=== PATIENT | female | born 1940 | race Caucasian/White ===

== ENCOUNTER 2023-08-07 12:38 | Outpatient (OUT) | payer MEDICARE, SELFPAY ==
--- NOTE | 2023-08-07 | MM_ITS ---
Patient Name: JULIUS TEJADA MR#: [id number] : 1940 Exam Date: 08/07/2023 Ordering Doctor: DR ARIANNA CINTRON D.O. RADIOLOGY REPORT PROCEDURE: MM TOMOSYNTHESIS SCREENING BI COMPARISON: MG MAMM SCREEN 3D DARLIN CAD, 08/06/2022. MG MAMM SCREEN DARLIN W CAD, 06/21/2020. MG MAMM SCREEN DARLIN W CAD, 06/01/2019. MG MAMM DARLIN SCRN W CAD DIG, 12/07/2013. INDICATIONS: Darlin Screening Mammogram Calculator Name NCI Breast Cancer Risk Assessment Tool 5 Year Breast Cancer Risk 1.40% Lifetime Breast Cancer Risk 1.70% Personal Breast Cancer No Personal Ovarian Cancer No Treatments None Family Cancers Mother with skin cancer at age 69; Sister with skin cancer at age 50. LOCATION: [facility] BREAST COMPOSITION: Scattered areas fibroglandular density. FINDINGS: DIAGNOSTIC CATEGORY 1--NEGATIVE. RIGHT BREAST: No significant suspicious finding. No significant change has occurred. LEFT BREAST: No significant suspicious finding. No significant change has occurred. RECOMMENDATIONS: ROUTINE MAMMOGRAM AND CLINICAL EVALUATION IN 12 MONTHS. PLEASE NOTE: A NORMAL MAMMOGRAM DOES NOT EXCLUDE THE POSSIBILITY OF BREAST CANCER. A CLINICALLY SUSPICIOUS PALPABLE LUMP SHOULD BE BIOPSIED. Dictated by: Reji Carlos M.D. on 08/08/2023 at 11:58 Approved by: Reji Carlos M.D. on 08/08/2023 at 12:02
== END 2023-08-07 12:39 | disposition home or self-care (01) ==
LOC: MAMMO 12:44
PROVIDERS: PCP Internal Medicine; Visit Provider Internal Medicine
DX: Z12.31 Encounter for screening mammogram for malignant neoplasm of breast (principal); Z80.8 Family history of malignant neoplasm of other organs or systems
CPT/HCPCS: 77063; 77067

== ENCOUNTER 2024-09-13 12:26 | Emergency (ER) | payer MEDICARE, SELFPAY ==
--- OUTSIDE RECORDS SUMMARY | 2024-09-13 12:41 | XMS_ITS | CCD ---
Author Organization [facility] Inform ion Partnership [facility] Care Team Providers Care Cheese Supervisor Name Role Phone Ignacio Cintron Primary Care Provider [phone] Kristie Mcarthur Attending Unavailable Sameer Morales Referring Unavailable VALONE , IGNACIO Joshi Primary Care Unavailabl e Wirikki, Sameer Attending Unavailable Sameer Morales Referring Unavailable VALONE , IGNACIO Joshi Primary Care Unavailabl e Sameer Morales Admitting Unavailable Sameer Morales Attending Unavailable ABDULAZIZ COLUNGA, IGNACIO Joshi Referring Unavailabl e VALANA LILIA COLUNGA, IGNACIO Joshi Primary Care Unavailabl e VALONE , IGNACIO Joshi Primary Care UnavailJOANNE Galvez Attending Unavailable Sameer Morales Admitting Unavailable Andrew, Sameer Attending Unavailable Sameer Morales Referring Unavailable SUZIONE , IGNACIO Joshi Primary Care Unavailabl e VALONE , IGNACIO Joshi Primary Care Unavailabl NAVJOT Burk Attending Unavailable Ignacio Cintron DO Primary Care Provider Ignacio Cintron DO Primary Care Provider [phone] ABDULAZIZ, DR PIERRE Admitting Unavailable ABDULAZIZ, DR PIERRE Attending Unavailable VALANA LILIA, DR PIERRE Primary Care Unavailable VALANA LILIA, DR PIERRE Consulting Unavailable JAGDEEP, DR BEN Goins Consulting Unavailable Ignacio Cintron DO Primary Care Provider [phone] IGNACIO CINTRON Primary Care Unavailable JUAN FRANCISCO HERMOSILLO Attending Unavailable IGNACIO CINTRON Primary Care Unavailable VALERIY CALZADA Attending Unavailable IGNACIO CINTRON Primary Care Unavailable DANNY ARAUJO Attending Unavailable IGNACIO CINTRON Primary Care Unavailable MARK HILLS Attending Unavailable IGNACIO CINTRON Primary Care Unavailable DAYO VITALE Admitting Unavailable DAYO VITALE Attending Unavailable JENNIFER FERRARA Consulting Unavailable DANIELA OCONNOR Consulting Unavailable IGNACIO CINTRON Primary Care Unavailable NATALIE NGUYEN Attending Unavailable Allergies Allergy Classification Reported Allergen(s) Allergy Type Date of Onset Reaction(s) Facility (12 sources) Sulfonamides (Antibiotic) Propensity to adverse reactions to drug 6 Nausea Only [facility] Work Phone: (7 sources) Sulfonamides (Antibiotic) Propensity to adverse reactions to drug 6 Nausea Only [facility] [employer] [facility] (1 source) Sulfonamides (Antibiotic) Drug allergy (disorder) [address] [facility] Repository (2 sources) Acetaminophen / HYDROcodone Drug Allergy 4 Nausea And Vomiting, Dizziness or Vertigo [facility] Medications Current Medications Medication Drug Class(es) Dates Sig (Normalized) Sig (Original) acetaminophen 325 mg oral tablet (15 sources) Start: 07-14-2024 take 2 tablets by mouth every six hours as needed for pain acetaminophen (TYLENOL) 325 MG tablet Take 2 tablets by mouth every 6 hours as needed for Pain or Fever 07/14/2024 Active Start: 07-08-2024 acetaminophen (TYLENOL) tablet 650 mg Start: 11-28-2022 acetaminophen (TYLENOL) tablet 650 mg take 1 tablet by nohemi th every four hours acetaminophen 325 MG tablet Take 325 mg by mouth every 4 hours. 0 Active Acetaminophen / HYDROcodone (7 sources) Opioid Agonist Start: 07-06-2024 This order is for a take home starter pack of medication. Please document Furnish to patient on the OCT. Start: 07-06-2024 End: 07-06-2024 take 1 tablet by mouth every twenty-four hours 1 tablet, Oral, ONCE, 1 dose, On 07/06/24 at 1930, Maximum dose of acetaminophen is 4000 mg from all sources in 24 hours. Start: 07-06-2024 End: 07-09-2024 HYDROcodone-acetaminophen (N ORCO) 5-325 MG per tablet Indications: Closed fracture of head of right humerus, initial encounter Take 1 tablet by mouth every 6 hours as needed for Pain for up to 3 days. Intended supply: 3 days. Take lowest dose possible to manage pain Max Daily Amount: 4 tablets 12 tablet 07/06/2024 07/08/2024 Discontinued (Side effects) Start: 10-05-2019 End: 10-12-2019 take 1 tablet by mouth every six hours as needed for pain hydroCODone-acetaminophen 5-325 MG tablet Indications: Carpal tunnel syndrome on right Take 1 tablet by mouth every 6 hours as needed for Moderate Pain for up to 7 days. 28 tablet 0 10/05/2019 Active acetaminophen 325 mg / oxyCODONE hydrochloride 5 mg oral tablet (4 sources) Opioid Agonist Start: 02-09-2019 End: 02-16-2019 take 1 tablet by mouth every six hours as needed oxyCODONE-acetaminophen 5-325 MG Tab per tablet Indications: Left carpal tunnel syndrome Take 1 tablet by mouth every 6 hours as needed for up to 7 days. 12 tablet 0 02/09/2019 Active End: 07-08-2021 take 1 tablet by mouth every four hours as needed for pain oxyCODONE-acetaminophen (PERCOCET) 2.5-3 25 MG per tablet Take 1 tablet by mouth every 4 hours as needed for Pain 0 07/08/2021 Discontinued (LIST CLEANUP) acyclovir 800 mg oral tablet (1 source) Herpesvirus Nucleoside Analog DNA Polymerase Inhibitor, Herpes Simplex Virus Nucleoside Analog DNA Polymerase Inhibitor, Herpes Zoster Virus Nucleoside Analog DNA Polymerase Inhibitor Start: 07-08-2021 End: 07-18-2021 take 1 tablet by mouth five times daily acyclovir (ZOVIRAX) 800 MG tablet Take 1 tablet by mouth 5 times daily for 10 days 50 tablet 0 07/08/2021 07/18/2021 Active amLODIPine 5 mg oral tablet (3 sources) Dihydropyridine Calcium Channel Perico Start: 07-10-2024 take 1 tablet by mouth once daily amLODIPine (NORVASC) 5 MG tablet Take 1 tablet by mouth daily 07/14/2024 Active benzocaine-menthol (CEPACOL) 15-4 MG LOZG lozenge (1 source) Start: 12-21-2023 End: 12-26-2023 benzocaine-ment hol (CEPACOL) 15-4 MG LOZG lozenge Take 1 lozenge by mouth 3 times daily as needed for Sore Throat (Sore throat) 15 lozenge 0 12/21/2023 12/26/2023 Active calcium citrate 1500 mg / cholecalciferol 250 unt oral tablet (8 sources) Vitamin D take 1 tablet by mouth once daily at breakfast calcium citrate-vitamin D (CITRICAL + D) 315-250 MG-UNIT TABS per tablet Take 1 tablet by mouth daily (with breakfast) Active cephalexin 500 mg oral capsule (2 sources) Cephalosporin Antibacterial Start: 10-05-2019 End: 10-12-2019 take 1 capsule by mouth every twelve hours cephALEXin 500 MG capsule Take 1 capsule by mouth every 12 hours for 7 days. 14 capsule 0 10/05/2019 10/12/2019 Active Start: 02-09-2019 End: 02-16-2019 take 1 capsule by mouth every twelve hours cephALEXin 500 MG Cap capsule Take 1 capsule by mouth every 12 hours for 7 days. 14 capsule 0 02/09/2019 02/16/2019 Active diclofenac sodium 0.01 mg/mg topical gel (12 sources) Nonsteroidal Anti-inflammatory Drug Start: 07-12-2024 diclofenac sodium (VOLTAREN) 1 % GEL Apply 2 g topically 2 times daily 07/14/2024 Active Diclofenac Sodiu m (VOLTAREN) 1 % Gel gel Place on skin. 0 Active DULoxetine 20 mg delayed release oral capsule (19 sources) Serotonin and Norepinephrine Reuptake Inhibitor Start: 07-08-2024 take 1 capsule by mouth once daily 40 mg, Oral, Nightly, First dose on Sat07/08/24 at 2100, Until Discontinued, Do not crush or break. May add contents of capsule to apple juice or apple sauce, but not chocolate., On hold since Sat07/10/2024 at 0720 until manually unheld Start: 11-28-2022 DULoxetine (CY MBALTA) extended release capsule 40 mg End: 07-14-2024 take 2 capsules by mouth once daily at bedtime DULoxetine (CYMBALTA) 20 MG extended release capsule Take 2 capsules by mouth at bedtime Patient takes 40mg. 2 capsules daily 07/14/2024 Discontinued (Stop Taking at Discharge) take 1 capsule by [facility] once daily duloxetine [address] Particles capsule DR Take 60 mg by mouth daily. 0 Active icosapent ethyl 1000 mg oral capsule (2 sources) Start: 11-28-2022 take 1 capsule by mouth once daily 1 capsule, Oral, DAILY, First dose on Sat11/28/22 at 0900 ondansetron (ZOFRAN-ODT) disintegrating tablet 4 mg (2 sources) Start: 07-08-2024 ondansetron (Z OFRAN-ODT) disintegrating tablet 4 mg Start: 11-28-2022 ondansetron (Z OFRAN-ODT) disintegrating tablet 4 mg polyethylene glycol 3350 [id number] mg powder for oral solution (4 sources) Osmotic Laxative Start: 07-08-2024 End: 08-13-2024 take 1 dose by mouth once daily as needed for constipation polyethylene glycol (GLYCOLAX) 17 g packet Take 1 packet by mouth daily as needed for Constipation 07/14/2024 08/13/2024 Active Start: 11-28-2022 17 g, Oral, DA HARMAN PRN, Starting on Sat11/28/22 at 0005, Until Discontinued, Constipation First line therapy for constipation predniSONE 10 mg oral tablet (1 source) Start: 07-14-2024 End: 07-28-2024 take 3 tablets by mouth twice daily, then take 2 tablets by mouth twice daily, then take 1 tablet by mouth twice daily, then take 1 tablet by mouth once daily predniSONE (DELTASONE) 10 MG tablet Take 3 tablets by mouth 2 times daily for 3 days, THEN 2 tablets 2 times daily for 3 days, THEN 1 tablet 2 times daily for 3 days, THEN 1 tablet daily for 5 days. 07/14/2024 07/28/2024 Active sodium chloride 1000 mg oral tablet (15 sources) Start: 07-14-2024 take 2 tablets by mouth twice daily at mealtime sodium chloride 1 g tablet Take 2 tablets by mouth 2 times daily (with meals) 07/14/2024 Active Start: 07-11-2024 2 g, Oral, 2 T IMES DAILY WITH MEALS, First dose on Sat07/11/24 at 0800, Until Discontinued Start: 07-10-2024 IntraVENous, a t 5-250 mL/hr, PRN, if patient receiving piggyback infusions and maintenance fluids are not ordered, Starting on Sat07/10/24 at 1048, For piggyback infusion, administer at same rate as piggyback for a total of 25 mL. Enter 25 mL into dose field and piggyback rate into rate field of order. If piggyback is infusing at a rate less than 100 mL/hr, enter 25 mL into dose field and 100 mL/hr into rate field of order. Start: 07-10-2024 End: 07-11-2024 50 mL/hr, IntraVENous, BLANCA NUOUS, Starting on Sat07/10/24 at 1115, Until 07/11/24 at 0743, For rates greater than 100 mL/hr, CENTRAL LINE/PICC LINE administration required. Goal serum Na+ = 121 to 123. Stop once sodium at 123. Notify physician and HOLD infusion if sodium increases more than 4 mEq/L (4 mmol/L) over 2 hours OR 8-10 mEq/L (8-10 mmol/L) over 24 hours OR if serum Na+ goal is exceeded. Start: 07-10-2024 5-40 mL, Intra VENous, EVERY 12 HOURS SCHEDULED (2 times per day), First dose on Sat07/10/24 at 1115, Until Discontinued, For Line Patency: Peripheral IV = 5 mL; Midline or Central Line = 10 mL/lumen. If following IV push medication, administer flush at same rate as the IV push. Flush volume is determined by type of infusion therapy being given. For non-viscous solutions use: Peripheral IV = 5 mL Midline or Central Line = 10 mL/lumen For viscous solutions (i.e. blood components, parenteral nutrition, contrast media, or after obtaining blood sample) use: Peripheral IV = 10 mL Midline or Central Line = 20 mL/lumen Start: 07-10-2024 5-40 mL, Intra VENous, PRN, Starting on Sat07/10/24 at 1048, Until Discontinued, Line Care, After every IV line use, For Line Patency: Peripheral IV = 5 mL; Midline or Central Line = 10 mL/lumen. If following IV push medication, administer flush at same rate as the IV push. Flush volume is determined by type of infusion therapy being given. For non-viscous solutions use: Peripheral IV = 5 mL Midline or Central Line = 10 mL/lumen For viscous solutions (i.e. blood components, parenteral nutrition, contrast media, or after obtaining blood sample) use: Peripheral IV = 10 mL Midline or Central Line = 20 mL/lumen Start: 07-08-2024 Start: 07-08-2024 End: 07-10-2024 IntraVENous, at 75 mL/hr, CONTINUOUS, Starting on Celi 07/09/24 at 1445, For 48 hours, Complete last bag that is running at 24 hours and then saline lock IV Start: 07-08-2024 10 mL, IntraVE Nous, EVERY 12 HOURS SCHEDULED (2 times per day), First dose on Sat07/08/24 at 1130, Until Discontinued Start: 07-08-2024 1,000 mL (16.7 mL/kg), IntraVENous, at 495.9 mL/hr, Administer over 121 Minutes, ONCE, On Sat07/08/24 at 0615, For 1 dose, For adult patients weighing > 55 kg (120 lbs.) and less than Start: 11-28-2022 take 1 dose intraven ously twice daily 5-40 mL, IntraVENous, EVERY 12 HOURS SCHEDULED (2 times per day), First dose on Sat11/28/22 at 0900, Until Discontinued For Line Patency: Peripheral IV = 5 mL; Midline or Central Line = 10 mL/lumen. If following IV push medication, administer flush at same rate as the IV push. Flush volume is determined by type of infusion therapy being given. For non-viscous solutions use: Peripheral IV = 5 mL Midline or Central Line = 10 mL/lumen For viscous solutions (i.e. blood components, parenteral nutrition, contrast media, or after obtaining blood sample) use: Peripheral IV = 10 mL Midline or Central Line = 20 mL/lumen Start: 11-28-2022 take 25 mL intraveno usly every hour as needed 25 mL, IntraVENous, at 100 mL/hr, PRN, If patient receiving piggyback infusions without ordered maintenance IV fluids or with frequent/long duration piggyback infusions, Starting on Sat11/28/22 at 0005 Administer at the same rate as the piggyback being infused. Start: 11-28-2022 take 5-40 mL intrave nously once as needed 5-40 mL, IntraVENous, PRN, Starting on Sat11/28/22 at 0005, Until Discontinued, Line Care, After every IV line use For Line Patency: Peripheral IV = 5 mL; Midline or Central Line = 10 mL/lumen. If following IV push medication, administer flush at same rate as the IV push. Flush volume is determined by type of infusion therapy being given. For non-viscous solutions use: Peripheral IV = 5 mL Midline or Central Line = 10 mL/lumen For viscous solutions (i.e. blood components, parenteral nutrition, contrast media, or after obtaining blood sample) use: Peripheral IV = 10 mL Midline or Central Line = 20 mL/lumen Completed/Discontinued Medications Medication Drug Class(es) Dates Sig (Normalized) Sig (Original) aluminum hydroxide 40 mg/ml / magnesium hydroxide 40 mg/ml / simethicone 4 mg/ml oral suspension (1 source) Start: 12-19-2023 End: 12-19-2023 aluminum & magnesium hydroxide-simethi cone (MAALOX) 200-200-20 MG/5ML suspension 15 mL amoxicillin 875 mg / clavulanate 125 mg oral tablet (3 sources) Penicillin-class Antibacterial Start: 10-12-2018 End: 10-12-2018 amoxicillin-clavu lanate (AUGMENTIN) 875-125 MG per tablet Start: 10-12-2018 End: 10-12-2018 amoxicillin-clavulanate (AUG MENTIN) 875-125 MG per tablet 1 tablet Start: 10-12-2018 End: 10-19-2018 take 1 tablet by mouth every twelve hours amoxicillin-clavulanate 875-125 MG Tab tablet Take 1 tablet by mouth every 12 hours for 7 days. 14 tablet 0 10/12/2018 10/19/2018 Active aspirin 81 mg chewable tablet (20 sources) Platelet Aggregation Inhibitor, Nonsteroidal Anti-inflammatory Drug Start: 07-08-2024 take 81 mg by mouth once daily 81 mg, Oral, DAILY, First dose on Sat07/08/24 at 1130, Until Discontinued Start: 11-28-2022 take 81 mg by mouth once daily 81 mg, Oral, DAILY, First dose on Sat11/28/22 at 0900, Until Discontinued Start: 11-27-2022 aspirin chewab le tablet 324 mg take 1 tablet by nohemi th once daily aspirin 81 MG tablet Take 1 tablet by mouth daily Active aspirin 81 MG Ch ew Tab chewable tablet Chew 81 mg daily. 0 Active bacitracin 0.5 unt/mg topical ointment (1 source) Start: 10-12-2018 End: 10-12-2018 bacitracin ointment 1 Application benzocaine 6 mg / menthol 10 mg oral lozenge (1 source) Standardized Chemical Allergen Start: 12-21-2023 End: 12-21-2023 Benzocaine-Menthol (CEPACOL) 1 lozenge 2 ml bumetanide 0.25 mg/ml injection (1 source) Loop Diuretic Start: 07-10-2024 End: 07-10-2024 1 mg, IntraVENous, ONCE, 1 dose, On Sat07/10/24 at 1115 calcium carbonate 1250 mg / cholecalciferol 200 unt oral tablet (1 source) Vitamin D Start: 07-09-2024 take 1 tablet by mouth once daily at mealtime 1 tablet, Oral, DAILY WITH BREAKFAST, First dose on Sat07/09/24 at 0800, Until Discontinued, Administer, preferably with food, 2 hours before or after other medications. 100 ml calcium gluconate 20 mg/ml injection (1 source) Start: 07-08-2024 End: 07-08-2024 2,000 mg, IntraVENous, at 50 mL/hr, Administer over 120 Minutes, ONCE, On Sat07/08/24 at 1000, For 1 dose docosahexaenoic acid 1000 mg / omega-3 acid ethyl esters (retirement) 300 mg delayed release oral capsule (3 sources) End: 11-27-2022 take 2000 mg by mouth once daily [place]-3 Fatty Acids (FISH OIL) 1000 MG CPDR Take 2,000 mg by mouth daily 0 11/27/2022 Discontinued doxycycline hyclate 100 mg oral capsule (2 sources) Tetracycline-class Drug Start: 08-08-2024 End: 08-08-2024 100 mg, Oral, ONCE, 1 dose, On Sat08/08/24 at 1945, Antimicrobial Indications: Pneumonia (Nosocomial), Pnuemonia (Nosocomial) duration of therapy: Other, Other Pneumonia (Nosocomial) Duration: 1, This medication can interact with tube feedings (TF)- obtain MD order to manage. Recommend holding TF for 1 h before and 2 h after dose. Take 1 h before or 2 h after dairy, calcium, iron, magnesium, aluminum or zinc. Start: 08-08-2024 End: 08-18-2024 take 1 tablet by mouth twice daily doxycycline hyclate (VIBRA-TABS) 100 MG tablet Take 1 tablet by mouth 2 times daily for 10 days 20 tablet 08/08/2024 08/18/2024 Active 0.4 ml enoxaparin sodium 100 mg/ml prefilled syringe (2 sources) Low Molecular Weight Heparin Start: 07-08-2024 inject 40 mg by subcutaneous injection once daily 40 mg, SubCUTAneous, DAILY, First dose on Sat07/08/24 at 1130, Until Discontinued, Indication of Use: Prophylaxis-DVT/PE Start: 11-28-2022 inject 40 mg by subc utaneous injection once daily 40 mg, SubCUTAneous, DAILY, First dose on Sat11/28/22 at 0900, Until Discontinued Indication of Use: Prophylaxis-DVT/PE EPINEPHrine 0.01 mg/ml / lidocaine hydrochloride 10 mg/ml injectable solution (1 source) Antiarrhythmic, alpha-Adrenergic Agonist, beta-Adrenergic Agonist, Catecholamine, Amide Local Anesthetic Start: 10-05-2019 End: 10-05-2019 lidocaine-epinephrine 1%-1:[id number] injection ezetimibe 10 mg oral tablet (20 sources) Dietary Cholesterol Absorption Inhibitor Start: 07-08-2024 take 5 mg by mouth once daily in the morning 5 mg, Oral, EVERY MORNING, First dose on Sat07/08/24 at 1130, Until Discontinued Start: 11-28-2022 take 5 mg by mouth o nce daily in the morning 5 mg, Oral, EVERY MORNING, First dose on Sat11/28/22 at 0900, Until Discontinued take 0.5 tablet by m outh once daily in the morning ezetimibe (ZETIA) 10 MG tablet Take 0.5 tablets by mouth every morning Active take 5 mg by mouth o nce daily in the morning ezetimibe (ZETIA) 10 MG tablet Take 5 mg by mouth every morning 0 Active famotidine 20 mg oral tablet (1 source) Histamine-2 Receptor Antagonist Start: 11-28-2022 take 20 mg by mouth once daily 20 mg, Oral, DAILY, First dose on Sat11/28/22 at 0900, Until Discontinued fexofenadine hydrochloride 180 mg oral tablet (11 sources) Histamine-1 Receptor Antagonist End: 07-08-2021 take 1 tablet by mouth once daily in the morning fexofenadine (MATT) 180 MG tablet Take 180 mg by mouth every morning 0 07/08/2021 Discontinued (LIST CLEANUP) fluticasone propionate 0.05 mg/actuat metered dose nasal spray (8 sources) Corticosteroid End: 10-05-2019 fluticasone 50 MCG/ACT Suspension nasal spray 2 sprays by Nasal route daily as needed. 0 10/05/2019 Discontinued (Stop Taking at Discharge) gentamicin (GARAMYCIN) 120 mg in sodium chloride 0.9 % 1,000 mL irrigation solution (2 sources) Start: 10-05-2019 End: 10-05-2019 gentamicin (GARAMYCIN) 120 mg in sodium chloride 0.9 % 1,000 mL irrigation solution Start: 02-09-2019 gentamicin (GA RAMYCIN) 120 mg in sodium chloride 0.9 % 1,000 mL irrigation solution 500 ml glucose 50 mg/ml / potassium chloride 0.02 meq/ml / sodium chloride 4.5 mg/ml injection (1 source) Start: 07-08-2024 End: 07-09-2024 IntraVENous, at 75 mL/hr, CONTINUOUS, Starting on Sat07/08/24 at 1130, For 24 hours, Complete last bag that is running at 24 hours and then saline lock IV ibuprofen 600 mg oral tablet (3 sources) Nonsteroidal Anti-inflammatory Drug Start: 11-19-2015 End: 11-28-2022 take 1 tablet by mouth three times daily at mealtime ibuprofen (ADVIL;MOTRIN) 600 MG tablet Take 1 tablet by mouth 3 times daily (with meals) for 7 days 20 tablet 0 11/19/2015 11/28/2022 Discontinued (Stop Taking at Discharge) iopamidol (ISOVUE-370) 76 % injection 75 mL (2 sources) Start: 08-08-2024 End: 08-08-2024 take 1 dose intravenously once 75 mL, IntraVENous, IMG ONCE PRN, 1 dose, Starting on 08/08/24 at 1853, Until 08/08/24 at 1854, Other Start: 07-08-2024 End: 07-08-2024 take 1 dose intravenously once 75 mL, IntraVENous, IMG ONCE PRN, 1 dose, Starting on Sat07/08/24 at 0747, Until Sat07/08/24 at 0814, Other 1 ml ketorolac tromethamine 15 mg/ml cartridge (2 sources) Nonsteroidal Anti-inflammatory Drug, Cyclooxygenase Inhibitor Start: 07-13-2024 End: 07-13-2024 15 mg, IntraVENous, ONCE, 1 dose, On Sat07/13/24 at 0400, Do not administer for more than 5 days. Start: 07-08-2024 End: 07-08-2024 15 mg, IntraVENous, ONCE, 1 dose, On Sat07/08/24 at 0630, Do not administer for more than 5 days. labetalol hydrochloride 5 mg/ml injectable solution (1 source) beta-Adrenergic Perico Start: 07-08-2024 End: 07-08-2024 10 mg, IntraVENous, ONCE, 1 dose, On Sat07/08/24 at 0815 levothyroxine sodium 0.125 mg oral tablet (20 sources) l-Thyroxine Start: 11-28-2022 take 125 ug by mouth once daily in the morning 125 mcg, Oral, EVERY MORNING, First dose on Sat07/08/24 at 1130, Until Discontinued, Tube feeding (TF) interaction, obtain physician order to manage, recommend holding TF for 30 minutes before and after dose. take 0.5 tablet by mouth once Le vothyroxine Sodium (LEVOTHROID PO) Take 125 mg by mouth. 1 tablet X 5 days/week (Sat-Sat.). 1/2 Tablet X 2 days/week (Sat & Sat) 0 Active Levothyroxine So dium (LEVOTHROID PO) Take 125 mg by mouth. 125 every & , 1/2 on Saturday, Saturday, Saturday, Saturday & Saturday 0 Active Levothyroxine So dium (LEVOTHROID PO) Take 125 mg by mouth. 125 every & , 1/2 on Saturday, Saturday, Saturday, Saturday & Saturday Active lidocaine hydrochloride 20 mg/ml mucous membrane topical solution (3 sources) Antiarrhythmic, Amide Local Anesthetic Start: 12-19-2023 End: 12-19-2023 lidocaine viscous hcl (XYLOCAINE) 2 % solution 15 mL Start: 12-21-2019 End: 12-22-2019 lidocaine (LIDODERM) 5 % pat ch 1 patch LORazepam 0.5 mg oral tablet (1 source) Benzodiazepine Start: 11-28-2022 End: 11-28-2022 LORazepam (ATIVAN) tablet 0.5 mg losartan potassium 50 mg oral tablet (4 sources) Angiotensin 2 Receptor Perico Start: 11-28-2022 take 100 mg by mouth once daily in the morning 100 mg, Oral, EVERY MORNING, First dose on Sat11/28/22 at 0900, Until Discontinued End: 11-28-2022 take 1 tablet by mouth once daily in the morning losartan (COZAAR) 100 MG tablet Take 100 mg by mouth every morning 0 11/28/2022 Discontinued (Stop Taking at Discharge) Magic Mouthwash (MIRACLE MOUTHWASH) (3 sources) Start: 07-08-2021 End: 11-27-2022 Magic Mouthwash (MIRACLE MOUTHWASH) Swish and spit 5 mLs 4 times daily as needed for Irritation 240 mL 0 07/08/2021 11/27/2022 Discontinued Start: 07-08-2021 Magic Mouthwas h (MIRACLE MOUTHWASH) Swish and spit 5 mLs 4 times daily as needed for Irritation 240 mL 0 07/08/2021 Active 50 ml magnesium sulfate 40 mg/ml injection (1 source) Start: 07-08-2024 End: 07-08-2024 2,000 mg, IntraVENous, at 25 mL/hr, Administer over 2 Hours, ONCE, On Sat07/08/24 at 0745, For 1 dose, Recommended infusion rate not to exceed 1,000 mg (milligrams) per hour. meclizine hydrochloride 25 mg oral tablet (9 sources) Antiemetic Start: 07-08-2024 take 12.5 mg by mouth twice daily 12.5 mg, Oral, 2 times daily, First dose on Sat07/08/24 at 1130, Until Discontinued Start: 08-12-2022 End: 08-12-2022 meclizine (ANTIVERT) tablet 25 mg Start: 08-12-2022 End: 08-22-2022 take 1 tablet by mouth three times daily as needed for dizziness meclizine (ANTIVERT) 12.5 MG tablet Take 1 tablet by mouth 3 times daily as needed for Dizziness 30 tablet 0 08/12/2022 08/22/2022 Active End: 07-08-2021 take 25 mg by mouth four times daily as needed meclizine (ANTIVERT) 25 MG CHEW Take 25 mg by mouth 4 times daily as needed 0 07/08/2021 Discontinued (LIST CLEANUP) methylPREDNISolone sodium succ (SOLU-MEDROL) 125 mg in sterile water 2 mL injection (1 source) Start: 07-13-2024 End: 07-13-2024 125 mg, IntraVENous, ONCE, On Sat07/13/24 at 0830, For 1 dose, Reconstitute 125 mg vial with 2 mL diluent. 24 hr metoprolol succinate 100 mg extended release oral tablet (2 sources) beta-Adrenergic Perico Start: 07-08-2024 100 mg, Oral, DAILY, First dose on Sat07/08/24 at 1130, Until Discontinued, Substituted for nebivolol (BYSTOLIC) Start: 06-23-2019 End: 06-23-2019 metoprolol (LOPRESSOR) injec tion 5 mg montelukast 10 mg oral tablet (12 sources) Leukotriene Receptor Antagonist Start: 11-28-2022 take 10 mg by mouth once daily 10 mg, Oral, NIGHTLY, First dose on Sat07/08/24 at 2100, Until Discontinued montelukast 5 MG Chew Tab chewable tablet Chew 5 mg every evening at 6 PM. 0 Active 1 ml morphine sulfate 2 mg/ml cartridge (2 sources) Opioid Agonist Start: 07-08-2024 End: 07-08-2024 take 1 dose by mouth every hour 2 mg, IntraVENous, ONCE, 1 dose, On Sat07/08/24 at 0845, If oral and IV narcotics ordered, use oral first and only use IV if oral is ineffective or cannot take oral. Do Not give oral and IV within 1 hour of each other unless specifically ordered. Start: 07-06-2024 End: 07-06-2024 take 1 dose by mouth every hour 2 mg, IntraVENous, ONCE, 1 dose, On Sat07/06/24 at 1730, If oral and IV narcotics ordered, use oral first and only use IV if oral is ineffective or cannot take oral. Do Not give oral and IV within 1 hour of each other unless specifically ordered. nebivolol 10 mg oral tablet (20 sources) Start: 11-28-2022 take 10 mg by mouth once daily in the morning 10 mg, Oral, EVERY MORNING, First dose on Sat11/28/22 at 0900, Until Discontinued Please select a reason the therapeutic interchange was not accepted: Lack of Response to Alternative take 1 tablet by mouth once eva y nebivolol (BYSTOLIC) 5 MG Tab Take 5 mg by mouth daily. 0 Active Nebivolol HCl (B YSTOLIC) 20 MG Tab Take by mouth. 0 Active nitroglycerin 0.4 mg sublingual tablet (1 source) Nitrate Vasodilator Start: 11-28-2022 0.4 mg, SubLINGual, EVERY 5 MIN PRN, 3 doses, Starting on Sat11/28/22 at 0005, Until Discontinued, Chest pain Place 1 tablet under tongue upon chest pain, wait 5 minutes and may repeat up to 3 doses in 15 minutes. Do not crush or break. nystatin 478241 unt/ml oral suspension (3 sources) Polyene Antifungal End: 11-27-2022 take 023580 [IU] by mouth three times daily before mealtime nystatin (MYCOSTATIN) 381903 UNIT/ML suspension Take 500,000 Units by mouth 3 times daily (before meals) 0 11/27/2022 Discontinued omega-3 acid ethyl esters (retirement) 1000 mg oral capsule (10 sources) End: 10-05-2019 take 1 capsule by mouth twice daily omega-3 acid ethyl esters 1 g Cap capsule Take 1 g by mouth 2 times daily. 0 10/05/2019 Discontinued (Stop Taking at Discharge) 2 ml ondansetron 2 mg/ml injection (12 sources) Serotonin-3 Receptor Antagonist Start: 07-08-2024 End: 07-08-2024 4 mg, IntraVENous, ONCE, 1 dose, On Sat07/08/24 at 0845 Start: 07-08-2024 End: 07-08-2024 4 mg, IntraVENous, ONCE, 1 d ose, On Sat07/08/24 at 0615 Start: 07-06-2024 End: 07-06-2024 4 mg, IntraVENous, ONCE, 1 d ose, On Sat07/06/24 at 1730 Start: 08-12-2022 End: 08-12-2022 ondansetron (ZOFRAN) injecti on 4 mg Start: 08-12-2022 take 1 tablet by nohemi th three times daily as needed for nausea ondansetron (ZOFRAN-ODT) 4 MG disintegrating tablet Take 1 tablet by mouth 3 times daily as needed for Nausea or Vomiting 10 tablet 08/12/2022 Active Start: 12-16-2015 End: 07-08-2021 take 1 tablet by mouth every four hours as needed for nausea ondansetron (ZOFRAN) 4 MG tablet Take 1 tablet by mouth every 4 hours as needed for Nausea or Vomiting 15 tablet 0 12/16/2015 07/08/2021 Discontinued (LIST CLEANUP) microencapsulated potassium chloride 20 meq extended release oral tablet (5 sources) Start: 07-11-2024 End: 07-11-2024 40 mEq, Oral, ONCE, 1 dose, On 07/11/24 at 1145, Do not crush, chew, or suck on tablet. Tablet may also be broken in half and each half swallowed separately. Start: 07-10-2024 End: 07-10-2024 20 mEq, Oral, ONCE, 1 dose, On Sat07/10/24 at 1115, Do not crush or break. Do not crush, chew, or suck on tablet. Tablet may also be broken in half and each half swallowed separately. Start: 07-08-2024 End: 07-08-2024 10 mEq, IntraVENous, ONCE, 1 dose, On Sat07/08/24 at 0745, at 100 mL/hr, Potassium chloride doses are limited to a maximum of six consecutive doses before reassessment of laboratory values is needed. Start: 07-08-2024 End: 07-08-2024 40 mEq, Oral, ONCE, 1 dose, On Sat07/08/24 at 0745, Do not crush or break. Do not crush, chew, or suck on tablet. Tablet may also be broken in half and each half swallowed separately. Start: 11-28-2022 potassium chlo ride (KLOR-CON M) extended release tablet 40 mEq regadenoson (LEXISCAN) injection 0.4 mg (1 source) Start: 11-28-2022 End: 11-28-2022 regadenoson (LEXISCAN) injection 0.4 mg rosuvastatin calcium 40 mg oral tablet (20 sources) HMG-CoA Reductase Inhibitor Start: 11-28-2022 take 40 mg by mouth once daily in the evening 40 mg, Oral, EVERY EVENING, First dose on Sat07/08/24 at 1800, Until Discontinued take 2 tablets by mouth once radha ly rosuvastatin 20 MG Tab tablet Take 40 mg by mouth daily. 0 Active sacubitril 24 mg / valsartan 26 mg oral tablet (8 sources) Angiotensin 2 Receptor Perico Start: 07-08-2024 take 1 tablet by mouth twice daily 1 tablet, Oral, 2 TIMES DAILY, First dose on Sat07/08/24 at 1130, Until Discontinued Start: 11-28-2022 take 1 tablet by nohemi th twice daily 1 tablet, Oral, 2 TIMES DAILY, First dose on Sat11/28/22 at 0030, Until Discontinued take 24-26 mg by mouth once sacu bitril-valsartan (ENTRESTO) 24-26 MG per tablet Take 1 tablet by mouth 2 times daily Active technetium sestamibi (CARDIOLITE) injection 10 millicurie (1 source) Start: 11-28-2022 End: 11-28-2022 technetium sestamibi (CARDIOLITE) injection 10 millicurie technetium sestamibi (CARDIOLITE) injection 30 millicurie (1 source) Start: 11-28-2022 End: 11-28-2022 technetium sestamibi (CARDIOLITE) injection 30 millicurie tolvaptan 15 mg oral tablet (1 source) Vasopressin V2 Receptor Antagonist Start: 07-11-2024 End: 07-11-2024 15 mg, Oral, ONCE, 1 dose, On Sat07/11/24 at 2030, Has the patient failed fluid restriction? Yes, Is the patient's serum sodium less than 125 mEq/L and plasma osmolality less than 285 mOsm/kg OR less marked hyponatremia that is symptomatic and resistant to fluid restriction? Yes, Does patient have hypovolemic hypotonic hyponatremia OR signs of dehydration? No, Is the patient anuric? No traMADol hydrochloride 50 mg oral tablet (4 sources) Opioid Agonist Start: 07-10-2024 End: 07-10-2024 take 1 dose by mouth once 25 mg, Oral, ONCE, 1 dose, On Sat07/10/24 at 0830 Start: 07-10-2024 End: 07-17-2024 take 1 tablet by mouth every six hours as needed for pain traMADol (ULTRAM) 50 MG tablet Indications: Acute hyponatremia Take 1 tablet by mouth every 6 hours as needed for Pain for up to 3 days. Max Daily Amount: 200 mg 12 tablet 07/14/2024 07/17/2024 Active Start: 07-08-2024 End: 07-10-2024 take 25 mg by mouth every six hours as needed for pain 25 mg, Oral, EVERY 6 HOURS PRN, Starting on Sat07/08/24 at 1110, Until Sat07/10/24 at 0810, Allowed for higher pain score per patient request triamcinolone acetonide 0.055 mg/actuat metered dose nasal spray (2 sources) Corticosteroid Start: 08-12-2022 End: 11-28-2022 take 2 spray(s) nasal route once daily at bedtime triamcinolone (NASACORT ALLERGY 24HR) 55 MCG/ACT nasal inhaler 2 sprays each nostril daily at bedtime 1 each 3 08/12/2022 11/28/2022 Discontinued (Stop Taking at Discharge) valsartan 80 mg oral tablet (13 sources) Angiotensin 2 Receptor Perico End: 11-28-2022 take 1 tablet by mouth once daily valsartan (DIOVAN) 80 MG tablet Take 80 mg by mouth daily 0 11/28/2022 Discontinued (Stop Taking at Discharge) Problems Active Problems Problem Classification Problem Date Documented Da te Episodic/Chronic Anxiety disorders (1 source) Anxiety; Translations: [Anxiety] Chronic Conditions associated with dizziness or vertigo (1 source) Vertigo; Translations: [Dizziness and giddiness] Episodic Coronary atherosclerosis and other heart disease (5 sources) Coronary arteriosclerosis; Translations: [Atherosclerotic heart disease of [place] coronary artery without angina pectoris] Onset: 11-29-2022 11-29-2022 Chronic Diseases of mouth; excluding dental (1 source) Aphthous ulceration of skin and/or mucous membrane; Translations: [Recurrent oral aphthae] Episodic Disorders of lipid metabolism (5 sources) Dyslipidemia; Translations: [Hyperlipidemia, unspecified] Onset: 11-29-2022 11-29-2022 Chronic Essential hypertension (10 sources) Hypertensive disorder; Translations: [Essential (primary) hypertension] Onset: 11-28-2022 Chronic Fluid and electrolyte disorders (11 sources) Hyponatremia; Translations: [Hypo-osmolality and hyponatremia] Onset: 07-08-2024 Episodic Fracture of upper limb (5 sources) Closed fracture of head of humerus; Translations: [Other displaced fracture of upper end of right humerus, initial encounter for closed fracture] Onset: 07-06-2024 07-06-2024 Episodic Gastrointestinal hemorrhage (2 sources) Melena; Translations: [Melena] Onset: 08-08-2024 08-08-2024 Episodic Malaise and fatigue (2 sources) Asthenia; Translations: [Other malaise] Onset: 07-08-2024 07-08-2024 Episodic Open wounds of extremities (1 source) Laceration of finger; Translations: [Laceration of left middle finger without foreign body without damage to nail, initial encounter] Episodic Other injuries and conditions due to external causes (1 source) Dog bite - wound; Translations: [Dog bite, initial encounter] Episodic Other nervous system disorders (1 source) Carpal tunnel syndrome, left upper limb; Translations: [Left carpal tunnel syndrome] Chronic Other nervous system disorders (3 sources) Carpal tunnel syndrome of right wrist; Translations: [Carpal tunnel syndrome on right] Onset: 09-29-2019 09-29-2019 Other nutritional; endocrine; and metabolic disorders (1 source) Hypocalcemia; Translations: [Hypocalcemia] 07-08-2024 Chronic Other nutritional; endocrine; and metabolic disorders (1 source) Hypocalcemia; Translations: [Hypocalcemia] Onset: 07-08-2024 Chronic Other screening for suspected conditions (not mental disorders or infectious disease) (6 sources) Encounter for screening mammogram for malignant neoplasm of breast; Translations: [Hypomagnesemia] Onset: 08-06-2022 Episodic Pneumonia (except that caused by tuberculosis or sexually transmitted disease) (2 sources) Community acquired pneumonia; Translations: [Pneumonia, unspecified organism] Onset: 08-08-2024 08-08-2024 Episodic Residual codes; unclassified (1 source) Family history of malignant neoplasm of other organs or systems; Translations: [FAM HX MALIG NEOPLASM OTH ORGN/SYS] Onset: 08-15-2022 Episodic Unclassified (2 sources) Patient encounter status; Translations: [Pre-op testing] Past or Other Problems Problem Classification Problem Date Documented Da te Episodic/Chronic Nonspecific chest pain (7 sources) Chest pain; Translations: [Chest pain, unspecified] Onset: 11-27-2022 Episodic Other upper respiratory infections (2 sources) Sore throat symptom; Translations: [Acute pharyngitis, unspecified] Onset: 12-19-2023 12-19-2023 Episodic Sprains and strains (1 source) Unspecified sprain of right wrist, initial encounter; Translations: [Unspecified sprain of right wrist, initial encounter] Onset: 10-16-2023 Episodic Superficial injury; contusion (3 sources) Contusion of rib; Translations: [Abrasion of oropharynx] Onset: 12-21-2023 12-21-2023 Episodic Results Test Name Value Interpretation Reference Range Facility APTTon 08-08-2024 aPTT Coag (Bld) [Time] 25.5 s Low [facility] Comment on above: IV Heparin Therapy Range: 62.0-94.0 Interpretation and review of laboratory results Abnormal [facility] aPTT Coag (Bld) [Time] 25.5 s Low 26.8-34.8 [facility] Comment on above: Result Comment: IV Heparin Therapy Range: 62.0-94.0 Performed By: #### M Abundio, PAOLA, ZOILA, JA, SAMUEL #### [facility] [address] [place] [address] [employer] Mesh: Robb Lewis MD Basic Metabolic Panelon 12-2 Anion gap [Moles/Vol] 12 mmol/L 9 - 16 mmol/L [facility] Calcium [Mass/Vol] 9.8 mg/dL 8.6 - 10. 4 mg/dL [facility] Chloride [Moles/Vol] 102 mmol/L 98 - 10 7 mmol/L [facility] CO2 [Moles/Vol] 24 mmol/L 20 - 31 mmol/L [facility] Creatinine [Mass/Vol] 0.7 mg/dL 0.50 - 0.90 mg/dL [facility] Est, Glom Filt Rate 86 - [facility] Comment on above: These results are not intended for use in patients <18 years of age. eGFR results are calculated without a race factor using the 2020 CKD-EPI equation. Careful clinical correlation is recommended, particularly when comparing to results calculated using previous equations. The CKD-EPI equation is less accurate in patients with extremes of muscle mass, extra-renal metabolism of creatine, excessive creatine ingestion, or following therapy that affects renal tubular secretion. Glucose [Mass/Vol] 102 mg/dL High 74 - 99 mg/dL [facility] Potassium [Moles/Vol] 3.8 mmol/L 3.7 - 5.3 mmol/L [facility] Sodium [Moles/Vol] 138 mmol/L 136 - 145 mmol/L [facility] Urea nitrogen [Mass/Vol] 7 mg/dL Low 8 - 23 mg/dL [facility] Urea nitrogen/Creatinine [Mass ratio] 10 mg/mg - [facility] Basic Metabolic Profon 08-08 Anion gap [Moles/Vol] 12 mmol/L Normal - [facility] Comment on above: Performed By: #### U OSMO #### [address] [id number] [employer]esh: Tai Vázquez MD #### URNA #### [address] [place] [address] [employer] Mesh: Robb Lewis MD BUN/CRE Ratio 10 Normal - [facility] Comment on above: Performed By: #### U OSMO #### [id number] [place] [address] [employer] Mesh: Tai Vázquez MD #### URNA #### [address] [place] [address] [employer] Mesh: Robb Lewis MD Calcium [Mass/Vol] 9.8 mg/dL Normal 8.6-10.4 [facility] Comment on above: Performed By: #### U OSMO #### [address] [id number] [employer]esh: Tai Vázquez MD #### URNA #### [address] [place] [address] [employer] Wire Mesh: Robb Lewis MD Chloride [Moles/Vol] 102 mmol/L Normal 98-107 [facility] Comment on above: Performed By: #### U OSMO #### [address] [place] [address] [employer] Mesh: Tai Vázquez MD #### URNA #### [facility] [address] [place] [address] [employer] Mesh: Robb Lewis MD CO2 [Moles/Vol] 24 mmol/L Normal 20-31 [facility] Comment on above: Performed By: #### U OSMO #### [address] [address] [employer] Mesh: Tai Vázquez MD #### URNA #### [facility] [address] [place], [place] [id number] [employer] Mesh: Robb Lewis MD Creatinine [Mass/Vol] 0.7 mg/dL Normal 0.50-0.90 [facility] Comment on above: Performed By: #### U OSMO #### [address] [id number] [employer] Mesh: Tai Vázquez MD #### URNA #### [facility] [address] [place] [address] [employer] Wire Mesh: Robb Lewis MD GFR/1.73 sq M.predicted among non-blacks MDRD (S/P/Bld) [Vol rate/Area] 86 mL/min/{1.73_m2} Normal >60 [facility] Comment on above: Result Comment: These results are not intended for use in patients <18 years of age. eGFR results are calculated without a race factor using the 2020 CKD-EPI equation. Careful clinical correlation is recommended, particularly when comparing to results calculated using previous equations. The CKD-EPI equation is less accurate in patients with extremes of muscle mass, extra-renal metabolism of creatine, excessive creatine ingestion, or following therapy that affects renal tubular secretion. Performed By: #### U OSMO #### [address] [place] [address] [employer] Mesh: Tai Vázquez MD #### URNA #### [facility] [address] [place], [place] [id number] [employer] Mesh: Robb Lewis MD Glucose [Mass/Vol] 102 mg/dL High 74-99 [facility] Comment on above: Performed By: #### U OSMO #### [address] [address] [employer] Mesh: Tia Vázquez MD #### URNA #### [facility] [address] [place] [address] [employer] Mesh: Robb Lewis MD Potassium [Moles/Vol] 3.8 mmol/L Normal 3.7-5.3 [facility] Comment on above: Performed By: #### U OSMO #### [address] [address] [employer] Mesh: Tai Vázquez MD #### URNA #### [facility] [address] [place] [address] [place] [address] [employer] Mesh: Robb Lewis MD Sodium [Moles/Vol] 138 mmol/L Normal 136-145 [facility] Comment on above: Performed By: #### U OSMO #### [address] [address] [employer] Mesh: Tai Vázquez MD #### URNA #### [facility] [address] [place] [address] [place], [place] [id number] [employer] Mesh: Robb Lewis MD Urea nitrogen [Mass/Vol] 7 mg/dL Low 8-23 [facility] Comment on above: Performed By: #### U OSMO #### [address] [address] [employer] Mesh: Tai Vázquez MD #### URNA #### [facility] [address] [place] [address] [employer] Mesh: Robb Lewis MD Blood Occult Stool Screen #1 on 08-08-2024 Date, Stool #1 12 [facility] Comment on above: Hemoglobin.gastroint estinal spec 1 Ql (Stl) Negative NEGATIVE [facility] Time, Stool #1 [id number] [facility] CBC with Auto Differentialon 08-08-2024 Basophils (Bld) [#/Vol] 0.03 10*3/uL [facility] Basophils/100 WBC (Bld) 1 % 0 - 2 % [facility] Eosinophils (Bld) [#/Vol] 0.22 10*3/uL [facility] Eosinophils/100 WBC (Bld) 4 % 1 - 4 % [facility] Erythrocyte distribution width (RBC) [Ratio] 14.0 % 11.8 - 14.4 % [facility] Hematocrit (Bld) [Volume fraction] 34.4 % Low 36.3 - 47.1 % [facility] Hemoglobin (Bld) [Mass/Vol] 11.1 g/dL Low 11.9 - 15.1 g/dL [facility] Immature granulocytes (Bld) [#/Vol] [facility] Immature granulocytes/100 WBC (Bld) 0 % 0 [facility] Interpretation and review of laboratory results Abnormal [facility] Lymphocytes/100 WBC (Bld) 31 % 24 - 43 % [facility] Lymphocytes/100 WBC (Bld) 1.94 % [facility] MCH (RBC) [Entitic mass] 28.1 pg 25.2 - 33.5 pg [facility] MCHC (RBC) [Mass/Vol] 32.3 g/dL 28.4 - 34.8 g/dL [facility] MCV (RBC) [Entitic vol] 87.1 fL 82.6 - 102.9 fL [facility] Monocytes/100 WBC (Bld) 8 % 3 - 12 % [facility] Monocytes/100 WBC (Bld) 0.49 % [facility] Neutrophils/100 WBC (Bld) 56 % 36 - 65 % [facility] Nucleated RBC/100 WBC (Bld) [Ratio] 0.0 % 0.0 per 100 WBC [facility] Platelet mean volume (Bld) [Entitic vol] 10.0 fL 8.1 - 13.5 fL [facility] Platelets (Bld) [#/Vol] 362 10*3/uL [facility] RBC (Bld) [#/Vol] 3.95 10*6/uL 3.95 - 5.1 1 m/uL [facility] Segmented neutrophils/100 WBC (Bld) 3.62 % [facility] WBC other (Bld) [#/Vol] 6.3 [facility] CBC with Diffon 08-08-2024 Abs. Basophil 0.03 k/uL Normal 0.00-0.20 [facility] Comment on above: Performed By: #### M G, BMP, DIME, CDP, TROPI #### [facility] [address] [place] [id number] [employer] Mesh: Robb Lewis MD Abs.Imm.Granulocyte <0.03 Normal 0.00-0.30 [facility] Comment on above: Performed By: #### M G, BMP, DIME, CDP, TROPI #### [facility] [address] [place] [phone] [employer] Mesh: Robb Lewis MD Abs.Neutrophil (Seg) 3.62 k/uL Normal 1.50-8.10 [facility] Comment on above: Performed By: #### M G, BMP, DIME, CDP, TROPI #### [facility] [address] [place] [address] [employer] Mesh: Robb Lewis MD Basophils/100 WBC (Bld) 1 % Normal 0-2 [facility] Comment on above: Performed By: #### M G, BMP, DIME, CDP, TROPI #### [address] [place], [facility] Kn[employer] Mesh: Robb Lewis MD Eosinophils (Bld) [#/Vol] 0.22 10*3/uL Normal 0.00-0.44 [facility] Comment on above: Performed By: #### M G, BMP, DIME, CDP, TROPI #### [address] [place], [place] [address] Kn[employer] Mesh: Robb Lewis MD Eosinophils/100 WBC (Bld) 4 % Normal 1-4 [facility] Comment on above: Performed By: #### M G, BMP, DIME, CDP, TROPI #### [address] [place] [address] [employer] Mesh: Robb Lewis MD Erythrocyte distribution width (RBC) [Ratio] 14.0 % Normal 11.8-14.4 [facility] Comment on above: Performed By: #### M G, BMP, DIME, CDP, TROPI #### [address] [place], [facility] Kn[employer] Mesh: Robb Lewis MD Hematocrit (Bld) [Volume fraction] 34.4 % Low 36.3-47.1 [facility] Comment on above: Performed By: #### M G, BMP, DIME, CDP, TROPI #### [address] [place], [place] [address] [employer] Mesh: Robb Lewis MD Hemoglobin (Bld) [Mass/Vol] 11.1 g/dL Low 11.9-15.1 [facility] Comment on above: Performed By: #### M G, BMP, DIME, CDP, TROPI #### [address] [place], [facility] Kn[employer] Mesh: Robb Lewis MD Immature granulocytes/100 WBC (Bld) 0 % Normal 0 [facility] Comment on above: Performed By: #### M G, BMP, DIME, CDP, TROPI #### [facility] [address] [place], [place] [id number] [employer] Mesh: Robb Lewis MD Lymphocytes (Bld) [#/Vol] 1.94 10*3/uL Normal 1.10-3.70 [facility] Comment on above: Performed By: #### M G, BMP, DIME, CDP, TROPI #### [facility] [address] [place], [place] [id number] [employer] Mesh: Robb Lewis MD Lymphocytes/100 WBC (Bld) 31 % Normal 24-43 [facility] Comment on above: Performed By: #### M G, BMP, DIME, CDP, TROPI #### [address] [place], [facility] Kn[employer] Mesh: Robb Lewis MD MCH (RBC) [Entitic mass] 28.1 pg Normal 25.2-33.5 [facility] Comment on above: Performed By: #### M G, BMP, DIME, CDP, TROPI #### [address] [place], [place] [phone] [employer]esh: Robb Lewis MD MCHC (RBC) [Mass/Vol] 32.3 g/dL Normal 28.4-34.8 [facility] Comment on above: Performed By: #### M G, BMP, DIME, CDP, TROPI #### [facility] [address] [place], [place] [id number] [employer] Mesh: Robb Lewis MD MCV (RBC) [Entitic vol] 87.1 fL Normal 82.6-102.9 [facility] Comment on above: Performed By: #### M G, BMP, DIME, CDP, TROPI #### [address] [place] [address] [employer] Mesh: Robb Lewis MD Monocytes (Bld) [#/Vol] 0.49 10*3/uL Normal 0.10-1.20 [facility] Comment on above: Performed By: #### M G, BMP, DIME, CDP, TROPI #### [facility] [address] [place], [place] [id number] [employer] Mesh: Robb Lewis MD Monocytes/100 WBC (Bld) 8 % Normal 3-12 [facility] Comment on above: Performed By: #### M G, BMP, DIME, CDP, TROPI #### [facility] [address] [place] [address] Knitter Wire Mesh: Robb Lewis MD Neutrophil (Seg) 56 % Normal 36-65 [facility] Comment on above: Performed By: #### M G, BMP, DIME, CDP, TROPI #### [facility] [address] [place], [place] [id number] Knitter Wire Mesh: Robb Lewis MD NRBC Automated 0.0 per 100 WBC Normal 0.0 [facility] Comment on above: Performed By: #### M G, BMP, DIME, CDP, TROPI #### [address] [place], [place] [id number] Knitter Wire Mesh: Robb Lewis MD Platelet mean volume (Bld) [Entitic vol] 10.0 fL Normal 8.1-13.5 [facility] Comment on above: Performed By: #### M G, BMP, DIME, CDP, TROPI #### [facility] [address] [place] [address] Knitter Wire Mesh: Robb Lewis MD Platelets (Bld) [#/Vol] 362 10*3/uL Normal 138-453 [facility] Comment on above: Performed By: #### M G, BMP, DIME, CDP, TROPI #### [facility] [address] [place], [place] [id number] Knitter [employer] Mesh: Robb Lewis MD RBC (Bld) [#/Vol] 3.95 10*6/uL Normal 3.95-5.11 [facility] Comment on above: Performed By: #### M G, BMP, DIME, CDP, TROPI #### [facility] [address] [place] [address] Knitter Wire Mesh: Robb Lewis MD WBC (Bld) [#/Vol] 6.3 10*3/uL Normal 3.5-11.3 [facility] Comment on above: Performed By: #### M G, BMP, DIME, CDP, TROPI #### [facility] [address] [place] [address] Knitter Wire Mesh: Robb Lewis MD CT ABDOMEN PELVIS W IV CONTR [place] 08-08-2024 CT ABDOMEN PELVIS W IV CONTRAST EXAMINATION: CT OF THE ABDOMEN AND PELVIS WITH CONTRAST 08/08/2024 3:53 pm TECHNIQUE: CT of the abdomen and pelvis was performed with the administration of intravenous contrast. Multiplanar reformatted images are provided for review. Automated exposure control, iterative reconstruction, and/or weight based adjustment of the mA/kV was utilized to reduce the radiation dose to as low as reasonably achievable. COMPARISON: CT chest of 07/08/2024 HISTORY: ORDERING SYSTEM PROVIDED HISTORY: Rectlal bleeding, abdominal pain TECHNOLOGIST PROVIDED HISTORY: Rectlal bleeding, abdominal pain Decision Support Exception - unselect if not a suspected or confirmed emergency medical condition->Emergency Medical Condition (MA) FINDINGS: Lower Chest: Bibasal ground-glass opacities underlying and emphysematous changes. Organs: Liver is normal in size and density. No focal masses identified. No evidence of intrahepatic ductal dilatation. Spleen is normal size. Scattered calcified splenic granulomas. The gallbladder is surgically absent . Both adrenal glands are normal. Pancreas is normal in appearance. Right renal cyst. No follow-up imaging of the cyst is required.. The kidneys are normal in size and attenuation without evidence of hydronephrosis or renal calculi. GI/Bowel: The visualized bowel and mesentery show no mass lesions. No evidence of acute appendicitis. Mild colonic diverticulosis. No evidence of diverticulitis. Pelvis: No intrapelvic mass is identified. Bladder and rectum are intact. Peritoneum/Retroperit oneum: No free fluid. No lymphadenopathy. No evidence of pneumoperitoneum. Bones/Soft Tissues: Small fat containing umbilical hernia. Stable compression fracture of L1 body. Degenerative changes seen in the visualized spine . No acute bony abnormalities. IMPRESSION: 1. No acute intra-abdominal or intrapelvic abnormalities are noted. 2. Bibasal ground-glass opacities underlying and emphysematous changes. Interpreted by: Arnulfo Marroquin MD Signed by: Arnulfo Marroquin MD 08/08/24 Final result Normal [facility] CT Abdomen and Pelvis W cont rast Yannick 08-08-2024 1. No acute intra-abdominal or intrapelvic abnormalities are noted. 2. Bibasal ground-glass opacities underlying and emphysematous changes. [facility] RIS CONSOLIDATED EXAMINATION: CT OF THE ABDOMEN AND PELVIS WITH CONTRAST 08/08/2024 3:53 pm TECHNIQUE: CT of the abdomen and pelvis was performed with the administration of intravenous contrast. Multiplanar reformatted images are provided for review. Automated exposure control, iterative reconstruction, and/or weight based adjustment of the mA/kV was utilized to reduce the radiation dose to as low as reasonably achievable. COMPARISON: CT chest of 07/08/2024 HISTORY: ORDERING SYSTEM PROVIDED HISTORY: Rectlal bleeding, abdominal pain TECHNOLOGIST PROVIDED HISTORY: Rectlal bleeding, abdominal pain Decision Support Exception - unselect if not a suspected or confirmed emergency medical condition->Emergency Medical Condition (MA) FINDINGS: Lower Chest: Bibasal ground-glass opacities underlying and emphysematous changes. Organs: Liver is normal in size and density. No focal masses identified. No evidence of intrahepatic ductal dilatation. Spleen is normal size. Scattered calcified splenic granulomas. The gallbladder is surgically absent . Both adrenal glands are normal. Pancreas is normal in appearance. Right renal cyst. No follow-up imaging of the cyst is required.. The kidneys are normal in size and attenuation without evidence of hydronephrosis or renal calculi. GI/Bowel: The visualized bowel and mesentery show no mass lesions. No evidence of acute appendicitis. Mild colonic diverticulosis. No evidence of diverticulitis. Pelvis: No intrapelvic mass is identified. Bladder and rectum are intact. Peritoneum/Retroperit oneum: No free fluid. No lymphadenopathy. No evidence of pneumoperitoneum. Bones/Soft Tissues: Small fat containing umbilical hernia. Stable compression fracture of L1 body. Degenerative changes seen in the visualized spine . No acute bony abnormalities. [facility] RIS CONSOLIDATED Arnulfo Marroquin MD - 08/08/2024 EXAMINATION: CT OF THE ABDOMEN AND PELVIS WITH CONTRAST 08/08/2024 3:53 pm TECHNIQUE: CT of the abdomen and pelvis was performed with the administration of intravenous contrast. Multiplanar reformatted images are provided for review. Automated exposure control, iterative reconstruction, and/or weight based adjustment of the mA/kV was utilized to reduce the radiation dose to as low as reasonably achievable. COMPARISON: CT chest of 07/08/2024 HISTORY: ORDERING SYSTEM PROVIDED HISTORY: Rectlal bleeding, abdominal pain TECHNOLOGIST PROVIDED HISTORY: Rectlal bleeding, abdominal pain Decision Support Exception - unselect if not a suspected or confirmed emergency medical condition->Emergency Medical Condition (MA) FINDINGS: Lower Chest: Bibasal ground-glass opacities underlying and emphysematous changes. Organs: Liver is normal in size and density. No focal masses identified. No evidence of intrahepatic ductal dilatation. Spleen is normal size. Scattered calcified splenic granulomas. The gallbladder is surgically absent . Both adrenal glands are normal. Pancreas is normal in appearance. Right renal cyst. No follow-up imaging of the cyst is required.. The kidneys are normal in size and attenuation without evidence of hydronephrosis or renal calculi. GI/Bowel: The visualized bowel and mesentery show no mass lesions. No evidence of acute appendicitis. Mild colonic diverticulosis. No evidence of diverticulitis. Pelvis: No intrapelvic mass is identified. Bladder and rectum are intact. Peritoneum/Retroperit oneum: No free fluid. No lymphadenopathy. No evidence of pneumoperitoneum. Bones/Soft Tissues: Small fat containing umbilical hernia. Stable compression fracture of L1 body. Degenerative changes seen in the visualized spine . No acute bony abnormalities. IMPRESSION: 1. No acute intra-abdominal or intrapelvic abnormalities are noted. 2. Bibasal ground-glass opacities underlying and emphysematous changes. [facility] Radiology Study observation (narrative) [facility] CT Abdomen and Pelvis W cont rast IVOrdered By: Arnulfo Marroquin on 08-08-2024 [facility] Work Phone: Hepatic Function Panelon Albumin [Mass/Vol] 4.0 g/dL 3.5 - 5.2 g/dL [facility] Albumin/Globulin [Mass ratio] 1.4 {ratio} 1.0 - 2.5 [facility] ALP [Catalytic activity/Vol] 125 U/L High 35 - 104 U/L [facility] ALT [Catalytic activity/Vol] 16 U/L 10 - 35 U/L [facility] AST [Catalytic activity/Vol] 23 U/L 10 - 35 U/L [facility] Bilirubin [Mass/Vol] 0.4 mg/dL 0.00 - 1.20 mg/dL [facility] Bilirubin.direct [Mass/Vol] mg/dL 0.00 - 0.30 mg/dL [facility] Bilirubin.indirect [Mass/Vol] Can not be calculated 0.0 - 1.0 mg/dL [facility] Protein [Mass/Vol] 6.9 g/dL 6.6 - 8.7 g/dL [facility] Lactate, Sepsison 08-08-2024 Lactate (BldV) [Moles/Vol] 1.1 mmol/L 0.5 - 1.9 mmol/L [facility] Lactic Acid, Sepsis 1.1 mmol/L Normal 0.5-1.9 [facility] Comment on above: Performed By: #### M G, BMP, DIME, CDP, TROPI #### [facility] [address] [place] [address] [place] [address] Knitter Wire Mesh: Robb Lewis MD Liver Profileon 08-08-2024 Albumin [Mass/Vol] 4.0 g/dL Normal 3.5-5.2 [facility] Comment on above: Performed By: #### U OSMO #### [id number] [place] [address] Knitter Wire Mesh: Tai Vázquez MD #### URNA #### [facility] [address] [place] [address] Knitter Wire Mesh: Robb Lewis MD Albumin/Glob Ratio 1.4 Normal 1.0-2.5 [facility] Comment on above: Performed By: #### U OSMO #### [facility] [address] [place] [address] Knitter Wire Mesh: Tai Vázquez MD #### URNA #### [facility] [address] [place], [place] [phone] Knitter Wire Mesh: Robb Lewis MD Alkaline Phos 125 U/L High 35-104 [facility] Comment on above: Performed By: #### U OSMO #### [facility] [address] [place] [address] Knitter Wire Mesh: Tai Vázquez MD #### URNA #### [facility] [address] [place] [phone] Knitter Wire Mesh: Robb Lewis MD ALT [Catalytic activity/Vol] 16 U/L Normal 10-35 [facility] Comment on above: Performed By: #### U OSMO #### [facility] [address] [place] [address] Knitter Wire Mesh: Tai Vázquez MD #### URNA #### [facility] [address] [place] [phone] Knitter Wire Mesh: Robb Lewis MD AST [Catalytic activity/Vol] 23 U/L Normal 10-35 [facility] Comment on above: Performed By: #### U OSMO #### [facility] [address] [place] [address] Knitter Wire Mesh: Tai Vázquez MD #### URNA #### [facility] [address] [place], [place] [phone] Knitter Wire Mesh: Robb Lewis MD Bilirubin [Mass/Vol] 0.4 mg/dL Normal 0.00-1.20 [facility] Comment on above: Performed By: #### U OSMO #### [address] [address] Knitter Wire Mesh: Tai Vázquez MD #### URNA #### [facility] [address] [place] [address] [place], [place] [phone] Knitter Wire Mesh: Robb Lewis MD Bilirubin, Indirect Can not be calculated Normal 0.0-1 .0 [facility] Comment on above: Performed By: #### U OSMO #### [address] [address] Knitter Wire Mesh: Tai Vázquez MD #### URNA #### [address] [place] [address] Knitter Wire Mesh: Robb Lewis MD Bilirubin.indirect [Mass/Vol] mg/dL Normal 0.00-0.30 [facility] Comment on above: Performed By: #### U OSMO #### [address] [address] Knitter Wire Mesh: Tai Vázquez MD #### URNA #### [address] [place] [address] Knitter Wire Mesh: Robb Lewis MD Protein [Mass/Vol] 6.9 g/dL Normal 6.6-8.7 [facility] Comment on above: Performed By: #### U OSMO #### [address] [address] Knitter Wire Mesh: Tai Vázquez MD #### URNA #### [facility] [address] [place] [address] [place] [address] Knitter Wire Mesh: Robb Lewis MD No Panel Informationon 08-08 Interpretation and review of laboratory results Abnormal [facility] Occ Bld, Fecal Scrnon 2023 Occult Blood 1 Negative Normal NEG [facility] Comment on above: Performed By: #### M PAOLA Del Castillo, DIME, CDP, TROPI #### [facility] [address] [place], [place] [phone] Knitter Wire Mesh: Robb Lewis MD Specimen 1 Date 12 [facility] Comment on above: Result Comment: Performed By: #### M G, BMP, DIME, CDP, TROPI #### [address] [place], [place] [phone] Knitter Wire Mesh: Robb Lewis MD Specimen 1 Time 184 [facility] Comment on above: Performed By: #### M G, BMP, DIME, CDP, TROPI #### [address] [place], [place] [phone] Knitter Wire Mesh: Robb Lewis MD PTon 08-08-2024 INR Coag (PPP) [Relative time] 1.0 {INR} [facility] Comment on above: Result Comment: Therapeutic Range: Moderate Anticoagulant Intensity: INR = 2.0-3.0 High Anticoagulant Intensity: INR = 2.5-3.5 Performed By: #### M G, BMP, DIME, CDP, TROPI #### [address] [place], [facility] Knitter Wire Mesh: Robb Lewis MD PT Coag (PPP) [Time] 12.8 s Normal 11.7-14.1 [facility] Comment on above: Performed By: #### M G, BMP, DIME, CDP, TROPI #### [facility] [address] [place] [address] [place] [place], [place] [id number] Knitter Wire Mesh: Robb Lewis MD Protime-INRon 08-08-2024 INR Coag (PPP) [Relative time] 1.0 {INR} [facility] Comment on above: Therapeutic Range: Moderate Anticoagulant Intensity: INR = 2.0-3.0 High Anticoagulant Intensity: INR = 2.5-3.5 PT Coag (PPP) [Time] 12.8 s [facility] Specimen Rejectionon 024 Reason for rejection Unable to perform testing: Specimen hemolyzed. [facility] Comment on above: Performed By: #### M G, BMP, DIME, CDP, TROPI #### [facility] [address] [place] [address] Knitter Wire Mesh: Robb Lewis MD Source of sample .BLOOD [facility] Comment on above: Performed By: #### M G, BMP, DIME, CDP, TROPI #### [facility] [address] [place] [address] Knitter Wire Mesh: Robb Lewis MD Test ordered BMP/LIVP [facility] Comment on above: Performed By: #### M G, BMP, DIME, CDP, TROPI #### [facility] [address] [place] [address] Knitter Wire Mesh: Robb Lewis MD Basic Metabolic Panelon 11-2 Anion gap [Moles/Vol] 10 mmol/L 9 - 16 mmol/L [facility] Calcium [Mass/Vol] 9.7 mg/dL 8.6 - 10. 4 mg/dL [facility] Chloride [Moles/Vol] 94 mmol/L Low 98 - 10 7 mmol/L [facility] CO2 [Moles/Vol] 26 mmol/L 20 - 31 mmol/L [facility] Creatinine [Mass/Vol] 0.4 mg/dL Low 0.50 - 0.90 mg/dL [facility] Est, Glom Filt Rate - PINF [facility] Comment on above: These results are not intended for use in patients <18 years of age. eGFR results are calculated without a race factor using the 2020 CKD-EPI equation. Careful clinical correlation is recommended, particularly when comparing to results calculated using previous equations. The CKD-EPI equation is less accurate in patients with extremes of muscle mass, extra-renal metabolism of creatine, excessive creatine ingestion, or following therapy that affects renal tubular secretion. Glucose [Mass/Vol] 145 mg/dL High 74 - 99 mg/dL [facility] Potassium [Moles/Vol] 4.0 mmol/L 3.7 - 5.3 mmol/L [facility] Sodium [Moles/Vol] 130 mmol/L Low 136 - 145 mmol/L [facility] Urea nitrogen [Mass/Vol] 18 mg/dL 8 - 23 mg/dL [facility] Urea nitrogen/Creatinine [Mass ratio] 45 mg/mg High 9 - 20 [facility] Basic Metabolic Profon 07-14 Anion gap [Moles/Vol] 10 mmol/L Normal 9-16 [facility] Comment on above: Performed By: #### M G, BMP, DIME, CDP, TROPI #### [facility] [address] [place] [address] Knitter Wire Mesh: Robb Lewis MD BUN/CRE Ratio 45 High 9-20 [facility] Comment on above: Performed By: #### M G, BMP, DIME, CDP, TROPI #### [facility] [address] [place] [address] Knitter Wire Mesh: Robb Lewis MD Calcium [Mass/Vol] 9.7 mg/dL Normal 8.6-10.4 [facility] Comment on above: Performed By: #### M G, BMP, DIME, CDP, TROPI #### [facility] [address] [place] [address] Knitter Wire Mesh: Robb Lewis MD Chloride [Moles/Vol] 94 mmol/L Low 98-107 [facility] Comment on above: Performed By: #### M G, BMP, DIME, CDP, TROPI #### [facility] [address] [place] [address] Knitter Wire Mesh: Robb Lewis MD CO2 [Moles/Vol] 26 mmol/L Normal 20-31 [facility] Comment on above: Performed By: #### M G, BMP, DIME, CDP, TROPI #### [facility] [address] [place] [address] Knitter Wire Mesh: Robb Lewis MD Creatinine [Mass/Vol] 0.4 mg/dL Low 0.50-0.90 [facility] Comment on above: Performed By: #### M G, BMP, DIME, CDP, TROPI #### [facility] [address] [place] [address] Knitter Wire Mesh: Robb Lewis MD GFR/1.73 sq M.predicted among non-blacks MDRD (S/P/Bld) [Vol rate/Area] mL/min/{1.73_m2} Normal >60 [facility] Comment on above: Result Comment: These results are not intended for use in patients <18 years of age. eGFR results are calculated without a race factor using the 2020 CKD-EPI equation. Careful clinical correlation is recommended, particularly when comparing to results calculated using previous equations. The CKD-EPI equation is less accurate in patients with extremes of muscle mass, extra-renal metabolism of creatine, excessive creatine ingestion, or following therapy that affects renal tubular secretion. Performed By: #### M G, BMP, DIME, CDP, TROPI #### [address] [place] [address] Knitter Wire Mesh: Robb Lewis MD Glucose [Mass/Vol] 145 mg/dL High 74-99 [facility] Comment on above: Performed By: #### M G, BMP, DIME, CDP, TROPI #### [facility] [address] [place] [address] [place] [address] Knitter Wire Mesh: Robb Lewis MD Potassium [Moles/Vol] 4.0 mmol/L Normal 3.7-5.3 [facility] Comment on above: Performed By: #### M G, BMP, DIME, CDP, TROPI #### [facility] [address] [place] [address] [place] [address] Knitter Wire Mesh: Robb Lewis MD Sodium [Moles/Vol] 130 mmol/L Low 136-145 [facility] Comment on above: Performed By: #### M Abundio, PAOLA, DIME, CDP, TROPI #### [facility] [address] [place] [address] Knitter Wire Mesh: Robb Lewis MD Urea nitrogen [Mass/Vol] 18 mg/dL Normal 8-23 [facility] Comment on above: Performed By: #### M Abundio, PAOLA, MIGUELE, CDP, TROPI #### [facility] [address] [place], [place] [phone] Knitter Wire Mesh: Robb Lewis MD C-Reactive Proteinon 024 CRP High sensitivity method [Mass/Vol] 159.0 mg/L High 0.0 - 5.0 mg/L [facility] CRP [Mass/Vol] 159.0 mg/L High 0.0-5.0 [facility] Comment on above: Performed By: #### M PAOLA Del Castillo, MIGUELE, CDP, TROPI #### [address] [place] [address] Knitter Wire Mesh: Robb Lewis MD EKG Rhythm Stripon [facility] No Panel Informationon 07-14 Interpretation and review of laboratory results Abnormal [facility] Sedimentation Rateon 024 ESR Photometric method (Bld) [Velocity] 72 High [facility] Interpretation and review of laboratory results Abnormal [facility] Sedimentation Rate 72 mm/Hr High 0-30 [facility] Comment on above: Performed By: #### M PAOLA Del Castillo, ZOILA, CDP, TROPI #### [facility] [address] [place] [address] Knitter Wire Mesh: Robb Lewis MD Basic Metab w/rfx MGon 07-13 Anion gap [Moles/Vol] 9 mmol/L Normal 9-16 [facility] Comment on above: Performed By: #### N A #### [facility] [address] [place] [address] Knitter Wire Mesh: Robb Lewis MD BUN/CRE Ratio 24 High 9-20 [facility] Comment on above: Performed By: #### N A #### [facility] [address] [place], [place] [phone] Knitter Wire Mesh: Robb Lewis MD Calcium [Mass/Vol] 9.0 mg/dL Normal 8.6-10.4 [facility] Comment on above: Performed By: #### N A #### [facility] [address] [place] [phone] Knitter Wire Mesh: Robb Lewis MD Chloride [Moles/Vol] 93 mmol/L Low 98-107 [facility] Comment on above: Performed By: #### N A #### [facility] [address] [place], [place] [phone] Knitter Wire Mesh: Robb Lewis MD CO2 [Moles/Vol] 27 mmol/L Normal 20-31 [facility] Comment on above: Performed By: #### N A #### [facility] [address] [place], [place] [phone] Knitter Wire Mesh: Robb Lewis MD Creatinine [Mass/Vol] 0.5 mg/dL Normal 0.50-0.90 [facility] Comment on above: Performed By: #### N A #### [facility] [address] [place] [address] Knitter Wire Mesh: Robb Lewis MD GFR/1.73 sq M.predicted among non-blacks MDRD (S/P/Bld) [Vol rate/Area] mL/min/{1.73_m2} Normal >60 [facility] Comment on above: Result Comment: These results are not intended for use in patients <18 years of age. eGFR results are calculated without a race factor using the 2020 CKD-EPI equation. Careful clinical correlation is recommended, particularly when comparing to results calculated using previous equations. The CKD-EPI equation is less accurate in patients with extremes of muscle mass, extra-renal metabolism of creatine, excessive creatine ingestion, or following therapy that affects renal tubular secretion. Performed By: #### N A #### [facility] [address] [place] [address] Knitter Wire Mesh: Robb Lewis MD Glucose [Mass/Vol] 109 mg/dL High 74-99 [facility] Comment on above: Performed By: #### N A #### [facility] [address] [place], [place] [phone] Knitter Wire Mesh: Robb Lewis MD Potassium [Moles/Vol] 3.8 mmol/L Normal 3.7-5.3 [facility] Comment on above: Performed By: #### N A #### [facility] [address] [place], [place] [address] Knitter Wire Mesh: Robb Lewis MD Sodium [Moles/Vol] 129 mmol/L Low 136-145 [facility] Comment on above: Performed By: #### N A #### [facility] [address] [place] [address] Knitter Wire Mesh: Robb Lewis MD Urea nitrogen [Mass/Vol] 12 mg/dL Normal 8-23 [facility] Comment on above: Performed By: #### N A #### [facility] [address] [place] [address] [place] [place], [place] [id number] Knitter Wire Mesh: Robb Lewis MD Basic Metabolic Panel w/ Ref dago to MGon 07-13-2024 Anion gap [Moles/Vol] 9 mmol/L 9 - 16 mmol/L [facility] Calcium [Mass/Vol] 9.0 mg/dL 8.6 - 10. 4 mg/dL [facility] Chloride [Moles/Vol] 93 mmol/L Low 98 - 10 7 mmol/L [facility] CO2 [Moles/Vol] 27 mmol/L 20 - 31 mmol/L [facility] Creatinine [Mass/Vol] 0.5 mg/dL 0.50 - 0.90 mg/dL [facility] Est, Kodi Walton Rate - PINF [facility] Comment on above: These results are not intended for use in patients <18 years of age. eGFR results are calculated without a race factor using the 2020 CKD-EPI equation. Careful clinical correlation is recommended, particularly when comparing to results calculated using previous equations. The CKD-EPI equation is less accurate in patients with extremes of muscle mass, extra-renal metabolism of creatine, excessive creatine ingestion, or following therapy that affects renal tubular secretion. Glucose [Mass/Vol] 109 mg/dL High 74 - 99 mg/dL [facility] Interpretation and review of laboratory results Abnormal [facility] Potassium [Moles/Vol] 3.8 mmol/L 3.7 - 5.3 mmol/L [facility] Sodium [Moles/Vol] 129 mmol/L Low 136 - 145 mmol/L [facility] Urea nitrogen [Mass/Vol] 12 mg/dL 8 - 23 mg/dL [facility] Urea nitrogen/Creatinine [Mass ratio] 24 mg/mg High 9 - 20 [facility] C-Reactive Proteinon CRP High sensitivity method [Mass/Vol] 117.0 mg/L High 0.0 - 5.0 mg/L [facility] Interpretation and review of laboratory results Abnormal [facility] CRP [Mass/Vol] 117.0 mg/L High 0.0-5.0 [facility] Comment on above: Performed By: #### M G, BMP, DIME, CDP, TROPI #### [facility] [address] [place] [address] [employer]itter [employer] Mesh: Robb Lewis MD CBC auto differentialon 06-20 Basophils (Bld) [#/Vol] 0.00 10*3/uL [facility] Basophils/100 WBC (Bld) 0 % 0 - 2 % [facility] Eosinophils (Bld) [#/Vol] 0.00 10*3/uL [facility] Eosinophils/100 WBC (Bld) 0 % Low 1 - 4 % [facility] Erythrocyte distribution width (RBC) [Ratio] 13.4 % 11.8 - 14.4 % [facility] Hematocrit (Bld) [Volume fraction] 27.4 % Low 36.3 - 47.1 % [facility] Hemoglobin (Bld) [Mass/Vol] 9.1 g/dL Low 11.9 - 15.1 g/dL [facility] Immature granulocytes (Bld) [#/Vol] 0.00 10*3/uL [facility] Immature granulocytes/100 WBC (Bld) 0 % 0 [facility] Interpretation and review of laboratory results Abnormal [facility] Lymphocytes/100 WBC (Bld) 12 % Low 24 - 43 % [facility] Lymphocytes/100 WBC (Bld) 1.24 % [facility] MCH (RBC) [Entitic mass] 28.5 pg 25.2 - 33.5 pg [facility] MCHC (RBC) [Mass/Vol] 33.2 g/dL 28.4 - 34.8 g/dL [facility] MCV (RBC) [Entitic vol] 85.9 fL 82.6 - 102.9 fL [facility] Monocytes/100 WBC (Bld) 14 % High 3 - 12 % [facility] Monocytes/100 WBC (Bld) 1.44 % High [facility] Morphology Dakota (Bld) [Interp] Normal [facility] Neutrophils/100 WBC (Bld) 74 % High 36 - 65 % [facility] Nucleated RBC/100 WBC (Bld) [Ratio] 0.0 % 0.0 per 100 WBC [facility] Platelet mean volume (Bld) [Entitic vol] 9.0 fL 8.1 - 13.5 fL [facility] Platelets (Bld) [#/Vol] 250 10*3/uL [facility] RBC (Bld) [#/Vol] 3.19 10*6/uL Low 3.95 - 5.1 1 m/uL [facility] Segmented neutrophils/100 WBC (Bld) 7.62 % [facility] WBC other (Bld) [#/Vol] 10.3 [facility] CBC with Diffon 07-13-2024 Abs. Basophil 0.00 k/uL Normal 0.0-0.2 [facility] Comment on above: Performed By: #### N A #### [facility] [address] [place] [address] Dr. [place], [facility] Kn[employer] Mesh: Robb Lewis MD Abs.Imm.Granulocyte 0.00 k/uL Normal 0.00-0.30 [facility] Comment on above: Performed By: #### N A #### [address] [place], [facility] Knitter Wire Mesh: Robb Lewis MD Abs.Neutrophil (Seg) 7.62 k/uL Normal 1.50-8.10 [facility] Comment on above: Performed By: #### N A #### [address] [place], [facility] Knitter Wire Mesh: Robb Lewis MD Basophils/100 WBC (Bld) 0 % Normal 0-2 [facility] Comment on above: Performed By: #### N A #### [address] [place], [facility] Kn[employer] Mesh: Robb Lewis MD Eosinophils (Bld) [#/Vol] 0.00 10*3/uL Normal 0.00-0.44 [facility] Comment on above: Performed By: #### N A #### [facility] [address] [place] [address] Dr[place], [facility] Kn[employer] Mesh: Robb Lewis MD Eosinophils/100 WBC (Bld) 0 % Low 1-4 [facility] Comment on above: Performed By: #### N A #### [address] [place] [address] [employer] Mesh: Robb Lewis MD Immature granulocytes/100 WBC (Bld) 0 % Normal 0 [facility] Comment on above: Performed By: #### N A #### [facility] [address] [place], [place] [id number] [employer] Mesh: Robb Lewis MD Lymphocytes (Bld) [#/Vol] 1.24 10*3/uL Normal 1.10-3.70 [facility] Comment on above: Performed By: #### N A #### [facility] [address] [place], [place] [id number] [employer] Mesh: Robb Lewis MD Lymphocytes/100 WBC (Bld) 12 % Low 24-43 [facility] Comment on above: Performed By: #### N A #### [facility] [address] [place] [address] [place], [place] [id number] Kn[employer] Mesh: Robb Lewis MD Monocytes (Bld) [#/Vol] 1.44 10*3/uL High 0.10-1.20 [facility] Comment on above: Performed By: #### N A #### [facility] [address] [place] [address] [place] [address] [employer] Mesh: Robb Lewis MD Monocytes/100 WBC (Bld) 14 % High 3-12 [facility] Comment on above: Performed By: #### N A #### [facility] [address] [place], [place] [phone] [employer] Mesh: Robb Lewis MD Morphology Dakota (Bld) [Interp] Normal Normal [facility] Comment on above: Performed By: #### N A #### [facility] [address] [place], [place] [id number] [employer] Mesh: Robb Lewis MD Neutrophil (Seg) 74 % High 36-65 [facility] Comment on above: Performed By: #### N A #### [facility] [address] [place] [address] [employer] Wire Mesh: Robb Lewis MD Erythrocyte distribution width (RBC) [Ratio] 13.4 % Normal 11.8-14.4 [facility] Comment on above: Performed By: #### N A #### [address] [place] [address] [employer] Mesh: Robb Lewis MD Hematocrit (Bld) [Volume fraction] 27.4 % Low 36.3-47.1 [facility] Comment on above: Performed By: #### N A #### [address] [place] [address] [employer] Mesh: Robb Lewis MD Hemoglobin (Bld) [Mass/Vol] 9.1 g/dL Low 11.9-15.1 [facility] Comment on above: Performed By: #### N A #### [address] [place] [address] Kn[employer] Wire Mesh: Robb Lewis MD MCH (RBC) [Entitic mass] 28.5 pg Normal 25.2-33.5 [facility] Comment on above: Performed By: #### N A #### [address] [place] [address] [employer] Mesh: Robb Lewis MD MCHC (RBC) [Mass/Vol] 33.2 g/dL Normal 28.4-34.8 [facility] Comment on above: Performed By: #### N A #### [address] [place] [address] [employer] Mesh: Robb Lewis MD MCV (RBC) [Entitic vol] 85.9 fL Normal 82.6-102.9 [facility] Comment on above: Performed By: #### N A #### [address] [place] [address] [employer] Mesh: Robb Lewis MD NRBC Automated 0.0 per 100 WBC Normal 0.0 [facility] Comment on above: Performed By: #### N A #### [facility] [address] [place], [facility] Kn[employer] Mesh: Robb Lewis MD Platelet mean volume (Bld) [Entitic vol] 9.0 fL Normal 8.1-13.5 [facility] Comment on above: Performed By: #### N A #### [facility] [address] [place], [facility] Kn[employer] Mesh: Robb Lewis MD Platelets (Bld) [#/Vol] 250 10*3/uL Normal 138-453 [facility] Comment on above: Performed By: #### N A #### [address] [place], [facility] Kn[employer] Mesh: Robb Lewis MD RBC (Bld) [#/Vol] 3.19 10*6/uL Low 3.95-5.11 [facility] Comment on above: Performed By: #### N A #### [address] [place], [facility] Kn[employer] Mesh: Robb Lewis MD WBC (Bld) [#/Vol] 10.3 10*3/uL Normal 3.5-11.3 [facility] Comment on above: Performed By: #### N A #### [facility] [address] [place] [address] Dr[place], [facility] Kn[employer] Mesh: Robb Lewis MD EKG Rhythm Stripon [facility] NA (Sodium)on 07-13-2024 Sodium [Moles/Vol] 129 mmol/L Low 136-145 [facility] Comment on above: Performed By: #### M G, BMP, DIME, CDP, TROPI #### [facility] [address] [place], [facility] Kn[employer] Mesh: Robb Lewis MD Sedimentation Rateon 024 ESR Photometric method (Bld) [Velocity] 52 High [facility] Interpretation and review of laboratory results Abnormal [facility] Sedimentation Rate 52 mm/Hr High 0-30 [facility] Comment on above: Performed By: #### M G, BMP, DIME, CDP, TROPI #### [facility] [address] [place] [address] [employer] Mesh: Robb Lewis MD Sodiumon 07-13-2024 Interpretation and review of laboratory results Abnormal [facility] Sodium [Moles/Vol] 129 mmol/L Low 136 - 145 mmol/L [facility] XR ANKLE LEFT (MIN 3 VIEWS)o n 07-13-2024 XR ANKLE LEFT (MIN 3 VIEWS) EXAMINATION: THREE XRAY VIEWS OF THE LEFT ANKLE 07/13/2024 8:15 am COMPARISON: None. HISTORY: ORDERING SYSTEM PROVIDED HISTORY: left ankle TECHNOLOGIST PROVIDED HISTORY: left ankle FINDINGS: There is a remote healed fracture of the distal tibia. Degenerative changes of the medial and lateral malleolus. No acute fracture. IMPRESSION: No acute fracture or dislocation. Degenerative changes of the medial and lateral malleolus Interpreted by: Roberto Carlos Tyler MD Signed by: Roberto Carlos Tyler MD 07/13/24 Final result Normal [facility] XR Ankle - left 3 Viewson No acute fracture or dislocation. Degenerative changes of the medial and lateral malleolus [facility] EXAMINATION: THREE XRAY VIEWS OF THE LEFT ANKLE 07/13/2024 8:15 am COMPARISON: None. HISTORY: ORDERING SYSTEM PROVIDED HISTORY: left ankle TECHNOLOGIST PROVIDED HISTORY: left ankle FINDINGS: There is a remote healed fracture of the distal tibia. Degenerative changes of the medial and lateral malleolus. No acute fracture. [facility] Roberto Carlos Tyler M D - 07/13/2024 EXAMINATION: THREE XRAY VIEWS OF THE LEFT ANKLE 07/13/2024 8:15 am COMPARISON: None. HISTORY: ORDERING SYSTEM PROVIDED HISTORY: left ankle TECHNOLOGIST PROVIDED HISTORY: left ankle FINDINGS: There is a remote healed fracture of the distal tibia. Degenerative changes of the medial and lateral malleolus. No acute fracture. IMPRESSION: No acute fracture or dislocation. Degenerative changes of the medial and lateral malleolus [facility] Radiology Study observation (narrative) [facility] XR Ankle - left 3 ViewsOrder ed By: Roberto Carlos Tyler on 07-13-2024 [facility] Work Phone: XR FOOT LEFT (MIN 3 VIEWS)on 07-13-2024 XR FOOT LEFT (MIN 3 VIEWS) EXAMINATION: THREE XRAY VIEWS OF THE LEFT FOOT 07/13/2024 6:11 am COMPARISON: None. HISTORY: ORDERING SYSTEM PROVIDED HISTORY: pain, difficulty with weight bearing TECHNOLOGIST PROVIDED HISTORY: pain, difficulty with weight bearing FINDINGS: Osteopenia complicates assessment. The patient has mild to moderate degenerative changes involving all the interphalangeal joints with moderate arthritic change in the 1st metatarsal-phalangeal joint and soft tissue swelling around the joint with some vague calcifications which may be related to calcific tendinitis. 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 No acute fracture or dislocation is noted. LisFranc relationship is preserved. Vascular clips are present in the lower leg. IMPRESSION: 1. Osteopenia and degenerative changes as described above. 2. No acute fracture or dislocation. 3. 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 RECOMMENDATION: Follow-up studies as clinically indicated. Interpreted by: Razia Perez MD Signed by: Razia Perez MD 07/13/24 Final result Normal [facility] XR Foot - left 3 Viewson 1. Osteopenia and degenerative changes as described above. 2. No acute fracture or dislocation. 3. 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 RECOMMENDATION: Follow-up studies as clinically indicated. [facility] EXAMINATION: THREE XRAY VIEWS OF THE LEFT FOOT 07/13/2024 6:11 am COMPARISON: None. HISTORY: ORDERING SYSTEM PROVIDED HISTORY: pain, difficulty with weight bearing TECHNOLOGIST PROVIDED HISTORY: pain, difficulty with weight bearing FINDINGS: Osteopenia complicates assessment. The patient has mild to moderate degenerative changes involving all the interphalangeal joints with moderate arthritic change in the 1st metatarsal-phalangeal joint and soft tissue swelling around the joint with some vague calcifications which may be related to calcific tendinitis. 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 No acute fracture or dislocation is noted. LisFranc relationship is preserved. Vascular clips are present in the lower leg. [facility] Perez, Razia Jauregui MD - 07/13/2024 EXAMINATION: THREE XRAY VIEWS OF THE LEFT FOOT 07/13/2024 6:11 am COMPARISON: None. HISTORY: ORDERING SYSTEM PROVIDED HISTORY: pain, difficulty with weight bearing TECHNOLOGIST PROVIDED HISTORY: pain, difficulty with weight bearing FINDINGS: Osteopenia complicates assessment. The patient has mild to moderate degenerative changes involving all the interphalangeal joints with moderate arthritic change in the 1st metatarsal-phalangeal joint and soft tissue swelling around the joint with some vague calcifications which may be related to calcific tendinitis. 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 No acute fracture or dislocation is noted. LisFranc relationship is preserved. Vascular clips are present in the lower leg. IMPRESSION: 1. Osteopenia and degenerative changes as described above. 2. No acute fracture or dislocation. 3. 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 RECOMMENDATION: Follow-up studies as clinically indicated. [facility] Radiology Study observation (narrative) [facility] X[facility] Foot - left 3 ViewsOrdere d By: Razia Perez on 07-13-2024 [facility] Work Phone: XR TIBIA FIBULA LEFT (2 VIEW S)on 07-13-2024 XR TIBIA FIBULA LEFT (2 VIEWS) EXAMINATION: 2 XRAY VIEWS OF THE LEFT TIBIA AND FIBULA 07/13/2024 6:11 am COMPARISON: None. HISTORY: ORDERING SYSTEM PROVIDED HISTORY: pain, difficulty bearing weight TECHNOLOGIST PROVIDED HISTORY: pain, difficulty bearing weight FINDINGS: There are old, healed fractures involving the proximal fibula and distal tibia. 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 Surgical clips are noted along the medial aspect of the lower leg. Vascular calcifications are noted. There is no evidence of acute fracture. IMPRESSION: 1. No acute traumatic injury involving the left tibia and fibula. Interpreted by: Matthew Alfaro MD Signed by: Matthew Alfaro MD 07/13/24 Final result Normal [facility] XR Tibia and Fibula - left 2 Viewson 07-13-2024 1. No acute traumati c injury involving the left tibia and fibula. [facility] EXAMINATION: 2 XRAY VIEWS OF THE LEFT TIBIA AND FIBULA 07/13/2024 6:11 am COMPARISON: None. HISTORY: ORDERING SYSTEM PROVIDED HISTORY: pain, difficulty bearing weight TECHNOLOGIST PROVIDED HISTORY: pain, difficulty bearing weight FINDINGS: There are old, healed fractures involving the proximal fibula and distal tibia. 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 Surgical clips are noted along the medial aspect of the lower leg. Vascular calcifications are noted. There is no evidence of acute fracture. [facility] Matthew Alfaro MD - 07/13/2024 EXAMINATION: 2 XRAY VIEWS OF THE LEFT TIBIA AND FIBULA 07/13/2024 6:11 am COMPARISON: None. HISTORY: ORDERING SYSTEM PROVIDED HISTORY: pain, difficulty bearing weight TECHNOLOGIST PROVIDED HISTORY: pain, difficulty bearing weight FINDINGS: There are old, healed fractures involving the proximal fibula and distal tibia. 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 Surgical clips are noted along the medial aspect of the lower leg. Vascular calcifications are noted. There is no evidence of acute fracture. IMPRESSION: 1. No acute traumatic injury involving the left tibia and fibula. [facility] Radiology Study observation (narrative) [facility] XR Tibia and Fibula - left 2 ViewsOrdered By: Matthew Alfaro on 07-13-2024 [facility] Work Phone: Basic Metab w/rfx MGon 07-12 Anion gap [Moles/Vol] 10 mmol/L Normal 9-16 [facility] Comment on above: Performed By: #### N A #### [facility] [address] [place] [address] Knitter Wire Mesh: Robb Lewis MD BUN/CRE Ratio 18 Normal 9-20 [facility] Comment on above: Performed By: #### N A #### [facility] [address] [place] [id number] Knitter Wire Mesh: Robb Lewis MD Calcium [Mass/Vol] 9.4 mg/dL Normal 8.6-10.4 [facility] Comment on above: Performed By: #### N A #### [facility] [address] [place] [id number] Knitter Wire Mesh: Robb Lewis MD Chloride [Moles/Vol] 92 mmol/L Low 98-107 [facility] Comment on above: Performed By: #### N A #### [facility] [address] [place] [id number] Knitter Wire Mesh: Robb Lewis MD CO2 [Moles/Vol] 27 mmol/L Normal 20-31 [facility] Comment on above: Performed By: #### N A #### [facility] [address] [place], [place] [phone] Knitter Wire Mesh: Robb Lewis MD Creatinine [Mass/Vol] 0.5 mg/dL Normal 0.50-0.90 [facility] Comment on above: Performed By: #### N A #### [facility] [address] [place], [place] [phone] Kn[employer] Mesh: Robb Lewis MD GFR/1.73 sq M.predicted among non-blacks MDRD (S/P/Bld) [Vol rate/Area] mL/min/{1.73_m2} Normal >60 [facility] Comment on above: Result Comment: These results are not intended for use in patients <18 years of age. eGFR results are calculated without a race factor using the 2020 CKD-EPI equation. Careful clinical correlation is recommended, particularly when comparing to results calculated using previous equations. The CKD-EPI equation is less accurate in patients with extremes of muscle mass, extra-renal metabolism of creatine, excessive creatine ingestion, or following therapy that affects renal tubular secretion. Performed By: #### N A #### [facility] [address] [place] [address] Knitter Wire Mesh: Robb Lewis MD Glucose [Mass/Vol] 105 mg/dL High 74-99 [facility] Comment on above: Performed By: #### N A #### [facility] [address] [place], [place] [id number] Knitter Wire Mesh: Robb Lewis MD Potassium [Moles/Vol] 4.1 mmol/L Normal 3.7-5.3 [facility] Comment on above: Performed By: #### N A #### [facility] [address] [place], [place] [phone] Knitter Wire Mesh: Robb Lewis MD Sodium [Moles/Vol] 129 mmol/L Low 136-145 [facility] Comment on above: Performed By: #### N A #### [facility] [address] [place], [place] [id number] Knitter Wire Mesh: Robb Lewis MD Urea nitrogen [Mass/Vol] 9 mg/dL Normal 8-23 [facility] Comment on above: Performed By: #### N A #### [facility] [address] [place] [address] Knitter Wire Mesh: Robb Lewis MD Basic Metabolic Panel w/ Ref dago to MGon 07-12-2024 Anion gap [Moles/Vol] 10 mmol/L 9 - 16 mmol/L [facility] Calcium [Mass/Vol] 9.4 mg/dL 8.6 - 10. 4 mg/dL [facility] Chloride [Moles/Vol] 92 mmol/L Low 98 - 10 7 mmol/L [facility] CO2 [Moles/Vol] 27 mmol/L 20 - 31 mmol/L [facility] Creatinine [Mass/Vol] 0.5 mg/dL 0.50 - 0.90 mg/dL [facility] Est, Kodi Walton Rate - PINF [facility] Comment on above: These results are not intended for use in patients <18 years of age. eGFR results are calculated without a race factor using the 2020 CKD-EPI equation. Careful clinical correlation is recommended, particularly when comparing to results calculated using previous equations. The CKD-EPI equation is less accurate in patients with extremes of muscle mass, extra-renal metabolism of creatine, excessive creatine ingestion, or following therapy that affects renal tubular secretion. Glucose [Mass/Vol] 105 mg/dL High 74 - 99 mg/dL [facility] Interpretation and review of laboratory results Abnormal [facility] Potassium [Moles/Vol] 4.1 mmol/L 3.7 - 5.3 mmol/L [facility] Sodium [Moles/Vol] 129 mmol/L Low 136 - 145 mmol/L [facility] Urea nitrogen [Mass/Vol] 9 mg/dL 8 - 23 mg/dL [facility] Urea nitrogen/Creatinine [Mass ratio] 18 mg/mg 9 - 20 [facility] CBC auto differentialon 06-20 Basophils (Bld) [#/Vol] [facility] Basophils/100 WBC (Bld) 0 % 0 - 2 % [facility] Eosinophils (Bld) [#/Vol] 0.04 10*3/uL [facility] Eosinophils/100 WBC (Bld) 0 % Low 1 - 4 % [facility] Erythrocyte distribution width (RBC) [Ratio] 13.2 % 11.8 - 14.4 % [facility] Hematocrit (Bld) [Volume fraction] 29.8 % Low 36.3 - 47.1 % [facility] Hemoglobin (Bld) [Mass/Vol] 10.0 g/dL Low 11.9 - 15.1 g/dL [facility] Immature granulocytes (Bld) [#/Vol] 0.03 10*3/uL [facility] Immature granulocytes/100 WBC (Bld) 0 % 0 [facility] Interpretation and review of laboratory results Abnormal [facility] Lymphocytes/100 WBC (Bld) 15 % Low 24 - 43 % [facility] Lymphocytes/100 WBC (Bld) 1.41 % [facility] MCH (RBC) [Entitic mass] 28.6 pg 25.2 - 33.5 pg [facility] MCHC (RBC) [Mass/Vol] 33.6 g/dL 28.4 - 34.8 g/dL [facility] MCV (RBC) [Entitic vol] 85.1 fL 82.6 - 102.9 fL [facility] Monocytes/100 WBC (Bld) 14 % High 3 - 12 % [facility] Monocytes/100 WBC (Bld) 1.28 % High [facility] Neutrophils/100 WBC (Bld) 70 % High 36 - 65 % [facility] Nucleated RBC/100 WBC (Bld) [Ratio] 0.0 % 0.0 per 100 WBC [facility] Platelet mean volume (Bld) [Entitic vol] 9.2 fL 8.1 - 13.5 fL [facility] Platelets (Bld) [#/Vol] 232 10*3/uL [facility] RBC (Bld) [#/Vol] 3.50 10*6/uL Low 3.95 - 5.1 1 m/uL [facility] Segmented neutrophils/100 WBC (Bld) 6.59 % [facility] WBC other (Bld) [#/Vol] 9.3 [facility] CBC with Diffon 07-12-2024 Abs. Basophil <0.03 Normal 0.00-0.20 [facility] Comment on above: Performed By: #### N A #### [facility] [address] [place] [address] [employer] Mesh: Robb Lewis MD Abs.Imm.Granulocyte 0.03 k/uL Normal 0.00-0.30 [facility] Comment on above: Performed By: #### N A #### [facility] [address] [place] [address] [employer]esh: Robb Lewis MD Abs.Neutrophil (Seg) 6.59 k/uL Normal 1.50-8.10 [facility] Comment on above: Performed By: #### N A #### [facility] [address] [place], [facility] ( [employer]esh: Robb Lewis MD Basophils/100 WBC (Bld) 0 % Normal 0-2 [facility] Comment on above: Performed By: #### N A #### [facility] [address] [place], [facility]83 [employer]: Robb Lewis MD Eosinophils (Bld) [#/Vol] 0.04 10*3/uL Normal 0.00-0.44 [facility] Comment on above: Performed By: #### N A #### [address] [place] [address] [employer]: Robb Lewis MD Eosinophils/100 WBC (Bld) 0 % Low 1-4 [facility] Comment on above: Performed By: #### N A #### [address] [place], [facility] ( [employer]esh: Robb Lewis MD Immature granulocytes/100 WBC (Bld) 0 % Normal 0 [facility] Comment on above: Performed By: #### N A #### [address] [place], [place] [address] [employer]: Robb Lewis MD Lymphocytes (Bld) [#/Vol] 1.41 10*3/uL Normal 1.10-3.70 [facility] Comment on above: Performed By: #### N A #### [address] [place], [facility] ( [employer]esh: Robb Lewis MD Lymphocytes/100 WBC (Bld) 15 % Low 24-43 [facility] Comment on above: Performed By: #### N A #### [address] [place] [address] [employer]esh: Robb Lewis MD Monocytes (Bld) [#/Vol] 1.28 10*3/uL High 0.10-1.20 [facility] Comment on above: Performed By: #### N A #### [facility] [address] [place], [place] [id number] [employer]: Robb Lewis MD Monocytes/100 WBC (Bld) 14 % High 3-12 [facility] Comment on above: Performed By: #### N A #### [address] [place], [facility]83 [employer]: Robb Lewis MD Neutrophil (Seg) 70 % High 36-65 [facility] Comment on above: Performed By: #### N A #### [address] [place], [facility]83 [employer]esh: Robb Lewis MD Erythrocyte distribution width (RBC) [Ratio] 13.2 % Normal 11.8-14.4 [facility] Comment on above: Performed By: #### N A #### [address] [place], [facility]83 [employer]: Robb Lewis MD Hematocrit (Bld) [Volume fraction] 29.8 % Low 36.3-47.1 [facility] Comment on above: Performed By: #### N A #### [address] [place], [facility]83 [employer]: Robb Lewis MD Hemoglobin (Bld) [Mass/Vol] 10.0 g/dL Low 11.9-15.1 [facility] Comment on above: Performed By: #### N A #### [address] [place], [place] [id number] [employer]: Robb Lewis MD MCH (RBC) [Entitic mass] 28.6 pg Normal 25.2-33.5 [facility] Comment on above: Performed By: #### N A #### [facility] [address] [place], [place] [id number] [employer]: Robb Lewis MD MCHC (RBC) [Mass/Vol] 33.6 g/dL Normal 28.4-34.8 [facility] Comment on above: Performed By: #### N A #### [address] [place], [facility]83 [employer]: Robb Lewis MD MCV (RBC) [Entitic vol] 85.1 fL Normal 82.6-102.9 [facility] Comment on above: Performed By: #### N A #### [address] [place], [place] [id number] [employer]: Robb Lewis MD NRBC Automated 0.0 per 100 WBC Normal 0.0 [facility] Comment on above: Performed By: #### N A #### [address] [place], [facility]83 [employer]: Robb Lewis MD Platelet mean volume (Bld) [Entitic vol] 9.2 fL Normal 8.1-13.5 [facility] Comment on above: Performed By: #### N A #### [address] [place], [facility]83 [employer]: Robb Lewis MD Platelets (Bld) [#/Vol] 232 10*3/uL Normal 138-453 [facility] Comment on above: Performed By: #### N A #### [address] [place], [facility]83 [employer]: Robb Lewis MD RBC (Bld) [#/Vol] 3.50 10*6/uL Low 3.95-5.11 [facility] Comment on above: Performed By: #### N A #### [address] [place], [place] [id number] [employer]: Robb Lewis MD WBC (Bld) [#/Vol] 9.3 10*3/uL Normal 3.5-11.3 [facility] Comment on above: Performed By: #### N A #### [facility] [address] [place] [address] [place], [place] [id number] [employer]: Robb Lewis MD EKG Rhythm Stripon [facility] NA (Sodium)on 07-12-2024 Sodium [Moles/Vol] 130 mmol/L Low 136-145 [facility] Comment on above: Performed By: #### PAOLA Hernandez DIME, JA, TROPI #### [address] [place], [place] [id number] [employer]: Robb Lewis MD Sodium [Moles/Vol] 128 mmol/L Low 136-145 [facility] Comment on above: Performed By: #### N A #### [facility] [address] [place] [address] [place], [place] [id number] [employer]: Robb Lewis MD Sodium [Moles/Vol] 129 mmol/L Low 136-145 [facility] Comment on above: Performed By: #### PAOLA Hernandez, ZOILA, CDP, TROPI #### [facility] [address] [place] [address] [place] [place], [place] [id number] [employer]: Robb Lewis MD Sodiumon 07-12-2024 Interpretation and review of laboratory results Abnormal [facility] Sodium [Moles/Vol] 130 mmol/L Low 136 - 145 mmol/L [facility] Interpretation and review of laboratory results Abnormal [facility] Sodium [Moles/Vol] 128 mmol/L Low 136 - 145 mmol/L [facility] Interpretation and review of laboratory results Abnormal [facility] Sodium [Moles/Vol] 129 mmol/L Low 136 - 145 mmol/L [facility] Basic Metab w/rfx MGon 07-11 Anion gap [Moles/Vol] 9 mmol/L Normal 9-16 [facility] Comment on above: Performed By: #### M G, BMP, DIME, CDP, TROPI #### [facility] [address] [place], [place] [id number] [employer]: Robb Lewis MD BUN/CRE Ratio 15 Normal 9-20 [facility] Comment on above: Performed By: #### M G, BMP, DIME, CDP, TROPI #### [facility] [address] [place] [address] [employer]: Robb Lewis MD Calcium [Mass/Vol] 8.6 mg/dL Normal 8.6-10.4 [facility] Comment on above: Performed By: #### M G, BMP, DIME, CDP, TROPI #### [facility] [address] [place], [place] [id number] [employer]: Robb Lewis MD Chloride [Moles/Vol] 88 mmol/L Low 98-107 [facility] Comment on above: Performed By: #### M G, BMP, DIME, CDP, TROPI #### [facility] [address] [place] [address] [employer]esh: Robb Lewis MD CO2 [Moles/Vol] 26 mmol/L Normal 20-31 [facility] Comment on above: Performed By: #### M G, BMP, DIME, CDP, TROPI #### [facility] [address] [place] [address] [employer]esh: Robb Lewis MD Creatinine [Mass/Vol] 0.4 mg/dL Low 0.50-0.90 [facility] Comment on above: Performed By: #### M G, BMP, DIME, CDP, TROPI #### [facility] [address] [place] [address] [place] [address] [employer]: Robb Lewis MD GFR/1.73 sq M.predicted among non-blacks MDRD (S/P/Bld) [Vol rate/Area] mL/min/{1.73_m2} Normal >60 [facility] Comment on above: Result Comment: These results are not intended for use in patients <18 years of age. eGFR results are calculated without a race factor using the 2020 CKD-EPI equation. Careful clinical correlation is recommended, particularly when comparing to results calculated using previous equations. The CKD-EPI equation is less accurate in patients with extremes of muscle mass, extra-renal metabolism of creatine, excessive creatine ingestion, or following therapy that affects renal tubular secretion. Performed By: #### M G, BMP, DIME, CDP, TROPI #### [address] [place] [address] [employer]: Robb Lewis MD Glucose [Mass/Vol] 103 mg/dL High 74-99 [facility] Comment on above: Performed By: #### M G, BMP, DIME, CDP, TROPI #### [address] [place] [address] [employer]esh: Robb Lewis MD Potassium [Moles/Vol] 3.3 mmol/L Low 3.7-5.3 [facility] Comment on above: Performed By: #### M G, BMP, DIME, CDP, TROPI #### [facility] [address] [place] [address] [place] [address] [employer]esh: Robb Lewis MD Sodium [Moles/Vol] 123 mmol/L Low 136-145 [facility] Comment on above: Performed By: #### M G, BMP, DIME, CDP, TROPI #### [facility] [address] [place] [address] [place] [address] [employer]esh: Robb Lewis MD Urea nitrogen [Mass/Vol] 6 mg/dL Low 8- [facility] Comment on above: Performed By: #### M G, PAOLA, ZOILA, JA, EDUARDI #### [facility] [address] [place] [address] [employer]: Robb Lewis MD Basic Metabolic Panel w/ Ref dago to MGon 07-11-2024 Anion gap [Moles/Vol] 9 mmol/L 9 - 16 mmol/L [facility] Calcium [Mass/Vol] 8.6 mg/dL 8.6 - 10. 4 mg/dL [facility] Chloride [Moles/Vol] 88 mmol/L Low 98 - 10 7 mmol/L [facility] CO2 [Moles/Vol] 26 mmol/L 20 - 31 mmol/L [facility] Creatinine [Mass/Vol] 0.4 mg/dL Low 0.50 - 0.90 mg/dL [facility] Est, Glom Portert Rate - PINF [facility] Comment on above: These results are not intended for use in patients <18 years of age. eGFR results are calculated without a race factor using the 2020 CKD-EPI equation. Careful clinical correlation is recommended, particularly when comparing to results calculated using previous equations. The CKD-EPI equation is less accurate in patients with extremes of muscle mass, extra-renal metabolism of creatine, excessive creatine ingestion, or following therapy that affects renal tubular secretion. Glucose [Mass/Vol] 103 mg/dL High 74 - 99 mg/dL [facility] Interpretation and review of laboratory results Abnormal [facility] Potassium [Moles/Vol] 3.3 mmol/L Low 3.7 - 5.3 mmol/L [facility] Sodium [Moles/Vol] 123 mmol/L Low 136 - 145 mmol/L [facility] Urea nitrogen [Mass/Vol] 6 mg/dL Low 8 - 23 mg/dL [facility] Urea nitrogen/Creatinine [Mass ratio] 15 mg/mg 9 - 20 [facility] CBC auto differentialon 06-20 Basophils (Bld) [#/Vol] [facility] Basophils/100 WBC (Bld) 0 % 0 - 2 % [facility] Eosinophils (Bld) [#/Vol] 0.10 10*3/uL [facility] Eosinophils/100 WBC (Bld) 1 % 1 - 4 % [facility] Erythrocyte distribution width (RBC) [Ratio] 12.6 % 11.8 - 14.4 % [facility] Hematocrit (Bld) [Volume fraction] 31.5 % Low 36.3 - 47.1 % [facility] Hemoglobin (Bld) [Mass/Vol] 10.6 g/dL Low 11.9 - 15.1 g/dL [facility] Immature granulocytes (Bld) [#/Vol] [facility] Immature granulocytes/100 WBC (Bld) 0 % 0 [facility] Interpretation and review of laboratory results Abnormal [facility] Lymphocytes/100 WBC (Bld) 23 % Low 24 - 43 % [facility] Lymphocytes/100 WBC (Bld) 1.89 % [facility] MCH (RBC) [Entitic mass] 28.3 pg 25.2 - 33.5 pg [facility] MCHC (RBC) [Mass/Vol] 33.7 g/dL 28.4 - 34.8 g/dL [facility] MCV (RBC) [Entitic vol] 84.0 fL 82.6 - 102.9 fL [facility] Monocytes/100 WBC (Bld) 14 % High 3 - 12 % [facility] Monocytes/100 WBC (Bld) 1.19 % [facility] Neutrophils/100 WBC (Bld) 62 % 36 - 65 % [facility] Nucleated RBC/100 WBC (Bld) [Ratio] 0.0 % 0.0 per 100 WBC [facility] Platelet mean volume (Bld) [Entitic vol] 9.2 fL 8.1 - 13.5 fL [facility] Platelets (Bld) [#/Vol] 245 10*3/uL [facility] RBC (Bld) [#/Vol] 3.75 10*6/uL Low 3.95 - 5.1 1 m/uL [facility] Segmented neutrophils/100 WBC (Bld) 5.07 % [facility] WBC other (Bld) [#/Vol] 8.3 [facility] CBC with Diffon 07-11-2024 Abs. Basophil <0.03 Normal 0.00-0.20 [facility] Comment on above: Performed By: #### M G, BMP, DIME, CDP, TROPI #### [facility] [address] [place] [address] [employer] Mesh: Robb Lewis MD Abs.Imm.Granulocyte <0.03 Normal 0.00-0.30 [facility] Comment on above: Performed By: #### M G, BMP, DIME, CDP, TROPI #### [address] [place] [address] [employer] Mesh: Robb Lewis MD Abs.Neutrophil (Seg) 5.07 k/uL Normal 1.50-8.10 [facility] Comment on above: Performed By: #### M G, BMP, DIME, CDP, TROPI #### [address] [place] [address] [employer] Mesh: Robb Lewis MD Basophils/100 WBC (Bld) 0 % Normal 0-2 [facility] Comment on above: Performed By: #### M G, BMP, DIME, CDP, TROPI #### [address] [place], [place] [address] [employer] Mesh: Robb Lewis MD Eosinophils (Bld) [#/Vol] 0.10 10*3/uL Normal 0.00-0.44 [facility] Comment on above: Performed By: #### M G, BMP, DIME, CDP, TROPI #### [address] [place], [place] [id number] [employer]esh: Robb Lewis MD Eosinophils/100 WBC (Bld) 1 % Normal 1-4 [facility] Comment on above: Performed By: #### M G, BMP, DIME, CDP, TROPI #### [address] [place], [place] 104[address]83 [employer]esh: Robb Lewis MD Erythrocyte distribution width (RBC) [Ratio] 12.6 % Normal 11.8-14.4 [facility] Comment on above: Performed By: #### M G, BMP, DIME, CDP, TROPI #### [address] [place] [address] [employer] Mesh: Robb Lewis MD Hematocrit (Bld) [Volume fraction] 31.5 % Low 36.3-47.1 [facility] Comment on above: Performed By: #### M G, BMP, DIME, CDP, TROPI #### [address] [place] [address] [employer] Mesh: Robb Lewis MD Hemoglobin (Bld) [Mass/Vol] 10.6 g/dL Low 11.9-15.1 [facility] Comment on above: Performed By: #### M G, BMP, DIME, CDP, TROPI #### [address] [place] [id number] [employer] Mesh: Robb Lewis MD Immature granulocytes/100 WBC (Bld) 0 % Normal 0 [facility] Comment on above: Performed By: #### M G, BMP, DIME, CDP, TROPI #### [address] [place] [id number] [employer] Mesh: Robb Lewis MD Lymphocytes (Bld) [#/Vol] 1.89 10*3/uL Normal 1.10-3.70 [facility] Comment on above: Performed By: #### M G, BMP, DIME, CDP, TROPI #### [address] [place] [id number] [employer] Mesh: Robb Lewis MD Lymphocytes/100 WBC (Bld) 23 % Low 24-43 [facility] Comment on above: Performed By: #### M G, BMP, DIME, CDP, TROPI #### [facility] [address] [place], [place] [id number] [employer]esh: Robb Lewis MD MCH (RBC) [Entitic mass] 28.3 pg Normal 25.2-33.5 [facility] Comment on above: Performed By: #### M G, BMP, DIME, CDP, TROPI #### [facility] [address] [place], [facility] [employer] Mesh: Robb Lewsi MD MCHC (RBC) [Mass/Vol] 33.7 g/dL Normal 28.4-34.8 [facility] Comment on above: Performed By: #### M G, BMP, DIME, CDP, TROPI #### [facility] [address] [place], [place] [address] [employer] Mesh: Robb Lewis MD MCV (RBC) [Entitic vol] 84.0 fL Normal 82.6-102.9 [facility] Comment on above: Performed By: #### M G, BMP, DIME, CDP, TROPI #### [facility] [address] [place], [facility] [employer]esh: Robb Lewis MD Monocytes (Bld) [#/Vol] 1.19 10*3/uL Normal 0.10-1.20 [facility] Comment on above: Performed By: #### M G, BMP, DIME, CDP, TROPI #### [facility] [address] [place], [place] [id number] [employer]esh: Robb Lewis MD Monocytes/100 WBC (Bld) 14 % High 3-12 [facility] Comment on above: Performed By: #### M G, BMP, DIME, CDP, TROPI #### [facility] [address] [place], [facility] [employer] Mesh: Robb Lewis MD Neutrophil (Seg) 62 % Normal 36-65 [facility] Comment on above: Performed By: #### M G, BMP, DIME, CDP, TROPI #### [facility] [address] [place] [address] [employer] Mesh: Robb Lewis MD NRBC Automated 0.0 per 100 WBC Normal 0.0 [facility] Comment on above: Performed By: #### M G, BMP, DIME, CDP, TROPI #### [facility] [address] [place], [place] [phone] [employer]esh: Robb Lewis MD Platelet mean volume (Bld) [Entitic vol] 9.2 fL Normal 8.1-13.5 [facility] Comment on above: Performed By: #### M G, BMP, DIME, CDP, TROPI #### [address] [place], [place] [address]83 [employer]esh: Robb Lewis MD Platelets (Bld) [#/Vol] 245 10*3/uL Normal 138-453 [facility] Comment on above: Performed By: #### M G, BMP, DIME, CDP, TROPI #### [address] [place], [place] [phone] [employer]esh: Robb Lewis MD RBC (Bld) [#/Vol] 3.75 10*6/uL Low 3.95-5.11 [facility] Comment on above: Performed By: #### M G, BMP, DIME, CDP, TROPI #### [facility] [address] [place] [address] [place] [address] [employer] Mesh: Robb Lewis MD WBC (Bld) [#/Vol] 8.3 10*3/uL Normal 3.5-11.3 [facility] Comment on above: Performed By: #### M G, BMP, DIME, CDP, TROPI #### [facility] [address] [place] [address] [employer] Mesh: Robb Lewis MD EKG Rhythm Stripon [facility] Magnesiumon 07-11-2024 Magnesium [Mass/Vol] 1.6 mg/dL 1.6 - 2 .4 mg/dL [facility] Magnesium [Mass/Vol] 1.6 mg/dL Normal 1.6-2.4 [facility] Comment on above: Performed By: #### M G, BMP, DIME, CDP, TROPI #### [address] [place] [address] [employer] Mesh: Robb Lweis MD NA (Sodium)on 07-11-2024 Sodium [Moles/Vol] 126 mmol/L Low 136145 [facility] Comment on above: Performed By: #### M G, BMP, DIME, CDP, TROPI #### [facility] [address] [place] [address] [place] [address] [employer]esh: Robb Lewis MD Sodium [Moles/Vol] 125 mmol/L [address] Comment on above: Performed By: #### M G, BMP, DIME, CDP, TROPI #### [address] [place] [address] [employer]esh: Robb Lewis MD Sodium [Moles/Vol] 125 mmol/L [facility] [address] Comment on above: Performed By: #### M G, BMP, DIME, CDP, TROPI #### [address] [place] [address] [employer] Mesh: Robb Lewis MD Sodium [Moles/Vol] 125 mmol/L [facility] 136[address] [facility] Comment on above: Performed By: #### M G, BMP, DIME, CDP, TROPI #### [facility] [address] [place], [place] [id number] [employer]esh: Robb Lewis MD Sodium [Moles/Vol] 123 mmol/L Low 136-145 [facility] Comment on above: Performed By: #### N A #### [facility] [address] [place], [place] [address]83 [employer]esh: Robb Lewis MD Sodium [Moles/Vol] 124 mmol/L Low 136-145 [facility] Comment on above: Performed By: #### N A #### [facility] [address] [place] [address] [employer] Mesh: Robb Lewis MD Sodium [Moles/Vol] 122 mmol/L Low 136-145 [facility] Comment on above: Performed By: #### M G, BMP, DIME, CDP, TROPI #### [facility] [address] [place], [facility] [employer]esh: Robb Lewis MD No Panel Informationon 07-11 [facility] Sodiumon 07-11-2024 Interpretation and review of laboratory results Abnormal [facility] Sodium [Moles/Vol] 126 mmol/L Low 136 - 145 mmol/L [facility] Interpretation and review of laboratory results Abnormal [facility] Sodium [Moles/Vol] 125 mmol/L Low 136 - 145 mmol/L [facility] Interpretation and review of laboratory results Abnormal [facility] Sodium [Moles/Vol] 125 mmol/L Low 136 - 145 mmol/L [facility] Interpretation and review of laboratory results Abnormal [facility] Sodium [Moles/Vol] 125 mmol/L Low 136 - 145 mmol/L [facility] Interpretation and review of laboratory results Abnormal [facility] Sodium [Moles/Vol] 123 mmol/L Low 136 - 145 mmol/L [facility] Interpretation and review of laboratory results Abnormal [facility] Sodium [Moles/Vol] 124 mmol/L Low 136 - 145 mmol/L [facility] Interpretation and review of laboratory results Abnormal [facility] Sodium [Moles/Vol] 122 mmol/L Low 136 - 145 mmol/L [facility] Basic Metab w/rfx MGon 07-10 Anion gap [Moles/Vol] 11 mmol/L Normal -16 [facility] Comment on above: Performed By: #### N A #### [facility] [address] [place] [address] [employer]esh: Robb Lewis MD BUN/CRE Ratio 15 Normal - [facility] Comment on above: Performed By: #### N A #### [facility] [address] [place], [place] [address] [employer]: Robb Lewis MD Calcium [Mass/Vol] 9.0 mg/dL Normal 8.6-10.4 [facility] Comment on above: Performed By: #### N A #### [facility] [address] [place] [address] [employer]esh: Robb Lewis MD Chloride [Moles/Vol] 83 mmol/L Low 98-107 [facility] Comment on above: Performed By: #### N A #### [facility] [address] [place], [place] [id number] [employer]: Robb Lewis MD CO2 [Moles/Vol] 23 mmol/L Normal - [facility] Comment on above: Performed By: #### N A #### [facility] [address] [place] [address] [employer]esh: Robb Lewis MD Creatinine [Mass/Vol] 0.4 mg/dL Low 0.50-0.90 [facility] Comment on above: Performed By: #### N A #### [facility] [address] [place] [id number] [employer]: Robb Lewis MD GFR/1.73 sq M.predicted among non-blacks MDRD (S/P/Bld) [Vol rate/Area] mL/min/{1.73_m2} Normal >60 [facility] Comment on above: Result Comment: These results are not intended for use in patients <18 years of age. eGFR results are calculated without a race factor using the 2020 CKD-EPI equation. Careful clinical correlation is recommended, particularly when comparing to results calculated using previous equations. The CKD-EPI equation is less accurate in patients with extremes of muscle mass, extra-renal metabolism of creatine, excessive creatine ingestion, or following therapy that affects renal tubular secretion. Performed By: #### N A #### [facility] [address] [place] [address] [place] [address] [employer]: Robb Lewis MD Glucose [Mass/Vol] 115 mg/dL High 74-99 [facility] Comment on above: Performed By: #### N A #### [facility] [address] [place] [address] [address] [place] [id number] [employer]: Robb Lewis MD Potassium [Moles/Vol] 3.9 mmol/L Normal 3.7-5.3 [facility] Comment on above: Performed By: #### N A #### [facility] [address] [place] [address] [address] [id number] [employer]: Robb Lewis MD Sodium [Moles/Vol] 117 mmol/L Critically low 136-145 [facility] Comment on above: Performed By: #### N A #### [facility] [address] [place] [address] [employer]esh: Robb Lewis MD Urea nitrogen [Mass/Vol] 6 mg/dL Low 8-23 [facility] Comment on above: Performed By: #### N A #### [facility] [address] [place] [address] [employer]: Robb Lewis MD Basic Metabolic Panel w/ Ref dago to MGon 07-10-2024 Anion gap [Moles/Vol] 11 mmol/L 9 - 16 mmol/L [facility] Calcium [Mass/Vol] 9.0 mg/dL 8.6 - 10. 4 mg/dL [facility] Chloride [Moles/Vol] 83 mmol/L Low 98 - 10 7 mmol/L [facility] CO2 [Moles/Vol] 23 mmol/L 20 - 31 mmol/L [facility] Creatinine [Mass/Vol] 0.4 mg/dL Low 0.50 - 0.90 mg/dL [facility] Est, Kodi Walton Rate - [facility] Comment on above: These results are not intended for use in patients <18 years of age. eGFR results are calculated without a race factor using the 2020 CKD-EPI equation. Careful clinical correlation is recommended, particularly when comparing to results calculated using previous equations. The CKD-EPI equation is less accurate in patients with extremes of muscle mass, extra-renal metabolism of creatine, excessive creatine ingestion, or following therapy that affects renal tubular secretion. Glucose [Mass/Vol] 115 mg/dL High 74 - 99 mg/dL [facility] Interpretation and review of laboratory results Abnormal [facility] Potassium [Moles/Vol] 3.9 mmol/L 3.7 - 5.3 mmol/L [facility] Sodium [Moles/Vol] 117 mmol/L Critically low 136 - 1 45 mmol/L [facility] Urea nitrogen [Mass/Vol] 6 mg/dL Low 8 - 23 mg/dL [facility] Urea nitrogen/Creatinine [Mass ratio] 15 mg/mg 9 - 20 [facility] CBC auto differentialon 06-20 Basophils (Bld) [#/Vol] [facility] Basophils/100 WBC (Bld) 0 % 0 - 2 % [facility] Eosinophils (Bld) [#/Vol] 0.08 10*3/uL [facility] Eosinophils/100 WBC (Bld) 1 % 1 - 4 % [facility] Erythrocyte distribution width (RBC) [Ratio] 12.6 % 11.8 - 14.4 % [facility] Hematocrit (Bld) [Volume fraction] 34.3 % Low 36.3 - 47.1 % [facility] Hemoglobin (Bld) [Mass/Vol] 11.8 g/dL Low 11.9 - 15.1 g/dL [facility] Immature granulocytes (Bld) [#/Vol] 0.03 10*3/uL [facility] Immature granulocytes/100 WBC (Bld) 0 % 0 [facility] Interpretation and review of laboratory results Abnormal [facility] Lymphocytes/100 WBC (Bld) 17 % Low 24 - 43 % [facility] Lymphocytes/100 WBC (Bld) 1.74 % [facility] MCH (RBC) [Entitic mass] 28.7 pg 25.2 - 33.5 pg [facility] MCHC (RBC) [Mass/Vol] 34.4 g/dL 28.4 - 34.8 g/dL [facility] MCV (RBC) [Entitic vol] 83.5 fL 82.6 - 102.9 fL [facility] Monocytes/100 WBC (Bld) 10 % 3 - 12 % [facility] Monocytes/100 WBC (Bld) 1.09 % [facility] Neutrophils/100 WBC (Bld) 72 % High 36 - 65 % [facility] Nucleated RBC/100 WBC (Bld) [Ratio] 0.0 % 0.0 per 100 WBC [facility] Platelet mean volume (Bld) [Entitic vol] 9.1 fL 8.1 - 13.5 fL [facility] Platelets (Bld) [#/Vol] 249 10*3/uL [facility] RBC (Bld) [#/Vol] 4.11 10*6/uL 3.95 - 5.1 1 m/uL [facility] Segmented neutrophils/100 WBC (Bld) 7.50 % [facility] WBC other (Bld) [#/Vol] 10.5 [facility] CBC with Diffon 07-10-2024 Abs. Basophil <0.03 Normal 0.00-0.20 [facility] Comment on above: Performed By: #### B MPX, CDP, MG #### [facility] [address] [place] [address] [place] [address] [employer]: Robb Lewis MD Abs.Imm.Granulocyte 0.03 k/uL Normal 0.00-0.30 [facility] Comment on above: Performed By: #### B MPX, CDP, MG #### [address] [place] [id number] [employer]esh: Robb Lewis MD Abs.Neutrophil (Seg) 7.50 k/uL Normal 1.50-8.10 [facility] Comment on above: Performed By: #### B MPX, CDP, MG #### [address] [place] [address] [employer]: Robb Lewis MD Basophils/100 WBC (Bld) 0 % Normal 0-2 [facility] Comment on above: Performed By: #### B MPX, CDP, MG #### [address] [place], [facility] [employer]: Robb Lewis MD Eosinophils (Bld) [#/Vol] 0.08 10*3/uL Normal 0.00-0.44 [facility] Comment on above: Performed By: #### B MPX, CDP, MG #### [address] [place], [facility] [employer]: Robb Lewis MD Eosinophils/100 WBC (Bld) 1 % Normal 1-4 [facility] Comment on above: Performed By: #### B MPX, CDP, MG #### [address] [place] [address] [employer]: Robb Lewis MD Erythrocyte distribution width (RBC) [Ratio] 12.6 % Normal 11.8-14.4 [facility] Comment on above: Performed By: #### B MPX, CDP, MG #### [facility] [address] [place], [facility] [employer]: Robb Lewis MD Hematocrit (Bld) [Volume fraction] 34.3 % Low 36.3-47.1 [facility] Comment on above: Performed By: #### B MPX, CDP, MG #### [facility] [address] [place], [facility] [employer]: Robb Lewis MD Hemoglobin (Bld) [Mass/Vol] 11.8 g/dL Low 11.9-15.1 [facility] Comment on above: Performed By: #### B MPX, CDP, MG #### [address] [place], [facility] [employer]: Robb Lewis MD Immature granulocytes/100 WBC (Bld) 0 % Normal 0 [facility] Comment on above: Performed By: #### B MPX, CDP, MG #### [address] [place], [facility] [employer]: Robb Lewis MD Lymphocytes (Bld) [#/Vol] 1.74 10*3/uL Normal 1.10-3.70 [facility] Comment on above: Performed By: #### B MPX, CDP, MG #### [address] [place], [facility] [employer]: Robb Lewis MD Lymphocytes/100 WBC (Bld) 17 % Low 24-43 [facility] Comment on above: Performed By: #### B MPX, CDP, MG #### [address] [place], [facility] [employer]: Robb Lewis MD MCH (RBC) [Entitic mass] 28.7 pg Normal 25.2-33.5 [facility] Comment on above: Performed By: #### B MPX, CDP, MG #### [address] [place] [address] [employer]: Robb Lewis MD MCHC (RBC) [Mass/Vol] 34.4 g/dL Normal 28.4-34.8 [facility] Comment on above: Performed By: #### B MPX, CDP, MG #### [address] [place], [facility] [employer]: Robb Lewis MD MCV (RBC) [Entitic vol] 83.5 fL Normal 82.6-102.9 [facility] Comment on above: Performed By: #### B MPX, CDP, MG #### [address] [place], [facility] [employer]esh: Robb Lewis MD Monocytes (Bld) [#/Vol] 1.09 10*3/uL Normal 0.10-1.20 [facility] Comment on above: Performed By: #### B MPX, CDP, MG #### [address] [place], [facility] [employer]: Robb Lewis MD Monocytes/100 WBC (Bld) 10 % Normal 3-12 [facility] Comment on above: Performed By: #### B MPX, CDP, MG #### [address] [place], [facility] [employer]esh: Robb Lewis MD Neutrophil (Seg) 72 % High 36-65 [facility] Comment on above: Performed By: #### B MPX, CDP, MG #### [address] [place] [address] [employer]esh: Robb Lewis MD NRBC Automated 0.0 per 100 WBC Normal 0.0 [facility] Comment on above: Performed By: #### B MPX, CDP, MG #### [facility] [address] [place] [address] [place] [address] [employer]: Robb Lewis MD Platelet mean volume (Bld) [Entitic vol] 9.1 fL Normal 8.1-13.5 [facility] Comment on above: Performed By: #### B MPX, CDP, MG #### [facility] [address] [place] [address] [place] [address] [employer]esh: Robb Lewis MD Platelets (Bld) [#/Vol] 249 10*3/uL Normal 138-453 [facility] Comment on above: Performed By: #### B MPX, CDP, MG #### [address] [place] [address] [employer]esh: Robb Lewis MD RBC (Bld) [#/Vol] 4.11 10*6/uL Normal 3.95-5.11 [facility] Comment on above: Performed By: #### B MPX, CDP, MG #### [facility] [address] [place] [address] [place], [place] [id number] [employer]: Robb Lewis MD WBC (Bld) [#/Vol] 10.5 10*3/uL Normal 3.5-11.3 [facility] Comment on above: Performed By: #### B MPX, CDP, MG #### [facility] [address] [place] [address] [place], [facility] [employer]: Robb Lewis MD EKG Rhythm Stripon 4 PAC [facility] Magnesiumon 07-10-2024 Magnesium [Mass/Vol] 1.6 mg/dL 1.6 - 2 .4 mg/dL [facility] Magnesium [Mass/Vol] 1.6 mg/dL Normal 1.6-2.4 [facility] Comment on above: Performed By: #### N A #### [address] [place], [place] [id number] [employer]: Robb eLwis MD NA (Sodium)on 07-10-2024 Sodium [Moles/Vol] 120 mmol/L Low 136-145 [facility] Comment on above: Performed By: #### N A #### [address] [place], [place] [id number] [employer]: Robb Lewis MD Sodium [Moles/Vol] 119 mmol/L Critically low 136-145 [facility] Comment on above: Performed By: #### M G, BMP, DIME, CDP, TROPI #### [address] [place], [place] [id number] [employer]: Robb Lewis MD Sodium [Moles/Vol] 118 mmol/L Critically low 136-145 [facility] Comment on above: Performed By: #### M G, BMP, DIME, CDP, TROPI #### [address] [place], [place] [id number] [employer]: Robb Lewis MD Sodium [Moles/Vol] 117 mmol/L Critically low 136-145 [facility] Comment on above: Performed By: #### M G, BMP, DIME, CDP, TROPI #### [address] [place], [place] [id number] [employer]esh: Robb Lewis MD Sodium [Moles/Vol] 115 mmol/L Critically low 136-145 [facility] Comment on above: Performed By: #### M G, BMP, DIME, CDP, TROPI #### [address] [place] [address] [employer]esh: Robb Lewis MD Sodium [Moles/Vol] 115 mmol/L Critically low 136-145 [facility] Comment on above: Performed By: #### M G, BMP, DIME, CDP, TROPI #### [facility] [address] [place] [address] [employer] Mesh: Robb Lewis MD No Panel Informationon 07-10 [facility] Osmolality, Urineon 07-10-20 24 Osmolality (U) [Osmolality] 436 mosm/kg [facility] Osmolality - Urine 436 mOsm/kg Normal 80-1300 [facility] Comment on above: Performed By: #### U OSMO #### [facility] [address] [place], [place] [address] [employer]esh: Tai Vázquez MD #### URNA #### [facility] [address] [place] [address] [employer]esh: Robb Lewis MD Sodiumon 07-10-2024 Interpretation and review of laboratory results Abnormal [facility] Sodium [Moles/Vol] 120 mmol/L Low 136 - 145 mmol/L [facility] Interpretation and review of laboratory results Abnormal [facility] Sodium [Moles/Vol] 119 mmol/L Critically low 136 - 1 45 mmol/L [facility] Interpretation and review of laboratory results Abnormal [facility] Sodium [Moles/Vol] 118 mmol/L Critically low 136 - 1 45 mmol/L [facility] Interpretation and review of laboratory results Abnormal [facility] Sodium [Moles/Vol] 117 mmol/L Critically low 136 - 1 45 mmol/L [facility] Interpretation and review of laboratory results Abnormal [facility] Sodium [Moles/Vol] 115 mmol/L Critically low 136 - 1 45 mmol/L [facility] Interpretation and review of laboratory results Abnormal [facility] Sodium [Moles/Vol] 115 mmol/L Critically low 136 - 1 45 mmol/L [facility] Sodium, Random Uron 07-10-20 24 Sodium (U) [Moles/Vol] 148 mmol/L Normal [facility] Comment on above: Result Comment: No n ormal range established. Performed By: #### U OSMO #### [facility] [address], [place] [id number] [employer]: Tai Vázquez MD #### URNA #### [facility] [address] [place] [address] [employer]esh: Robb Lewis MD Sodium, urine, randomon 06-20 Sodium (U) [Moles/Vol] 148 mmol/L [facility] Comment on above: No normal range esta blished. [facility] Uric Acidon 07-10-2024 Interpretation and review of laboratory results Abnormal [facility] Urate [Mass/Vol] 2.2 mg/dL Low 2.4 - 5.7 mg/dL [facility] Urate [Mass/Vol] 2.2 mg/dL Low 2.4-5.7 [facility] Comment on above: Performed By: #### M G, BMP, DIME, CDP, TROPI #### [facility] [address] [place] [address] [employer]: Robb Lewis MD Basic Metab w/rfx MGon 07-09 Anion gap [Moles/Vol] 10 mmol/L Normal - [facility] Comment on above: Performed By: #### M G, BMP, DIME, CDP, TROPI #### [facility] [address] [place] [address] [employer] Mesh: Robb Lewis MD BUN/CRE Ratio 15 Normal - [facility] Comment on above: Performed By: #### M G, BMP, DIME, CDP, TROPI #### [facility] [address] [place] [address] [employer] Mesh: Robb Lewis MD Calcium [Mass/Vol] 8.9 mg/dL Normal 8.6-10.4 [facility] Comment on above: Performed By: #### M G, BMP, DIME, CDP, TROPI #### [facility] [address] [place] [address] [employer] Mesh: Robb Lewis MD Chloride [Moles/Vol] 89 mmol/L Low 98-107 [facility] Comment on above: Performed By: #### M G, BMP, DIME, CDP, TROPI #### [facility] [address] [place] [address] [employer] Mesh: Robb Lewis MD CO2 [Moles/Vol] 24 mmol/L Normal 20-31 [facility] Comment on above: Performed By: #### M G, BMP, DIME, CDP, TROPI #### [facility] [address] [place] [address] [employer] Mesh: Robb Lewis MD Creatinine [Mass/Vol] 0.4 mg/dL Low 0.50-0.90 [facility] Comment on above: Performed By: #### M G, BMP, DIME, CDP, TROPI #### [facility] [address] [place] [address] [employer]esh: Robb Lewis MD GFR/1.73 sq M.predicted among non-blacks MDRD (S/P/Bld) [Vol rate/Area] mL/min/{1.73_m2} Normal >60 [facility] Comment on above: Result Comment: These results are not intended for use in patients <18 years of age. eGFR results are calculated without a race factor using the 2020 CKD-EPI equation. Careful clinical correlation is recommended, particularly when comparing to results calculated using previous equations. The CKD-EPI equation is less accurate in patients with extremes of muscle mass, extra-renal metabolism of creatine, excessive creatine ingestion, or following therapy that affects renal tubular secretion. Performed By: #### M G, BMP, DIME, CDP, TROPI #### [facility] [address] [place] [address] [employer]esh: Robb Lewis MD Glucose [Mass/Vol] 123 mg/dL High 74-99 [facility] Comment on above: Performed By: #### M G, BMP, DIME, CDP, TROPI #### [facility] [address] [place] [address] [employer]esh: Robb Lewis MD Potassium [Moles/Vol] 4.3 mmol/L Normal 3.7-5.3 [facility] Comment on above: Performed By: #### M G, BMP, DIME, CDP, TROPI #### [facility] [address] [place] [address] [employer] Mesh: Robb Lewis MD Sodium [Moles/Vol] 123 mmol/L Low 136-145 [facility] Comment on above: Performed By: #### M G, BMP, DIME, CDP, TROPI #### [facility] [address] [place] [address] [place] [address] [employer] Mesh: Robb Lewis MD Urea nitrogen [Mass/Vol] 6 mg/dL Low 8-23 [facility] Comment on above: Performed By: #### M G, BMP, DIME, CDP, TROPI #### [facility] [address] [place] [address] [place] [address] [employer]: Robb Lewis MD Basic Metabolic Panel w/ Ref dago to MGon 07-09-2024 Anion gap [Moles/Vol] 10 mmol/L 9 - 16 mmol/L [facility] Calcium [Mass/Vol] 8.9 mg/dL 8.6 - 10. 4 mg/dL [facility] Chloride [Moles/Vol] 89 mmol/L Low 98 - 10 7 mmol/L [facility] CO2 [Moles/Vol] 24 mmol/L 20 - 31 mmol/L [facility] Creatinine [Mass/Vol] 0.4 mg/dL Low 0.50 - 0.90 mg/dL [facility] Est, Glom Filt Rate - [facility] Comment on above: These results are not intended for use in patients <18 years of age. eGFR results are calculated without a race factor using the 2020 CKD-EPI equation. Careful clinical correlation is recommended, particularly when comparing to results calculated using previous equations. The CKD-EPI equation is less accurate in patients with extremes of muscle mass, extra-renal metabolism of creatine, excessive creatine ingestion, or following therapy that affects renal tubular secretion. Glucose [Mass/Vol] 123 mg/dL High 74 - 99 mg/dL [facility] Interpretation and review of laboratory results Abnormal [facility] Potassium [Moles/Vol] 4.3 mmol/L 3.7 - 5.3 mmol/L [facility] Sodium [Moles/Vol] 123 mmol/L Low 136 - 145 mmol/L [facility] Urea nitrogen [Mass/Vol] 6 mg/dL Low 8 - 23 mg/dL [facility] Urea nitrogen/Creatinine [Mass ratio] 15 mg/mg 9 - 20 [facility] CBC auto differentialon 06-20 Basophils (Bld) [#/Vol] 0.00 10*3/uL [facility] Basophils/100 WBC (Bld) 0 % 0 - 2 % [facility] Eosinophils (Bld) [#/Vol] 0.18 10*3/uL [facility] Eosinophils/100 WBC (Bld) 2 % 1 - 4 % [facility] Erythrocyte distribution width (RBC) [Ratio] 13.0 % 11.8 - 14.4 % [facility] Hematocrit (Bld) [Volume fraction] 35.1 % Low 36.3 - 47.1 % [facility] Hemoglobin (Bld) [Mass/Vol] 11.6 g/dL Low 11.9 - 15.1 g/dL [facility] Immature granulocytes (Bld) [#/Vol] 0.00 10*3/uL [facility] Immature granulocytes/100 WBC (Bld) 0 % 0 [facility] Interpretation and review of laboratory results Abnormal [facility] Lymphocytes/100 WBC (Bld) 20 % Low 24 - 43 % [facility] Lymphocytes/100 WBC (Bld) 1.82 % [facility] MCH (RBC) [Entitic mass] 28.2 pg 25.2 - 33.5 pg [facility] MCHC (RBC) [Mass/Vol] 33.0 g/dL 28.4 - 34.8 g/dL [facility] MCV (RBC) [Entitic vol] 85.4 fL 82.6 - 102.9 fL [facility] Monocytes/100 WBC (Bld) 10 % 3 - 12 % [facility] Monocytes/100 WBC (Bld) 0.91 % [facility] Morphology Dakota (Bld) [Interp] Normal [facility] Neutrophils/100 WBC (Bld) 68 % High 36 - 65 % [facility] Nucleated RBC/100 WBC (Bld) [Ratio] 0.0 % 0.0 per 100 WBC [facility] Platelet mean volume (Bld) [Entitic vol] 9.4 fL 8.1 - 13.5 fL [facility] Platelets (Bld) [#/Vol] 228 10*3/uL [facility] RBC (Bld) [#/Vol] 4.11 10*6/uL 3.95 - 5.1 1 m/uL [facility] Segmented neutrophils/100 WBC (Bld) 6.19 % [facility] WBC other (Bld) [#/Vol] 9.1 [facility] CBC with Diffon 07-09-2024 Abs. Basophil 0.00 k/uL Normal 0.00-0.20 [facility] Comment on above: Performed By: #### M Abundio, BMP, DIME, CDP, TROPI #### [facility] [address] [place] [address] [employer] Mesh: Robb Lewis MD Abs.Imm.Granulocyte 0.00 k/uL Normal 0.00-0.30 [facility] Comment on above: Performed By: #### M G, BMP, DIME, CDP, TROPI #### [facility] [address] [place], [place] [address] [employer]esh: Robb Lewis MD Abs.Neutrophil (Seg) 6.19 k/uL Normal 1.50-8.10 [facility] Comment on above: Performed By: #### M G, BMP, DIME, CDP, TROPI #### [address] [place], [facility] [employer]esh: Robb Lewis MD Basophils/100 WBC (Bld) 0 % Normal 0-2 [facility] Comment on above: Performed By: #### M G, BMP, DIME, CDP, TROPI #### [address] [place] [id number] [employer]esh: Robb Lewis MD Eosinophils (Bld) [#/Vol] 0.18 10*3/uL Normal 0.00-0.44 [facility] Comment on above: Performed By: #### M G, BMP, DIME, CDP, TROPI #### [address] [place], [facility] [employer]: Robb Lewis MD Eosinophils/100 WBC (Bld) 2 % Normal 1-4 [facility] Comment on above: Performed By: #### M G, BMP, DIME, CDP, TROPI #### [address] [place], [facility] [employer]: Robb Lewis MD Immature granulocytes/100 WBC (Bld) 0 % Normal 0 [facility] Comment on above: Performed By: #### M G, BMP, DIME, CDP, TROPI #### [address] [place], [facility] [employer]: Robb Lewis MD Lymphocytes (Bld) [#/Vol] 1.82 10*3/uL Normal 1.10-3.70 [facility] Comment on above: Performed By: #### M G, BMP, DIME, CDP, TROPI #### [facility] [address] [place] [address] [employer]: Robb Lewis MD Lymphocytes/100 WBC (Bld) 20 % Low 24-43 [facility] Comment on above: Performed By: #### M G, BMP, DIME, CDP, TROPI #### [facility] [address] [place], [facility] [employer]: Robb Lewis MD Monocytes (Bld) [#/Vol] 0.91 10*3/uL Normal 0.10-1.20 [facility] Comment on above: Performed By: #### M G, BMP, DIME, CDP, TROPI #### [facility] [address] [place], [place] [address] [employer]esh: Robb Lewis MD Monocytes/100 WBC (Bld) 10 % Normal 3-12 [facility] Comment on above: Performed By: #### M G, BMP, DIME, CDP, TROPI #### [facility] [address] [place], [place] [address] [employer]: Robb Lewis MD Morphology Dakota (Bld) [Interp] Normal Normal [facility] Comment on above: Performed By: #### M G, BMP, DIME, CDP, TROPI #### [address] [place], [place] [address] [employer]esh: Robb Lewis MD Neutrophil (Seg) 68 % High 36-65 [facility] Comment on above: Performed By: #### M G, BMP, DIME, CDP, TROPI #### [facility] [address] [place] [id number] [employer]: Robb Lewis MD Erythrocyte distribution width (RBC) [Ratio] 13.0 % Normal 11.8-14.4 [facility] Comment on above: Performed By: #### M G, BMP, DIME, CDP, TROPI #### [facility] [address] [place], [place] [phone] [employer]: Robb Lewis MD Hematocrit (Bld) [Volume fraction] 35.1 % Low 36.3-47.1 [facility] Comment on above: Performed By: #### M G, BMP, DIME, CDP, TROPI #### [facility] [address] [place], [facility]83 [employer]esh: Robb Lewis MD Hemoglobin (Bld) [Mass/Vol] 11.6 g/dL Low 11.9-15.1 [facility] Comment on above: Performed By: #### M G, BMP, DIME, CDP, TROPI #### [address] [place], [place] [id number] [employer]: Robb Lewis MD MCH (RBC) [Entitic mass] 28.2 pg Normal 25.2-33.5 [facility] Comment on above: Performed By: #### M G, BMP, DIME, CDP, TROPI #### [address] [place], [place] [id number] [employer]: Robb Lewis MD MCHC (RBC) [Mass/Vol] 33.0 g/dL Normal 28.4-34.8 [facility] Comment on above: Performed By: #### M G, BMP, DIME, CDP, TROPI #### [address] [place], [facility]83 [employer]: Robb Lewis MD MCV (RBC) [Entitic vol] 85.4 fL Normal 82.6-102.9 [facility] Comment on above: Performed By: #### M G, BMP, DIME, CDP, TROPI #### [address] [place], [place] [phone] [employer]: Robb Lewis MD NRBC Automated 0.0 per 100 WBC Normal 0.0 [facility] Comment on above: Performed By: #### M G, BMP, DIME, CDP, TROPI #### [facility] [address] [place], [place] [phone] [employer]: Robb Lewis MD Platelet mean volume (Bld) [Entitic vol] 9.4 fL Normal 8.1-13.5 [facility] Comment on above: Performed By: #### M G, BMP, DIME, CDP, TROPI #### [facility] [address] [place], [place] [phone] [employer]: Robb Lewis MD Platelets (Bld) [#/Vol] 228 10*3/uL Normal 138-453 [facility] Comment on above: Performed By: #### M G, BMP, DIME, CDP, TROPI #### [facility] [address] [place], [place] [phone] [employer]: Robb Lewis MD RBC (Bld) [#/Vol] 4.11 10*6/uL Normal 3.95-5.11 [facility] Comment on above: Performed By: #### M G, BMP, DIME, CDP, TROPI #### [facility] [address] [place], [place] [phone] [employer]: Robb Lewis MD WBC (Bld) [#/Vol] 9.1 10*3/uL Normal 3.5-11.3 [facility] Comment on above: Performed By: #### M G, BMP, DIME, CDP, TROPI #### [facility] [address] [place] [address] [employer]: Robb Lewis MD EKG Rhythm Stripon [facility] Magnesiumon 07-09-2024 Magnesium [Mass/Vol] 1.8 mg/dL 1.6 - 2 .4 mg/dL [facility] Magnesium [Mass/Vol] 1.8 mg/dL Normal 1.6-2.4 [facility] Comment on above: Performed By: #### M Abundio, PAOLA, ZOILA, JA, SAMUEL #### [facility] [address] [place] [address] [employer]: Robb Lewis MD No Panel Informationon 07-09 [facility] BMPon 07-08-2024 Anion gap [Moles/Vol] 8 mmol/L Low 9 - 16 mmol/L [facility] Calcium [Mass/Vol] 6.2 mg/dL Low 8.6 - 10. 4 mg/dL [facility] Chloride [Moles/Vol] 109 mmol/L High 98 - 10 7 mmol/L [facility] CO2 [Moles/Vol] 19 mmol/L Low 20 - 31 mmol/L [facility] Creatinine [Mass/Vol] 0.3 mg/dL Low 0.50 - 0.90 mg/dL [facility] Est, Glom Filt Rate - PINF [facility] Comment on above: These results are not intended for use in patients <18 years of age. eGFR results are calculated without a race factor using the 2020 CKD-EPI equation. Careful clinical correlation is recommended, particularly when comparing to results calculated using previous equations. The CKD-EPI equation is less accurate in patients with extremes of muscle mass, extra-renal metabolism of creatine, excessive creatine ingestion, or following therapy that affects renal tubular secretion. Glucose [Mass/Vol] 90 mg/dL 74 - 99 mg/dL [facility] Potassium [Moles/Vol] 2.6 mmol/L Critically low 3.7 - 5.3 mmol/L [facility] Sodium [Moles/Vol] 136 mmol/L 136 - 145 mmol/L [facility] Urea nitrogen [Mass/Vol] 8 mg/dL 8 - 23 mg/dL [facility] Urea nitrogen/Creatinine [Mass ratio] 27 mg/mg High 9 - 20 [facility] Basic Metab w/rfx MGon 07-08 Anion gap [Moles/Vol] 10 mmol/L Normal 9-16 [facility] Comment on above: Performed By: #### M G, BMP, DIME, CDP, TROPI #### [facility] [address] [place], [place] [phone] [employer]: Robb Lewis MD BUN/CRE Ratio 16 Normal 9-20 [facility] Comment on above: Performed By: #### M G, BMP, DIME, CDP, TROPI #### [facility] [address] [place], [place] [phone] [employer]: Robb Lewis MD Calcium [Mass/Vol] 9.6 mg/dL Normal 8.6-10.4 [facility] Comment on above: Performed By: #### M G, BMP, DIME, CDP, TROPI #### [address] [place], [place] [phone] [employer]: Robb Lewis MD Chloride [Moles/Vol] 93 mmol/L Low 98-107 [facility] Comment on above: Performed By: #### M G, BMP, DIME, CDP, TROPI #### [address] [place], [place] [phone] [employer]: Robb Lewis MD CO2 [Moles/Vol] 25 mmol/L Normal 20-31 [facility] Comment on above: Performed By: #### M G, BMP, DIME, CDP, TROPI #### [facility] [address] [place], [place] [phone] [employer]: Robb Lewis MD Creatinine [Mass/Vol] 0.5 mg/dL Normal 0.50-0.90 [facility] Comment on above: Performed By: #### M G, BMP, DIME, CDP, TROPI #### [facility] [address] [place] [address] [employer]: Robb Lewis MD GFR/1.73 sq M.predicted among non-blacks MDRD (S/P/Bld) [Vol rate/Area] mL/min/{1.73_m2} Normal >60 [facility] Comment on above: Result Comment: These results are not intended for use in patients <18 years of age. eGFR results are calculated without a race factor using the 2020 CKD-EPI equation. Careful clinical correlation is recommended, particularly when comparing to results calculated using previous equations. The CKD-EPI equation is less accurate in patients with extremes of muscle mass, extra-renal metabolism of creatine, excessive creatine ingestion, or following therapy that affects renal tubular secretion. Performed By: #### M G, BMP, DIME, CDP, TROPI #### [facility] [address] [place] [address] [place] [address] [employer]: Robb Lewis MD Glucose [Mass/Vol] 124 mg/dL High 74-99 [facility] Comment on above: Performed By: #### M G, BMP, DIME, CDP, TROPI #### [address] [place] [address] [employer]: Robb Lewis MD Potassium [Moles/Vol] 4.4 mmol/L Normal 3.7-5.3 [facility] Comment on above: Performed By: #### M G, BMP, DIME, CDP, TROPI #### [address] [place] [address] [employer]esh: Robb Lewis MD Sodium [Moles/Vol] 128 mmol/L Low 136-145 [facility] Comment on above: Performed By: #### M G, BMP, DIME, CDP, TROPI #### [address] [place] [address] [employer] Mesh: Robb Lewis MD Urea nitrogen [Mass/Vol] 8 mg/dL Normal 8-23 [facility] Comment on above: Performed By: #### M G, BMP, DIME, CDP, TROPI #### [address] [place] [address] [employer]: Robb Lewis MD Basic Metabolic Panel w/ Ref dago to MGon 07-08-2024 Anion gap [Moles/Vol] 10 mmol/L 9 - 16 mmol/L [facility] Calcium [Mass/Vol] 9.6 mg/dL 8.6 - 10. 4 mg/dL [facility] Chloride [Moles/Vol] 93 mmol/L Low 98 - 10 7 mmol/L [facility] CO2 [Moles/Vol] 25 mmol/L 20 - 31 mmol/L [facility] Creatinine [Mass/Vol] 0.5 mg/dL 0.50 - 0.90 mg/dL [facility] Est, Kodi Walton Nakia - [facility] Comment on above: These results are not intended for use in patients <18 years of age. eGFR results are calculated without a race factor using the 2020 CKD-EPI equation. Careful clinical correlation is recommended, particularly when comparing to results calculated using previous equations. The CKD-EPI equation is less accurate in patients with extremes of muscle mass, extra-renal metabolism of creatine, excessive creatine ingestion, or following therapy that affects renal tubular secretion. Glucose [Mass/Vol] 124 mg/dL High 74 - 99 mg/dL [facility] Interpretation and review of laboratory results Abnormal [facility] Potassium [Moles/Vol] 4.4 mmol/L 3.7 - 5.3 mmol/L [facility] Sodium [Moles/Vol] 128 mmol/L Low 136 - 145 mmol/L [facility] Urea nitrogen [Mass/Vol] 8 mg/dL 8 - 23 mg/dL [facility] Urea nitrogen/Creatinine [Mass ratio] 16 mg/mg - 20 [facility] Basic Metabolic Profon 07-08 Anion gap [Moles/Vol] 8 mmol/L Low 9-16 [facility] Comment on above: Performed By: #### M G, BMP, MIGUELE, CDP, TROPI #### [facility] [address] [place] [address] [employer]esh: Robb Lewis MD BUN/CRE Ratio 27 High 9-20 [facility] Comment on above: Performed By: #### M G, BMP, DIME, CDP, TROPI #### [facility] [address] [place] [address] [employer] Mesh: Robb Lewis MD Calcium [Mass/Vol] 6.2 mg/dL Low 8.6-10.4 [facility] Comment on above: Performed By: #### M G, BMP, DIME, CDP, TROPI #### [facility] [address] [place] [address] [employer] Mesh: Robb Lewis MD Chloride [Moles/Vol] 109 mmol/L High 98-107 [facility] Comment on above: Performed By: #### M G, BMP, DIME, CDP, TROPI #### [facility] [address] [place] [address] [employer] Mesh: Robb Lewis MD CO2 [Moles/Vol] 19 mmol/L Low 20-31 [facility] Comment on above: Performed By: #### M G, BMP, DIME, CDP, TROPI #### [facility] [address] [place] [address] [employer] Mesh: Robb Lewis MD Creatinine [Mass/Vol] 0.3 mg/dL Low 0.50-0.90 [facility] Comment on above: Performed By: #### M G, BMP, DIME, CDP, TROPI #### [facility] [address] [place] [address] [employer]esh: Robb Lewis MD GFR/1.73 sq M.predicted among non-blacks MDRD (S/P/Bld) [Vol rate/Area] mL/min/{1.73_m2} Normal >60 [facility] Comment on above: Result Comment: These results are not intended for use in patients <18 years of age. eGFR results are calculated without a race factor using the 2020 CKD-EPI equation. Careful clinical correlation is recommended, particularly when comparing to results calculated using previous equations. The CKD-EPI equation is less accurate in patients with extremes of muscle mass, extra-renal metabolism of creatine, excessive creatine ingestion, or following therapy that affects renal tubular secretion. Performed By: #### M G, BMP, DIME, CDP, TROPI #### [facility] [address] [place], [place] [phone] [employer]esh: Robb Lewis MD Glucose [Mass/Vol] 90 mg/dL Normal 74-99 [facility] Comment on above: Performed By: #### M G, BMP, DIME, CDP, TROPI #### [facility] [address] [place], [place] [phone] [employer]esh: Robb Lewis MD Potassium [Moles/Vol] 2.6 mmol/L Critically low 3.7-5.3 [facility] Comment on above: Performed By: #### M G, BMP, DIME, CDP, TROPI #### [facility] [address] [place] [address] [employer] Mesh: Robb Lewis MD Sodium [Moles/Vol] 136 mmol/L Normal 136-145 [facility] Comment on above: Performed By: #### M G, BMP, DIME, CDP, TROPI #### [address] [place], [place] [phone] [employer]esh: Robb Lewis MD Urea nitrogen [Mass/Vol] 8 mg/dL Normal 8-23 [facility] Comment on above: Performed By: #### M G, BMP, DIME, CDP, TROPI #### [facility] [address] [place], [place] [phone] [employer]esh: Robb Lewis MD Brain Natri. Peptideon 07-08 Natriuretic peptide B (Bld) [Mass/Vol] 627 pg/mL High 0-450 [facility] Comment on above: Performed By: #### M G, BMP, DIME, CDP, TROPI #### [facility] [address] [place] [address] [employer]esh: Robb Lewis MD Brain Natriuretic Peptideon 07-08-2024 Interpretation and review of laboratory results Abnormal [facility] Natriuretic peptide B (Bld) [Mass/Vol] 627 pg/mL High 0 - 450 pg/mL [facility] CBC with Auto Differentialon 07-08-2024 Basophils (Bld) [#/Vol] [facility] Basophils/100 WBC (Bld) 0 % 0 - 2 % [facility] Eosinophils (Bld) [#/Vol] 0.05 10*3/uL [facility] Eosinophils/100 WBC (Bld) 1 % 1 - 4 % [facility] Erythrocyte distribution width (RBC) [Ratio] 13.4 % 11.8 - 14.4 % [facility] Hematocrit (Bld) [Volume fraction] 28.3 % Low 36.3 - 47.1 % [facility] Hemoglobin (Bld) [Mass/Vol] 9.3 g/dL Low 11.9 - 15.1 g/dL [facility] Immature granulocytes (Bld) [#/Vol] [facility] Immature granulocytes/100 WBC (Bld) 0 % 0 [facility] Interpretation and review of laboratory results Abnormal [facility] Lymphocytes/100 WBC (Bld) 13 % Low 24 - 43 % [facility] Lymphocytes/100 WBC (Bld) 1.00 % Low [facility] MCH (RBC) [Entitic mass] 29.1 pg 25.2 - 33.5 pg [facility] MCHC (RBC) [Mass/Vol] 32.9 g/dL 28.4 - 34.8 g/dL [facility] MCV (RBC) [Entitic vol] 88.4 fL 82.6 - 102.9 fL [facility] Monocytes/100 WBC (Bld) 8 % 3 - 12 % [facility] Monocytes/100 WBC (Bld) 0.65 % [facility] Neutrophils/100 WBC (Bld) 78 % High 36 - 65 % [facility] Nucleated RBC/100 WBC (Bld) [Ratio] 0.0 % 0.0 per 100 WBC [facility] Platelet mean volume (Bld) [Entitic vol] 9.2 fL 8.1 - 13.5 fL [facility] Platelets (Bld) [#/Vol] 182 10*3/uL [facility] RBC (Bld) [#/Vol] 3.20 10*6/uL Low 3.95 - 5.1 1 m/uL [facility] Segmented neutrophils/100 WBC (Bld) 6.02 % [facility] WBC other (Bld) [#/Vol] 7.8 [facility] CBC with Diffon 07-08-2024 Abs. Basophil <0.03 Normal 0.00-0.20 [facility] Comment on above: Performed By: #### M G, BMP, DIME, CDP, TROPI #### [facility] [address] [place] [address] [place] [phone] [employer] Mesh: Robb Lewis MD Abs.Imm.Granulocyte <0.03 Normal 0.00-0.30 [facility] Comment on above: Performed By: #### M G, BMP, DIME, CDP, TROPI #### [address] [place], [place] [address] [employer]esh: Robb Lewis MD Abs.Neutrophil (Seg) 6.02 k/uL Normal 1.50-8.10 [facility] Comment on above: Performed By: #### M G, BMP, DIME, CDP, TROPI #### [facility] [address] [place] [address] [place] [address] [employer] Mesh: Robb Lewis MD Basophils/100 WBC (Bld) 0 % Normal 0-2 [facility] Comment on above: Performed By: #### M G, BMP, DIME, CDP, TROPI #### [address] [place], [place] [address] [employer]esh: Robb Lewis MD Eosinophils (Bld) [#/Vol] 0.05 10*3/uL Normal 0.00-0.44 [facility] Comment on above: Performed By: #### M G, BMP, DIME, CDP, TROPI #### [address] [place] [phone] [employer] Mesh: Robb Lewis MD Eosinophils/100 WBC (Bld) 1 % Normal 1-4 [facility] Comment on above: Performed By: #### M G, BMP, DIME, CDP, TROPI #### [address] [place] [address] [employer]esh: Robb Lewis MD Erythrocyte distribution width (RBC) [Ratio] 13.4 % Normal 11.8-14.4 [facility] Comment on above: Performed By: #### M G, BMP, DIME, CDP, TROPI #### [address] [place], [place] [address] [employer] Mesh: Robb Lewis MD Hematocrit (Bld) [Volume fraction] 28.3 % Low 36.3-47.1 [facility] Comment on above: Performed By: #### M G, BMP, DIME, CDP, TROPI #### [address] [place], [place] [address] [employer] Mesh: Robb Lewis MD Hemoglobin (Bld) [Mass/Vol] 9.3 g/dL Low 11.9-15.1 [facility] Comment on above: Performed By: #### M G, BMP, DIME, CDP, TROPI #### [address] [place] [phone] [employer] Mesh: Robb Lewis MD Immature granulocytes/100 WBC (Bld) 0 % Normal 0 [facility] Comment on above: Performed By: #### M G, BMP, DIME, CDP, TROPI #### [facility] [address] [place], [place] [phone] [employer]esh: Robb Lewis MD Lymphocytes (Bld) [#/Vol] 1.00 10*3/uL Low 1.10-3.70 [facility] Comment on above: Performed By: #### M G, BMP, DIME, CDP, TROPI #### [facility] [address] [place], [facility] [employer] Mesh: Robb Lewis MD Lymphocytes/100 WBC (Bld) 13 % Low 24-43 [facility] Comment on above: Performed By: #### M G, BMP, DIME, CDP, TROPI #### [address] [place], [facility] [employer] Mesh: Robb Lewis MD MCH (RBC) [Entitic mass] 29.1 pg Normal 25.2-33.5 [facility] Comment on above: Performed By: #### M G, BMP, DIME, CDP, TROPI #### [address] [place], [facility] [employer] Mesh: Robb Lewis MD MCHC (RBC) [Mass/Vol] 32.9 g/dL Normal 28.4-34.8 [facility] Comment on above: Performed By: #### M G, BMP, DIME, CDP, TROPI #### [address] [address] [place], [facility] [employer]: Robb Lewis MD MCV (RBC) [Entitic vol] 88.4 fL Normal 82.6-102.9 [facility] Comment on above: Performed By: #### M G, BMP, DIME, CDP, TROPI #### [facility] [address] [place], [place] [id number] [employer]: Robb Lewis MD Monocytes (Bld) [#/Vol] 0.65 10*3/uL Normal 0.10-1.20 [facility] Comment on above: Performed By: #### M G, BMP, DIME, CDP, TROPI #### [facility] [address] [place], [place] [id number] [employer]esh: Robb Lewis MD Monocytes/100 WBC (Bld) 8 % Normal 3-12 [facility] Comment on above: Performed By: #### M G, BMP, DIME, CDP, TROPI #### [facility] [address] [place] [address] [employer]esh: Robb Lewis MD Neutrophil (Seg) 78 % High 36-65 [facility] Comment on above: Performed By: #### M G, BMP, DIME, CDP, TROPI #### [address] [place], [place] [id number] [employer]esh: Robb Lewis MD NRBC Automated 0.0 per 100 WBC Normal 0.0 [facility] Comment on above: Performed By: #### M G, BMP, DIME, CDP, TROPI #### [address] [place], [place] [id number] [employer]: Robb Lewis MD Platelet mean volume (Bld) [Entitic vol] 9.2 fL Normal 8.1-13.5 [facility] Comment on above: Performed By: #### M G, BMP, DIME, CDP, TROPI #### [address] [place] [address] [employer]esh: Robb Lewis MD Platelets (Bld) [#/Vol] 182 10*3/uL Normal 138-453 [facility] Comment on above: Performed By: #### M G, BMP, DIME, CDP, TROPI #### [facility] [address] [place], [place] [id number] [employer]: Robb Lewis MD RBC (Bld) [#/Vol] 3.20 10*6/uL Low 3.95-5.11 [facility] Comment on above: Performed By: #### M G, BMP, DIME, CDP, TROPI #### [facility] [address] [place] [address] [employer] Mesh: Robb Lewis MD WBC (Bld) [#/Vol] 7.8 10*3/uL Normal 3.5-11.3 [facility] Comment on above: Performed By: #### M G, BMP, DIME, CDP, TROPI #### [facility] [address] [place] [address] [employer]: Robb Lewis MD COVID-19, Rapidon 07-08-2024 SARS-CoV-2 (COVID-19) RdRp gene TIFFANIE+probe Ql (Resp) Not detected Not Detected [facility] Comment on above: Rapid NAAT: The specimen is NEGATIVE for SARS-CoV-2, the novel coronavirus associated with COVID-19. The ID NOW COVID-19 assay is designed to detect the virus that causes COVID-19 in patients with signs and symptoms of infection who are suspected of COVID-19. An individual without symptoms of COVID-19 and who is not shedding SARS-CoV-2 virus would expect to have a negative (not detected) result in this assay. Negative results should be treated as presumptive and, if inconsistent with clinical signs and symptoms or necessary for patient management, should be tested with an alternative molecular assay. Negative results do not preclude SARS-CoV-2 infection and should not be used as the sole basis for patient management decisions. Methodology: Isothermal Nucleic Acid Amplification Specimen Description .NASOPHARYNGEAL SWAB [facility] CT CHEST PULMONARY EMBOLISM W CONTRASTon 07-08-2024 CT CHEST PULMONARY EMBOLISM W CONTRAST EXAMINATION: CTA OF THE CHEST 07/08/2024 7:48 am TECHNIQUE: CTA of the chest was performed after the administration of intravenous contrast. Multiplanar reformatted images are provided for review. MIP images are provided for review. Automated exposure control, iterative reconstruction, and/or weight based adjustment of the mA/kV was utilized to reduce the radiation dose to as low as reasonably achievable. COMPARISON: None. HISTORY: ORDERING SYSTEM PROVIDED HISTORY: PE TECHNOLOGIST PROVIDED HISTORY: PE Additional Contrast?->1 FINDINGS: Pulmonary Arteries: Study is of good technical quality for evaluation of pulmonary embolism. There are no filling defects to suggest pulmonary embolism. Main pulmonary artery is normal in caliber. No evidence of right ventricular strain. 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 Atherosclerotic changes of a normal caliber aorta. No lymphadenopathy. Thyroid and esophagus are normal. Lungs/pleura: The airways are patent. No pleural fluid. Patchy ground-glass airspace opacification diffusely in the lungs with septal thickening and scattered bandlike opacities. No focal consolidation. No significant pleural fluid. No pneumothorax. No underlying mass or nodule. Upper Abdomen: Visualized abdominal structures in the upper abdomen are normal. Soft Tissues/Bones: Loss of height to the superior endplate of L1. No acute skeletal finding. IMPRESSION: 1. No pulmonary embolism. 2. Cardiomegaly with diffuse airspace opacification and septal thickening. Findings may represent pulmonary edema or atypical infection. 3. Compression deformity of L1 of uncertain chronicity. Interpreted by: Harsha Nevarez IV, MD Signed by: Harsha Nevarez IV, MD 07/08/24 Final result Normal [facility] 1. No pulmonary embolism. 2. Cardiomegaly with diffuse airspace opacification and septal thickening. Findings may represent pulmonary edema or atypical infection. 3. Compression deformity of L1 of uncertain chronicity. PN RIS CONSOLIDATED EXAMINATION: CTA OF THE CHEST 07/08/2024 7:48 am TECHNIQUE: CTA of the chest was performed after the administration of intravenous contrast. Multiplanar reformatted images are provided for review. MIP images are provided for review. Automated exposure control, iterative reconstruction, and/or weight based adjustment of the mA/kV was utilized to reduce the radiation dose to as low as reasonably achievable. COMPARISON: None. HISTORY: ORDERING SYSTEM PROVIDED HISTORY: PE TECHNOLOGIST PROVIDED HISTORY: PE Additional Contrast?->1 FINDINGS: Pulmonary Arteries: Study is of good technical quality for evaluation of pulmonary embolism. There are no filling defects to suggest pulmonary embolism. Main pulmonary artery is normal in caliber. No evidence of right ventricular strain. 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 Atherosclerotic changes of a normal caliber aorta. No lymphadenopathy. Thyroid and esophagus are normal. Lungs/pleura: The airways are patent. No pleural fluid. Patchy ground-glass airspace opacification diffusely in the lungs with septal thickening and scattered bandlike opacities. No focal consolidation. No significant pleural fluid. No pneumothorax. No underlying mass or nodule. Upper Abdomen: Visualized abdominal structures in the upper abdomen are normal. Soft Tissues/Bones: Loss of height to the superior endplate of L1. No acute skeletal finding. [facility] Harsha Phillips IV, MD - 07/08/2024 EXAMINATION: CTA OF THE CHEST 07/08/2024 7:48 am TECHNIQUE: CTA of the chest was performed after the administration of intravenous contrast. Multiplanar reformatted images are provided for review. MIP images are provided for review. Automated exposure control, iterative reconstruction, and/or weight based adjustment of the mA/kV was utilized to reduce the radiation dose to as low as reasonably achievable. COMPARISON: None. HISTORY: ORDERING SYSTEM PROVIDED HISTORY: PE TECHNOLOGIST PROVIDED HISTORY: PE Additional Contrast?->1 FINDINGS: Pulmonary Arteries: Study is of good technical quality for evaluation of pulmonary embolism. There are no filling defects to suggest pulmonary embolism. Main pulmonary artery is normal in caliber. No evidence of right ventricular strain. 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 Atherosclerotic changes of a normal caliber aorta. No lymphadenopathy. Thyroid and esophagus are normal. Lungs/pleura: The airways are patent. No pleural fluid. Patchy ground-glass airspace opacification diffusely in the lungs with septal thickening and scattered bandlike opacities. No focal consolidation. No significant pleural fluid. No pneumothorax. No underlying mass or nodule. Upper Abdomen: Visualized abdominal structures in the upper abdomen are normal. Soft Tissues/Bones: Loss of height to the superior endplate of L1. No acute skeletal finding. IMPRESSION: 1. No pulmonary embolism. 2. Cardiomegaly with diffuse airspace opacification and septal thickening. Findings may represent pulmonary edema or atypical infection. 3. Compression deformity of L1 of uncertain chronicity. [facility] Radiology Study observation (narrative) [facility] CT CHEST PULMONARY EMBOLISM W CONTRASTOrdered By: Harsha Nevarez on 07-08-2024 [facility] Work Phone: D-Dimer Teston 07-08-2024 D-Dimer Test 1.01 ug/mL FEU High 0.00-0.59 [facility] Comment on above: Result Comment: When combined with a low clinical probability, a D dimer value of <0.50 ug/mL FEU is considered negative for DVT and PE (negative predictive value of 98%, sensitivity of 97%). If this test is not being used to help rule out DVT and PE, then the following reference range should be utilized: 0.00 - 0.59 ug/mL FEU. The D-Dimer assay is intended for use as an aid in the diagnosis of venous thromboembolism (DVT and PE) and the results should be interpreted in conjunction with the patient's medical history, clinical presentation, and other findings. Elevated levels of D-dimer activity can be seen in any state of coagulation activation and is not recommended in patients with therapeutic dose anticoagulant therapy for >24 hours, fibrinolytic therapy within the previous 7 days, trauma or surgery within the previous 4 weeks, disseminated malignancies, aortic aneurysm, sepsis, severe infections, pneumonia, severe skin infections, liver cirrhosis, advanced age, coronary disease, diabetes, and . A very low percentage of patients with DVT may yield D-dimer results below the cutoff of 0.5 ug/mL FEU. This is known to be more prevalent in patients with distal DVT. Performed By: #### M Abundio, PAOLA, ZOILA, JA, TROPI #### [facility] [address] [place] [address] [place] [address] [employer]: Robb Lewis MD D-Dimer, Quantitativeon 11-2 Fibrin D-dimer FEU (PPP) [Mass/Vol] 1.01 [facility] Comment on above: When combined with a low clinical probability, a D dimer value of <0.50 ug/mL FEU is considered negative for DVT and PE (negative predictive value of 98%, sensitivity of 97%). If this test is not being used to help rule out DVT and PE, then the following reference range should be utilized: 0.00 - 0.59 ug/mL FEU. The D-Dimer assay is intended for use as an aid in the diagnosis of venous thromboembolism (DVT and PE) and the results should be interpreted in conjunction with the patient's medical history, clinical presentation, and other findings. Elevated levels of D-dimer activity can be seen in any state of coagulation activation and is not recommended in patients with therapeutic dose anticoagulant therapy for >24 hours, fibrinolytic therapy within the previous 7 days, trauma or surgery within the previous 4 weeks, disseminated malignancies, aortic aneurysm, sepsis, severe infections, pneumonia, severe skin infections, liver cirrhosis, advanced age, coronary disease, diabetes, and . A very low percentage of patients with DVT may yield D-dimer results below the cutoff of 0.5 ug/mL FEU. This is known to be more prevalent in patients with distal DVT. Interpretation and review of laboratory results Abnormal [facility] EKG 12 Leadon 07-08-2024 Atrial Rate 71 BPM [facility] P Baker 72 degrees [facility] P-R Interval 186 ms [facility] Q-T Interval 394 ms [facility] QRS Duration 72 ms [facility] QTc Calculation (Bazett) 428 ms [facility] R Baker 19 degrees [facility] T Baker 50 degrees [facility] Ventricular Rate 71 BPM [facility] Normal sinus rhythm Normal ECG When compared with ECG of 05-JUN-2023 19:18, No significant change was found Confirmed by DAYO VITALE ([id number]) on 07/08/2024 11:58:11 AM [facility] RADIOLOGY Dayo Vitale MD - 07/08/2024 Normal sinus rhythm Normal ECG When compared with ECG of 05-JUN-2023 19:18, No significant change was found Confirmed by DAYO VITALE ([id number]) on 07/08/2024 11:58:11 AM [facility] EKG Rhythm Stripon [facility] Flu A/B Ag Detectionon 07-08 Flu A Ag Detection Negative Normal NEG [facility] Comment on above: Result Comment: for Influenza A Antigen Performed By: #### U OSMO #### [employer] [facility] [place] [address] Knitter Wire Mesh: Tai Vázquez MD #### URNA #### [facility] [address] [place] [address] [employer] Mesh: Robb Lewis MD Flu B Ag Detection Negative Normal NEG [facility] Comment on above: Result Comment: for Influenza B Antigen. Performed By: #### U OSMO #### [facility] [address] [place], [place] [id number] [employer] Mesh: Tai Vázquez MD #### URNA #### [facility] [address] [place] [address] [employer] Mesh: Robb Lewis MD Magnesiumon 07-08-2024 Magnesium [Mass/Vol] 2.1 mg/dL 1.6 - 2 .4 mg/dL [facility] Magnesium [Mass/Vol] 2.1 mg/dL Normal 1.6-2.4 [facility] Comment on above: Performed By: #### M PAOLA Del Castillo DIME, JA, TROPI #### [facility] [address] [place] [address] [employer] Mesh: Robb Lewis MD Magnesium [Mass/Vol] 1.1 mg/dL Low 1.6 - 2 .4 mg/dL [facility] Magnesium [Mass/Vol] 1.1 mg/dL Low 1.6-2.4 [facility] Comment on above: Performed By: #### M PAOLA Del Castillo DIME, JA, TROPI #### [facility] [address] [place] [address] [employer]esh: Robb Lewis MD Microscopic Urinalysison Bacteria LM Ql (Urine sed) 2+ Abnormal None [facility] Epithelial cells LM.HPF (Urine sed) [#/Area] 2 TO 5 [facility] Interpretation and review of laboratory results Abnormal [facility] Mucus Ql (Urine sed) 1+ Abnormal None [facility] RBC LM.HPF (Urine sed) [#/Area] 2 TO 5 [facility] WBC LM.HPF (Urine sed) [#/Area] 5 TO 10 [facility] No Panel Informationon 07-08 [facility] Interpretation and review of laboratory results Abnormal [facility] Portable XR Chest AP single viewon 07-08-2024 Slightly increased mild diffuse interstitial prominence, which may represent background interstitial disease. Non-emergent CT chest can be obtained for further evaluation. PN RIS CONSOLIDATED EXAMINATION: ONE XRAY VIEW OF THE CHEST 07/08/2024 7:03 am COMPARISON: Chest radiograph 06/05/2023 HISTORY: ORDERING SYSTEM PROVIDED HISTORY: sob TECHNOLOGIST PROVIDED HISTORY: sob FINDINGS: Mild diffuse interstitial prominence, slightly increased from prior. No focal consolidation. No pneumothorax or pleural effusion. Unchanged cardiomediastinal silhouette. No pulmonary edema. PN RIS CONSOLIDATED Briana Dorman MD - 07/08/2024 EXAMINATION: ONE XRAY VIEW OF THE CHEST 07/08/2024 7:03 am COMPARISON: Chest radiograph 06/05/2023 HISTORY: ORDERING SYSTEM PROVIDED HISTORY: sob TECHNOLOGIST PROVIDED HISTORY: sob FINDINGS: Mild diffuse interstitial prominence, slightly increased from prior. No focal consolidation. No pneumothorax or pleural effusion. Unchanged cardiomediastinal silhouette. No pulmonary edema. IMPRESSION: Slightly increased mild diffuse interstitial prominence, which may represent background interstitial disease. Non-emergent CT chest can be obtained for further evaluation. [facility] Radiology Study observation (narrative) [facility] Portable XR Chest AP single viewOrdered By: Briana Dorman on 07-08-2024 [facility] Work Phone: Rapid influenza A/B antigens on 07-08-2024 FLUAV Ag Ql (Unsp spec) Negative NEGATIVE [facility] Comment on above: for Influenza A Anti gen FLUBV Ag Ql (Unsp spec) Negative NEGATIVE [facility] Comment on above: for Influenza B Anti gen. [facility] Resp Viral Panelon 4 Adenovirus Not detected Normal [facility] Comment on above: Performed By: #### N A #### [facility] [address] [place] [address] [place] [address] Kn[employer] Wire Mesh: Robb Lewis MD Bordet.[email or web address] Not detected Normal [facility] Comment on above: Performed By: #### N A #### [facility] [address] [place] [address] [place] [address] [employer] Wire Mesh: Robb Lewis MD Bordetella pertussis Not detected Normal [facility] Comment on above: Performed By: #### N A #### [facility] [address] [place] [address] [place] [address] Kn[employer] Wire Mesh: Robb Lewis MD Chlamyd.pneumoniae Not detected Normal [facility] Comment on above: Performed By: #### N A #### [facility] [address] [place] [address] [place] [place], [place] [address] Knitter Wire Mesh: Robb Lewis MD Coronavirus 229E Not detected Normal [facility] Comment on above: Performed By: #### N A #### [facility] [address] [place] [address] [place] [address] Knitter Wire Mesh: Robb Lewis MD Coronavirus HKU1 Not detected Normal [facility] Comment on above: Performed By: #### N A #### [facility] [address] [place] [address] [place] [address] Kn[employer] Wire Mesh: Robb Lewis MD Coronavirus NL63 Not detected Normal [facility] Comment on above: Performed By: #### N A #### [facility] [address] [place] [address] Kn[employer] Wire Mesh: Robb Lewis MD Coronavirus OC43 Not detected Normal [facility] Comment on above: Performed By: #### N A #### [facility] [address] [place], [place] [id number] Kn[employer] Wire Mesh: Robb Lewis MD Human Metapneumo Not detected Normal [facility] Comment on above: Performed By: #### N A #### [facility] [address] [place] [address] [place] [address] Knitter Wire Mesh: Robb Lewis MD Influenza A Not detected [facility] Comment on above: Performed By: #### N A #### [facility] [address] [place] [address] [place] [address] Knitter Wire Mesh: Robb Lewis MD Influenza B Not detected [facility] Comment on above: Performed By: #### N A #### [address] [place] [address] Kn[employer] Mesh: Robb Lewis MD Mycoplas.pneumoniae Not detected [facility] Comment on above: Result Comment: Perf ormed by multiplexed nucleic acid assay. Performed By: #### N A #### [facility] [address] [place] [address] [place] [address] [employer] Mesh: Robb Lewis MD Parainfluenza 1 Not detected [facility] Comment on above: Performed By: #### N A #### [facility] [address] [place] [address] [place] [address] Knitter Wire Mesh: Robb Lewis MD Parainfluenza 2 Not detected [facility] Comment on above: Performed By: #### N A #### [facility] [address] [place] [address] [place] [address] Knitter Wire Mesh: Robb Lewis MD Parainfluenza 3 Not detected [facility] Comment on above: Performed By: #### N A #### [facility] [address] [place] [address] [place] [address] Knitter Wire Mesh: Robb Lewis MD Parainfluenza 4 Not detected Normal [facility] Comment on above: Performed By: #### N A #### [facility] [address] [place] [address] [place] [address] Knitter Wire Mesh: Robb Lewis MD Resp Syncytial Virus Not detected Normal [facility] Comment on above: Performed By: #### N A #### [facility] [address] [place] [address] [place] [address] Knitter Wire Mesh: Robb Lewis MD Rhino/Enterovirus Not detected Normal [facility] Comment on above: Performed By: #### N A #### [address] [place], [place] [id number] [employer] Mesh: Robb Lewis MD SARS-CoV-2 (COVID-19) RNA TIFFANIE+probe Ql (Unsp spec) Not detected Normal [facility] Comment on above: Performed By: #### N A #### [facility] [address] [place] [address] [place] [address] Kn[employer] Wire Mesh: Robb Lewis MD Source: .NASOPHARYNGEAL SWAB Normal [facility] Comment on above: Performed By: #### N A #### [address] [place], [place] [id number] [employer] Mesh: Robb Lewis MD Respiratory Panel, Molecular , with COVID-19 (Restricted: peds pts or suitable admitted adults)on 07-08-2024 Adenovirus DNA TIFFANIE+non-probe Ql (Nph) Not detected Not Detected [facility] B. parapertussis [id number] DNA TIFFANIE+non-probe Ql (Nph) Not detected Not Detected [facility] B. pertussis DNA TIFFANIE+probe Ql (Unsp spec) Not detected Not Detected [facility] C. pneumoniae DNA TIFFANIE+non-probe Ql (Nph) Not detected Not Detected [facility] FLUAV RNA TIFFANIE+non-probe Ql (Nph) Not detected Not Detected [facility] FLUBV RNA TIFFANIE+non-probe Ql (Nph) Not detected Not Detected [facility] HCoV 229E RNA TIFFANIE+non-probe Ql (Nph) Not detected Not Detected [facility] HCoV HKU1 RNA TIFFANIE+non-probe Ql (Nph) Not detected Not Detected [facility] HCoV NL63 RNA TIFFANIE+non-probe Ql (Nph) Not detected Not Detected [facility] HCoV OC43 RNA TIFFANIE+non-probe Ql (Nph) Not detected Not Detected [facility] hMPV RNA TIFFANIE+non-probe Ql (Nph) Not detected Not Detected [facility] M. pneumoniae DNA TIFFANIE+non-probe Ql (Nph) Not detected Not Detected [facility] Comment on above: Performed by [employer] nucleic acid assay. Parainfluenza virus 1 RNA TIFFANIE+non-probe Ql (Nph) Not detected Not Detected [facility] Parainfluenza virus 2 RNA TIFFANIE+non-probe Ql (Nph) Not detected Not Detected [facility] Parainfluenza virus 3 RNA TIFFANIE+non-probe Ql (Nph) Not detected Not Detected [facility] Parainfluenza virus 4 RNA TIFFANIE+non-probe Ql (Nph) Not detected Not Detected [facility] Rhinovirus+Enterovir us RNA TIFFANIE+non-probe Ql (Nph) Not detected Not Detected [facility] RSV RNA TIFFANIE+non-probe Ql (Nph) Not detected Not Detected [facility] SARS-CoV-2 (COVID-19) RNA TIFFANIE+non-probe Ql (Nph) Not detected Not Detected [facility] Specimen Description .NASOPHARYNGEAL SWAB [facility] [id number] 07-08-2024 SARS-CoV-2 (COVID-19) RNA TIFFANIE+probe Ql (Unsp spec) Not detected Normal [facility] Comment on above: Result Comment: Rapid NAAT: The specimen is NEGATIVE for SARS-CoV-2, the novel coronavirus associated with COVID-19. The ID NOW COVID-19 assay is designed to detect the virus that causes COVID-19 in patients with signs and symptoms of infection who are suspected of COVID-19. An individual without symptoms of COVID-19 and who is not shedding SARS-CoV-2 virus would expect to have a negative (not detected) result in this assay. Negative results should be treated as presumptive and, if inconsistent with clinical signs and symptoms or necessary for patient management, should be tested with an alternative molecular assay. Negative results do not preclude SARS-CoV-2 infection and should not be used as the sole basis for patient management decisions. Methodology: Isothermal Nucleic Acid Amplification Performed By: #### U OSMO #### [facility] [address] [place] [address] Knitter Wire Mesh: Tai Vázquez MD #### URAMBROSE #### [facility] [address] [place] [address] [place] [address] Knitter Wire Mesh: Robb Lewis MD T4, Freeon 07-08-2024 Free T4 [Mass/Vol] 1.2 ng/dL 0.92 - 1. 68 ng/dL [facility] TSH w/reflex to FT4on 2023 Thyroid Stim. Horm. 3.63 uIU/mL Normal 0.27-4.20 [facility] Comment on above: Performed By: #### M G, BMP, DIME, CDP, TROPI #### [address] [place] [address] Knitter Wire Mesh: Robb Lewis MD TSH with Reflexon 07-08-2024 TSH Qn 3.63 m[IU]/L [facility] Thyroxine, Freeon 07-08-2024 Thyroxine, Free 1.2 ng/dL Normal 0.92-1.68 [facility] Comment on above: Performed By: #### M G, BMP, DIME, CDP, TROPI #### [facility] [address] [place] [address] [place] [address] Knitter Wire Mesh: Robb Lewis MD Troponinon 07-08-2024 Troponin I.cardiac High sensitivity method [Mass/Vol] 8 ng/L 0 - 14 ng/L [facility] Comment on above: High Sensitivity Tro ponin values cannot be compared with other Troponin methodologies. Troponin, High Sens 8 ng/L Normal 0-14 [facility] Comment on above: Result Comment: High Sensitivity Troponin values cannot be compared with other Troponin methodologies. Performed By: #### M G, BMP, DIME, CDP, TROPI #### [address] [place], [place] [id number] Knitter Wire Mesh: Robb Lewis MD UA w/Reflex Cultureon 2023 Clarity (U) Clear Normal CLEAR [facility] Comment on above: Performed By: #### M G, BMP, DIME, CDP, TROPI #### [address] [place] [address] Knitter Wire Mesh: Robb Lewis MD Color (U) Yellow Normal YEL [facility] Comment on above: Performed By: #### M G, BMP, DIME, CDP, TROPI #### [address] [place] [address] Knitter Wire Mesh: Robb Lewis MD Leukocyte esterase Test strip Ql (U) TRACE Abnormal NEG [facility] Comment on above: Performed By: #### M G, BMP, DIME, CDP, TROPI #### [address] [place] [address] Knitter Wire Mesh: Robb Lewis MD Bilirubin, SemiQt,Ur Negative Normal NEG [facility] Comment on above: Performed By: #### M G, BMP, DIME, CDP, TROPI #### [facility] [address] [place] [address] [place] [address] Knitter Wire Mesh: Robb Lewis MD Blood, Urine TRACE Abnormal NEG [facility] Comment on above: Performed By: #### M G, BMP, DIME, CDP, TROPI #### [facility] [address] [place] [address] [address] [place], [place] [id number] Knitter Wire Mesh: Robb Lewis MD Glucose Ql (U) Negative Normal NEG [facility] Comment on above: Performed By: #### M G, BMP, DIME, CDP, TROPI #### [facility] [address] [place] [address] [place] [address] Knitter Wire Mesh: Robb Lewis MD Ketones Ql (U) Negative Normal NEG [facility] Comment on above: Performed By: #### M G, BMP, DIME, CDP, TROPI #### [address] [place], [place] [address] Knitter Wire Mesh: Robb Lewis MD Nitrite,Ur Negative Normal NEG [facility] Comment on above: Performed By: #### M G, BMP, DIME, CDP, TROPI #### [address] [place] [address] Knitter Wire Mesh: Robb Lewis MD PH,Ur 7.0 Normal 5.0-9.0 [facility] Comment on above: Performed By: #### M G, BMP, DIME, CDP, TROPI #### [address] [place] [address] Knitter Wire Mesh: Robb Lewis MD Protein Ql (U) Negative Normal NEG [facility] Comment on above: Performed By: #### M G, BMP, DIME, CDP, TROPI #### [address] [place] [address] Knitter Wire Mesh: Robb Lewis MD Spec. [place],Ur 1.010 Normal 1.010-1.020 [facility] Comment on above: Performed By: #### M G, BMP, DIME, CDP, TROPI #### [address] [place] [id number] Knitter Wire Mesh: Robb Lewis MD Urobilinogen,Ur Normal Normal 0.0-1.0 [facility] Comment on above: Performed By: #### M G, BMP, DIME, CDP, TROPI #### [facility] [address] [place] [address] Knitter Wire Mesh: Robb Lewis MD Urinalysis with Reflex to Cu ltureon 07-08-2024 Bilirubin Ql (U) Negative NEGATIVE [facility] urs [facility] Glucose Test strip (U) [Mass/Vol] Negative NEGATIVE mg/dL [facility] Hemoglobin Auto test strip Ql (U) TRACE Abnormal NEGATIVE [facility] Interpretation and review of laboratory results Abnormal [facility] Ketones (U) [Mass/Vol] Negative NEGATIVE mg/dL [facility] Nitrite Ql (U) Negative NEGATIVE [place] [facility] pH (U) 7.0 [pH] 5.0 - 9.0 [facility] Protein (U) [Mass/Vol] Negative NEGATIVE mg/dL [facility] Specific gravity (U) [Rel density] 1.010 1.010 - 1.020 [facility] Urobilinogen Qn (U) Normal 0.0 - 1. 0 EU/dL [facility] Urinalysis,Microon 4 Bacteria 2+ Abnormal [facility] Comment on above: Performed By: #### U OSMO #### [facility] [address], [place] [id number] Knitter Wire Mesh: Tai Vázquez MD #### URNA #### [facility] [address] [place] [address] Knitter Wire Mesh: Robb Lewis MD Epithelial cells LM Ql (Urine sed) 2 TO 5 Normal 0-25 [facility] Comment on above: Performed By: #### U OSMO #### [facility] [address] [place] [address] Knitter Wire Mesh: Tai Vázquez MD #### URNA #### [facility] [address] [place] [address] Knitter Wire Mesh: Robb Lewis MD Mucus Strands 1+ Abnormal [facility] Comment on above: Performed By: #### U OSMO #### [facility] [address] [place] [address] Knitter Wire Mesh: Tai Vázquez MD #### URNA #### [facility] [address] [place], [place] [phone] Knitter Wire Mesh: Robb Lewis MD Urine RBC's 2 TO 5 Normal 0-2 [facility] Comment on above: Performed By: #### U OSMO #### [facility] [address] [place] [address] Knitter Wire Mesh: Tai Vázquez MD #### URNA #### [facility] [address] [place], [place] [phone] Knitter Wire Mesh: Robb Lewis MD Urine WBC's 5 TO 10 Normal 0-5 [facility] Comment on above: Performed By: #### U OSMO #### [address] [address] Knitter Wire Mesh: Tai Vázquez MD #### URNA #### [facility] [address] [place] [address] [place] [address] Knitter Wire Mesh: oRbb Lewis MD XR CHEST PORTABLEon 07-08-20 XR CHEST PORTABLE EXAMINATION: ONE XRAY VIEW OF THE CHEST 07/08/2024 7:03 am COMPARISON: Chest radiograph 06/05/2023 HISTORY: ORDERING SYSTEM PROVIDED HISTORY: sob TECHNOLOGIST PROVIDED HISTORY: sob FINDINGS: Mild diffuse interstitial prominence, slightly increased from prior. No focal consolidation. No pneumothorax or pleural effusion. Unchanged cardiomediastinal silhouette. No pulmonary edema. IMPRESSION: Slightly increased mild diffuse interstitial prominence, which may represent background interstitial disease. Non-emergent CT chest can be obtained for further evaluation. Interpreted by: Briana Dorman MD Signed by: Briana Dorman MD 07/08/24 Final result Normal [facility] XR HUMERUS RIGHT (MIN 2 VIEW S)on 07-06-2024 XR HUMERUS RIGHT (MIN 2 VIEWS) EXAMINATION: TWO XRAY VIEWS OF THE RIGHT HUMERUS 07/06/2024 5:54 pm COMPARISON: None. HISTORY: ORDERING SYSTEM PROVIDED HISTORY: Fall TECHNOLOGIST PROVIDED HISTORY: Fall FINDINGS: Mildly angulated fracture of the right humeral head that involves the greater tuberosity IMPRESSION: Mildly angulated fracture of the right humeral head Interpreted by: Roberto Carlos Tyler MD Signed by: Roberto Carlos Tyler MD 07/06/24 Final result Normal [facility] XR Humerus - right 2 Viewson 07-06-2024 Mildly angulated fracture of the right humeral head [facility] CONSOLIDATED EXAMINATION: TWO XRAY VIEWS OF THE RIGHT HUMERUS 07/06/2024 5:54 pm COMPARISON: None. HISTORY: ORDERING SYSTEM PROVIDED HISTORY: Fall TECHNOLOGIST PROVIDED HISTORY: Fall FINDINGS: Mildly angulated fracture of the right humeral head that involves the greater tuberosity [facility] RIS CONSOLIDATED Roberto Carlos Tyler M D - 07/06/2024 EXAMINATION: TWO XRAY VIEWS OF THE RIGHT HUMERUS 07/06/2024 5:54 pm COMPARISON: None. HISTORY: ORDERING SYSTEM PROVIDED HISTORY: Fall TECHNOLOGIST PROVIDED HISTORY: Fall FINDINGS: Mildly angulated fracture of the right humeral head that involves the greater tuberosity IMPRESSION: Mildly angulated fracture of the right humeral head [facility] Radiology Study observation (narrative) [facility] XR Humerus - right 2 ViewsOr dered By: Roberto Carlos Tyler on 07-06-2024 [facility] Work Phone: XR RADIUS ULNA RIGHT (2 VIEW S)on 07-06-2024 XR RADIUS ULNA RIGHT (2 VIEWS) EXAMINATION: TWO XRAY VIEWS OF THE RIGHT FOREARM 07/06/2024 5:55 pm COMPARISON: October 16, 2023 HISTORY: ORDERING SYSTEM PROVIDED HISTORY: pain, fall TECHNOLOGIST PROVIDED HISTORY: pain, fall FINDINGS: No acute fracture or dislocation. The scapholunate joint space is widened, unchanged. Bones are osteopenic. No focal soft tissue swelling. There is marked calcification of the triangular fibrocartilage. IMPRESSION: 1. No acute osseous abnormality identified. 2. Scapholunate joint space widening unchanged compared to September 2023. Interpreted by: Saurav oRsen MD Signed by: Saurav Rosen MD 07/06/24 Final result Normal [facility] XR Radius and Ulna - right 2 Viewson 07-06-2024 1. No acute osseous abnormality identified. 2. Scapholunate joint space widening unchanged compared to September 2023. [facility] EXAMINATION: TWO XRAY VIEWS OF THE RIGHT FOREARM 07/06/2024 5:55 pm COMPARISON: October 16, 2023 HISTORY: ORDERING SYSTEM PROVIDED HISTORY: pain, fall TECHNOLOGIST PROVIDED HISTORY: pain, fall FINDINGS: No acute fracture or dislocation. The scapholunate joint space is widened, unchanged. Bones are osteopenic. No focal soft tissue swelling. There is marked calcification of the triangular fibrocartilage. [facility] Saurav Rosen MD - 07/06/2024 EXAMINATION: TWO XRAY VIEWS OF THE RIGHT FOREARM 07/06/2024 5:55 pm COMPARISON: October 16, 2023 HISTORY: ORDERING SYSTEM PROVIDED HISTORY: pain, fall TECHNOLOGIST PROVIDED HISTORY: pain, fall FINDINGS: No acute fracture or dislocation. The scapholunate joint space is widened, unchanged. Bones are osteopenic. No focal soft tissue swelling. There is marked calcification of the triangular fibrocartilage. IMPRESSION: 1. No acute osseous abnormality identified. 2. Scapholunate joint space widening unchanged compared to September 2023. [facility] Radiology Study observation (narrative) [facility] XR Radius and Ulna - right 2 ViewsOrdered By: Saurav Rosen on 07-06-2024 [facility] Work Phone: COVID-19, Rapidon 12-21-2023 SARS-CoV-2 (COVID-19) RdRp gene TIFFANIE+probe Ql (Resp) Not detected Not Detected [facility] Comment on above: Rapid NAAT: The specimen is NEGATIVE for SARS-CoV-2, the novel coronavirus associated with COVID-19. The ID NOW COVID-19 assay is designed to detect the virus that causes COVID-19 in patients with signs and symptoms of infection who are suspected of COVID-19. An individual without symptoms of COVID-19 and who is not shedding SARS-CoV-2 virus would expect to have a negative (not detected) result in this assay. Negative results should be treated as presumptive and, if inconsistent with clinical signs and symptoms or necessary for patient management, should be tested with an alternative molecular assay. Negative results do not preclude SARS-CoV-2 infection and should not be used as the sole basis for patient management decisions. Fact sheet for Healthcare Providers: https://www.fda.gov/media/015034/download Fact sheet for Patients: https://www.fda.gov/media/585178/download Methodology: Isothermal Nucleic Acid Amplification Specimen Description .NASOPHARYNGEAL SWAB [facility] Flu A/B Ag Detectionon 12-20 Flu A Ag Detection Negative Normal [facility] Comment on above: Result Comment: for Influenza A Antigen Performed By: #### U OSMO #### [address] [id number] Knitter Wire Mesh: Tai Vázquez MD #### URNA #### [facility] [address] [place] [address] Knitter Wire Mesh: Robb Lewis MD Flu B Ag Detection Negative Normal [facility] Comment on above: Result Comment: for Influenza B Antigen. Performed By: #### U OSMO #### [address] [id number] Knitter Wire Mesh: Tai Vázquez MD #### URNA #### [facility] [address] [place] [address] [place] [address] Knitter Wire Mesh: Robb Lewis MD Rapid Strep Screenon 024 Specimen source Nom (Unsp spec) .THROAT SWAB [facility] Strep A, Molecular Negative NEGATIVE [facility] Rapid influenza A/B antigens on 12-21-2023 FLUAV Ag Ql (Unsp spec) Negative NEGATIVE [facility] Comment on above: for Influenza A Anti gen FLUBV Ag Ql (Unsp spec) Negative NEGATIVE [facility] Comment on above: for Influenza B Anti gen. [facility] [id number] 12-21-2023 SARS-CoV-2 (COVID-19) RNA TIFFANIE+probe Ql (Unsp spec) Not detected Normal [facility] Comment on above: Result Comment: Rapid NAAT: The specimen is NEGATIVE for SARS-CoV-2, the novel coronavirus associated with COVID-19. The ID NOW COVID-19 assay is designed to detect the virus that causes COVID-19 in patients with signs and symptoms of infection who are suspected of COVID-19. An individual without symptoms of COVID-19 and who is not shedding SARS-CoV-2 virus would expect to have a negative (not detected) result in this assay. Negative results should be treated as presumptive and, if inconsistent with clinical signs and symptoms or necessary for patient management, should be tested with an alternative molecular assay. Negative results do not preclude SARS-CoV-2 infection and should not be used as the sole basis for patient management decisions. Fact sheet for Healthcare Providers: https://www.fda.gov/media/030482/download Fact sheet for Patients: https://www.fda.gov/media/800962/download Methodology: Isothermal Nucleic Acid Amplification Performed By: #### U OSMO #### [address] [id number] Knitter Wire Mesh: Tai Vázquez MD #### URNA #### [address] [place] [address] Knitter Wire Mesh: Robb Lewis MD Strep Group A, Rapidon 12-20 Strep A, Molecular Negative Normal NEG [facility] Comment on above: Performed By: #### PAOLA Hernandez, ZOILA, CDP, TROPI #### [address] [place] [address] Knitter Wire Mesh: Robb Lewis MD Source .THROAT SWAB Normal [facility] Comment on above: Performed By: #### M PAOLA Del Castillo, ZOILA, CDP, TROPI #### [address] [place] [address] Knitter Wire Mesh: Robb Lewis MD XR HAND LEFT (MIN 3 VIEWS)on 10-17-2023 XR HAND LEFT (MIN 3 VIEWS) EXAMINATION: THREE XRAY VIEWS OF THE LEFT HAND 10/16/2023 10:39 pm COMPARISON: Left wrist series 11/30/2021. HISTORY: ORDERING SYSTEM PROVIDED HISTORY: Fall injury TECHNOLOGIST PROVIDED HISTORY: Fall injury FINDINGS: Decreased bone mineralization. Advanced arthropathy in the 1st carpometacarpal joint and notably in the 2nd digit DIP joint. Advanced arthropathy in the radiocarpal compartment with chondrocalcinosis and widening of the scapholunate interval again noted. No fracture or dislocation appreciated. Calcified atheromatous plaque. IMPRESSION: 1. No acute fracture or dislocation appreciated. 2. Advanced arthropathy in the hand and wrist, as described. Interpreted by: Sean Lan MD Signed by: Sean Lan MD 10/17/23 Final result Normal [facility] CT HEAD WO CONTRASTon 2023 CT HEAD WO CONTRAST EXAMINATION: CT OF THE HEAD WITHOUT CONTRAST 10/16/2023 10:38 pm TECHNIQUE: CT of the head was performed without the administration of intravenous contrast. Automated exposure control, iterative reconstruction, and/or weight based adjustment of the mA/kV was utilized to reduce the radiation dose to as low as reasonably achievable. COMPARISON: 08/12/2022 HISTORY: ORDERING SYSTEM PROVIDED HISTORY: Fall, left sided [employer] TECHNOLOGIST PROVIDED HISTORY: Fall, left sided [employer] Decision Support Exception - unselect if not a suspected or confirmed emergency medical condition->Emergency Medical Condition (MA) FINDINGS: BRAIN/VENTRICLES: There is no acute intracranial hemorrhage, mass effect or midline shift. No abnormal extra-axial fluid collection. The wood-white differentiation is maintained without evidence of an acute infarct. There are mild periventricular white matter chronic microvascular ischemic changes. There is no evidence of hydrocephalus. There is atherosclerosis of the cavernous ICAs. ORBITS: The visualized portion of the orbits demonstrate no acute abnormality. SINUSES: The visualized paranasal sinuses and mastoid air cells demonstrate no acute abnormality. SOFT TISSUES/SKULL: No acute abnormality of the visualized skull or soft tissues. IMPRESSION: No acute intracranial abnormality. Interpreted by: Deven Somers MD Signed by: Deven Somers MD 10/16/23 Final result Normal [facility] XR HAND RIGHT (MIN 3 VIEWS)o n 10-16-2023 XR HAND RIGHT (MIN 3 VIEWS) EXAMINATION: THREE XRAY VIEWS OF THE RIGHT HAND; TWO XRAY VIEWS OF THE RIGHT FOREARM; 3 XRAY VIEWS OF THE RIGHT WRIST 10/16/2023 10:38 pm; 10/16/2023 10:39 pm COMPARISON: None. HISTORY: ORDERING SYSTEM PROVIDED HISTORY: Fall TECHNOLOGIST PROVIDED HISTORY: Fall; ORDERING SYSTEM PROVIDED HISTORY: Fall injury TECHNOLOGIST PROVIDED HISTORY: Fall injury FINDINGS: There is diffuse osseous demineralization, limiting evaluation for nondisplaced fractures. No definite fracture or dislocation of the hand, wrist, or forearm is identified. There are scattered degenerative changes of the hand and wrist. There is widening of the scapholunate interval, with slight inferior migration of the capitate. The visualized elbow joint is maintained. The surrounding soft tissues are within normal limits. There is scattered arterial atherosclerosis. IMPRESSION: 1. No definite fracture or dislocation of the right hand, wrist, or forearm is identified. 2. Diffuse osseous demineralization, somewhat limiting evaluation for nondisplaced fractures. If there is continued pain, follow-up radiographs are recommended in 7-10 days for further evaluation. 3. Scattered degenerative changes of the hand and wrist, with scapholunate widening. 4. Interpreted by: Deven Somers MD Signed by: Deven Somers MD 10/16/23 Final result Normal [facility] XR RADIUS ULNA RIGHT (2 VIEW S)on 10-16-2023 XR RADIUS ULNA RIGHT (2 VIEWS) EXAMINATION: THREE XRAY VIEWS OF THE RIGHT HAND; TWO XRAY VIEWS OF THE RIGHT FOREARM; 3 XRAY VIEWS OF THE RIGHT WRIST 10/16/2023 10:38 pm; 10/16/2023 10:39 pm COMPARISON: None. HISTORY: ORDERING SYSTEM PROVIDED HISTORY: Fall TECHNOLOGIST PROVIDED HISTORY: Fall; ORDERING SYSTEM PROVIDED HISTORY: Fall injury TECHNOLOGIST PROVIDED HISTORY: Fall injury FINDINGS: There is diffuse osseous demineralization, limiting evaluation for nondisplaced fractures. No definite fracture or dislocation of the hand, wrist, or forearm is identified. There are scattered degenerative changes of the hand and wrist. There is widening of the scapholunate interval, with slight inferior migration of the capitate. The visualized elbow joint is maintained. The surrounding soft tissues are within normal limits. There is scattered arterial atherosclerosis. IMPRESSION: 1. No definite fracture or dislocation of the right hand, wrist, or forearm is identified. 2. Diffuse osseous demineralization, somewhat limiting evaluation for nondisplaced fractures. If there is continued pain, follow-up radiographs are recommended in 7-10 days for further evaluation. 3. Scattered degenerative changes of the hand and wrist, with scapholunate widening. 4. Interpreted by: Deven Somers MD Signed by: Deven Somers MD 10/16/23 Final result Normal [facility] XR WRIST RIGHT (MIN 3 VIEWS) on 10-16-2023 XR WRIST RIGHT (MIN 3 VIEWS) EXAMINATION: THREE XRAY VIEWS OF THE RIGHT HAND; TWO XRAY VIEWS OF THE RIGHT FOREARM; 3 XRAY VIEWS OF THE RIGHT WRIST 10/16/2023 10:38 pm; 10/16/2023 10:39 pm COMPARISON: None. HISTORY: ORDERING SYSTEM PROVIDED HISTORY: Fall TECHNOLOGIST PROVIDED HISTORY: Fall; ORDERING SYSTEM PROVIDED HISTORY: Fall injury TECHNOLOGIST PROVIDED HISTORY: Fall injury FINDINGS: There is diffuse osseous demineralization, limiting evaluation for nondisplaced fractures. No definite fracture or dislocation of the hand, wrist, or forearm is identified. There are scattered degenerative changes of the hand and wrist. There is widening of the scapholunate interval, with slight inferior migration of the capitate. The visualized elbow joint is maintained. The surrounding soft tissues are within normal limits. There is scattered arterial atherosclerosis. IMPRESSION: 1. No definite fracture or dislocation of the right hand, wrist, or forearm is identified. 2. Diffuse osseous demineralization, somewhat limiting evaluation for nondisplaced fractures. If there is continued pain, follow-up radiographs are recommended in 7-10 days for further evaluation. 3. Scattered degenerative changes of the hand and wrist, with scapholunate widening. 4. Interpreted by: Deven Somers MD Signed by: Deven Somers MD 10/16/23 Final result Normal [facility] Basic Metabolic Panel w/ Ref dago to MGon 11-28-2022 Anion gap [Moles/Vol] 9 mmol/L 9 - 17 mmol/L [facility] Calcium [Mass/Vol] 9.9 mg/dL 8.6 - 10. 4 mg/dL [facility] [facility] Chloride [Moles/Vol] 100 mmol/L 98 - 10 7 mmol/L [facility] CO2 [Moles/Vol] 25 mmol/L 20 - 31 mmol/L [facility] Creatinine [Mass/Vol] 0.8 mg/dL 0.50 - 0.90 mg/dL [facility] GFR/1.73 sq M.predicted MDRD (S/P/Bld) [Vol rate/Area] - PINF [facility] Comment on above: These results are not intended for use in patients <18 years of age. eGFR results are calculated without a race factor using the 2020 CKD-EPI equation. Careful clinical correlation is recommended, particularly when comparing to results calculated using previous equations. The CKD-EPI equation is less accurate in patients with extremes of muscle mass, extra-renal metabolism of creatine, excessive creatine ingestion, or following therapy that affects renal tubular secretion. Glucose [Mass/Vol] 107 mg/dL High 70 - 99 mg/dL [facility] Interpretation and review of laboratory results Abnormal [facility] Potassium [Moles/Vol] 4.8 mmol/L 3.7 - 5.3 mmol/L [facility] Sodium [Moles/Vol] 134 mmol/L Low 135 - 144 mmol/L [facility] Urea nitrogen [Mass/Vol] 28 mg/dL High 8 - 23 mg/dL [facility] Urea nitrogen/Creatinine (Bld) [Mass ratio] 35 High 9 - 20 [facility] Brain natriuretic peptideon 11-28-2022 Natriuretic peptide B (Bld) [Mass/Vol] 262 pg/mL NINF - 300 pg/mL [facility] Comment on above: An age-independent cutoff point of 300 pg/ml has a 98% negative predictive value excluding acute heart failure. CBCon 11-28-2022 Hematocrit (Bld) [Volume fraction] 42.2 % 36.3 - 47.1 % [facility] Hemoglobin (Bld) [Mass/Vol] 14.1 g/dL 11.9 - 15.1 g/dL [facility] MCH (RBC) [Entitic mass] 29.0 pg 25.2 - 33.5 pg [facility] MCHC (RBC) [Mass/Vol] 33.4 g/dL 28.4 - 34.8 g/dL [facility] MCV (RBC) [Entitic vol] 86.7 fL 82.6 - 102.9 fL [facility] NRBC Automated 0.0 0.0 per 100 WBC [facility] Platelet distribution width (Bld) [Ratio] 13.6 % 11.8 - 14.4 % [facility] Platelet mean volume (Bld) [Entitic vol] 9.1 fL 8.1 - 13.5 fL [facility] Platelets (Bld) [#/Vol] 282 10*3/uL [facility] RBC (Bld) [#/Vol] 4.87 10*6/uL 3.95 - 5.1 1 m/uL [facility] [email or web address] WBC (Bld) [#/Vol] 8.8 10*3/uL [facility] [email or web address] [facility] [email or web address] EKG 12 Leadon 11-28-2022 Atrial Rate 73 BPM [facility] Work Phone: P Baker 57 degrees [facility] Work Phone: P-R Interval 172 ms [facility] Work Phone: Q-T Interval 386 ms [facility] Work Phone: QRS Duration 68 ms [facility] Work Phone: QTc Calculation (Bazett) 425 ms [facility] [facility] Work Phone: R Baker 29 degrees [facility] [facility] Work Phone: T Baker 55 degrees [facility] [facility] Work Phone: Ventricular Rate 73 BPM [facility] [email or web address] Work Phone: Normal sinus rhythm Normal ECG When compared with ECG of 12-AUG-2022 19:58, No significant change was found Confirmed by DAYO VITALE ([id number]) on 11/28/2022 3:01:30 PM [facility] RADIOLOGY Dayo Vitale MD - 11/28/2022 Normal sinus rhythm Normal ECG When compared with ECG of 12-AUG-2022 19:58, No significant change was found Confirmed by DAYO VITALE ([id number]) on 11/28/2022 3:01:30 PM [facility] [employer] Work Phone: [facility] [employer] Work Phone: EKG 12 leadon 11-28-2022 Atrial Rate 70 BPM [facility] Work Phone: P Baker 59 degrees [facility] [employer] Work Phone: P-R Interval 174 ms [facility] [employer] Work Phone: Q-T Interval 394 ms [employer] Work Phone: QRS Duration 76 ms [employer] Work Phone: QTc Calculation (Bazett) 425 ms [employer] Work Phone: R Baker 50 degrees [facility] [employer] Work Phone: T Baker 53 degrees [facility] [employer] Work Phone: Ventricular Rate 70 BPM [facility] [employer] Work Phone: Sinus rhythm with occasional Premature ventricular complexes Otherwise normal ECG When compared with ECG of 27-NOV-2022 20:26, (unconfirmed) Premature ventricular complexes are now Present Confirmed by DAYO VITALE ([id number]) on 11/28/2022 3:00:39 PM [facility] RADIOLOG[facility] Dayo Vitale MD - 11/28/2022 Sinus rhythm with occasional Premature ventricular complexes Otherwise normal ECG When compared with ECG of 27-NOV-2022 20:26, (unconfirmed) Premature ventricular complexes are now Present Confirmed by DAYO VITALE ([id number]) on 11/28/2022 3:00:39 PM [facility] [employer] Work Phone: [facility] [employer] Work Phone: EKG Rhythm Stripon 3 [facility] [email or web address] PVCs [facility] [email or web address] Hemoglobin A1con 11-28-2022 Average glucose Estimated from glycated hemoglobin (Bld) [Mass/Vol] 126 mg/dL [email or web address] Comment on above: The ADA and AACC rec ommend providing the estimated average glucose result to permit better patient understanding of their HBA1c result. HbA1c (Bld) [Mass fraction] 6.0 % 4.0 - 6.0 % [facility] Lipid Panelon 11-28-2022 Cholesterol [Mass/Vol] 174 mg/dL NINF - 200 mg/dL [facility] Comment on above: Cholesterol Guidelines: <200 Desirable 200-240 Borderline >240 Undesirable Cholesterol in HDL [Mass/Vol] 58 mg/dL 40 - PINF mg/dL [facility] Comment on above: HDL Guidelines: <40 Undesirable 40-59 Borderline >59 Desirable Cholesterol in LDL [Mass/Vol] 85 mg/dL 0 - 130 mg/dL [facility] Comment on above: LDL Guidelines: <100 Desirable 100-129 Near to/above Desirable 130-159 Borderline >159 Undesirable Direct (measured) LDL and calculated LDL are not interchangeable tests. Cholesterol.total/Ch olesterol in HDL [Mass ratio] 3 {ratio} NINF - 5 [email or web address] Interpretation and review of laboratory results Abnormal [email or web address] Triglyceride [Mass/Vol] 156 mg/dL High NINF - 150 mg/dL [email or web address] Comment on above: Triglyceride Guidelines: <150 Desirable 150-199 Borderline 200-499 High >499 Very high Based on AHA Guidelines for fasting triglyceride, May 2012. [facility] Magnesiumon 11-28-2022 Magnesium [Mass/Vol] 2.3 mg/dL 1.6 - 2 .6 mg/dL [facility] No Panel Informationon 11-28 [facility] Protime-INRon 11-28-2022 INR Coag (PPP) [Relative time] 0.9 {INR} [facility] Comment on above: Therapeutic Range: Moderate Anticoagulant Intensity: INR = 2.0-3.0 High Anticoagulant Intensity: INR = 2.5-3.5 PT Coag (PPP) [Time] 12.2 s [email or web address] Troponinon 11-28-2022 Troponin I.cardiac DL <= 0.01 ng/mL [Mass/Vol] 6 ng/L 0 - 14 ng/L [facility] Comment on above: High Sensitivity Tro ponin values cannot be compared with other Troponin methodologies. Troponin I.cardiac DL <= 0.01 ng/mL [Mass/Vol] 7 ng/L 0 - 14 ng/L [facility] Comment on above: High Sensitivity Tro ponin values cannot be compared with other Troponin methodologies. [facility] Troponin I.cardiac DL <= 0.01 ng/mL [Mass/Vol] 7 ng/L 0 - 14 ng/L [facility] Comment on above: High Sensitivity Tro ponin values cannot be compared with other Troponin methodologies. [facility] Basic Metabolic Panelon 11-17 Anion gap [Moles/Vol] 9 mmol/L 9 - 17 mmol/L [facility] Calcium [Mass/Vol] 9.6 mg/dL 8.6 - 10. 4 mg/dL [facility] Chloride [Moles/Vol] 96 mmol/L Low 98 - 10 7 mmol/L [facility] CO2 [Moles/Vol] 24 mmol/L 20 - 31 mmol/L [facility] Creatinine [Mass/Vol] 1.1 mg/dL High 0.50 - 0.90 mg/dL [facility] GFR/1.73 sq M.predicted MDRD (S/P/Bld) [Vol rate/Area] 50 mL/min/{1.73_m2} Low - PINF [facility] Comment on above: These results are not intended for use in patients <18 years of age. eGFR results are calculated without a race factor using the 2020 CKD-EPI equation. Careful clinical correlation is recommended, particularly when comparing to results calculated using previous equations. The CKD-EPI equation is less accurate in patients with extremes of muscle mass, extra-renal metabolism of creatine, excessive creatine ingestion, or following therapy that affects renal tubular secretion. Glucose [Mass/Vol] 109 mg/dL High 70 - 99 mg/dL [facility] Interpretation and review of laboratory results Abnormal [facility] Potassium [Moles/Vol] 4.6 mmol/L 3.7 - 5.3 mmol/L [facility] Sodium [Moles/Vol] 129 mmol/L Low 135 - 144 mmol/L [facility] Urea nitrogen [Mass/Vol] 31 mg/dL High 8 - 23 mg/dL [facility] Urea nitrogen/Creatinine (Bld) [Mass ratio] 28 High 9 - 20 [facility] CBC with Auto Differentialon 11-27-2022 Absolute Eos # 0.06 [facility] Absolute Immature Granulocyte [facility] Absolute Lymph # 3.95 High [facility] Absolute Payette # 0.90 [facility] RS [facility] Basophils (Bld) [#/Vol] 0.03 10*3/uL [facility] Basophils/100 WBC (Bld) 0 % 0 - 2 % [facility] Eosinophils/100 WBC (Bld) 1 % 1 - 4 % [facility] Hematocrit (Bld) [Volume fraction] 42.1 % 36.3 - 47.1 % [facility] Hemoglobin (Bld) [Mass/Vol] 13.6 g/dL 11.9 - 15.1 g/dL [facility] Immature granulocytes/100 WBC (Bld) 0 % 0 [facility] Interpretation and review of laboratory results Abnormal [facility] Lymphocytes/100 WBC (Bld) 42 % 24 - 43 % [facility] MCH (RBC) [Entitic mass] 28.5 pg 25.2 - 33.5 pg [facility] MCHC (RBC) [Mass/Vol] 32.3 g/dL 28.4 - 34.8 g/dL [facility] MCV (RBC) [Entitic vol] 88.3 fL 82.6 - 102.9 fL [facility] Monocytes/100 WBC (Bld) 10 % 3 - 12 % [facility] NRBC Automated 0.0 0.0 per 100 WBC [facility] Platelet distribution width (Bld) [Ratio] 13.6 % 11.8 - 14.4 % [facility] Platelet mean volume (Bld) [Entitic vol] 9.1 fL 8.1 - 13.5 fL [facility] Platelets (Bld) [#/Vol] 292 10*3/uL [facility] RBC (Bld) [#/Vol] 4.77 10*6/uL 3.95 - 5.1 1 m/uL [facility] Segmented neutrophils/100 WBC (Bld) 47 % 36 - 65 % [facility] Segs Absolute 4.43 [facility] WBC (Bld) [#/Vol] 9.4 10*3/uL [facility] Troponinon 11-27-2022 Troponin I.cardiac DL <= 0.01 ng/mL [Mass/Vol] 7 ng/L 0 - 14 ng/L [facility] Comment on above: High Sensitivity Tro ponin values cannot be compared with other Troponin methodologies. [facility] XR CHEST (2 VW)on 11-27-2022 No acute process. Stable COPD. Stable postthoracotomy changes. [facility] EXAMINATION: TWO XRAY VIEWS OF THE CHEST 11/27/2022 8:18 pm COMPARISON: December 16, 2015 HISTORY: ORDERING SYSTEM PROVIDED HISTORY: pain TECHNOLOGIST PROVIDED HISTORY: pain FINDINGS: The lungs are without acute focal process. There is no effusion or pneumothorax. Underlying COPD. The cardiomediastinal silhouette is without acute process. Redemonstration of postthoracotomy changes. The osseous structures are without acute process. [facility] Marizol Cormier MD - 11/27/2022 EXAMINATION: TWO XRAY VIEWS OF THE CHEST 11/27/2022 8:18 pm COMPARISON: December 16, 2015 HISTORY: ORDERING SYSTEM PROVIDED HISTORY: pain TECHNOLOGIST PROVIDED HISTORY: pain FINDINGS: The lungs are without acute focal process. There is no effusion or pneumothorax. Underlying COPD. The cardiomediastinal silhouette is without acute process. Redemonstration of postthoracotomy changes. The osseous structures are without acute process. IMPRESSION: No acute process. Stable COPD. Stable postthoracotomy changes. [facility] Work Phone: Radiology Study observation (narrative) [facility] Work Phone: XR CHEST (2 VW)Ordered By: Terry Cormier on 11-27-2022 [facility] Work Phone: CBC with Auto Differentialon 08-12-2022 Absolute Eos # 0.11 [facility] Absolute Immature Granulocyte 0.03 [facility] Absolute Lymph # 3.27 [facility] Absolute Payette # 1.03 [facility] Basophils (Bld) [#/Vol] 0.04 10*3/uL [facility] Basophils/100 WBC (Bld) 0 % 0 - 2 % [facility] Eosinophils/100 WBC (Bld) 1 % 1 - 4 % [facility] Hematocrit (Bld) [Volume fraction] 39.0 % 36.3 - 47.1 % [facility] Hemoglobin (Bld) [Mass/Vol] 13.1 g/dL 11.9 - 15.1 g/dL [facility] Immature granulocytes/100 WBC (Bld) 0 % 0 [facility] Lymphocytes/100 WBC (Bld) 36 % 24 - 43 % [facility] MCH (RBC) [Entitic mass] 28.9 pg 25.2 - 33.5 pg [facility] MCHC (RBC) [Mass/Vol] 33.6 g/dL 28.4 - 34.8 g/dL [facility] MCV (RBC) [Entitic vol] 85.9 fL 82.6 - 102.9 fL [facility] Monocytes/100 WBC (Bld) 12 % 3 - 12 % [facility] NRBC Automated 0.0 0.0 per 100 WBC [facility] Platelet distribution width (Bld) [Ratio] 13.8 % 11.8 - 14.4 % [facility] Platelet mean volume (Bld) [Entitic vol] 9.3 fL 8.1 - 13.5 fL [facility] Platelets (Bld) [#/Vol] 290 10*3/uL [facility] RBC (Bld) [#/Vol] 4.54 10*6/uL 3.95 - 5.1 1 m/uL [facility] Segmented neutrophils/100 WBC (Bld) 51 % 36 - 65 % [facility] Segs Absolute 4.51 [facility] WBC (Bld) [#/Vol] 9.0 10*3/uL [facility] CMPon 08-12-2022 Albumin [Mass/Vol] 4.3 g/dL 3.5 - 5.2 g/dL [facility] Albumin/Globulin [Mass ratio] 1.4 {ratio} 1.0 - 2.5 [facility] ALP (Bld) [Catalytic activity/Vol] 79 U/L 35 - 104 U/L [facility] ALT [Catalytic activity/Vol] 16 U/L 5 - 33 U/L [facility] Anion gap [Moles/Vol] 10 mmol/L 9 - 17 mmol/L [facility] AST [Catalytic activity/Vol] 20 U/L NINF - 32 U/L [facility] Bilirubin [Mass/Vol] 0.2 mg/dL Low 0.3 - 1 .2 mg/dL [facility] Calcium [Mass/Vol] 10.1 mg/dL 8.6 - 10. 4 mg/dL [facility] Chloride [Moles/Vol] 94 mmol/L Low 98 - 10 7 mmol/L [facility] CO2 [Moles/Vol] 25 mmol/L 20 - 31 mmol/L [facility] Creatinine [Mass/Vol] 0.73 mg/dL 0.50 - 0.90 mg/dL [facility] GFR/1.73 sq M.predicted MDRD (S/P/Bld) [Vol rate/Area] - PINF [facility] Comment on above: Effective May 21, 2022 These results are not intended for use in patients <18 years of age. eGFR results are calculated without a race factor using the 2020 CKD-EPI equation. Careful clinical correlation is recommended, particularly when comparing to results calculated using previous equations. The CKD-EPI equation is less accurate in patients with extremes of muscle mass, extra-renal metabolism of creatine, excessive creatine ingestion, or following therapy that affects renal tubular secretion. Glucose [Mass/Vol] 125 mg/dL High 70 - 99 mg/dL [facility] Interpretation and review of laboratory results Abnormal [facility] Potassium [Moles/Vol] 3.7 mmol/L 3.7 - 5.3 mmol/L [facility] Protein [Mass/Vol] 7.4 g/dL 6.4 - 8.3 g/dL [facility] Sodium [Moles/Vol] 129 mmol/L Low 135 - 144 mmol/L [facility] Urea nitrogen (BldV) [Mass/Vol] 15 mg/dL 8 - 23 mg/dL [facility] Urea nitrogen/Creatinine (Bld) [Mass ratio] 21 High 9 - 20 [facility] COVID-19, Rapidon 08-12-2022 SARS-CoV-2 (COVID-19) RNA TIFFANIE+probe Ql (Unsp spec) Not detected Not Detected [facility] Comment on above: Rapid NAAT: The specimen is NEGATIVE for SARS-CoV-2, the novel coronavirus associated with COVID-19. The ID NOW COVID-19 assay is designed to detect the virus that causes COVID-19 in patients with signs and symptoms of infection who are suspected of COVID-19. An individual without symptoms of COVID-19 and who is not shedding SARS-CoV-2 virus would expect to have a negative (not detected) result in this assay. Negative results should be treated as presumptive and, if inconsistent with clinical signs and symptoms or necessary for patient management, should be tested with an alternative molecular assay. Negative results do not preclude SARS-CoV-2 infection and should not be used as the sole basis for patient management decisions. Fact sheet for Healthcare Providers: https://www.fda.gov/media/944557/download Fact sheet for Patients: https://www.fda.gov/media/024278/download Methodology: Isothermal Nucleic Acid Amplification Specimen Description .NASOPHARYNGEAL SWAB [facility] CT Head W/O Contraston 08-12 No acute intracrania l abnormality. [facility] EXAMINATION: CT OF THE HEAD WITHOUT CONTRAST 08/12/2022 8:17 pm TECHNIQUE: CT of the head was performed without the administration of intravenous contrast. Automated exposure control, iterative reconstruction, and/or weight based adjustment of the mA/kV was utilized to reduce the radiation dose to as low as reasonably achievable. COMPARISON: CT brain 09/21/2015. HISTORY: ORDERING SYSTEM PROVIDED HISTORY: vertigo TECHNOLOGIST PROVIDED HISTORY: vertigo Decision Support Exception - unselect if not a suspected or confirmed emergency medical condition->Emergency Medical Condition (MA) FINDINGS: BRAIN/VENTRICLES: There is no acute intracranial hemorrhage, mass effect or midline shift. No abnormal extra-axial fluid collection. The wood-white differentiation is maintained without evidence of an acute infarct. There is no evidence of hydrocephalus. ORBITS: The visualized portion of the orbits demonstrate no acute abnormality. SINUSES: The visualized paranasal sinuses and mastoid air cells demonstrate no acute abnormality. SOFT TISSUES/SKULL: No acute abnormality of the visualized skull or soft tissues. [facility] Kirt Holliday MD - 08/12/2022 EXAMINATION: CT OF THE HEAD WITHOUT CONTRAST 08/12/2022 8:17 pm TECHNIQUE: CT of the head was performed without the administration of intravenous contrast. Automated exposure control, iterative reconstruction, and/or weight based adjustment of the mA/kV was utilized to reduce the radiation dose to as low as reasonably achievable. COMPARISON: CT brain 09/21/2015. HISTORY: ORDERING SYSTEM PROVIDED HISTORY: vertigo TECHNOLOGIST PROVIDED HISTORY: vertigo Decision Support Exception - unselect if not a suspected or confirmed emergency medical condition->Emergency Medical Condition (MA) FINDINGS: BRAIN/VENTRICLES: There is no acute intracranial hemorrhage, mass effect or midline shift. No abnormal extra-axial fluid collection. The wood-white differentiation is maintained without evidence of an acute infarct. There is no evidence of hydrocephalus. ORBITS: The visualized portion of the orbits demonstrate no acute abnormality. SINUSES: The visualized paranasal sinuses and mastoid air cells demonstrate no acute abnormality. SOFT TISSUES/SKULL: No acute abnormality of the visualized skull or soft tissues. IMPRESSION: No acute intracranial abnormality. [employer] Phone: Radiology Study observation (narrative) [employer] Phone: CT Head W/O ContrastOrdered By: Kirt Miguel on 08-12-2022 [employer] Phone: Rapid influenza A/B antigens on 08-12-2022 Flu A Antigen Negative NEGATIVE [facility] Comment on above: for Influenza A Anti gen Flu B Antigen Negative NEGATIVE [facility] Comment on above: for Influenza B Anti gen. [facility] MAMM SCREEN 3D DARLIN CADon 08-06-2022 MG MAMM SCREEN 3D DARLIN CAD Patient: JULIUS CLARKE Exam Date: 08/06/2022 : 1940 Gender:F Ordering : DR IGNACIO CINTRON D.O. Admission #: [id number] Family : Order #: [id number] CLICK HERE TO VIEW EXAM RADIOLOGY REPORT PROCEDURE: MAMMOGRAM SCREENING 3D BILATERAL CAD COMPARISON: MG MAMM SCREEN DARLIN W CAD, 06/21/2020. MG MAMM SCREEN DARLIN W CAD, 06/01/2019. INDICATIONS: Screening mammography Calculator Name NCI Breast Cancer Risk Assessment Tool 5 Year Breast Cancer Risk 1.50% Lifetime Breast Cancer Risk 2.00% Personal Breast Cancer No Personal Ovarian Cancer No Treatments None Family Cancers Mother with skin cancer at age 69; Sister with skin cancer at age 50. LOCATION: [facility] BREAST COMPOSITION: Scattered areas fibroglandular density. FINDINGS: DIAGNOSTIC CATEGORY 1--NEGATIVE. RIGHT BREAST: No significant suspicious finding. No significant change has occurred. LEFT BREAST: No significant suspicious finding. No significant change has occurred. RECOMMENDATIONS: ROUTINE MAMMOGRAM AND CLINICAL EVALUATION IN 12 MONTHS. PLEASE NOTE: A NORMAL MAMMOGRAM DOES NOT EXCLUDE THE POSSIBILITY OF BREAST CANCER. A CLINICALLY SUSPICIOUS PALPABLE LUMP SHOULD BE BIOPSIED. Dictated by: Ben Carlos M.D. on 08/07/2022 at 12:22 Approved by: Ben Carlos M.D. on 08/07/2022 at 12:[address] [facility] XR RIBS WITH CHEST, RIGHTon 12-22-2019 XR RIBS WITH CHEST, RIGHT EXAM: XR RIBS UNILATERAL WITH CHEST HISTORY: 79 years, Female, SIGNS AND SYMPTOMS: fall, possible injury; TECHNIQUE: Frontal views of the chest including a bone algorithm, plus a single right lateral review. COMPARISON: None FINDINGS: Lungs: No consolidation. Pleura: No apparent pneumothorax or effusion. Mediastinum: No cardiomegaly. CABG. Bones: No acute findings. Median sternotomy. IMPRESSION: No apparent acute abnormality. Electronically signed by: Speedy Hardin MD 12/21/2019 9:14 PM CDT Normal [facility] XR RIBS WITH CHEST, RIGHTon 12-21-2019 IMPRESSION: No apparent acute abnormality. Electronically signed by: Speedy Hardin MD 12/21/2019 9:14 PM CDT [facility] EXAM: XR RIBS UNILATERAL WITH CHEST HISTORY: 79 years, Female, SIGNS & SYMPTOMS: fall, possible injury; TECHNIQUE: Frontal views of the chest including a bone algorithm, plus a single right lateral review. COMPARISON: None FINDINGS: Lungs: No consolidation. Pleura: No apparent pneumothorax or effusion. Mediastinum: No cardiomegaly. CABG. Bones: No acute findings. Median sternotomy. [facility] User, Interfaces - 12/21/2019 10:15 PM EDT EXAM: XR RIBS UNILATERAL WITH CHEST HISTORY: 79 years, Female, SIGNS & SYMPTOMS: fall, possible injury; TECHNIQUE: Frontal views of the chest including a bone algorithm, plus a single right lateral review. COMPARISON: None FINDINGS: Lungs: No consolidation. Pleura: No apparent pneumothorax or effusion. Mediastinum: No cardiomegaly. CABG. Bones: No acute findings. Median sternotomy. IMPRESSION IMPRESSION: No apparent acute abnormality. Electronically signed by: Speedy Hardin MD 12/21/2019 9:14 PM CDT [facility] Anti-Nuclear Antibodies (MYRNA ), IgG Screenon 09-28-2019 MYRNA SCREEN None Detected Normal None Detec [facility] Comment on above: Order Comment: This order was split into 2 orders: [id number] (Cyclic Citrullinated PeptideAntibody, IgG,Anti-Nuclear Antibodies (MYRNA), IgG Screen,RheumatoidFactor,Sedimentation Rate,Uric Acid, Serum,Complete Blood Count w/oDiff,Thyroid Stimulating Hormone (TSH) Third Generation,Vitamin A85-Mdkpgwz,Spec Collectioni), [id number] (MRSA By PCR) Result Comment: If s uspicion of connective tissue disease is strong and MYRNA EIA is negative, consider testing for MYRNA by IFA ([id number]). INTERPRETIVE INFORMATION: Anti-Nuclear Abs , IgG by DEMETRIO Antinuclear Abs , IgG (DEMETRIO): MYRNA specimens are screened using enzyme-linked immunosorbent assay (DEMETRIO) methodology. All DEMETRIO results reported as Detected are further tested by indirect fluorescent assay (IFA) using HEp-2 substrate with an IgG-specific conjugate. The MYRNA DEMETRIO screen is designed to detect antibodies against dsDNA, histones, SS-A (Ro), SS-B (La), Miguel, Miguel/ENGINEERING WRITER, Scl-70, Kymberly-1, centromeric proteins, other antigens extracted from the HEp-2 cell nucleus. MYRNA DEMETRIO assays have been reported to have lower sensitivities than MYRNA IFA for systemic autoimmune rheumatic diseases (SARD). Negative results do not necessarily rule out SARD. Performed by [facility], [address] [place] [id number] [email or web address], Christopher Workman MD, Lab. Director Performed By: #### 1 987188, 0658354, 0101013, 4792578, 6025140, 4147514, 2963021 #### [place] [address] Complete Blood Count w/o Dif aftab 09-28-2019 Erythrocyte distribution width (RBC) [Ratio] 13.6 % Normal 11.5-14.5 [facility] Comment on above: Performed By: #### 1 266593, 8318775, 1574444, 1009520, 6916692, 3144863, 9201463, 8682215 #### [place] [address] Hematocrit (Bld) [Volume fraction] 39.4 % Normal 37.0-47.0 [facility] Comment on above: Performed By: #### 1 502751, 6794936, 7512155, 9009369, 7016144, 8398447, 0244111, 3477045 #### [facility] [address] [place] [address] Hemoglobin (Bld) [Mass/Vol] 12.9 g/dL Normal 12.0-16.0 [facility] Comment on above: Performed By: #### 1 762356, 2825176, 8033065, 7946192, 2934146, 8251046, 1746194, 9534928 #### [facility] [address] [place] [address] MCH (RBC) [Entitic mass] 27.0 pg Low 28.0-32.0 [facility] Comment on above: Performed By: #### 1 555872, 5128598, 7944441, 6776475, 2739110, 0590868, 8726641, 5025842 #### [facility] [address] [place] [address] MCHC (RBC) [Mass/Vol] 32.8 g/dL Low 33.0-37.0 [facility] Comment on above: Performed By: #### 1 352460, 5000559, 5892831, 0061907, 8582009, 7074175, 1345152, 0875834 #### [facility] [address] [place] [address] MCV (RBC) [Entitic vol] 82.4 fL Normal 81.0-99.0 [facility] Comment on above: Performed By: #### 1 705828, 6058273, 7754215, 5465661, 4257558, 5919653, 6984056, 8721754 #### [facility] [address] [place] [address] Platelets (Bld) [#/Vol] 263 thou/cumm Normal 130-400 [facility] Comment on above: Performed By: #### 1 440538, 1807363, 6873925, 2491800, 9105901, 6529212, 2214787, 2459462 #### [facility] [address] [place] [address] RBC (Bld) [#/Vol] 4.79 mil/cumm Normal 4.20-5.40 [facility] Comment on above: Performed By: #### 1 120986, 7590459, 8612844, 5494658, 7417119, 7574689, 7696320, 4509172 #### [facility] [address] [place] [address] WBC (Bld) [#/Vol] 7.6 thou/cumm Normal 4.8-10.8 [facility] Comment on above: Performed By: #### 1 702418, 0085652, 9698825, 9993426, 8553548, 2434881, 7097807, 0649651 #### [facility] [address] [place] [address] Cyclic Citrullinated Peptide Antibody, IgGon 09-28-2019 CYCLIC CITRULLINATED PEPTIDE AB IGG < 1.5 Normal <4.0 [facility] Comment on above: Order Comment: This order was split into 2 orders: [id number] (Cyclic Citrullinated PeptideAntibody, IgG,Anti-Nuclear Antibodies (MYRNA), IgG Screen,RheumatoidFactor,Sedimentation Rate,Uric Acid, Serum,Complete Blood Count w/oDiff,Thyroid Stimulating Hormone (TSH) Third Generation,Vitamin Y57-Ootmtjn,Spec Collectioni), [id number] (MRSA By PCR) Result Comment: Refe rence Range: 0.0-4.0 U/mL Non Reactive/Negative >4.0 U/mL Reactive/Positive [address] [place] [address] ([phone] Performed By: #### 1 201775, 4251636, 1289268, 4109932, 1912119, 7608713, 4026272 #### [facility] [address] [place] [address] MRSA By PCRon 09-28-2019 MRSA SCREEN RT-PCR Negative Normal [facility] Comment on above: Order Comment: Perfo rmed by [facility] [address] [facility] [id number] Result Comment: No M RSA detected by Real Time - Polymerase Chain Reaction. Performed By: #### 1 897922, 2812120, 5955105, 8175363, 0284780, 1981698, 5998555 #### [facility] [address] [place] [address] Rheumatoid Factoron 09-28-19 20 RHEUMATOID FACTOR < 10 Normal 0-13 [facility] Comment on above: Order Comment: Perfo rmed by [facility] [address] [place], [place] [id number] Performed By: #### 1 158808, 7995317, 6011998, 3606042, 1635257, 7954382, 7289898 #### [facility] [address] [place] [address] Sedimentation Rateon 020 ESR (Bld) [Velocity] 11 mm/h Normal 0-30 [facility] Comment on above: Performed By: #### 1 155207, 8926521, 5514869, 2902961, 2424264, 4570094, 3609142 #### [facility] [address] [place] [address] Thyroid Stimulating Hormone (TSH) Third Generationon 09-28-2019 TSH Qn m[IU]/L Low 0.490-4.[address] [facility] Comment on above: Performed By: #### 1 952480, 9026446, 9189234, 9112661, 5333712, 1683384, 7731995 #### [facility] [address] [place] [address] Uric Acid, Serumon 0 Urate [Mass/Vol] 6.8 mg/dL Normal 2.6-7.2 [facility] Comment on above: Performed By: #### 1 190827, 9932146, 9248948, 0581945, 2879964, 3059072, 6734156, 1036661 #### [facility] [address] [place] [address] Vitamin D 25-Hydroxyon 09-28 VITAMIN D TOTAL 25 (OH) 26 ng/ml Low 30-100 [facility] Comment on above: Order Comment: Perfo rmed by [facility] [address] [place], [place] [id number] Result Comment: Razia min D Status Range Deficiency <20 ng/ml Insuffiency 20-30 ng/ml Sufficiency 30-100 ng/ml Toxicity >100 ng/ml Performed By: #### 1 803118, 6255376, 4212582, 8457044, 7433371, 2811889, 8505978 #### [facility] [address] [place] [address] B-Type Natriuretic Peptideon 06-24-2019 Natriuretic peptide B (Bld) [Mass/Vol] 105 pg/mL High 15-[address] [facility] Comment on above: Order Comment: If hi story of congestive heart failure. Performed By: #### 1 687770, 5203359, 3476591, 9551391, 6349672, 2084612, 0619038 #### [facility] [address] [place] [address] Complete Blood Counton 06-24 Basophils/100 WBC (Bld) 0.7 % Normal 0.0-3.0 [facility] Comment on above: Performed By: #### 1 556852, 2325950, 2133380, 9821559, 0939571, 0221533, 5232808 #### [facility] [address] [place] [address] Eosinophils/100 WBC (Bld) 2.2 % Normal 0.0-4.0 [facility] Comment on above: Performed By: #### 1 684061, 6257229, 3084054, 4054778, 0170589, 1842004, 0638915 #### [facility] [address] [place] [address] Erythrocyte distribution width (RBC) [Ratio] 13.2 % Normal 11.5-14.5 [facility] Comment on above: Performed By: #### 1 660626, 6335344, 3984124, 6482723, 0040482, 3427835, 0792844 #### [facility] [address] [place] [address] Hematocrit (Bld) [Volume fraction] 38.9 % Normal 37.0-47.0 [facility] Comment on above: Performed By: #### 1 638067, 1092758, 1156529, 7081283, 1705508, 1520376, 6002124 #### [facility] [address] [place] [address] Hemoglobin (Bld) [Mass/Vol] 12.8 g/dL Normal 12.0-16.0 [facility] Comment on above: Performed By: #### 1 180904, 9829622, 8471978, 2198576, 3602193, 4088844, 3591170 #### [facility] [address] [place] [address] Lymphocytes/100 WBC (Bld) 33.6 % Normal 20.5-51.1 [facility] Comment on above: Performed By: #### 1 623581, 9922524, 7794152, 1509569, 1331879, 9247775, 3956118 #### [facility] [place] [place] [address] MCH (RBC) [Entitic mass] 27.9 pg Low 28.0-32.0 [facility] Comment on above: Performed By: #### 1 162270, 4988936, 8806856, 9885746, 3518407, 3548309, 2957844 #### [facility] [place] [address] MCHC (RBC) [Mass/Vol] 32.8 g/dL Low 33.0-37.0 [facility] Comment on above: Performed By: #### 1 581516, 8805909, 2916599, 0870674, 1626501, 2298773, 7121868 #### [facility] [place] [place] [address] MCV (RBC) [Entitic vol] 85.0 fL Normal 81.0-99.0 [facility] Comment on above: Performed By: #### 1 107430, 7732926, 7615662, 7791881, 6228552, 7523761, 2793835 #### [facility] [address] [place] [address] Monocytes/100 WBC (Bld) 9.5 % Normal 0.0-13.0 [facility] Comment on above: Performed By: #### 1 739602, 1424382, 8666252, 1577254, 7257517, 1912915, 5396860 #### [facility] [address] [place] [address] Neutrophils/100 WBC (Bld) 54.0 % Normal 42.2-75.2 [facility] Comment on above: Performed By: #### 1 735869, 7904894, 2994992, 0682272, 4184186, 2505013, 5800631 #### [facility] [address] [place] [address] Platelets (Bld) [#/Vol] 298 thou/cumm Normal 130-400 [facility] Comment on above: Performed By: #### 1 381539, 3904033, 0865252, 2104591, 9596313, 8204046, 0526398 #### [facility] [address] [place] [address] RBC (Bld) [#/Vol] 4.57 mil/cumm Normal 4.20-5.40 [facility] Comment on above: Performed By: #### 1 433178, 6717514, 7584297, 8357365, 1715240, 4878556, 2484726 #### [facility] [address] [place] [address] SCAN NO Normal NO [facility] Comment on above: Performed By: #### 1 228685, 0415101, 3892132, 2290109, 0407136, 3387318, 9389225 #### [facility] [address] [place] [address] WBC (Bld) [#/Vol] 8.6 thou/cumm Normal 4.8-10.8 [facility] Comment on above: Performed By: #### 1 723899, 9201019, 5878485, 1270130, 9890872, 4862204, 0645718 #### [facility] [address] [place] [address] Comprehensive Metabolic Prof grace Zhong 06-24-2019 Albumin [Mass/Vol] 4.0 g/dL Normal 3.5-5.0 [facility] Comment on above: Performed By: #### 1 899379, 4343763, 5055023, 8674007, 3929585, 2802563, 7573679 #### [facility] [address] [place] [address] Albumin/Globulin [Mass ratio] 1.3 {ratio} Normal 1.2-1.5 [facility] Comment on above: Performed By: #### 1 041803, 2543371, 2150185, 4848502, 3835666, 5616967, 7192465 #### [facility] [address] [place] [address] ALP [Catalytic activity/Vol] 67 U/L Normal 38-126 [facility] Comment on above: Performed By: #### 1 402112, 4010861, 5351411, 8666378, 9894708, 1037632, 4752830 #### [facility] [address] [place] [address] ALT [Catalytic activity/Vol] 15 U/L Normal 7-35 [facility] Comment on above: Performed By: #### 1 346429, 7724844, 7782607, 5081290, 4589960, 4783846, 0076541 #### [facility] [address] [place] [address] Anion gap [Moles/Vol] 10.0 mmol/L Normal 10.0-20.0 [facility] Comment on above: Performed By: #### 1 481471, 5702114, 1981541, 8683934, 5704666, 6150983, 3744182 #### [facility] [address] [place] [address] AST [Catalytic activity/Vol] 19 U/L Normal 10-42 [facility] Comment on above: Performed By: #### 1 939592, 0926467, 4261187, 4184068, 8811072, 1623955, 7206641 #### [facility] [address] [place] [address] BILI 0.4 mg/dL Normal 0.3-1.2 [facility] Comment on above: Performed By: #### 1 090258, 1766290, 6597422, 5998430, 3091488, 9301674, 6395082 #### [facility] [address] [place] [address] Calcium [Mass/Vol] 9.2 mg/dL Normal 8.4-10.2 [facility] Comment on above: Performed By: #### 1 175119, 0451059, 4734263, 0186171, 3525527, 7380356, 1970088 #### [facility] [address] [place] [address] Chloride [Moles/Vol] 102 mmol/L Normal 98-107 [facility] Comment on above: Performed By: #### 1 084756, 1600041, 3774302, 8697455, 4479988, 9103171, 2658542 #### [facility] [address] [place] [address] CO2 [Moles/Vol] 29 mmol/L Normal 22-31 [facility] Comment on above: Performed By: #### 1 837471, 0497475, 8885898, 1304648, 8298054, 4897949, 5952105 #### [facility] [address] [place] [address] Creatinine [Mass/Vol] 0.9 mg/dL Normal 0.4-1.1 [facility] Comment on above: Performed By: #### 1 930853, 4842690, 5659969, 1875517, 3289185, 3507223, 5715371 #### [facility] [address] [place] [address] GFR/1.73 sq M predicted among non-blacks MDRD (S/P/Bld) [Vol rate/Area] mL/min/{1.73_m2} Normal [facility] Comment on above: Result Comment: Debbie mated Glomerular filtration Rate Reference Ranges: GFR, mL/min/1.73m2 >= 60 Adequate 30 - 59 Moderately decreased GFR 15 - 29 Severely decreased GFR <18 Kidney failure (or dialysis) GFR calculated using abbreviated MDRD formula. MDRD equation not suitable for patients who are under 18, have unstable creatinine concentrations Performed By: #### 1 981386, 7838493, 9502721, 7210263, 6930255, 2333451, 1052302 #### [facility] [address] [place] [address] Globulin (S) [Mass/Vol] 3.1 g/dL Normal 2.9-3.3 [facility] Comment on above: Performed By: #### 1 370877, 2520376, 5758406, 3011203, 9779260, 8410359, 6875475 #### [facility] [address] [place] [address] Glucose [Mass/Vol] 108 mg/dL Normal 70-126 [facility] Comment on above: Performed By: #### 1 909299, 9009096, 9108853, 1024150, 0081214, 8557218, 2610770 #### [facility] [address] [place] [address] Potassium [Moles/Vol] 4.0 mmol/L Normal 3.5-5.1 [facility] Comment on above: Performed By: #### 1 609463, 9924463, 2622146, 1257677, 9414671, 4854848, 6680890 #### [facility] [address] [place] [address] Protein [Mass/Vol] 7.1 g/dL Normal 6.4-8.3 [facility] Comment on above: Performed By: #### 1 977445, 7297276, 4305071, 5143695, 5182573, 5764575, 5713894 #### [facility] [address] [place] [address] Sodium [Moles/Vol] 137 mmol/L Normal 136-145 [facility] Comment on above: Performed By: #### 1 237925, 3664565, 5618508, 5887438, 0262374, 7391462, 5564103 #### [facility] [address] [place] [address] Urea nitrogen [Mass/Vol] 17 mg/dL Normal 7-22 [facility] Comment on above: Performed By: #### 1 726301, 7217885, 4103884, 2137213, 3605106, 5095579, 3412809 #### [facility] [address] [place] [address] Magnesiumon 06-24-2019 Magnesium [Mass/Vol] 2.2 mg/dL Normal 1.7-2.8 [facility] Comment on above: Performed By: #### 1 766447, 2095838, 0136945, 8683876, 0069791, 7115626, 5235683 #### [facility] [address] [place] [address] Phosphorous, Inorganicon Phosphate [Mass/Vol] 4.1 mg/dL Normal 2.5-4.6 [facility] Comment on above: Performed By: #### 1 504955, 8771411, 9651084, 4925478, 9411130, 8404105, 2896265 #### [facility] [address] [place] [address] TSH3 and FT4on 06-24-2019 Free T4 [Mass/Vol] 0.79 ng/dL Normal 0.61-1.12 [facility] Comment on above: Performed By: #### 1 051822, 8771287, 8021181, 9171877, 9077634, 9324669, 8966040 #### [facility] [address] [place] [address] TSH Qn 6.358 uIU/mL High 0.490-4.670 [facility] Comment on above: Performed By: #### 1 464009, 0206043, 4447970, 0108407, 8951917, 2711188, 0558451 #### [facility] [address] [place] [address] Troponin Ion 06-24-2019 Troponin I.cardiac [Mass/Vol] ng/mL Normal 0-0.06 [facility] Comment on above: Result Comment: TROP ONIN REFERENCE RANGES: <0.06 Normal >0.06 Elevated consistent with myocardial damage (10%CV) Cardiac troponin values can be elevated by many disease states in addition to acute ischemia. These include, but are not limited to; chronic renal failure, CHF, CVA, pulmonary embolus, COPD, myocardial trauma/surgery, myocarditis, pericarditis, tachycardia, aortic dissection, amyloidosis, sepsis and strenuous exercise. Serial measurement of troponin is strongly recommended as a first step in determining whether a low level elevation represents an acute or chronic condition. Performed By: #### 1 195326, 7031176, 2016908, 2122524, 9313696, 1799082, 6563991 #### [facility] [address] [place] [address] B-TYPE NATRIURETIC PEPTIDE ( BRAIN)on 06-23-2019 Interpretation and review of laboratory results Abnormal [employer] [email or web address] Natriuretic peptide B (Bld) [Mass/Vol] 105 pg/mL High 15 - 100 pg/mL [employer] [email or web address] CBC, EDIF, PLATELETon 2018 Basophils/100 WBC (Bld) 0.7 % 0 - 3 % [facility] Eosinophils/100 WBC (Bld) 2.2 % 0 - 4 % [facility] Erythrocyte distribution width (RBC) [Ratio] 13.2 % 11.5 - 14.5 % [facility] Hematocrit (Bld) [Volume fraction] 38.9 % 37 - 47 % [facility] Hemoglobin (Bld) [Mass/Vol] 12.8 g/dL 12 - 16 g/dL [facility] Interpretation and review of laboratory results Abnormal [facility] Lymphocytes/100 WBC (Bld) 33.6 % 20.5 - 51.1 % [facility] MCH (RBC) [Entitic mass] 27.9 pg Low 28 - 32 pg [facility] MCHC (RBC) [Mass/Vol] 32.8 g/dL Low 33 - 37 g/dL [facility] MCV (RBC) [Entitic vol] 85.0 fL 81 - 99 fL [facility] Monocytes/100 WBC (Bld) 9.5 % 0 - 13 % [facility] Neutrophils/100 WBC (Bld) 54.0 % 42.2 - 75.2 % [facility] Platelets (Bld) [#/Vol] 298 10*3/uL [facility] RBC (Bld) [#/Vol] 4.57 10*6/uL [facility] SCAN SLIDE NO NO [facility] WBC (Bld) [#/Vol] 8.6 10*3/uL [facility] COMPREHENSIVE METABOLIC PROF GRACE Zhong 06-23-2019 Albumin BCG dye [Mass/Vol] 4.0 g/dL 3.5 - 5 g/dL [facility] Albumin/Globulin [Mass ratio] 1.3 {ratio} [facility] ALP [Catalytic activity/Vol] 67 U/L 38 - 126 U/L [facility] ALT No additional P-5'-P [Catalytic activity/Vol] 15 U/L 7 - 35 U/L [facility] Anion gap [Moles/Vol] 10.0 mmol/L [facility] AST [Catalytic activity/Vol] 19 U/L 10 - 42 U/L [facility] Bilirubin [Mass/Vol] 0.4 mg/dL 0.3 - 1 .2 mg/dL [facility] Calcium [Mass/Vol] 9.2 mg/dL 8.4 - 10. 2 mg/dL [facility] Chloride [Moles/Vol] 102 mmol/L [facility] CO2 [Moles/Vol] 29 mmol/L [facility] Creatinine [Mass/Vol] 0.9 mg/dL 0.4 - 1.1 mg/dL [employer] [email or web address] GFR/1.73 sq M.predicted MDRD (S/P/Bld) [Vol rate/Area] mL/min/{1.73_m2} [place] [email or web address] Comment on above: Estimated Glomerular filtration Rate Reference Ranges: GFR, mL/min/1.73m2 >= 60 Adequate 30 - 59 Moderately decreased GFR 15 - 29 Severely decreased GFR <18 Kidney failure (or dialysis) GFR calculated using abbreviated MDRD formula. MDRD equation not suitable for patients who are under 18, have unstable creatinine concentrations Globulin (S) [Mass/Vol] 3.1 g/dL 2.9 - 3.3 g/dL [place] [email or web address] Glucose [Mass/Vol] 108 mg/dL 70 - 126 mg/dL [place] [email or web address] Potassium [Moles/Vol] 4.0 mmol/L [place] [email or web address] Protein [Mass/Vol] 7.1 g/dL 6.4 - 8.3 g/dL [place] [email or web address] Sodium [Moles/Vol] 137 mmol/L [place] [employer] Urea nitrogen [Mass/Vol] 17 mg/dL 7 - 22 mg/dL [place] [email or web address] MAGNESIUMon 06-23-2019 Magnesium [Mass/Vol] 2.2 mg/dL 1.7 - 2 .8 mg/dL [place] [employer] PHOSPHATE, INORGANICon 06-23 Phosphate [Mass/Vol] 4.1 mg/dL 2.5 - 4 .6 mg/dL [place] [email or web address] TROPONINon 06-23-2019 Troponin I.cardiac [Mass/Vol] ng/mL 0 - 0.06 ng/mL [place] [email or web address] Comment on above: TROPONIN REFERENCE R ANGES: <0.06 Normal >0.06 Elevated consistent with myocardial damage (10%CV) Cardiac troponin values can be elevated by many disease states in addition to acute ischemia. These include, but are not limited to; chronic renal failure, CHF, CVA, pulmonary embolus, COPD, myocardial trauma/surgery, myocarditis, pericarditis, tachycardia, aortic dissection, amyloidosis, sepsis and strenuous exercise. Serial measurement of troponin is strongly recommended as a first step in determining whether a low level elevation represents an acute or chronic condition. TSH W/ FREE T4on 06-23-2019 Free T4 [Mass/Vol] 0.79 ng/dL 0.61 - 1. 12 ng/dL [facility] Interpretation and review of laboratory results Abnormal [facility] TSH Qn 6.358 m[IU]/L High [facility] MRSA By PCRon 02-09-2019 MRSA SCREEN RT-PCR Negative Normal [facility] Comment on above: Order Comment: Perfo rmed by [facility] [address] [place], [place] [id number] . Result Comment: No M RSA detected by Real Time - Polymerase Chain Reaction. Performed By: #### 1 [id number] #### [facility] [address] [place] [address] Vital Signs Date Time Vital Sign Value Performing Clinician Kamran adam 08-08-2024 19:50-0500 Body height 154.9 cm Mark Hills MD Work Phone: [facility] [employer] 08-08-2024 19:50-0500 Body mass index (BMI) [Ratio] 26.07 kg/m2 Mark Hills MD Work Phone[facility] 08-08-2024 19:50-0500 Body weight 62.6 kg Mark Hills MD Work Phone: [facility] 08-08-2024 19:45-0500 Heart rate 76 /min Mark Hills MD Work Phone: [employer] 08-08-2024 19:45-0500 Respiratory rate 14 /min Mark Hills MD Work Phone: [facility] [employer] 08-08-2024 19:45-0500 SaO2% (BldA) [Mass fraction] 95 % Mark Hills MD Work Phone: [facility] 08-08-2024 19:30-0500 Diastolic blood pressure 58 mm[Hg] Mark Hills MD Work Phone: [facility] 08-08-2024 19:30-0500 Systolic blood pressure 130 mm[Hg] Mark Hills MD Work Phone: [facility] [employer] 08-08-2024 16:54-0500 Body temperature 98.49 [degF] Mark Hills MD Work Phone: [facility] [employer] 07-14-2024 10:12-0500 Diastolic blood pressure 63 mm[Hg] Anisa Resendiz MD Work Phone: [facility] [employer] 07-14-2024 10:12-0500 Systolic blood pressure 134 mm[Hg] Anisa Resendiz MD Work Phone: [facility] [employer] 07-14-2024 07:00-0500 Body temperature 98.4 [degF] Anisa Resendiz MD Work Phone: [facility] [employer] 07-14-2024 07:00-0500 Heart rate 79 /min Anisa Resendiz MD Work Phone: [facility] [employer] 07-14-2024 07:00-0500 Respiratory rate 20 /min Anisa Resendiz MD Work Phone: [facility] [employer] 07-14-2024 07:00-0500 SaO2% (BldA) [Mass fraction] 94 % Anisa Resendiz MD Work Phone: [facility] 07-14-2024 05:53-0500 Body mass index (BMI) [Ratio] 26.45 kg/m2 Anisa Resendiz MD Work Phone: [facility] 07-14-2024 05:53-0500 Body weight 63.5 kg Anisa Resendiz MD Work Phone: [facility] 07-09-2024 07:16-0500 Body height 154.9 cm Anisa Resendiz MD Work Phone: [facility] 07-06-2024 17:04-0500 Body mass index (BMI) [Ratio] 24.94 kg/m2 Natalie Nguyen MD Work Phone: [facility] 07-06-2024 17:04-0500 Body temperature 98.01 [degF] Natalie Nguyen MD Work Phone: [facility] 07-06-2024 17:04-0500 Body weight 59.88 kg Natalie Nguyen MD Work Phone: [facility] 07-06-2024 17:04-0500 Diastolic blood pressure 52 mm[Hg] Natalie Nguyen MD Work Phone: [facility] 07-06-2024 17:04-0500 Heart rate 83 /min Natalie Nguyen MD Work Phone: [facility] 07-06-2024 17:04-0500 Respiratory rate 20 /min Natalie Nguyen MD Work Phone: [facility] 07-06-2024 17:04-0500 SaO2% (BldA) [Mass fraction] 95 % Natalie Nguyen MD Work Phone: [facility] 07-06-2024 17:04-0500 Systolic blood pressure 169 mm[Hg] Natalie Nguyen MD Work Phone: [facility] 12-21-2023 11:01-0400 Body height 154.9 cm Juan Francisco Bensonellone DO Work Phone: [employer] 12-21-2023 11:01-0400 Body mass index (BMI) [Ratio] 26.07 kg/m2 Juan Francisco Marcelinoellone DO Work Phone: [employer] 12-21-2023 11:01-0400 Body temperature 98.01 [degF] Juan Francisco Bensonellone DO Work Phone: [employer] 12-21-2023 11:01-0400 Body weight 62.6 kg Juan Francisco Bensonellone DO Work Phone: [employer] 12-21-2023 11:01-0400 Diastolic blood pressure 74 mm[Hg] Juan Francisco Ranellone DO Work Phone: [employer] [employer] 12-21-2023 11:01-0400 Heart rate 74 /min Juan Francisco Ranellone DO Work Phone: [facility] [employer] 12-21-2023 11:01-0400 Respiratory rate 17 /min Juan Francisco Ranellone DO Work Phone: [facility] [employer] 12-21-2023 11:01-0400 SaO2% (BldA) [Mass fraction] 96 % Juan Francisco Ranellone DO Work Phone: [facility] [employer] 12-21-2023 11:01-0400 Systolic blood pressure 152 mm[Hg] Juan Francisco Ranellone DO Work Phone: [facility] [employer] 12-19-2023 17:21-0400 Heart rate 84 /min Valeriy Calzada MD Work Phone: [facility] [employer] 12-19-2023 17:21-0400 Respiratory rate 18 /min Valeriy Calzada MD Work Phone: [employer] 12-19-2023 17:21-0400 SaO2% (BldA) [Mass fraction] 97 % Valeriy Calzada MD Work Phone: [employer] 12-19-2023 17:20-0400 Diastolic blood pressure 84 mm[Hg] Valeriy Calzada MD Work Phone: [employer] 12-19-2023 17:20-0400 Systolic blood pressure 174 mm[Hg] Valeriy Calzada MD Work Phone: [employer] 12-19-2023 16:00-0400 Body height 154.9 cm Valeriy Calzada MD Work Phone: [employer] 12-19-2023 16:00-0400 Body mass index (BMI) [Ratio] 27.21 kg/m2 Valeriy Calzada MD Work Phone: [employer] 12-19-2023 16:00-0400 Body temperature 97.3 [degF] Valer[facility]ada MD [facility] 12-19-2023 16:00-0400 Body weight 65.32 kg Valeriy [facility]zada MD Work Phone[facility] 11-28-2022 13:18-0400 Body temperature 97.9 [degF] Natalie Nguyen MD [facility] 11-28-2022 13:18-0400 Diastolic blood pressure 62 mm[Hg] Natalie Nguyen MD Work Phone: [facility] [employer] 11-28-2022 13:18-0400 Heart rate 82 /min Natalie Nguyen MD [facility] 11-28-2022 13:18-0400 Respiratory rate 18 /min Natalie Nguyen MD [facility] 11-28-2022 13:18-0400 SaO2% (BldA) [Mass fraction] 93 % Natalie Nguyen MD Work Phone: [facility] 11-28-2022 13:18-0400 Systolic blood pressure 126 mm[Hg] Natalie Nguyen MD [facility] 11-28-2022 09:06-0400 Body height 154.9 cm Natalie Nguyen MD [facility] 11-28-2022 00:06-0400 Body mass index (BMI) [Ratio] 27.08 kg/m2 Natalie Nguyen MD Work Phone: [facility] 11-28-2022 00:06-0400 Body weight 65 kg Natalie Nguyen MD Work Phone: [facility] 08-12-2022 22:58-0500 Diastolic blood pressure 69 mm[Hg] Natalie Nguyen MD Work Phone: [facility] 08-12-2022 22:58-0500 Heart rate 61 /min Natalie Nguyen MD [facility] 08-12-2022 22:58-0500 Respiratory rate 16 /min Natalie Nguyen MD [facility] 08-12-2022 22:58-0500 SaO2% (BldA) [Mass fraction] 97 % Natalie Nguyen MD [facility] 08-12-2022 22:58-0500 Systolic blood pressure 132 mm[Hg] Natalie Nguyen MD [facility] 08-12-2022 19:15-0500 Body temperature 97.7 [degF] Natalie Nguyen MD [facility] 07-08-2021 14:15-0500 Body temperature 98.1 [degF] Arnulfo Otero Jr., MD Work Phone: [employer] 07-08-2021 14:15-0500 Diastolic blood pressure 83 mm[Hg] Arnulfo Otero Jr., MD Work Phone: [employer] 07-08-2021 14:15-0500 Heart rate 74 /min Arnulfo Otero Jr., MD Work Phone: [employer] 07-08-2021 14:15-0500 Respiratory rate 16 /min Arnulfo Otero Jr., MD Work Phone: [employer] 07-08-2021 14:15-0500 SaO2% (BldA) [Mass fraction] 96 % Arnulfo Otero Jr., MD Work Phone: [employer] 07-08-2021 14:15-0500 Systolic blood pressure 160 mm[Hg] Arnulfo Otero Jr., MD Work Phone: [employer] 12-21-2019 22:18-0400 BP Diastolic 79 mm[Hg] [facility]jot [facility] [employer] [email or web address] 12-21-2019 22:18-0400 BP Systolic 176 mm[Hg] [facility] 12-21-2019 22:18-0400 Pulse (Heart Rate) 62 /min Navjot Griffin [facility] 12-21-2019 22:18-0400 Pulse Oximetry 97 % Navjot Griffin [facility] 12-21-2019 22:18-0400 Respiratory Rate 16 /min Navjot Griffin [facility] 12-21-2019 21:20-0400 BMI (Body Mass Index) 25.06 kg/m2 [facility]-2019 21:20-0400 Body weight 62.14 kg Navjot Griffin [facility] 12-21-2019 21:20-0400 Height 157.5 cm [facility] 12-21-2019 21:15-0400 Body Temperature 97.9 [degF] Navjot Griffin [facility] 10-05-2019 13:45-0500 BP Diastolic 51 mm[Hg] [facility] 10-05-2019 13:45-0500 BP Systolic 150 mm[Hg] [facility] 10-05-2019 13:45-0500 Pulse (Heart Rate) 77 /min [facility] 10-05-2019 13:45-0500 Pulse Oximetry 92 % [facility] 10-05-2019 13:45-0500 Respiratory Rate 18 /min [facility] 10-05-2019 12:45-0500 Body Temperature 97.2 [degF] Sameer [facility] 06-24-2019 00:15-0500 BP Diastolic 59 mm[Hg] [facility] 06-24-2019 00:15-0500 BP Systolic 159 mm[Hg] [facility] 06-24-2019 00:15-0500 Pulse (Heart Rate) 71 /min [facility] 06-24-2019 00:15-0500 Respiratory Rate 18 /min [facility] 06-24-2019 00:00-0500 Pulse Oximetry 95 % [facility] 06-23-2019 22:40-0500 BMI (Body Mass Index) 27.59 kg/m2 Joanne Carone [facility] 06-23-2019 22:40-0500 Body weight 66.22 kg [facility] 06-23-2019 22:40-0500 Height 154.9 cm Joanne [facility] 02-09-2019 13:20-0400 BP Diastolic 70 mm[Hg] Sameer Morales [facility] 02-09-2019 13:20-0400 BP Systolic 125 mm[Hg] Sameer Morales [facility] 02-09-2019 13:20-0400 Pulse (Heart Rate) 68 /min Sameer Morales [facility] 02-09-2019 13:20-0400 Pulse [facility]ximetry 94 % [facility] 02-09-2019 13:20-0400 Respiratory Rate 16 /min [facility] 02-09-2019 13:14-0400 Body Temperature 97.59 [degF] [facility] 02-09-2019 12:35-0400 BMI (Body Mass Index) 26.45 kg/m2 [facility] 02-09-2019 12:35-0400 Height 154.9 cm [facility] 02-09-2019 12:35-0400 [facility]5 [facility] 10-12-2018 22:15-0500 BMI (Body Mass Index) 27.73 kg/m2 Nohelia Roque [facility] 10-12-2018 22:15-0500 Height 152.4 cm Nohelia Roque [facility] 10-12-2018 22:15-0500 Weight 64.41 kg Nohelia Roque [facility] 10-12-2018 22:14-0500 Body Temperature 97.7 [degF] Nohelia ValdezleDivya [facility] 10-12-2018 22:14-0500 BP Diastolic 72 mm[Hg] Nohelia GONZALEZ [facility] 10-12-2018 22:14-0500 BP Systolic 164 mm[Hg] Nohelianataly [facility]ON[facility]ALE[facility] 10-12-2018 22:14-0500 Pulse (Heart Rate) 67 /min Nohelia GONZALEZ [facility] 10-12-2018 22:14-0500 Respiratory Rate 20 /min Nohelia [facility]IO [facility] 09-09-2018 14:36-0500 BP Diastolic 65 mm[Hg] Sayed [facility] Work Phone: 09-09-2018 14:36-0500 BP Systolic 149 mm[Hg] Sayed [facility] Work Phone: 09-09-2018 13:39-0500 BMI (Body Mass Index) 27.77 kg/m2 Sayed [facility] Work Phone: 09-09-2018 13:39-0500 Body Temperature 97.9 [degF] Sayed [facility] Work Phone: 09-09-2018 13:39-0500 Height 152.4 cm Sayed [facility] Work Phone: 09-09-2018 13:39-0500 Pulse (Heart Rate) 73 /min Sayed [facility] Work Phone: 09-09-2018 13:39-0500 Respiratory Rate 20 /min Sayed [facility] Work Phone: 09-09-2018 13:39-0500 Weight 64.5 kg Sayed [facility] Work Phone: Encounters Encounter Date Encounter Type Care Provider Facility Start: 08-08-2024 End: 08-08-2024 Emergency department [facility] Comment on above: Melena (Primary Dx); Community acquired pneumonia of left lower lobe of lung Start: 07-08-2024 End: 07-14-2024 Evaluation and management of inpatient Anisa Resendiz MD Work Phone: [facility] Comment on above: Debility (Primary Dx ); Hypokalemia; Low magnesium level; Low calcium levels; Acute hyponatremia Start: 07-06-2024 End: 07-06-2024 Emergency department patient visit Natalie Nguyen MD Work Phone: [facility] Comment on above: Closed fracture of h ead of right humerus, initial encounter (Primary Dx) Start: 12-21-2023 End: 12-21-2023 Emergency department patient visit Juan Francisco Hermosillo DO Work Phone: [facility] Comment on above: Abrasion of orophary nx, initial encounter (Primary Dx) Start: 12-19-2023 End: 12-19-2023 Emergency department patient visit Valeriy Calzada MD Work Phone: [facility] Comment on above: Sore throat (Primary Dx) Start: 10-16-2023 End: 10-17-2023 Emergency department patient visit IGNACIO CINTRON [facility] Start: 11-27-2022 End: 11-28-2022 Emergency department patient visit Natalie Nguyen MD Work Phone: [facility] Start: 08-12-2022 End: 08-12-2022 Emergency department patient visit Natalie Nguyen MD Work Phone: [facility] Comment on above: Vertigo (Primary Dx) ; Hyponatremia Start: 08-06-2022 End: 08-07-[address] IGNACIO CINTRON Facility:[facility] Start: 07-08-2021 End: 07-08-2021 Emergency department patient visit Arnulfo Otero MD Work Phone: [facility] Comment on above: Aphthous ulcer (Prim tulio Dx) Start: 12-21-2019 End: 12-22-2019 Emergency department patient visit IGNACIO CINTRON [facility] Start: 12-21-2019 End: 12-21-2019 Emergency department patient visit Navjot Griffin Work Phone: [facility] Start: 10-05-2019 End: 10-05-2019 Patient encounter procedure Sameer [facility] Start: 10-05-2019 End: 10-05-2019 Subsequent hospital visit by physician Sameer Morales Work Phone: [facility] Periop Comment on above: Carpal tunnel syndro me on right Start: 09-28-2019 Patient encounter procedure [facility] Start: 09-21-2019 Patient encounter procedure Kristie Stewart [place] [facility] Start: 06-23-2019 End: 06-24-2019 Emergency department patient visit IGNACIO CINTRON [facility] Start: 06-23-2019 End: 06-24-2019 Emergency department patient visit Joanne Madelyn Burks Work Phone: [facility] Start: 02-13-2019 End: 02-13-2019 Outside Orders Historical Provider [facility] Start: 02-09-2019 End: 02-09-2019 Patient encounter procedure [facility] Start: 02-09-2019 End: 02-09-2019 Patient encounter procedure Sameer Morales Work Phone: [facility] Periop Comment on above: Left carpal tunnel s yndrome Start: 02-02-2019 Admission to establishment Historical Provider [facility] Pre Admission Start: 02-02-2019 End: 02-02-2019 Patient encounter procedure Carli Harsha [facility] Pre Admission Comment on above: Pre-op testing (Prim tulio Dx) Start: 10-12-2018 End: 10-12-2018 Emergency department patient visit Nohelia Roque Work Phone: [facility] Start: 09-09-2018 End: 09-09-2018 Patient encounter procedure Other Other NOTES/RESULTS Start: 09-09-2018 End: 09-09-2018 Emergency department patient visit Rahul Solorzano Work Phone: [facility] Procedures Date Procedure Procedure Detail Performing Clinician Start: 08-08-2024 Ct abdomen & pelvis w/contrast material Mark Hills MD Work Phone: Start: 08-08-2024 Virus centrifuge enhncd id imfluor stain ea Mark Hills MD Work Phone: Start: 08-08-2024 End: 08-08-2024 Basic metabolic panel calcium total Mark iHlls MD Work Phone: Start: 08-08-2024 Hepatic function panel Mark Hills MD Work Phone: Start: 08-08-2024 LACTATE, SEPSIS Mark Hills MD Work Phone: Start: 07-14-2024 Rhythm ecg 1-3 leads w/interpretation & report Unknown Provider Result Start: 07-14-2024 Basic metabolic panel calcium total Jennifer E Hemmelgarn DO Work Phone: Start: 07-14-2024 C-reactive protein Guerita Anderson [employer] Work Phone: Start: 07-13-2024 Radex ankle complete minimum 3 views Guerita Anderson [employer] Work Phone: Start: 07-13-2024 End: 07-13-2024 Radiologic examination tibia & fibula 2 views Mirta Erazo [employer] Work Phone: Start: 07-13-2024 Rhythm ecg 1-3 leads w/interpretation & report Unknown Provider Result Start: 07-13-2024 BASIC METABOLIC PANEL W/ REFLEX TO MG FOR LOW K Viktor Iqbal MD Work Phone: Start: 07-13-2024 Blood count complete auto&auto difrntl wbc Viktor Iqbal MD Work Phone: Start: 07-13-2024 C-reactive protein Guerita Anderson [employer] Work Phone: Start: 07-13-2024 Sodium serum plasma or whole blood Jennifer E Hemmelgarn DO Work Phone: Start: 07-12-2024 Sodium serum plasma or whole blood Jennifer E Hemmelgarn DO Work Phone: Start: 07-12-2024 Sodium serum plasma or whole blood Viktor Iqbal MD Work Phone: Start: 07-12-2024 End: 07-13-2024 Rhythm ecg 1-3 leads w/interpretation & report Unknown Provider Result Start: 07-12-2024 BASIC METABOLIC PANEL W/ REFLEX TO MG FOR LOW K Viktor Iqbal MD Work Phone: Start: 07-12-2024 Blood count complete auto&auto difrntl wbc Viktor Iqbal MD Work Phone: Start: 07-12-2024 Sodium serum plasma or whole blood Viktor Iqbal MD Work Phone: Start: 07-11-2024 Sodium serum plasma or whole blood Viktor Iqbal MD Work Phone: Start: 07-11-2024 Sodium serum plasma or whole blood Viktor Iqbal MD Work Phone: Start: 07-11-2024 Sodium serum plasma or whole blood Viktor Iqbal MD Work Phone: Start: 07-11-2024 Sodium serum plasma or whole blood Viktor Iqbal MD Work Phone: Start: 07-11-2024 End: 07-11-2024 Rhythm ecg 1-3 leads w/interpretation & report Unknown Provider Result Start: 07-11-2024 Assay of magnesium Guerita Anderson [employer] Work Phone: Start: 07-11-2024 BASIC METABOLIC PANEL W/ REFLEX TO MG FOR LOW K Viktor Iqbal MD Work Phone: Start: 07-11-2024 End: 07-11-2024 Sodium serum plasma or whole blood Viktor Iqbal MD Work Phone: Start: 07-11-2024 Sodium serum plasma or whole blood Viktor Iqbal MD Work Phone: Start: 07-10-2024 Sodium serum plasma or whole blood Viktor Iqbal MD Work Phone: Start: 07-10-2024 Sodium serum plasma or whole blood Viktor Iqbal MD Work Phone: Start: 07-10-2024 Sodium serum plasma or whole blood Viktor Iqbal MD Work Phone: Start: 07-10-2024 Sodium serum plasma or whole blood Viktor Iqbal MD Work Phone: Start: 07-10-2024 Sodium serum plasma or whole blood Viktor Iqbal MD Work Phone: Start: 07-10-2024 Sodium serum plasma or whole blood Viktor Iqbal MD Work Phone: Start: 07-10-2024 Assay of osmolality urine Jennifer vee DO Work Phone: Start: 07-10-2024 End: 07-10-2024 Rhythm ecg 1-3 leads w/interpretation & report Unknown Provider Result Start: 07-10-2024 Assay of magnesium Guerita Ingrma [place] [employer] Work Phone: Start: 07-10-2024 BASIC METABOLIC PANEL W/ REFLEX TO MG FOR LOW K Viktor Iqbal MD Work Phone: Start: 07-09-2024 End: 07-09-2024 Rhythm ecg 1-3 leads w/interpretation & report Unknown Provider Result Start: 07-09-2024 Assay of magnesium Guerita A Shen-Rosaura [employer] Work Phone: Start: 07-09-2024 BASIC METABOLIC PANEL W/ REFLEX TO MG FOR LOW K Viktor Iqbal MD Work Phone: Start: 07-08-2024 Assay of magnesium Guerita Nataly [place] [employer] Work Phone: Start: 07-08-2024 BASIC METABOLIC PANEL W/ REFLEX TO MG FOR LOW K Guerita Ingram Shen-Rosaura [employer] Work Phone: Start: 07-08-2024 RESPIRATORY PANEL, MOLECULAR, WITH COVID-19 Guerita Ingram Shen-Rosaura [employer] Work Phone: Start: 07-08-2024 Urinalysis microscopic only Anisa W Kib e-Kinyua MD Work Phone: Start: 07-08-2024 Urnls dip stick/tablet rgnt auto w/o microscopy Anisa Resendiz MD Work Phone: Start: 07-08-2024 Ct thorax w/contrast material Joseph Amaya MD Work Phone: Start: 07-08-2024 Radiologic exam chest single view Anisa Resendiz MD Work Phone: Start: 07-08-2024 End: 07-08-2024 Basic metabolic panel calcium total Anisa Resendiz MD Work Phone: Start: 07-08-2024 COVID-19, RAPID Anisa Resendiz MD Work Phone: Start: 07-08-2024 Iaadiadoo influenza Anisa Resendiz MD Work Phone: Start: 07-08-2024 End: 07-09-2024 Ecg routine ecg w/least 12 lds i&r only Anisa Resendiz MD Work Phone: Start: 07-06-2024 End: 07-06-2024 Radex humerus minimum 2 views Natalie Nguyen MD Work Phone: Start: 12-21-2023 COVID-19, RAPID Juan Francisco Hermosillo DO Work Phone: Start: 12-21-2023 Iaad ia streptococcus group a Juan Francisco Hermosillo DO Work Phone: Start: 11-29-2022 History of coronary artery bypass grafting S/P CABG (coronary artery bypass graft) Valeriy Calzada MD Work Phone: Start: 11-28-2022 Rhythm ecg 1-3 leads w/interpretation & report Unknown Provider Result Start: 11-28-2022 BASIC METABOLIC PANEL W/ REFLEX TO MG FOR LOW K Dayo Vitale MD Work Phone: Start: 11-28-2022 Hemoglobin glycosylated a1c Dayo Vitale MD Work Phone: Start: 11-28-2022 Lipid panel Dayo Vitale MD Work Phone: Start: 11-28-2022 End: 11-28-2022 Ecg routine ecg w/least 12 lds w/i&r Dayo Vitale MD Work Phone: Start: 11-28-2022 Prothrombin time Dayo Vitale MD Work Phone: Start: 11-27-2022 Basic metabolic panel calcium total Natalie Nguyen MD Work Phone: Start: 11-27-2022 Ecg routine ecg w/least 12 lds w/i&r Natalie Nguyen MD Work Phone: Start: 11-27-2022 Radiologic exam chest 2 views Natalie Nguyen MD Work Phone: Start: 08-12-2022 Ct head/brain w/o contrast material Natalie Nguyen MD Work Phone: Start: 08-12-2022 COVID-19, RAPID Natalie Nguyen MD Work Phone: Start: 08-12-2022 Iaadiadoo influenza Natalie Nguyen MD Work Phone: Start: 08-12-2022 Comprehensive metabolic panel Natalie Nguyen MD Work Phone: Start: 08-12-2022 Ecg routine ecg w/least 12 lds w/i&r Natalie Nguyen MD Work Phone: Start: 12-21-2019 Radex ribs uni w/posteroant ch minimum 3 views Navjot Griffin Work Phone: Start: 06-24-2019 Assay of magnesium Joanne L Carone Work Phone: Start: 06-24-2019 Assay of phosphorus inorganic Joanne L Carone Work Phone: Start: 06-24-2019 Assay of troponin quantitative Joanne L Carone Work Phone: Start: 06-24-2019 CBC, EDIF, PLATELET Joanne L Carone Work Phone: Start: 06-24-2019 COMPREHENSIVE METABOLIC PROFILE ER Joanne Burks Work Phone: Start: 06-24-2019 Natriuretic peptide Joanne Burks Work Phone: Start: 06-24-2019 TSH W/ FREE T4 Joanne Burks Work Phone: Start: 02-09-2019 CARDIAC RHYTHM Historical Provider Start: 01-30-2019 ORDERS (OUTSIDE) Historical Provider Start: 09-09-2018 End: 09-09-2018 Electrocardiogram Other Other Plan of Treatment Date Care Activity Detail Author Start: 10-12-2028 DTaP/Tdap/Td vaccine (2 - Td or Tdap) DTaP/Tdap/Td vaccine (2 - Td or Tdap) [employer] Start: 10-12-2028 Tetanus vaccination TETANUS [facility] Start: 07-21-2024 End: 07-14-2025 Basic metabolic 2000 panel - Serum or Plasma Basic Metabolic Panel Lab Routine Acute hyponatremia Expected: 07/21/2024, Expires: 07/14/2025 [facility] Comment on above: Expected: 07/21/2024 , Expires: 07/14/2025 Start: 07-21-2024 End: 07-14-2025 C-reactive protein C-Reactive Protein Lab Routine Acute hyponatremia Expected: 07/21/2024, Expires: 07/14/2025 [facility] Comment on above: Expected: 07/21/2024 , Expires: 07/14/2025 Start: 07-21-2024 End: 07-14-2025 CBC W Auto Differential panel - Blood CBC with Auto Differential Lab Routine Acute hyponatremia Expected: 07/21/2024, Expires: 07/14/2025 [facility] Comment on above: Expected: 07/21/2024 , Expires: 07/14/2025 Start: 07-21-2024 End: 07-14-2025 Sedimentation Rate Sedimentation Rate Lab Routine Acute hyponatremia Expected: 07/21/2024, Expires: 07/14/2025 [facility] Comment on above: Expected: 07/21/2024 , Expires: 07/14/2025 Start: 06-05-2024 Depression Screen Depression Screen [facility] [email or web address] Start: 04-19-2024 COVID-19 Vaccine ( season) COVID-19 Vaccine ( season) [facility] Start: 03-19-2024 Influenza vaccination B ON [email or web address] Start: 11-29-2023 Lipid panel Lipids [facility] Start: 07-15-2023 Annual Wellness Visi t (Medicare) Annual Wellness Visit (Medicare) [facility] Start: 04-19-2023 COVID-19 Vaccine ( season) COVID-19 Vaccine ( season) [facility] Start: 03-19-2023 Influenza vaccination Flu vaccine (S andrei Ended) [facility] [email or web address] Start: 03-19-2022 Influenza vaccination Flu vaccine (# 1) [facility] [email or web address] Start: 07-08-2021 Annual Wellness Visi t (AWV) Annual Wellness Visit (AWV) [facility] Start: 04-19-2021 Influenza vaccination Flu vaccine (# 1) [facility] Start: 09-28-2020 TSH Qn TSH [facility] Start: 04-19-2020 Influenza vaccination INFLUENZ A VACCINE (Season Ended) [place] [employer] Start: 04-19-2019 Influenza vaccination V AN [employer] Start: 02-09-2019 End: 02-09-2019 Procedure Pass [facility] Comment on above: Left carpal tunnel s yndrome DECOMPRESSION TRANSP OSITION MEDIAN NERVE (Left Carpal Tunnel Release) Left Carpal Tunnel R elease Start: 04-19-2018 Influenza vaccination INFLUENZA VACC INE (#1) [facility] Work Phone: Start: 07-19-2017 Pneumococcal 65+ yea rs Vaccine (2 of 2 - PCV) Pneumococcal 65+ years Vaccine (2 of 2 - PCV) [email or web address] Start: 12-15-2016 Creatinine measurement Creatinine mo nitoring [facility] [employer] Start: 12-15-2016 Potassium monitoring Potassium monit oring [facility] [employer] Start: 2014 Respiratory Syncytia l Virus (RSV) or age 60 yrs+ (1 - 1-dose 75+ series) Respiratory Syncytial Virus (RSV) or age 60 yrs+ (1 - 1-dose 75+ series) [facility] [employer] Start: 2004 Pneumococcal vaccination PNEUM OCOCCAL VACCINE SERIES (1 of 2 - PCV13) [facility] Work Phone: Start: 1999 Respiratory Syncytia l Virus (RSV) or age 60 yrs+ (1 - 1-dose 60+ series) Respiratory Syncytial Virus (RSV) or age 60 yrs+ (1 - 1-dose 60+ series) [facility] Start: 1994 Screening for osteoporosis DEX A (modify frequency per FRAX score) [facility] [employer] Start: 1989 Colonoscopy [facility] Work Phone: Start: 1989 Protein mass conc COLON CANCER SCREENING DISCUSSION [facility] Work Phone: Start: 1989 Shingles vaccine (1 of 2) Shingles v accine (1 of 2) [facility] Start: 1989 Zoster vaccine hzv l galen for subcutaneous use ZOSTER (SHINGLES) VACCINE (1 of 2) [employer] Start: 1979 Protein mass conc MAMMOGRAM SC REENING DISCUSSION [facility] Work Phone: Start: 1979 Screening mammography MAMMOGRA M SCREENING DISCUSSION [facility] Work Phone: Start: 1960 Screening for malign ant neoplasm of cervix [facility] Work Phone: Start: 1958 Third diphtheria, te tanus and acellular pertussis (DTaP) vaccination TDAP (ADULT) [facility] Work Phone: Start: 1957 Tetanus vaccination TETANUS [facility] Work Phone: Start: 1951 COVID-19 Vaccine (1) COVID-19 Vaccin e (1) [employer] Start: 1951 Depression Screen Depression Screen [facility] Start: 1949 Lipid panel Lipids [place] [employer] Start: 1939 Screening for osteoporosis DEXA SCAN DISCUSSION [facility] Work Phone: Start: 1939 Thyrotropin Qn TSH [facility] Work Phone: End: 12-02-2022 Basic Metabolic Panel w/ Reflex to MG Basic Metabolic Panel w/ Reflex to MG Lab Routine Daily for 5 Days starting 11/28/2022 until 12/02/2022, 1 completed [employer] Work Phone: Comment on above: Daily for 5 Days sta rting 11/28/2022 until 12/02/2022, 1 completed End: 07-16-2024 C-reactive protein C-Reactive Protein Lab Routine Daily for 3 Days starting 07/14/2024 until 07/16/2024, 1 completed [employer] Comment on above: Daily for 3 Days sta rting 07/14/2024 until 07/16/2024, 1 completed End: 12-02-2022 CBC panel - Blood by Automated count CBC Lab Routine Daily for 5 Days starting 11/28/2022 until 12/02/2022, 1 completed [employer] Work Phone: Comment on above: Daily for 5 Days sta rting 11/28/2022 until 12/02/2022, 1 completed End: 08-08-2024 Clostridium Difficile Toxin/Antigen Clostridium Difficile Toxin/Antigen Microbiology STAT Once for 1 Occurrences starting 08/08/2024 until 08/08/2024 [employer] Comment on above: Once for 1 Occurrenc es starting 08/08/2024 until 08/08/2024 EKG 12 Lead EKG 12 Lead ECG STAT 08/12/2022 7:58 PM EST [employer] Work Phone: EKG 12 lead EKG 12 lead ECG STAT As Needed until discontinued starting 11/28/2022 [employer] Work Phone: Comment on above: As Needed until disc ontinued starting 11/28/2022 End: 08-08-2024 Gastrointestinal Panel, Molecular Gastrointestinal Panel, Molecular Microbiology STAT Once for 1 Occurrences starting 08/08/2024 until 08/08/2024 [employer] Comment on above: Once for 1 Occurrenc es starting 08/08/2024 until 08/08/2024 End: 11-28-2022 Intermittent pulse oximetry Pulse Oximetry Spot Check Respiratory Care Routine One Time for 1 Occurrences starting 11/28/2022 until 11/28/2022 [employer] Work Phone: Comment on above: One Time for 1 Occur rences starting 11/28/2022 until 11/28/2022 End: 08-08-2024 Lactate, Sepsis Lactate, Sepsis Lab Timed Every 2 Hours (Lab) for 2 Occurrences starting 08/08/2024 until 08/08/2024, 1 completed [employer] Work Phone: Comment on above: Every 2 Hours (Lab) for 2 Occurrences starting 08/08/2024 until 08/08/2024, 1 completed MRSA ANTERIOR NARES (PCR) MRSA A NTERIOR NARES (PCR) Microbiology Routine Pre-op testing 02/09/2019 12:50 PM [facility] End: 07-10-2024 Osmolality, Serum Osmolality, Serum Lab Routine One Time for 1 Occurrences starting 07/10/2024 until 07/10/2024 [employer] Comment on above: One Time for 1 Occur rences starting 07/10/2024 until 07/10/2024 Oxygen therapy [Mini mum Data Set] Initiate Oxygen Therapy Protocol Respiratory Care Routine As Needed until discontinued starting 11/28/2022 [employer] Work Phone: Comment on above: As Needed until disc ontinued starting 11/28/2022 Oxygen therapy [Mini mum Data Set] Initiate Oxygen Therapy Protocol Respiratory Care Routine Daily until discontinued starting 07/08/2024 [employer] Comment on above: Daily until disconti nued starting 07/08/2024 End: 07-16-2024 Sedimentation Rate Sedimentation Rate Lab Routine Daily for 3 Days starting 07/14/2024 until 07/16/2024, 1 completed [employer] Comment on above: Daily for 3 Days sta rting 07/14/2024 until 07/16/2024, 1 completed End: 08-08-2024 SPECIMEN REJECTION [employer] Comment on above: Once for 1 Occurrenc es starting 08/08/2024 until 08/08/2024 End: 06-23-2019 Standard ECG ECG ECG STAT One Time for 1 Occurrences starting 06/23/2019 until 06/23/2019 [employer] Comment on above: One Time for 1 Occur rences starting 06/23/2019 until 06/23/2019 End: 08-12-2022 Urinalysis with Reflex to Culture Urinalysis with Reflex to Culture Lab Routine One Time for 1 Occurrences starting 08/12/2022 until 08/12/2022 [employer] Work Phone: Comment on above: One Time for 1 Occur rences starting 08/12/2022 until 08/12/2022 Immunizations Immunization Date Immunization Notes Care Provider Gretchen mullen 10-12-2018 diphtheria, tetanus toxoids and acellular pertussis vaccine, unspecified formulation [employer] 10-12-2018 tetanus toxoid, redu jose roberto diphtheria toxoid, and acellular pertussis vaccine, adsorbed [employer] 05-19-2016 influenza virus vacc ine, unspecified formulation Historical Provider [employer] Payers Date Payer Category Payer Private Health Insurance [id number] 2020 Private Health Insurance [employer] MEDICARE SUPP [id number] 2020-Present [phone] [address] [place] [address] [id number] 2018 Medicare MEDICARE MEDICAR E A AND B xxxxxxxxxxx 2018-Present [place], [place] xxxxxxxxxxx [id number] 2005 Unknown GENERIC PAYOR ME DICARE SUPPLEMENT xxxxxxxxxx 2005-Present xxxxxxxxxx [id number] 1959 Medicare [id number] 1959 Unknown [id number] 1939 Unknown [id number] 1939 Unknown [id number] .111 1939 Unknown [id number] .111 1939 Unknown [id number] .111 1939 Unknown [id number] .111 1939 Unknown [id number] .111 1939 Unknown [id number] .593 1939 Unknown [id number] .173 1939 Unknown [id number] .173 1939 Unknown [id number] .173 1939 Unknown [id number] .173 1939 Unknown [id number] .173 1939 Unknown [id number] .173 Social History Date Type Detail Facility Start: 09-09-2018 Tobacco smoking status NHIS Un known if ever smoked [facility] Work Phone: Start: 1940 Sex Assigned At Not on file [facility] Work Phone: Start: 10-12-2018 End: 06-05-2023 Tobacco smoking status NHIS [facility] Start: 10-12-2018 History SDOH Alcohol Frequency 1 [employer] Start: 02-10-2019 End: 10-05-2019 Alcohol intake Ex-drinker (finding) [employer] Start: 08-02-2022 End: 11-28-2022 Exposure to SARS-CoV-2 (event) Not sure [employer] Start: 09-21-2015 End: 06-05-2023 Tobacco use and exposure Smokeless tobacco non-user [employer] Phone: Start: 07-08-2021 End: 08-08-2024 Alcohol intake Current drinker of alcohol (finding) [employer] Phone: Start: 09-21-2015 History SDOH Alcohol Comment occ [employer] Phone: Start: 06-05-2023 End: 07-08-2024 History of Social function [employer] Start: 06-05-2023 End: 07-08-2024 Alcohol Use Disorder Identification Test - Consumption [AUDIT-C] [employer] How often to you hav e a drink containing alcohol? 2-3 time sa week Facebook How many standard dr inks containing alcohol do you have on a typical day? 1 or 2 [employer] How often do you hav e 6 or more drinks on 1 occasion? Never [employer] Patient Health Questionnaire 9 item (PHQ-9) total score [Reported] 0 [employer] How often to you hav e a drink containing alcohol? Monthly or less [facility] How often do you hav e 6 or more drinks on 1 occasion? Less than monthly [employer] Has the electric, [email or web address] s, oil, or water Lift threatened to shut off services in your home in past 12Mo No [facility] (I/We) worried wheth er (my/our) food would run out before (I/we) got money to buy more. Never true [facility] Clinical Notes 07-08-2021 to 07-14-2024 Keisha Paul, COLIN - 07/14/2024 2:00 PM Modesta Wilkerson LSW - 07/14/2024 1:38 PM Eufemia Hardy PTA - 07/14/2024 9:[address], [place] - 07/14/2024 9:20 AM ESTAttachments Note Date & Type Note Facility 07-14-2024 History of Present illness Narrative Patient discharged at this time. Patient left floor via wheelchair and being transported to the [facility] [place] via [facility]. Patient discharging to [facility] today. [facility] to provide [facility]. Bobby Pierre notified and is agreeable with this plan. Facility updated and FAXED discharge paperwork. [facility] to be at hospital Main Entrance by 2 p.m. [facility] staff notified. LARA Watts 07/14/2024 Physical Therapy Facility/Department: [facility] Daily Treatment Note NAME: Julius Clarke : 1940 Date of Service: 07/14/2024 Discharge Recommendations: Continue to assess pending progress, Home with assist PRN, Home with Home health PT Patient Diagnosis(es): The primary encounter diagnosis was Debility. Diagnoses of Hypokalemia, Low magnesium level, and Low calcium levels were also pertinent to this visit. Assessment Assessment: Performed seated exer on B LE x15. Pt ambulating 10 ftx2 to and from bathroom with william walker and CGAx2 for safety, cues given for proper hand placement on walker. Pt CGA/Minx1 to 2 for safety with transfers. Plan Physical Therapy Plan General Plan: 2 times a day 7 days a week Specific Instructions for Next Treatment: once per day on weekends and holidays Current Treatment Recommendations: Strengthening;ROM;Balance training;Functional mobility training;Transfer training;Endurance training;Gait training;Stair training;Neuromuscular re-education;Pain management;Home exercise program;Therapeutic activities Restrictions Restrictions/Precautions Restrictions/Precautions: Fall Risk, Isolation, ROM Restrictions, Weight Bearing Required Braces or Orthoses?: Yes Upper Extremity Weight Bearing Restrictions Right Upper Extremity Weight Bearing: Non Weight Bearing Other: prox humeral fx Required Braces or Orthoses Right Upper Extremity Brace/Splint: Sling Subjective Subjective Subjective: Pt in bed upon arrival, agreeable to therapy at this time, states she needs to use restroom Pain: Does not rate pain. Orientation Overall Orientation Status: Within Normal Limits Objective Bed Mobility Training Bed Mobility Training: Yes Overall Level of Assistance: Minimum assistance;Assist X1 Interventions: Verbal cues Rolling: Minimum assistance;Assist X1 Supine to Sit: Minimum assistance;Assist X1 Sit to Supine: Contact-guard assistance;Minimum assistance;Assist X1 Scooting: Stand-by assistance;Assist X1 Transfer Training Transfer Training: Yes Overall Level of Assistance: Contact-guard assistance;Assist X1;Assist X2 Interventions: Verbal cues Sit to Stand: Contact-guard assistance;Assist X1;Assist X2 Stand to Sit: Contact-guard assistance;Assist X1;Assist X2 Toilet Transfer: Contact-guard assistance;Assist X1;Assist X2 Gait Training Right Side Weight Bearing: Full Left Side Weight Bearing: Full Gait Gait Training: Yes Left Side Weight Bearing: Full Right Side Weight Bearing: Full Overall Level of Assistance: Contact-guard assistance;Assist X1;Assist X2;Other (comment) (assistx2 for safety) Distance (ft): (2x10 ft) Assistive Device: Walker william;Gait belt Interventions: Verbal cues Base of Support: Narrowed Speed/Grisel: Slow Step Length: Left shortened;Right shortened Swing Pattern: Right asymmetrical PT Exercises Exercise Treatment: Seated exercises B LE x15 Safety Devices Type of Devices: All fall risk precautions in place;Patient at risk for falls;Call light within reach;Left in chair;Chair alarm in place;Gait belt Goals Short Term Goals Time Frame for Short Term Goals: 20 days Short Term Goal 1: Pt to tolerate 20 minutes of ther ex to facilitate return to PLOF. Short Term Goal 2: Pt to ambulate 150ft with william walker and SBA to increase ambulatory capacity for d/c Short Term Goal 3: Pt to complete transfers with hemiwakler and SBA to demonstrate increased independacne for safety with d/c. Patient Goals Patient Goals : Pt goal to return home Education Patient Education Education Given To: Patient Education Provided: Transfer Training Therapy Time Individual Concurrent Group Co-treatment Time In 0845 Time Out 0910 Minutes 25 Timed Code Treatment Minutes: 25 Minutes Eufemia Quiñonez PTA Comprehensive Nutrition Assessment Type and Reason for Visit: Reassess Nutrition Recommendations/Plan: Trial small amounts gatorade within f/r Encourage protein foods Malnutrition Assessment: Malnutrition Status: At risk for malnutrition (07/09/24 0713) Context: Acute Illness Findings of the 6 clinical characteristics of malnutrition: Energy Intake: Unable to assess Weight Loss: No weight loss Body Fat Loss: No body fat loss Muscle Mass Loss: No muscle mass loss Fluid Accumulation: Mild Extremities (non pitting trace edema BLE, RUE. Active bowel sounds.) Yardage Estimator Strength: Not Performed Nutrition Assessment: Continued increased nutrient needs for wound healing with hyponatremia and f/r noted. Na+ improving to 130 mmol/L. Admittedly drinks a lot of water and we discuss use of Gatorade to provide electrolytes as well. Will trial with her within her f/r of 1500 ml. CRP increasing suggesting inflammatory process. Lower creatinine which may reflect inadequate exogenous protein intakes. Will continue with ONS to provide extra protein. Nutrition Related Findings: trace RUE edema. Wound Type: Surgical Incision Current Nutrition Intake & Therapies: Average Meal Intake: 51-75% Average Supplements Intake: 76-100% ADULT ORAL NUTRITION SUPPLEMENT; Breakfast, Lunch, Dinner; Standard High Calorie/High Protein Oral Supplement ADULT DIET; Regular; 1500 ml Anthropometric Measures: Height: 154.9 cm (5' 1 ) [place] Body Weight (IBW): 105 lbs (48 kg) Admission Body Weight: 65.7 kg (144 lb 13 oz) Current Body Weight: 63.5 kg (140 lb), 138.2 % IBW. Weight Source: Bed scale Current BMI (kg/m2): 26.5 Usual Body Weight: 65.3 kg (144 lb) (in May, 132# low earlier this month) % Weight Change (Calculated): -2.8 Weight Adjustment For: No Adjustment BMI Categories: Overweight (BMI 25.0-29.9) Estimated Daily Nutrient Needs: Energy Requirements Based On: Kcal/kg Weight Used for Energy Requirements: Current Energy (kcal/day): 2980-0479 (25-28/kg) Weight Used for Protein Requirements: [place] Protein (g/day): 62-72g (1.3-1.5g/kg) Method Used for Fluid Requirements: 1 ml/kcal Fluid (ml/day): 1,600 ml Nutrition Diagnosis: Increased nutrient needs related to acute injury/trauma as evidenced by other (humerus Fx) Lab Results Component Value Date NA 130 (L) 07/14/2024 K 4.0 07/14/2024 CL 94 (L) 07/14/2024 CO2 26 07/14/2024 BUN 18 07/14/2024 CREATININE 0.4 (L) 07/14/2024 GLUCOSE 145 (H) 07/14/2024 CALCIUM 9.7 07/14/2024 BILITOT 0.3 06/05/2023 ALKPHOS 71 06/05/2023 AST 22 06/05/2023 ALT 26 06/05/2023 LABGLOM >90 07/14/2024 GFRAA >60 12/16/2015 Nutrition Interventions: Food and/or Nutrient Delivery: Continue Current Diet, Continue Oral Nutrition Supplement Nutrition Education/Counseling: Education/Counseling initiated Coordination of Nutrition Care: Continue to monitor while inpatient Plan of Care discussed with: patient Goals: Goals: Meet at least 75% of estimated needs Type of Goal: Continue current goal Previous Goal Met: Progressing toward Goal(s) Nutrition Monitoring and Evaluation: Behavioral-Environmental Outcomes: None Identified Food/Nutrient Intake Outcomes: Food and Nutrient Intake, Supplement Intake Physical Signs/Symptoms Outcomes: Biochemical Data, Weight, Fluid Status or Edema Discharge Planning: Continue current diet, Continue Oral Nutrition Supplement Scott Denny RD, NOEMÍ Contact: [phone] Vitals and assessment completed at this time, see flowsheet for more details. Pt L foot has slight edema at this time. Ice applied per pt request. Pt denies any pain while laying in bed. Pt remains A&Ox4, on RA. Sling in place on R arm. All needs met at this time, call light within reach. Care ongoing. Dr Oconnor in to see patient for consult Mayuri RN spoke to Mely in OR working with Dr Oconnor, consult information given to her, she will forward to him. [facility] Nephrology progress note 07/13/2024, 11:14 AM TELEHEALTH EVALUATION -- Audio/Visual (During COVID-19 public health emergency) Telehealth service was provided with the patient at her room in [place] [address] and myself the physician in my office in [place], [place] and the patient's RN who has initiated the visit. Pursuant to the emergency declaration under the Barber Act and the National Emergencies Act, 1135 waiver authority and the Coronavirus Preparedness and Response Supplemental Appropriations Act, this Virtual Visit was conducted, with patient's consent, to reduce the patient's risk of exposure to COVID-19 and provide continuity of care for an established patient. Services were provided through a video synchronous discussion virtually to substitute for in-person clinic visit. Pt Name: Julius Clarke Birthdate: 1940 Admit Date: 07/08/2024 5:41 AM Chief Complaint: Nephrology following for hyponatremia Subjective: Patient was seen and examined this morning. She is c/o left ankle pain today. Objective: 24HR INTAKE/OUTPUT: Intake/Output Summary (Last 24 hours) at 07/13/2024 1114 Last data filed at 07/13/2024 1044 Gross per 24 hour Intake 1200 ml Output -- Net 1200 ml I/O last 3 completed shifts: In: 1190 [P.O.:1190] Out: 250 [Urine:250] I/O this shift: In: 450 [P.O.:450] Out: - Admission weight: 65.7 kg (144 lb 12.8 oz) Wt Readings from Last 3 Encounters: 07/13/24 64 kg (141 lb 3.2 oz) 07/06/24 59.9 kg (132 lb) 12/21/23 62.6 kg (138 lb) Vitals : Vitals: 07/13/24 0330 07/13/24 0347 07/13/24 0715 07/13/24 0855 BP: (!) 124/55 (!) 124/55 Pulse: 81 81 Resp: 18 18 Temp: 98 F (36.7 C) TempSrc: Oral SpO2: 95% Weight: 64 kg (141 lb 3.2 oz) Height: General -- no distress Oral Mucosa -- moist Neck -- JVD - no Extremities -- no edema, moves all extremeties FRAME FIXER - awake and alert Pschy - not agitated, mood and memory normal Due to this being a TeleHealth encounter, evaluation of the following organ systems is limited: Vitals/EENT/Resp/CV/GI//MS/Neur o/Skin/Thow-Azyib-Oae. Medications: Infusion: sodium chloride sodium chloride Meds: diclofenac sodium 2 g Topical BID sodium chloride 2 g Oral BID WC sodium chloride flush 5-40 mL IntraVENous 2 times per day lidocaine 1 % injection 50 mg IntraDERmal Once amLODIPine 5 mg Oral Daily rosuvastatin 40 mg Oral QPM ezetimibe 5 mg Oral QAM levothyroxine 125 mcg Oral QAM aspirin 81 mg Oral Daily oyster shell calcium w/D 1 tablet Oral Daily with breakfast montelukast 10 mg Oral Nightly [Held by provider] DULoxetine 40 mg Oral Nightly sacubitril-valsartan 1 tablet Oral BID meclizine 12.5 mg Oral BID metoprolol succinate 100 mg Oral Daily sodium chloride flush 10 mL IntraVENous 2 times per day enoxaparin 40 mg SubCUTAneous Daily Meds prn: traMADol, sodium chloride flush, sodium chloride, sodium chloride flush, sodium chloride, ondansetron OR ondansetron, polyethylene glycol, acetaminophen OR acetaminophen Lab Data : CBC: Recent Labs 07/11/24 0532 07/12/24 0519 07/13/24 0530 WBC 8.3 9.3 10.3 HGB 10.6* 10.0* 9.1* HCT 31.5* 29.8* 27.4* PLT 245 232 250 CMP: Recent Labs 07/11/24 0532 07/11/24 0715 07/12/24 0519 07/12/24 1001 07/12/24 1756 07/13/24 0150 07/13/24 0530 NA 123* < > 129* < > 130* 129* 129* K 3.3* -- 4.1 -- -- -- 3.8 CL 88* -- 92* -- -- -- 93* CO2 26 -- 27 -- -- -- 27 BUN 6* -- 9 -- -- -- 12 CREATININE 0.4* -- 0.5 -- -- -- 0.5 GLUCOSE 103* -- 105* -- -- -- 109* CALCIUM 8.6 -- 9.4 -- -- -- 9.0 MG 1.6 -- -- -- -- -- -- < > = values in this interval not displayed. Hepatic: No results for input(s): LABALBU , AST , ALT , BILITOT , ALKPHOS in the last 72 hours. 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 Continue salt tabs and fluid restriction Hypokalemia: stable S/p fall Humerus fracture HTN Left ankle pain D/W patient and COLIN Ferrara DO [facility] This report has been created using voice recognition software. It may contain minor errors which are inherent in voice recognition technology Progress Note SUBJECTIVE: Patient seen for f/u of Acute hyponatremia. She resting in bed complains of pain to left ankle. Stated that she has never had gout. Stated she is unable to walk on it . Pain with ROM or palpation ROS: Constitutional: negative for fevers, and negative for chills. Respiratory: negative for shortness of breath, negative for cough, and negative for wheezing Cardiovascular: negative for chest pain, and negative for palpitations Gastrointestinal: negative for abdominal pain, negative for nausea,negative for vomiting, negative for diarrhea, and negative for constipation All other systems were reviewed with the patient and are negative unless otherwise stated in HPI OBJECTIVE: Vitals: Vitals: 07/13/24 0715 BP: (!) 124/55 Pulse: 81 Resp: 18 Temp: 98 F (36.7 C) SpO2: 95% Weight - Scale: 64 kg (141 lb 3.2 oz) Height: 154.9 cm (5' 1 ) Weight Wt Readings from Last 3 Encounters: 07/13/24 64 kg (141 lb 3.2 oz) 07/06/24 59.9 kg (132 lb) 12/21/23 62.6 kg (138 lb) Body mass index is 26.68 kg/m . 24HR INTAKE/OUTPUT: Intake/Output Summary (Last 24 hours) at 07/13/2024 0805 Last data filed at 07/13/2024 0319 Gross per 24 hour Intake 830 ml Output -- Net 830 ml Exam: GEN: Awake, alert and oriented x3. EYES: EOMI, pupils equal NECK: Supple. No lymphadenopathy. No carotid bruit CVS: regular rate and rhythm, no audible murmur PULM: CTA, no wheezes, rales or rhonchi, no acute respiratory distress ABD: Bowels sounds normal. Abdomen is soft. No distention. no tenderness to palpation. EXT: no edema bilaterally . No calf tenderness. Sling to right arm. N Tender to palpation of left ankle evangelista lateral aspect. No edema. No erythema. Warm to touch NEURO: Moves all extremities. Motor and sensory are grossly intact SKIN: No rashes. No skin lesions. Diagnostic Data: Complete Blood Count: Recent Labs 07/11/24 0532 07/12/24 0519 07/13/24 0530 WBC 8.3 9.3 10.3 RBC 3.75* 3.50* 3.19* HGB 10.6* 10.0* 9.1* HCT 31.5* 29.8* 27.4* MCV 84.0 85.1 85.9 MCH 28.3 28.6 28.5 MCHC 33.7 33.6 33.2 RDW 12.6 13.2 13.4 PLT 245 232 250 MPV 9.2 9.2 9.0 Last 3 Blood Glucose: Recent Labs 07/11/24 0532 07/12/24 0519 07/13/24 0530 GLUCOSE 103* 105* 109* Comprehensive Metabolic Profile: Recent Labs 07/11/24 0532 07/11/24 0715 07/12/24 0519 07/12/24 1001 07/12/24 1756 07/13/24 0150 07/13/24 0530 NA 123* < > 129* < > 130* 129* 129* K 3.3* -- 4.1 -- -- -- 3.8 CL 88* -- 92* -- -- -- 93* CO2 26 -- 27 -- -- -- 27 BUN 6* -- 9 -- -- -- 12 CREATININE 0.4* -- 0.5 -- -- -- 0.5 GLUCOSE 103* -- 105* -- -- -- 109* CALCIUM 8.6 -- 9.4 -- -- -- 9.0 < > = values in this interval not displayed. Urinalysis: Lab Results Component Value Date/Time NITRU NEGATIVE 07/08/2024 08:39 AM COLORU Yellow 07/08/2024 08:39 AM PHUR 7.0 07/08/2024 08:39 AM PHUR 6.0 06/05/2023 08:25 PM WBCUA 5 TO 10 07/08/2024 08:39 AM RBCUA 2 TO 5 07/08/2024 08:39 AM MUCUS 1+ 07/08/2024 08:39 AM TRICHOMONAS NOT REPORTED 12/16/2015 07:50 AM YEAST NOT REPORTED 12/16/2015 07:50 AM BACTERIA 2+ 07/08/2024 08:39 AM LEUKOCYTESUR TRACE 07/08/2024 08:39 AM UROBILINOGEN Normal 07/08/2024 08:39 AM BILIRUBINUR NEGATIVE 07/08/2024 08:39 AM GLUCOSEU NEGATIVE 07/08/2024 08:39 AM KETUA NEGATIVE 07/08/2024 08:39 AM AMORPHOUS NOT REPORTED 12/16/2015 07:50 AM HgBA1c: Lab Results Component Value Date/Time LABA1C 6.0 11/28/2022 05:15 AM Latest Reference Range & Units 07/08/24 12:04 Chlamydia pneumoniae By PCR Not Detected Not Detected Rhino/Enterovirus PCR Not Detected Not Detected Human Metapneumovirus PCR Not Detected Not Detected Adenovirus PCR Not Detected Not Detected B Pertussis by PCR Not Detected Not Detected Coronavirus 229E PCR Not Detected Not Detected Coronavirus HKU1 PCR Not Detected Not Detected Coronavirus NL63 PCR Not Detected Not Detected Coronavirus OC Not Detected Not Detected Influenza A by PCR Not Detected Not Detected Influenza B by PCR Not Detected Not Detected Parainfluenza 1 PCR Not Detected Not Detected Parainfluenza 2 PCR Not Detected Not Detected Parainfluenza 3 PCR Not Detected Not Detected Parainfluenza 4 PCR Not Detected Not Detected Resp Syncytial Virus PCR Not Detected Not Detected Mycoplasma pneumo by PCR Not Detected Not Detected Bordetella parapertussis by PCR Not Detected Not Detected SARS-CoV-2, PCR Not Detected Not Detected Radiology/Imaging: CT CHEST PULMONARY EMBOLISM W CONTRAST Final Result 1. No pulmonary embolism. 2. Cardiomegaly with diffuse airspace opacification and septal thickening. Findings may represent pulmonary edema or atypical infection. 3. Compression deformity of L1 of uncertain chronicity. XR CHEST PORTABLE Final Result Slightly increased mild diffuse interstitial prominence, which may represent background interstitial disease. Non-emergent CT chest can be obtained for further evaluation. XR TIBIA FIBULA LEFT (2 VIEWS) (Results Pending) XR FOOT LEFT (MIN 3 VIEWS) (Results Pending) ASSESSMENT / PLAN: MEDICAL DECISION MAKING: Primary Problem(s): Acute hyponatremia Differential diagnoses: Medication intolerance, dehydration, gastroenteritis, viral illness Condition is an undiagnosed new problem with uncertain prognosis Condition is worsening Treatment plan: Appreciate Nephrology Monitor and replace electrolytes Initial Mg 1.1 Initial K 2.6 Initial Ca 6.2 1500 ML fluid restriction Mg daily Telemetry Up with assistance MELVA Viral Panel-negative Imaging: no further imaging studies ordered today Medications: IV Ca Glucanate 2 gm x 1 on 07/08 IV MGSO 2 gm x 1 given on 07/08 Klor Con 40 meq x 1 given on 07/08 Continue Salt Tabs Medication Monitoring / High Risk Medications: none HTN Condition is stable Treatment plan: Continue current treatment Imaging: no further imaging studies ordered today Medications: Continue Entresto, Bystolic (Toprol XL) S/p Right Humerus Fracture Condition is stable Treatment plan: Follows with Dr Oconnor as outpatient Sling and swath to arm PT/OT SS-Discharge planning Imaging: no further imaging studies ordered today Medications: Stop [place] Continue Tramadol Left Ankle pain Condition is stable Treatment plan: Appreciate Dr Tsai Trend CRP and ESR Imaging: Ankle xray ordered today-negative Medications: Solumedrol 125 mg IV x 1 now Continue Tramadol Nutrition status: at risk for malnutrition Rail Setter consult initiated Hospital Prophylaxis: DVT: Lovenox Stress Ulcer: na Disposition: Shared decision making: All test results, treatment options and disposition options were discussed with the patient today Social determinants of health that may impact management: Pt lives alone and is unable to care for self Code status: Full Code Disposition: Discharge plan is [facility] Advanced Care Planning documentation: [x] I have confirmed that the patient's Advance Care Plan is present, Code Status is documented, or surrogate decision maker is listed in the patient's medical record [If yes , STOP HERE] [] The patient's Advance Care Plan is NOT present because: [] I confirmed today that the patient does not wish or was not able to name a surrogate decision maker or provide and advance care plan. [] Hospice care is currently being provided or has been provided within the calendar year. [] I did NOT confirm today the presence of an Advance Care Plan or surrogate decision maker documented within the patient's medical record. [DOES NOT SATISFY MIPS PERFORMANCE] Guerita Gotti-ARIEL Kaplan - ABDULKADIR , ARIEL, GAS STATION CLERK-C Hospitalist Medicine 07/13/2024, 8:05 AM Associated attestation - Dayo Vitale MD - 07/13/2024 5:48 PM EST Dayo Vitale M.D. Internal Medicine PA/GAS STATION CLERK Attestation Note Patient: Julius Clarke Date of Admission: 07/08/2024 5:41 AM Date of Evaluation: 07/13/2024 I personally evaluated and examined the patient [id number] in conjunction with the PA/GAS STATION CLERK and agree with the management and dispostition of the patient. Please see the PA/GAS STATION CLERK's note for full details. My barnes findings are: SUBJECTIVE: Julius Clarke is a 83 y.o. female who was seen today along with Guerita Gotti CNP for follow up of Acute hyponatremia. She is still complaining of right shoulder pain . Tramadol 25 mg doesn't seem to help much however the [place] made her loopy and she doesn't want to take that anymore. She denies any other complaints. She denies chest pain, palpitations or SOB. She is tolerating diet without any nausea, vomiting or diarrhea. OBJECTIVE: Vitals: Temp: 98.8 F (37.1 C) BP: (!) 162/79 Respirations: 18 Pulse: 84 SpO2: 91% Weight Wt Readings from Last 3 Encounters: 07/13/24 64 kg (141 lb 3.2 oz) 07/06/24 59.9 kg (132 lb) 12/21/23 62.6 kg (138 lb) Body mass index is 26.68 kg/m . 24HR INTAKE/OUTPUT: Intake/Output Summary (Last 24 hours) at 07/13/2024 1748 Last data filed at 07/13/2024 1725 Gross per 24 hour Intake 1590 ml Output -- Net 1590 ml Exam: GEN: Awake, alert and oriented x 3. EYES: EOMI, pupils equal NECK: Supple. No lymphadenopathy. No carotid bruit CVS: regular rate and rhythm, no audible murmur PULM: CTA, no wheezes, rales or rhonchi, no acute respiratory distress ABD: Bowels sounds normal. Abdomen is soft. No distention. no tenderness to palpation. EXT: no edema bilaterally . No calf tenderness. NEURO: Moves all extremities. Motor and sensory are grossly intact SKIN: No rashes. No skin lesions. DATA: Complete Blood Count: Recent Labs 07/11/24 0532 07/12/24 0519 07/13/24 0530 WBC 8.3 9.3 10.3 RBC 3.75* 3.50* 3.19* HGB 10.6* 10.0* 9.1* HCT 31.5* 29.8* 27.4* MCV 84.0 85.1 85.9 RDW 12.6 13.2 13.4 PLT 245 232 250 Recent Labs 07/11/24 0532 07/12/24 0519 07/13/24 0530 NEUTROABS 5.07 6.59 7.62 LYMPHOPCT 23* 15* 12* LYMPHSABS 1.89 1.41 1.24 MONOPCT 14* 14* 14* BASOPCT 0 0 0 IMMGRAN 0 0 0 CMP: Recent Labs 07/11/24 0532 07/11/24 0715 07/12/24 0519 07/12/24 1001 07/12/24 1756 07/13/24 0150 07/13/24 0530 NA 123* < > 129* < > 130* 129* 129* K 3.3* -- 4.1 -- -- -- 3.8 CL 88* -- 92* -- -- -- 93* CO2 26 -- 27 -- -- -- 27 BUN 6* -- 9 -- -- -- 12 CREATININE 0.4* -- 0.5 -- -- -- 0.5 GLUCOSE 103* -- 105* -- -- -- 109* CALCIUM 8.6 -- 9.4 -- -- -- 9.0 < > = values in this interval not displayed. UA: Lab Results Component Value Date COLORU Yellow 07/08/2024 WBCUA 5 TO 10 07/08/2024 RBCUA 2 TO 5 07/08/2024 LEUKOCYTESUR TRACE (A) 07/08/2024 GLUCOSEU NEGATIVE 07/08/2024 KETUA NEGATIVE 07/08/2024 PROTEINU NEGATIVE 07/08/2024 HGBUR TRACE (A) 07/08/2024 CASTUA NOT REPORTED 12/16/2015 BACTERIA 2+ (A) 07/08/2024 YEAST NOT REPORTED 12/16/2015 High Sensitivity Troponin: No results for input(s): TROPHS in the last 72 hours. Microbiology / Cultures: Results Procedure Component Value Units Date/Time Respiratory Panel, Molecular, with COVID-19 (Restricted: peds pts or suitable admitted adults) [[id number]] Collected: 07/08/24 1204 Order Status: Completed Specimen: Nasopharyngeal Swab Updated: 07/08/24 1715 Specimen Description .NASOPHARYNGEAL SWAB Adenovirus PCR Not Detected Coronavirus 229E PCR Not Detected Coronavirus HKU1 PCR Not Detected Coronavirus NL63 PCR Not Detected Coronavirus OC43 PCR Not Detected SARS-CoV-2, PCR Not Detected Human Metapneumovirus PCR Not Detected Rhino/Enterovirus PCR Not Detected Influenza A by PCR Not Detected Influenza B by PCR Not Detected Parainfluenza 1 PCR Not Detected Parainfluenza 2 PCR Not Detected Parainfluenza 3 PCR Not Detected Parainfluenza 4 PCR Not Detected Resp Syncytial Virus PCR Not Detected Bordetella parapertussis by PCR Not Detected B Pertussis by PCR Not Detected Chlamydia pneumoniae By PCR Not Detected Mycoplasma pneumo by PCR Not Detected Comment: Performed by multiplexed nucleic acid assay. Rapid influenza A/B antigens [[id number]] Collected: 07/08/24631 Order Status: Completed Specimen: Nasopharyngeal Updated: 07/08/24 0656 Flu A Antigen NEGATIVE Comment: for Influenza A Antigen Flu B Antigen NEGATIVE Comment: for Influenza B Antigen. COVID-19, Rapid [[id number]] Collected: 07/08/24 0632 Order Status: Completed Specimen: Nasopharyngeal Swab Updated: 07/08/24 0655 Specimen Description .NASOPHARYNGEAL SWAB SARS-CoV-2, Rapid Not Detected Comment: Rapid NAAT: The specimen is NEGATIVE for SARS-CoV-2, the novel coronavirus associated with COVID-19. The ID NOW COVID-19 assay is designed to detect the virus that causes COVID-19 in patients with signs and symptoms of infection who are suspected of COVID-19. An individual without symptoms of COVID-19 and who is not shedding SARS-CoV-2 virus would expect to have a negative (not detected) result in this assay. Negative results should be treated as presumptive and, if inconsistent with clinical signs and symptoms or necessary for patient management, should be tested with an alternative molecular assay. Negative results do not preclude SARS-CoV-2 infection and should not be used as the sole basis for patient management decisions. Methodology: Isothermal Nucleic Acid Amplification Imaging Data: CT CHEST PULMONARY EMBOLISM W CONTRAST Result Date: 07/08/2024 FINDINGS: Pulmonary Arteries: Study is of good technical quality for evaluation of pulmonary embolism. There are no filling defects to suggest pulmonary embolism. Main pulmonary artery is normal in caliber. No evidence of right ventricular strain. 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 Atherosclerotic changes of a normal caliber aorta. No lymphadenopathy. Thyroid and esophagus are normal. Lungs/pleura: The airways are patent. No pleural fluid. Patchy ground-glass airspace opacification diffusely in the lungs with septal thickening and scattered bandlike opacities. No focal consolidation. No significant pleural fluid. No pneumothorax. No underlying mass or nodule. Upper Abdomen: Visualized abdominal structures in the upper abdomen are normal. Soft Tissues/Bones: Loss of height to the superior endplate of L1. No acute skeletal finding. 1. No pulmonary embolism. 2. Cardiomegaly with diffuse airspace opacification and septal thickening. Findings may represent pulmonary edema or atypical infection. 3. Compression deformity of L1 of uncertain chronicity. XR CHEST PORTABLE Result Date: 07/08/2024 FINDINGS: Mild diffuse interstitial prominence, slightly increased from prior. No focal consolidation. No pneumothorax or pleural effusion. Unchanged cardiomediastinal silhouette. No pulmonary edema. Slightly increased mild diffuse interstitial prominence, which may represent background interstitial disease. Non-emergent CT chest can be obtained for further evaluation. XR RADIUS ULNA RIGHT (2 VIEWS) Result Date: 07/06/2024 FINDINGS: No acute fracture or dislocation. The scapholunate joint space is widened, unchanged. Bones are osteopenic. No focal soft tissue swelling. There is marked calcification of the triangular fibrocartilage. 1. No acute osseous abnormality identified. 2. Scapholunate joint space widening unchanged compared to September 2023. XR HUMERUS RIGHT (MIN 2 VIEWS) Result Date: 07/06/2024 FINDINGS: Mildly angulated fracture of the right humeral head that involves the greater tuberosity Mildly angulated fracture of the right humeral head ASSESSMENT: Principal Problem: Electrolyte imbalance with hyponatremia, hypokalemia and hypomagnesemia Active Problems: Hypertension Nondisplaced fracture of right humerus Resolved Problems: * No resolved hospital problems. * PLAN: I agree with the assessment, plan and medical decision making documentation as outlined by APC: Treatment plan: Keep outpatient Ortho f/u Sling/Swathe right arm PT / OT eval and Tx SS for DC planning DC [place] due to cognitive side effects, Increase Tramadol to 50 mg po TID PRN for pain Replace Lytes: IV Ca Gluconate 2 gm x 1 on 07/08 IV MGSO 2 gm x 1 given on 07/08 Klor Con 40 meq x 1 given on 07/08 Continue IVF -D5/0.45NS with 20 KCL Nephrology consult requested Disposition: Discharge plan is pending SHARED [facility] VISIT, PHYSICIAN ATTESTATION: [id number] I personally performed a substantive part of the MDM during the patient's visit. I personally evaluated and examined the patient. I personally made or approved the documented management plan and acknowledge its risk of complications. Test interpretation: My independent EKG interpretation: Normal sinus rhythm with normal axis and intervals, no ST segment changes My independent imaging interpretation: X-ray of right shoulder shows fractured humerus Management and/or test interpretation discussed with ABDULKADIR Shah MD , M.Herrera. 07/13/2024 5:48 PM Assessment and vitals obtained at this time as charted. Pt is A&O x4 and states 7/10 arm pain. Pt given prn tramadol. Pt was repositioned for comfort and is resting in bed with pillow support at this time. Pt denies any further needs at this time. Call light within reach, care ongoing. [facility] Nephrology progress note 07/12/2024, 11:21 AM TELEHEALTH EVALUATION -- Audio/Visual (During COVID-19 public health emergency) Telehealth service was provided with the patient at her room in [place] [address] and myself the physician in my office in [place], [place] and the patient's RN, Padmaja, who has initiated the visit. Pursuant to the emergency declaration under the Barber Act and the National Emergencies Act, 1135 waiver authority and the Coronavirus Preparedness and Response Supplemental Appropriations Act, this Virtual Visit was conducted, with patient's consent, to reduce the patient's risk of exposure to COVID-19 and provide continuity of care for an established patient. Services were provided through a video synchronous discussion virtually to substitute for in-person clinic visit. Pt Name: Julius Clarke Birthdate: 1940 Admit Date: 07/08/2024 5:41 AM Chief Complaint: Nephrology following for hyponatremia Subjective: Patient was seen and examined this morning. Is tired. Gave tolvaptan last night. Objective: 24HR INTAKE/OUTPUT: Intake/Output Summary (Last 24 hours) at 07/12/2024 1121 Last data filed at 07/12/2024 1111 Gross per 24 hour Intake 860 ml Output 250 ml Net 610 ml I/O last 3 completed shifts: In: 1361.7 [P.O.:1080; I.V.:281.7] Out: 750 [Urine:750] I/O this shift: In: 80 [P.O.:80] Out: - Admission weight: 65.7 kg (144 lb 12.8 oz) Wt Readings from Last 3 Encounters: 07/12/24 68.8 kg (151 lb 9.6 oz) 07/06/24 59.9 kg (132 lb) 12/21/23 62.6 kg (138 lb) Vitals : Vitals: 07/11/24 1501 07/11/24 1945 07/12/24 0525 07/12/24 0715 BP: 136/66 136/60 137/66 Pulse: 82 83 83 Resp: 18 18 18 Temp: 98.4 F (36.9 C) 98.4 F (36.9 C) 97.6 F (36.4 C) TempSrc: Temporal Temporal Temporal SpO2: 93% 92% 91% Weight: 68.8 kg (151 lb 9.6 oz) Height: General -- no distress Oral Mucosa -- moist Neck -- JVD - no Extremities -- no edema, moves all extremeties FRAME FIXER - awake and alert Pschy - not agitated, mood and memory normal Due to this being a TeleHealth encounter, evaluation of the following organ systems is limited: Vitals/EENT/Resp/CV/GI//MS/Neur o/Skin/Wvff-Dkdun-Zgu. Medications: Infusion: sodium chloride sodium chloride Meds: sodium chloride 2 g Oral BID WC sodium chloride flush 5-40 mL IntraVENous 2 times per day lidocaine 1 % injection 50 mg IntraDERmal Once amLODIPine 5 mg Oral Daily rosuvastatin 40 mg Oral QPM ezetimibe 5 mg Oral QAM levothyroxine 125 mcg Oral QAM aspirin 81 mg Oral Daily oyster shell calcium w/D 1 tablet Oral Daily with breakfast montelukast 10 mg Oral Nightly [Held by provider] DULoxetine 40 mg Oral Nightly sacubitril-valsartan 1 tablet Oral BID meclizine 12.5 mg Oral BID metoprolol succinate 100 mg Oral Daily sodium chloride flush 10 mL IntraVENous 2 times per day enoxaparin 40 mg SubCUTAneous Daily Meds prn: traMADol, sodium chloride flush, sodium chloride, sodium chloride flush, sodium chloride, ondansetron OR ondansetron, polyethylene glycol, acetaminophen OR acetaminophen Lab Data : CBC: Recent Labs 07/10/24 0520 07/11/24 0532 07/12/24 0519 WBC 10.5 8.3 9.3 HGB 11.8* 10.6* 10.0* HCT 34.3* 31.5* 29.8* PLT 249 245 232 CMP: Recent Labs 07/10/24 0520 07/10/24 1325 07/11/24 0532 07/11/24 0715 07/12/24 0209 07/12/24 0519 07/12/24 1001 NA 117* < > 123* < > 129* 129* 128* K 3.9 -- 3.3* -- -- 4.1 -- CL 83* -- 88* -- -- 92* -- CO2 23 -- 26 -- -- 27 -- BUN 6* -- 6* -- -- 9 -- CREATININE 0.4* -- 0.4* -- -- 0.5 -- GLUCOSE 115* -- 103* -- -- 105* -- CALCIUM 9.0 -- 8.6 -- -- 9.4 -- MG 1.6 -- 1.6 -- -- -- -- < > = values in this interval not displayed. Hepatic: No results for input(s): LABALBU , AST , ALT , BILITOT , ALKPHOS in the last 72 hours. 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 Fluid restriction. S/p tolvaptan on 07/11 evening Hypokalemia: better S/p fall Humerus fracture HTN D/W patient and RN Jennifer Ferrara DO [facility] This report has been created using voice recognition software. It may contain minor errors which are inherent in voice recognition technology Progress Note SUBJECTIVE: FU related to slept a little overnight. Sodium better. Denies any issues. OBJECTIVE: Vitals: TEMPERATURE: Current - Temp: 97.6 F (36.4 C); Max - Temp Av.1 F (36.7 C) Min: 97.6 F (36.4 C) Max: 98.4 F (36.9 C) RESPIRATIONS RANGE: Resp Av.3 Min: 15 Max: 18 PULSE RANGE: Pulse Av.5 Min: 78 Max: 83 BLOOD PRESSURE RANGE: Systolic (24hrs), Av , Min:131 , Max:137 ; Diastolic (24hrs), Av, Min:60, Max:77 PULSE OXIMETRY RANGE: SpO2 Av.8 % Min: 91 % Max: 95 % 24HR INTAKE/OUTPUT: Intake/Output Summary (Last 24 hours) at 07/12/2024 0908 Last data filed at 07/12/2024 0015 Gross per 24 hour Intake 780 ml Output 250 ml Net 530 ml Exam: General: alert HEENT: Supple neck & negative Heart: Regular Lungs: clear to auscultation bilaterally & no retractions Abdomen: Normal & soft, No tenderness and BS normal Extremities: No edema /right upper extremity immobilized Neuro: NonFocal Diagnostic Data: Lab Results Component Value Date WBC 9.3 07/12/2024 HGB 10.0 (L) 07/12/2024 PLT 232 07/12/2024 Lab Results Component Value Date BUN 9 07/12/2024 CREATININE 0.5 07/12/2024 NA 129 (L) 07/12/2024 K 4.1 07/12/2024 CALCIUM 9.4 07/12/2024 CL 92 (L) 07/12/2024 CO2 27 07/12/2024 LABGLOM >90 07/12/2024 Lab Results Component Value Date WBCUA 5 TO 10 07/08/2024 RBCUA 2 TO 5 07/08/2024 LEUKOCYTESUR TRACE (A) 07/08/2024 GLUCOSEU NEGATIVE 07/08/2024 KETUA NEGATIVE 07/08/2024 PROTEINU NEGATIVE 07/08/2024 HGBUR TRACE (A) 07/08/2024 CASTUA NOT REPORTED 12/16/2015 BACTERIA 2+ (A) 07/08/2024 YEAST NOT REPORTED 12/16/2015 Lab Results Component Value Date TROPONINT <0.03 12/16/2015 CKTOTAL 28 12/16/2015 CKMB 1.0 12/16/2015 PROBNP 627 (H) 07/08/2024 CT CHEST PULMONARY EMBOLISM W CONTRAST Result Date: 07/08/2024 EXAMINATION: CTA OF THE CHEST 07/08/2024 7:48 am TECHNIQUE: CTA of the chest was performed after the administration of intravenous contrast. Multiplanar reformatted images are provided for review. MIP images are provided for review. Automated exposure control, iterative reconstruction, and/or weight based adjustment of the mA/kV was utilized to reduce the radiation dose to as low as reasonably achievable. COMPARISON: None. HISTORY: ORDERING SYSTEM PROVIDED HISTORY: PE TECHNOLOGIST PROVIDED HISTORY: PE Additional Contrast?->1 FINDINGS: Pulmonary Arteries: Study is of good technical quality for evaluation of pulmonary embolism. There are no filling defects to suggest pulmonary embolism. Main pulmonary artery is normal in caliber. No evidence of right ventricular strain. 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 Atherosclerotic changes of a normal caliber aorta. No lymphadenopathy. Thyroid and esophagus are normal. Lungs/pleura: The airways are patent. No pleural fluid. Patchy ground-glass airspace opacification diffusely in the lungs with septal thickening and scattered bandlike opacities. No focal consolidation. No significant pleural fluid. No pneumothorax. No underlying mass or nodule. Upper Abdomen: Visualized abdominal structures in the upper abdomen are normal. Soft Tissues/Bones: Loss of height to the superior endplate of L1. No acute skeletal finding. 1. No pulmonary embolism. 2. Cardiomegaly with diffuse airspace opacification and septal thickening. Findings may represent pulmonary edema or atypical infection. 3. Compression deformity of L1 of uncertain chronicity. XR CHEST PORTABLE Result Date: 07/08/2024 EXAMINATION: ONE XRAY VIEW OF THE CHEST 07/08/2024 7:03 am COMPARISON: Chest radiograph 06/05/2023 HISTORY: ORDERING SYSTEM PROVIDED HISTORY: sob TECHNOLOGIST PROVIDED HISTORY: sob FINDINGS: Mild diffuse interstitial prominence, slightly increased from prior. No focal consolidation. No pneumothorax or pleural effusion. Unchanged cardiomediastinal silhouette. No pulmonary edema. Slightly increased mild diffuse interstitial prominence, which may represent background interstitial disease. Non-emergent CT chest can be obtained for further evaluation. ASSESSMENT: Principal Problem: Acute hyponatremia Active Problems: Hypertension Electrolyte imbalance Nondisplaced fracture of right humerus Resolved Problems: * No resolved hospital problems. * Patient Active Problem List Diagnosis Date Noted Acute hyponatremia 07/12/2024 Electrolyte imbalance 07/08/2024 Nondisplaced fracture of right humerus 07/08/2024 Dyslipidemia 11/29/2022 ASHD (arteriosclerotic heart disease) 11/29/2022 S/P CABG (coronary artery bypass graft) 11/29/2022 Hypertension 11/28/2022 Chest pain 11/27/2022 PLAN: Correct sodium. Nephrology. Critical Care Time: 0 Placement Sodium looks better. Will need placement. MIPS Advanced Care Planning documentation: [x] I have confirmed that the patient's Advance Care Plan is present, Code Status is documented, or surrogate decision maker is listed in the patient's medical record [If yes , STOP HERE] [] The patient's Advance Care Plan is NOT present because: [] I confirmed today that the patient does not wish or was not able to name a surrogate decision maker or provide and advance care plan. [] Hospice care is currently being provided or has been provided within the calendar year. [] I did NOT confirm today the presence of an Advance Care Plan or surrogate decision maker documented within the patient's medical record. [DOES NOT SATISFY MIPS PERFORMANCE] Viktor Iqbal MD , M.D. Occupational Therapy Facility/Department: [facility] MED SURG Daily Treatment Note NAME: Julius Clarke : 1940 Date of Service: 07/12/2024 Discharge Recommendations: Continue to assess pending progress, Subacute/Usp Facility Patient Diagnosis(es): The primary encounter diagnosis was Debility. Diagnoses of Hypokalemia, Low magnesium level, and Low calcium levels were also pertinent to this visit. Assessment Activity Tolerance: Patient tolerated treatment well Discharge Recommendations: Continue to assess pending progress;Subacute/Usp Facility Plan Occupational Therapy Plan Times Per Day: Once a day Days Per Week: 7 Days Current Treatment Recommendations: Strengthening;Balance training;Functional mobility training;Endurance training;Equipment evaluation, education, & procurement;Patient/Caregiver education & training;Safety education & training;Self-Care / ADL;Neuromuscular re-education;ROM;Home management training Restrictions Restrictions/Precautions Restrictions/Precautions: Fall Risk;Isolation;ROM Restrictions;Weight Bearing Required Braces or Orthoses?: Yes Upper Extremity Weight Bearing Restrictions Right Upper Extremity Weight Bearing: Non Weight Bearing Other: prox humeral fx Required Braces or Orthoses Right Upper Extremity Brace/Splint: Sling Subjective Subjective Subjective: Pt lying in bed upon arrival. Pt agreed to participate in therapy session. Pain: Pt had no complaints of pain. Objective Vitals ADL Functional Mobility: Contact guard assistance Functional Mobility Skilled Clinical Factors: CGA to complete func mob from bed to chair with use of william walker. Additional Comments: Min A to complete bed mob from supine to sit EOB. CGA to complete sit to stand transfer from EOB with william walker. OT Exercises Exercise Treatment: Pt completed LUE ther ex x 4 planes x 15 reps x 1 set to increase UE strength and endurance in order to ease completion of ADL tasks. Pt required RBs as needed secondary to fatigue. Safety Devices Type of Devices: All fall risk precautions in place;Call light within reach;Chair alarm in place;Left in chair;Gait belt;Patient at risk for falls Patient Education Education Given To: Patient Education Provided: Role of Therapy;Plan of Care;Transfer Training Education Method: Verbal;Demonstration Barriers to Learning: None Education Outcome: Demonstrated understanding;Verbalized understanding Goals Short Term Goals Time Frame for Short Term Goals: 21 visits Short Term Goal 1: Patient to complete ADL routine c min A while maintaining ROM and WB restructions to ensure safe and indep return home. Short Term Goal 2: Patient to be educated on d/c folder, AE/DME and home safety to ensure safe return home. Short Term Goal 3: Patient to engage in RUE HEP with pendulums and elbow, forearm and wrist ROM as well as LUE HEP with strengthening daily. AM-PAC - ADL Therapy Time Individual Concurrent Group Co-treatment Time In 715 Time Out 0739 Minutes 23 ROBEL Coffey Physical Therapy Facility/Department: [facility] MED SURG Daily Treatment Note NAME: Juluis Clarke : 1940 Date of Service: 07/12/2024 Discharge Recommendations: Continue to assess pending progress, Home with assist PRN, Home with Home health PT Patient Diagnosis(es): The primary encounter diagnosis was Debility. Diagnoses of Hypokalemia, Low magnesium level, and Low calcium levels were also pertinent to this visit. Assessment Assessment: Bed mobility:MinAx1. Transfers:CGA--additional time needed. Pt. ambulated 25ftx1 with william walker and CGA for safety. Slow cadance with decreased step length. No LOB or unsteadiness noted. Pt. completed seated BLE therex x15 in all planes of motion. Activity Tolerance: Patient tolerated treatment well Plan Physical Therapy Plan General Plan: 2 times a day 7 days a week Specific Instructions for Next Treatment: once per day on weekends and holidays Current Treatment Recommendations: Strengthening;ROM;Balance training;Functional mobility training;Transfer training;Endurance training;Gait training;Stair training;Neuromuscular re-education;Pain management;Home exercise program;Therapeutic activities Restrictions Restrictions/Precautions Restrictions/Precautions: Fall Risk, Isolation, ROM Restrictions, Weight Bearing Required Braces or Orthoses?: Yes Upper Extremity Weight Bearing Restrictions Right Upper Extremity Weight Bearing: Non Weight Bearing Other: prox humeral fx Required Braces or Orthoses Right Upper Extremity Brace/Splint: Sling Subjective Subjective Subjective: Pt. in bed upon arrival, RN present, agreeable to therapy at this time Pain: denies Orientation Overall Orientation Status: Within Normal Limits Objective Bed Mobility Training Bed Mobility Training: Yes Overall Level of Assistance: Minimum assistance;Assist X1 Interventions: Verbal cues Rolling: Minimum assistance;Assist X1 Supine to Sit: Minimum assistance;Assist X1 Scooting: Stand-by assistance Transfer Training Transfer Training: Yes Overall Level of Assistance: Contact-guard assistance;Assist X1 Interventions: Verbal cues Sit to Stand: Contact-guard assistance;Assist X1 Stand to Sit: Contact-guard assistance;Assist X1 Bed to Chair: Contact-guard assistance;Assist X1 Gait Gait Training: Yes Overall Level of Assistance: Contact-guard assistance;Assist X1 Distance (ft): 25 Feet Assistive Device: Walker william;Gait belt Interventions: Verbal cues Speed/Grisel: Slow Step Length: Left shortened;Right shortened Swing Pattern: Right asymmetrical PT Exercises Exercise Treatment: Seated exercises B LE x15. Safety Devices Type of Devices: All fall risk precautions in place;Call light within reach;Chair alarm in place;Left in chair;Gait belt;Patient at risk for falls Goals Short Term Goals Time Frame for Short Term Goals: 20 days Short Term Goal 1: Pt to tolerate 20 minutes of ther ex to facilitate return to PLOF. Short Term Goal 2: Pt to ambulate 150ft with william walker and SBA to increase ambulatory capacity for d/c Short Term Goal 3: Pt to complete transfers with hemiwakler and SBA to demonstrate increased independacne for safety with d/c. Patient Goals Patient Goals : Pt goal to return home Education Patient Education Education Given To: Patient Education Provided: Transfer Training Education Method: Verbal Barriers to Learning: None Education Outcome: Verbalized understanding Therapy Time Individual Concurrent Group Co-treatment Time In 0716 Time Out 0739 Minutes 23 Sylvia Isidro PTA Curtain Hemmer Automatic at bedside at this time to perform shift assessment. Patient is lying in bed at this time. Vital signs taken and assessment completed at this time. Patient is alert and oriented and has no complaints of pain. Patient assisted to chair by therapy. Patient denies any further needs at this time. Call light within reach, chair alarm on for safety, care ongoing. Vitals and assessment completed, see flowsheet for more details. Pt resting comfotably in bed with family at bedside. Pt remains A&Ox4. Pt denies any pain at this time. Pt states she is not nauseous at this time. All needs met at this time, call light within reach. Care ongoing. Spiritual Services Interventions 0319/0319-01 07/11/2024 Jah Clarke 83 y.o. year old female Encounter Summary Encounter Overview/Reason: (P) Follow-up Service Provided For: (P) Patient Referral/Consult From: (P) Abigail Last Encounter : (P) 07/11/24 Complexity of Encounter: (P) Moderate Begin Time: (P) 1615 End Time : (P) 1625 Total Time Calculated: (P) 10 min Spiritual/Emotional needs Type: (P) Spiritual Support Assessment/Intervention/Outcome Assessment: (P) Calm Intervention: (P) Discussed belief system/presybeterian practices/jose c, Discussed illness injury and it s impact Outcome: (P) Encouraged, Engaged in conversation Dr Ferrara doing a video consult at this time [facility] Nephrology progress note 07/11/2024, 11:19 AM TELEHEALTH EVALUATION -- Audio/Visual (During COVID-19 public health emergency) Telehealth service was provided with the patient at her room in [place] [address] and myself the physician in my office in [place], [place] and the patient's RN, Jayleen, who has initiated the visit. Pursuant to the emergency declaration under the Barber Act and the National Emergencies Act, 1135 waiver authority and the Coronavirus Preparedness and Response Supplemental Appropriations Act, this Virtual Visit was conducted, with patient's consent, to reduce the patient's risk of exposure to COVID-19 and provide continuity of care for an established patient. Services were provided through a video synchronous discussion virtually to substitute for in-person clinic visit. Pt Name: Julius Clarke Birthdate: 1940 Admit Date: 07/08/2024 5:41 AM Chief Complaint: Nephrology following for hyponatremia Subjective: Patient was seen and examined this morning 3% saline stopped overnight sodium came up to 123. She feels ok but has poor appetite and nausea. Objective: 24HR INTAKE/OUTPUT: Intake/Output Summary (Last 24 hours) at 07/11/2024 1119 Last data filed at 07/11/2024 0500 Gross per 24 hour Intake 1061.66 ml Output 1175 ml Net -113.34 ml I/O last 3 completed shifts: In: 3155.7 [P.O.:1700; I.V.:1455.7] Out: 1825 [Urine:1825] No intake/output data recorded. Admission weight: 65.7 kg (144 lb 12.8 oz) Wt Readings from Last 3 Encounters: 07/11/24 67.6 kg (149 lb) 07/06/24 59.9 kg (132 lb) 12/21/23 62.6 kg (138 lb) Vitals : Vitals: 07/11/24 0600 07/11/24 0700 07/11/24 0900 07/11/24 1000 BP: (!) 167/64 (!) 188/74 (!) 132/58 131/77 Pulse: 77 79 84 78 Resp: 16 15 Temp: 98.1 F (36.7 C) TempSrc: Temporal SpO2: 96% 93% 94% 95% Weight: Height: General -- no distress Oral Mucosa -- moist Neck -- JVD - no Extremities -- no edema, moves all extremeties FRAME FIXER - awake and alert Pschy - not agitated, mood and memory normal Due to this being a TeleHealth encounter, evaluation of the following organ systems is limited: Vitals/EENT/Resp/CV/GI//MS/Neur o/Skin/Losg-Veqki-Hfb. Medications: Infusion: sodium chloride sodium chloride Meds: sodium chloride 2 g Oral BID WC potassium chloride 40 mEq Oral Once sodium chloride flush 5-40 mL IntraVENous 2 times per day lidocaine 1 % injection 50 mg IntraDERmal Once amLODIPine 5 mg Oral Daily rosuvastatin 40 mg Oral QPM ezetimibe 5 mg Oral QAM levothyroxine 125 mcg Oral QAM aspirin 81 mg Oral Daily oyster shell calcium w/D 1 tablet Oral Daily with breakfast montelukast 10 mg Oral Nightly [Held by provider] DULoxetine 40 mg Oral Nightly sacubitril-valsartan 1 tablet Oral BID meclizine 12.5 mg Oral BID metoprolol succinate 100 mg Oral Daily sodium chloride flush 10 mL IntraVENous 2 times per day enoxaparin 40 mg SubCUTAneous Daily Meds prn: traMADol, sodium chloride flush, sodium chloride, sodium chloride flush, sodium chloride, ondansetron OR ondansetron, polyethylene glycol, acetaminophen OR acetaminophen Lab Data : CBC: Recent Labs 07/09/24 0540 07/10/24 0520 07/11/24 0532 WBC 9.1 10.5 8.3 HGB 11.6* 11.8* 10.6* HCT 35.1* 34.3* 31.5* PLT 228 249 245 CMP: Recent Labs 07/09/24 0540 07/10/24 0520 07/10/24 1325 07/11/24 0330 07/11/24 0532 07/11/24 0715 NA 123* 117* < > 124* 123* 123* K 4.3 3.9 -- -- 3.3* -- CL 89* 83* -- -- 88* -- CO2 24 23 -- -- 26 -- BUN 6* 6* -- -- 6* -- CREATININE 0.4* 0.4* -- -- 0.4* -- GLUCOSE 123* 115* -- -- 103* -- CALCIUM 8.9 9.0 -- -- 8.6 -- MG 1.8 1.6 -- -- 1.6 -- < > = values in this interval not displayed. Hepatic: No results for input(s): LABALBU , AST , ALT , BILITOT , ALKPHOS in the last 72 hours. 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 Stopped overnight when sodium up to 123 Add salt tabs 2 g tid. Sodium q 4 hour May need tolvaptan but will see how she continues to respond Hypokalemia: replacement ordered S/p fall Humerus fracture HTN D/W patient and RN Jennifer Ferrara DO [facility] This report has been created using voice recognition software. It may contain minor errors which are inherent in voice recognition technology Transferred to [place] [id number] Physical Therapy Facility/Department: [facility] ICU Physical Therapy Initial Assessment Name: uJlius Clarke : 1940 Date of Service: 07/11/2024 Discharge Recommendations: Continue to assess pending progress, Home with assist PRN, Home with Home health PT Patient Diagnosis(es): The primary encounter diagnosis was Debility. Diagnoses of Hypokalemia, Low magnesium level, and Low calcium levels were also pertinent to this visit. Past Medical History: has a past medical history of Hyperlipidemia, Hypertension, Nondisplaced fracture of right humerus, Thrush, oral, Thyroid disease, and Vertigo. Past Surgical History: has a past surgical history that includes Cardiac catheterization; Coronary artery bypass graft; Hysterectomy; Appendectomy; and Carotid endarterectomy. Assessment Assessment: Pt is a 83 y.o. female who is currently admitted for a fall at home resulting in a fractured humeral head of R UE and has been transfered to the ICU. Upon exam pt demos strong B LE as they are able to complete STS with CGA using L UE only. Pt is right handed and displays difficulty with ambulation as she uses the hemiwalker with the L UE. Pt able to ambulate 20' in room with two 180* turns, no LOB and good hemiwalker management and steady gait pattern CGA. Pt would benefit from skilled therapy to address current defecits and for safe return home where she lives alone. Treatment Diagnosis: R humeral head fracture, decreased safety with ambulation Specific Instructions for Next Treatment: once per day on weekends and holidays Therapy Prognosis: Good Decision Making: Low Complexity Requires PT Follow-Up: Yes Activity Tolerance Activity Tolerance: Patient limited by pain Plan Physical Therapy Plan General Plan: 2 times a day 7 days a week Specific Instructions for Next Treatment: once per day on weekends and holidays Current Treatment Recommendations: Strengthening, ROM, Balance training, Functional mobility training, Transfer training, Endurance training, Gait training, Stair training, Neuromuscular re-education, Pain management, Home exercise program, Therapeutic activities Safety Devices Type of Devices: All fall risk precautions in place, Call light within reach, Chair alarm in place, Left in chair Restrictions Restrictions/Precautions Restrictions/Precautions: Fall Risk, Isolation, ROM Restrictions, Weight Bearing Required Braces or Orthoses?: Yes Upper Extremity Weight Bearing Restrictions Right Upper Extremity Weight Bearing: Non Weight Bearing Other: prox humeral fx Required Braces or Orthoses Right Upper Extremity Brace/Splint: Sling Subjective General Chart Reviewed: Yes Patient assessed for rehabilitation services?: Yes Social/Functional History Social/Functional History Lives With: Spouse Type of Home: Senior housing apartment Home Layout: One level Home Access: Elevator Bathroom Shower/Tub: Tub/Shower unit Bathroom Equipment: Grab bars in shower, Shower chair Home Equipment: None Has the patient had two or more falls in the past year or any fall with injury in the past year?: Yes Receives Help From: Family ADL Assistance: Independent Homemaking Assistance: Independent Homemaking Responsibilities: Yes Ambulation Assistance: Independent Transfer Assistance: Independent Active Property Portfolio Officer: Yes Mode of Transportation: Car Occupation: Retired Vision/Hearing Vision Vision: Impaired Vision Exceptions: Wears glasses at all times Hearing Hearing: Within functional limits Cognition Orientation Overall Orientation Status: Within Normal Limits Objective Temp: 98.1 F (36.7 C) Pulse: 84 Heart Rate Source: Monitor;Apical Respirations: 16 SpO2: 94 % O2 Device: Nasal cannula BP: (!) 132/58 MAP (Calculated): 83 BP Location: Left leg BP Method: Automatic Patient Position: Semi fowlers Observation/Palpation Posture: Fair AROM RLE (degrees) RLE AROM: WNL AROM LLE (degrees) LLE AROM : WNL Strength RLE Strength RLE: WNL Strength LLE Strength LLE: WNL Transfers Sit to Stand: Contact guard assistance Stand to Sit: Contact guard assistance Ambulation WB Status: fwb B in LE, R arm NWB Ambulation Surface: Level tile Device: Hemiwalker Assistance: Contact guard assistance Quality of Gait: Pt able to ambulate 20' in room with two 180* turns, no LOB and good hemiwalker management and steady gait pattern CGA. Gait Deviations: Slow Grisel Balance Posture: Good Sitting - Static: Good Sitting - Dynamic: Good Standing - Static: Good Standing - Dynamic: Good;- AM-PAC - Mobility AM-PAC Mobility without Stair Climbing Inpatient How much difficulty turning over in bed?: A Little How much difficulty sitting down on / standing up from a chair with arms?: A Little How much difficulty moving from lying on back to sitting on side of bed?: A Little How much help from another person moving to and from a bed to a chair?: A Little How much help from another person needed to walk in hospital room?: A Little AM-PAC Inpatient Mobility without Stair Climbing Raw Score : 15 AM-PAC Inpatient without Stair Climbing T-Scale Score : 43.03 Mobility Inpatient CMS 0-100% Score: 47.43 Mobility Inpatient without Stair CMS G-Code Modifier : CK Goals Short Term Goals Time Frame for Short Term Goals: 20 days Short Term Goal 1: Pt to tolerate 20 minutes of ther ex to facilitate return to PLOF. Short Term Goal 2: Pt to ambulate 150ft with william walker and SBA to increase ambulatory capacity for d/c Short Term Goal 3: Pt to complete transfers with hemiwakler and SBA to demonstrate increased independacne for safety with d/c. Patient Goals Patient Goals : Pt goal to return home Education Patient Education Education Given To: Patient Education Provided Comments: Pt edu: PT POC Therapy Time Individual Concurrent Group Co-treatment Time In 0840 Time Out 0855 Minutes 15 Timed Code Treatment Minutes: 15 Minutes JOSE DENNY, PT,DPT Occupational Therapy Facility/Department: [facility] ICU RE-assessment / Daily Treatment Note NAME: Julius Clarke : 1940 Date of Service: 07/11/2024 Discharge Recommendations: Continue to assess pending progress, Subacute/Usp Facility Patient Diagnosis(es): The primary encounter diagnosis was Debility. Diagnoses of Hypokalemia, Low magnesium level, and Low calcium levels were also pertinent to this visit. Assessment Reassessment completed due to transfer to ICU. Continue OT services per POC. Activity Tolerance: Patient tolerated treatment well. Discharge Recommendations: Continue to assess pending progress;Subacute/Usp Facility Plan Occupational Therapy Plan Times Per Day: Once a day Days Per Week: 7 Days Current Treatment Recommendations: Strengthening;Balance training;Functional mobility training;Endurance training;Equipment evaluation, education, & procurement;Patient/Caregiver education & training;Safety education & training;Self-Care / ADL;Neuromuscular re-education;ROM;Home management training Restrictions Restrictions/Precautions Restrictions/Precautions: Fall Risk;Isolation;ROM Restrictions;Weight Bearing Required Braces or Orthoses?: Yes Upper Extremity Weight Bearing Restrictions Right Upper Extremity Weight Bearing: Non Weight Bearing Other: prox humeral fx Required Braces or Orthoses Right Upper Extremity Brace/Splint: Sling Subjective Subjective Subjective: Patient in chair upon arrival with sling and swathe donned incorrectly. OTR adjusted. Pain: patient with discomfort only when sling adjusted. Orientation Overall Orientation Status: Within Normal Limits Objective ADL Feeding: Minimal assistance Grooming: Moderate assistance UE Bathing: Maximum assistance LE Bathing: Maximum assistance UE Dressing: Maximum assistance LE Dressing: Maximum assistance Putting On/Taking Off Footwear: Maximum assistance Toileting: Moderate assistance Functional Mobility: Contact guard assistance Functional Mobility Skilled Clinical Factors: william walker Additional Comments: CGA to min A ADL transfers Safety Devices Type of Devices: All fall risk precautions in place;Call light within reach;Chair alarm in place;Left in chair Patient Education Education Given To: Patient Education Provided: Role of Therapy;Plan of Care;Transfer Training Education Provided Comments: sling and stephaniee Education Method: Verbal;Demonstration Barriers to Learning: None Education Outcome: Demonstrated understanding;Verbalized understanding Goals Short Term Goals Time Frame for Short Term Goals: 21 visits Short Term Goal 1: Patient to complete ADL routine c min A while maintaining ROM and WB restructions to ensure safe and indep return home. Short Term Goal 2: Patient to be educated on d/c folder, AE/DME and home safety to ensure safe return home. Short Term Goal 3: Patient to engage in RUE HEP with pendulums and elbow, forearm and wrist ROM as well as LUE HEP with strengthening daily. AM-PAC - ADL AM-PAC Daily Activity - Inpatient How much help is needed for putting on and taking off regular lower body clothing?: A Lot How much help is needed for bathing (which includes washing, rinsing, drying)?: A Lot How much help is needed for toileting (which includes using toilet, bedpan, or urinal)?: A Lot How much help is needed for putting on and taking off regular upper body clothing?: A Lot How much help is needed for taking care of personal grooming?: A Lot How much help for eating meals?: A Little AM-PAC Inpatient Daily Activity Raw Score: 13 AM-[facility] Inpatient ADL T-Scale Score : 32.03 ADL Inpatient CMS 0-100% Score: 63.03 ADL Inpatient CMS G-Code Modifier : CL Therapy Time Individual Concurrent Group Co-treatment Time In 841 Time Out 0855 Minutes Armani Sharma OTR/L Attempted to take the patient off O2 for 10 minutes and SpO2 was 87%. Placed back on 2L nasal cannula. Dr Ferrara called, new orders received. Patient A&Ox4. Assisted patient to BSC commode then to the chair. Chair alarm on. Pain meds given for neck/shoulder pain. Denies any other needs. Progress Note SUBJECTIVE: FU related to slept a little overnight. Sodium better. Denies any issues. OBJECTIVE: Vitals: TEMPERATURE: Current - Temp: 98.7 F (37.1 C); Max - Temp Av.1 F (31.7 C) Min: 32 F (0 C) Max: 99.3 F (37.4 C) RESPIRATIONS RANGE: Resp Av Min: 14 Max: 28 PULSE RANGE: Pulse Av.2 Min: 67 Max: 90 BLOOD PRESSURE RANGE: Systolic (24hrs), Av , Min:117 , Max:192 ; Diastolic (24hrs), Av, Min:49, Max:93 PULSE OXIMETRY RANGE: SpO2 Av.9 % Min: 79 % Max: 96 % 24HR INTAKE/OUTPUT: Intake/Output Summary (Last 24 hours) at 07/11/2024 0620 Last data filed at 07/11/2024 0500 Gross per 24 hour Intake 2233.66 ml Output 1375 ml Net 858.66 ml Exam: General: alert HEENT: Supple neck & negative Heart: Regular Lungs: clear to auscultation bilaterally & no retractions Abdomen: Normal & soft, No tenderness and BS normal Extremities: No edema /right upper extremity immobilized Neuro: NonFocal Diagnostic Data: Lab Results Component Value Date WBC 8.3 07/11/2024 HGB 10.6 (L) 07/11/2024 PLT 245 07/11/2024 Lab Results Component Value Date BUN 6 (L) 07/10/2024 CREATININE 0.4 (L) 07/10/2024 NA 124 (L) 07/11/2024 K 3.9 07/10/2024 CALCIUM 9.0 07/10/2024 CL 83 (L) 07/10/2024 CO2 23 07/10/2024 LABGLOM >90 07/10/2024 Lab Results Component Value Date WBCUA 5 TO 10 07/08/2024 RBCUA 2 TO 5 07/08/2024 LEUKOCYTESUR TRACE (A) 07/08/2024 GLUCOSEU NEGATIVE 07/08/2024 KETUA NEGATIVE 07/08/2024 PROTEINU NEGATIVE 07/08/2024 HGBUR TRACE (A) 07/08/2024 CASTUA NOT REPORTED 12/16/2015 BACTERIA 2+ (A) 07/08/2024 YEAST NOT REPORTED 12/16/2015 Lab Results Component Value Date TROPONINT <0.03 12/16/2015 CKTOTAL 28 12/16/2015 CKMB 1.0 12/16/2015 PROBNP 627 (H) 07/08/2024 CT CHEST PULMONARY EMBOLISM W CONTRAST Result Date: 07/08/2024 EXAMINATION: CTA OF THE CHEST 07/08/2024 7:48 am TECHNIQUE: CTA of the chest was performed after the administration of intravenous contrast. Multiplanar reformatted images are provided for review. MIP images are provided for review. Automated exposure control, iterative reconstruction, and/or weight based adjustment of the mA/kV was utilized to reduce the radiation dose to as low as reasonably achievable. COMPARISON: None. HISTORY: ORDERING SYSTEM PROVIDED HISTORY: PE TECHNOLOGIST PROVIDED HISTORY: PE Additional Contrast?->1 FINDINGS: Pulmonary Arteries: Study is of good technical quality for evaluation of pulmonary embolism. There are no filling defects to suggest pulmonary embolism. Main pulmonary artery is normal in caliber. No evidence of right ventricular strain. 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 Atherosclerotic changes of a normal caliber aorta. No lymphadenopathy. Thyroid and esophagus are normal. Lungs/pleura: The airways are patent. No pleural fluid. Patchy ground-glass airspace opacification diffusely in the lungs with septal thickening and scattered bandlike opacities. No focal consolidation. No significant pleural fluid. No pneumothorax. No underlying mass or nodule. Upper Abdomen: Visualized abdominal structures in the upper abdomen are normal. Soft Tissues/Bones: Loss of height to the superior endplate of L1. No acute skeletal finding. 1. No pulmonary embolism. 2. Cardiomegaly with diffuse airspace opacification and septal thickening. Findings may represent pulmonary edema or atypical infection. 3. Compression deformity of L1 of uncertain chronicity. XR CHEST PORTABLE Result Date: 07/08/2024 EXAMINATION: ONE XRAY VIEW OF THE CHEST 07/08/2024 7:03 am COMPARISON: Chest radiograph 06/05/2023 HISTORY: ORDERING SYSTEM PROVIDED HISTORY: sob TECHNOLOGIST PROVIDED HISTORY: sob FINDINGS: Mild diffuse interstitial prominence, slightly increased from prior. No focal consolidation. No pneumothorax or pleural effusion. Unchanged cardiomediastinal silhouette. No pulmonary edema. Slightly increased mild diffuse interstitial prominence, which may represent background interstitial disease. Non-emergent CT chest can be obtained for further evaluation. ASSESSMENT: Principal Problem: Electrolyte imbalance Active Problems: Hypertension Nondisplaced fracture of right humerus Resolved Problems: * No resolved hospital problems. * Patient Active Problem List Diagnosis Date Noted Electrolyte imbalance 07/08/2024 Nondisplaced fracture of right humerus 07/08/2024 Dyslipidemia 11/29/2022 ASHD (arteriosclerotic heart disease) 11/29/2022 S/P CABG (coronary artery bypass graft) 11/29/2022 Hypertension 11/28/2022 Chest pain 11/27/2022 PLAN: Correct sodium. Nephrology. Critical Care Time: 0 Placement MIPS Advanced Care Planning documentation: [x] I have confirmed that the patient's Advance Care Plan is present, Code Status is documented, or surrogate decision maker is listed in the patient's medical record [If yes , STOP HERE] [] The patient's Advance Care Plan is NOT present because: [] I confirmed today that the patient does not wish or was not able to name a surrogate decision maker or provide and advance care plan. [] Hospice care is currently being provided or has been provided within the calendar year. [] I did NOT confirm today the presence of an Advance Care Plan or surrogate decision maker documented within the patient's medical record. [DOES NOT SATISFY M[employer] PERFORMANCE] Viktor Iqbal MD , M.D. Pt is resting in bed with eyes closed. Upon assessment pt wakens and states she feels better and is able to sleep. VS and assessment complete. Bed alarm on and call light in reach. Pt is a/o x4 with daughter at bedside. X2 assist with quad cane to commode and back to bed. Positioned for comfort. VS and assessment complete. IV fluids infusing per order. Bed alarm on and call light In reach. Physician Progress Note PATIENT: JULIUS CLARKE CSN #: [id number] : 1940 ADMIT DATE: 07/08/2024 5:41 AM DISCH DATE: RESPONDING PROVIDER #: Dayo Vitale MD QUERY TEXT: Patient admitted with electrolyte imbalance, noted to have serum potassium 2.6. If possible, please document in progress notes and discharge summary if you are evaluating and/or treating any of the following: The medical record reflects the following: Risk Factors: recent fall, rt humerus fx, diminished appetite Clinical Indicators: presented with SOB, fatigue, weakness; Serum potassium 2.6 -> 4.4 -> 4.3 Treatment: KCL IVPB, oral potassium chloride extended release tab Yuliet Ramos, SARAH, RN, CCDS, CRCR Clinical Doctor Podiatric Medicine . Options provided: -- Hypokalemia present on admission -- Serum potassium values not clinically significant -- Other - I will add my own diagnosis -- Disagree - Not applicable / Not valid -- Disagree - Clinically unable to determine / Unknown -- Refer to Clinical Documentation Reviewer PROVIDER RESPONSE TEXT: Hypokalemia present on admission Query created by: Yuliet Ramos on 07/10/2024 9:24 AM QUERY TEXT: Patient admitted with electrolyte imbalance. Noted to have serum sodium values 136-> 128-> 123-> 117 If possible, please document in progress notes and discharge summary if you are evaluating and/or treating any of the following: The medical record reflects the following: Risk Factors: recent fall, rt humerus fx, diminished appetite Clinical Indicators: presented with SOB, fatigue, weakness; serum sodium 136-> 128-> 123-> 117 Treatment: IV NS infusion, 1800 ml fluid restriction, lab monitoring Yuliet Ramos, MSN, RN, CCDS, CRCR Clinical Doctor Podiatric Medicine . Options provided: -- Hyponatremia -- Serum sodium values not clinically significant -- Other - I will add my own diagnosis -- Disagree - Not applicable / Not valid -- Disagree - Clinically unable to determine / Unknown -- Refer to Clinical Documentation Reviewer PROVIDER RESPONSE TEXT: This patient has hyponatremia Query created by: Yuliet Ramos on 07/10/2024 9:29 AM Electronically signed by: Dayo Vitale MD 07/10/2024 11:52 AM Patient brought to ICU 305. Patient is drowsy but easily aroused and A&Ox4. Lung sounds are clear, SpO2 is 87 on room air, placed on 2L nasal cannula. Heart rhythm is regular, denies chest pain. Sling in place to right arm, pulses are strong. Bowel sounds are active. Oriented to room and given call light. Family updated. Physical Therapy Facility/Department: [facility] ICU Daily Treatment Note NAME: Julius Clarke : 1940 Date of Service: 07/10/2024 Discharge Recommendations: Continue to assess pending progress, Home with assist PRN, Home with Home health PT Patient Diagnosis(es): The primary encounter diagnosis was Debility. Diagnoses of Hypokalemia, Low magnesium level, and Low calcium levels were also pertinent to this visit. Assessment Assessment: Pt. in bed upon arrival, requesting to use BSC at this time. Bed mobility:MinAx1. Transfers:CGA. Pt. completed SPT from bed <-> BSC and BSC <-> bed with MEDICAL STAFF SPECIALIST and CGA. Pt. being transferred to ICU at this time. Activity Tolerance: Patient limited by pain Plan Physical Therapy Plan General Plan: 2 times a day 7 days a week Specific Instructions for Next Treatment: once per day on weekends and holidays Current Treatment Recommendations: Strengthening;ROM;Balance training;Functional mobility training;Transfer training;Endurance training;Gait training;Stair training;Neuromuscular re-education;Pain management;Home exercise program;Therapeutic activities Restrictions Restrictions/Precautions Restrictions/Precautions: Fall Risk, Isolation, ROM Restrictions, Weight Bearing Required Braces or Orthoses?: Yes Upper Extremity Weight Bearing Restrictions Right Upper Extremity Weight Bearing: Non Weight Bearing Other: prox humeral fx Required Braces or Orthoses Right Upper Extremity Brace/Splint: Sling Subjective Subjective Subjective: Pt. in bathroom upon arrival, requesting to use the BSC at this time Pain: 6/10 R shoulder with movement Orientation Overall Orientation Status: Within Normal Limits Objective Bed Mobility Training Bed Mobility Training: Yes Overall Level of Assistance: Minimum assistance;Assist X1 Interventions: Verbal cues Rolling: Contact-guard assistance;Assist X1 Supine to Sit: Contact-guard assistance;Minimum assistance;Assist X1 Sit to Supine: Contact-guard assistance;Minimum assistance;Assist X1 Scooting: Contact-guard assistance;Minimum assistance;Assist X1 Transfer Training Transfer Training: Yes Overall Level of Assistance: Contact-guard assistance;Assist X1 Interventions: Verbal cues Sit to Stand: Contact-guard assistance;Assist X1 Stand to Sit: Contact-guard assistance;Assist X1 Stand Pivot Transfers: Contact-guard assistance;Assist X1 Toilet Transfer: Contact-guard assistance;Assist X1 (BSC) Gait Gait Training: No Assistive Device: (MEDICAL STAFF SPECIALIST) Safety Devices Type of Devices: All fall risk precautions in place;Call light within reach;Bed alarm in place;Left in bed Goals Short Term Goals Time Frame for Short Term Goals: 20 days Short Term Goal 1: Pt to tolerate 20 minutes of ther ex to facilitate return to PLOF. Short Term Goal 2: Pt to ambulate 150ft with william walker and SBA to increase ambulatory capacity for d/c Short Term Goal 3: Pt to complete transfers with hemiwakler and SBA to demonstrate increased independacne for safety with d/c. Patient Goals Patient Goals : Pt goal to return home Education Patient Education Education Given To: Patient Education Provided: Transfer Training Education Method: Verbal Barriers to Learning: None Education Outcome: Verbalized understanding Therapy Time Individual Concurrent Group Co-treatment Time In 1120 Time Out 1130 Minutes 10 Sylvia Isidro PTA Patient transferred back to ICU 305. Report given to Milagro SHAW Occupational Therapy Facility/Department: [facility] MED SURG Daily Treatment Note NAME: Julius Clarke : 1940 Date of Service: 07/10/2024 Discharge Recommendations: Continue to assess pending progress, Subacute/Usp Facility Patient Diagnosis(es): The primary encounter diagnosis was Debility. Diagnoses of Hypokalemia, Low magnesium level, and Low calcium levels were also pertinent to this visit. Assessment Activity Tolerance: Patient limited by pain Discharge Recommendations: Continue to assess pending progress;Subacute/Usp Facility Plan Occupational Therapy Plan Times Per Day: Once a day Days Per Week: 7 Days Current Treatment Recommendations: Strengthening;Balance training;Functional mobility training;Endurance training;Equipment evaluation, education, & procurement;Patient/Caregiver education & training;Safety education & training;Self-Care / ADL;Neuromuscular re-education;ROM;Home management training Restrictions General, fall risk Subjective Subjective Subjective: Pt in bed requesting BSC. Pt to be transferred to ICU this date, per nursing. Clinician adjusted RUE sling for comfort/support. Pain: 6/10 R UE pain Objective Vitals ADL Toileting: Contact guard assistance;Stand by assistance Toileting Skilled Clinical Factors: seated void on BSC, pt managed hygiene, no undergarments Additional Comments: MIN A bed mob with increased time and VCs, CGA sit<>stand and fxl transfer from EOB<> BSC Skin Care: Bath wipes Safety Devices Type of Devices: All fall risk precautions in place;Call light within reach;Bed alarm in place;Left in bed Patient Education Education Given To: Patient Education Provided: Role of Therapy;Plan of Care;Transfer Training Education Method: Verbal Barriers to Learning: None Education Outcome: Demonstrated understanding Goals Short Term Goals Time Frame for Short Term Goals: 21 visits Short Term Goal 1: Patient to complete ADL routine c min A while maintaining ROM and WB restructions to ensure safe and indep return home. Short Term Goal 2: Patient to be educated on d/c folder, AE/DME and home safety to ensure safe return home. Short Term Goal 3: Patient to engage in RUE HEP with pendulums and elbow, forearm and wrist ROM as well as LUE HEP with strengthening daily. AM-PAC - ADL Therapy Time Individual Concurrent Group Co-treatment Time In 1120 Time Out 1130 Minutes 10 PANTERA Bryan electrical accessories i assembler called at this time. Will call back with ETA Telehealth visit with Dr Ferrara at this time. Bladder scan volume given at this time [facility] Inpatient/Observation/Outpatient Rehabilitation Date: 07/10/2024 Patient Name: Julius Clarke [x] Inpatient Acute/Observation [] Outpatient : 1940 [] Pt no showed for scheduled appointment [] As a reminder, pt was contacted/attempted contact via phone of upcoming appointments. [x] Pt refused/declined therapy at this time due to: Patient sleeping upon arrival. Family requested to try again later. [] Pt cancelled due to: [] No Reason Given [] Sick/ill [] Other: [] Evaluation held by RN/Provider due to: [] High Heart Rate [] High Blood Pressure [] Orthopedic Consult [] Hgb < 7 [] Other: [] Pt ordered brace per physician request: [] Proper fit will be completed and education for wearing/skin checks [] Pt does not require skilled services due to: Therapist/Larriman Helper will attempt to see this patient, at our earliest opportunity. Kaden Jose, PIGMENT FURNACE TENDER Date: 07/10/2024 Perfect sent for nephrology Patient awake and sitting up in the chair. VS and assessment completed. Patient in pain, see mar. All AM medications given. Plan of care discussed with patient and her . All questions answered. Progress Note SUBJECTIVE: Patient seen for f/u of Electrolyte imbalance. She resting in chair no distress. Tolerating diet. Stated she has been drinking more water. ROS: Constitutional: negative for fevers, and negative for chills. Respiratory: negative for shortness of breath, negative for cough, and negative for wheezing Cardiovascular: negative for chest pain, and negative for palpitations Gastrointestinal: negative for abdominal pain, negative for nausea,negative for vomiting, negative for diarrhea, and negative for constipation All other systems were reviewed with the patient and are negative unless otherwise stated in HPI OBJECTIVE: Vitals: Vitals: 07/09/24 2110 BP: Pulse: Resp: 18 Temp: SpO2: Weight - Scale: 67.5 kg (148 lb 12.8 oz) Height: 154.9 cm (5' 1 ) Weight Wt Readings from Last 3 Encounters: 07/10/24 67.5 kg (148 lb 12.8 oz) 07/06/24 59.9 kg (132 lb) 12/21/23 62.6 kg (138 lb) Body mass index is 28.12 kg/m . 24HR INTAKE/OUTPUT: Intake/Output Summary (Last 24 hours) at 07/10/2024 0808 Last data filed at 07/10/2024 0749 Gross per 24 hour Intake 2345.17 ml Output 650 ml Net 1695.17 ml Exam: GEN: Awake, alert and oriented x3. EYES: EOMI, pupils equal NECK: Supple. No lymphadenopathy. No carotid bruit CVS: regular rate and rhythm, no audible murmur PULM: CTA, no wheezes, rales or rhonchi, no acute respiratory distress ABD: Bowels sounds normal. Abdomen is soft. No distention. no tenderness to palpation. EXT: no edema bilaterally . No calf tenderness. Sling to right arm NEURO: Moves all extremities. Motor and sensory are grossly intact SKIN: No rashes. No skin lesions. Diagnostic Data: Complete Blood Count: Recent Labs 07/08/24 0645 07/09/24 0540 07/10/24 0520 WBC 7.8 9.1 10.5 RBC 3.20* 4.11 4.11 HGB 9.3* 11.6* 11.8* HCT 28.3* 35.1* 34.3* MCV 88.4 85.4 83.5 MCH 29.1 28.2 28.7 MCHC 32.9 33.0 34.4 RDW 13.4 13.0 12.6 PLT 182 228 249 MPV 9.2 9.4 9.1 Last 3 Blood Glucose: Recent Labs 07/08/24 0645 07/08/24 1555 07/09/24 0540 07/10/24 0520 GLUCOSE 90 124* 123* 115* Comprehensive Metabolic Profile: Recent Labs 07/08/24 1555 07/09/24 0540 07/10/24 0520 NA 128* 123* 117* K 4.4 4.3 3.9 CL 93* 89* 83* CO2 24 23 BUN 8 6* 6* CREATININE 0.5 0.4* 0.4* GLUCOSE 124* 123* 115* CALCIUM 9.6 8.9 9.0 Urinalysis: Lab Results Component Value Date/Time NITRU NEGATIVE 07/08/2024 08:39 AM COLORU Yellow 07/08/2024 08:39 AM PHUR 7.0 07/08/2024 08:39 AM PHUR 6.0 06/05/2023 08:25 PM WBCUA 5 TO 10 07/08/2024 08:39 AM RBCUA 2 TO 5 07/08/2024 08:39 AM MUCUS 1+ 07/08/2024 08:39 AM TRICHOMONAS NOT REPORTED 12/16/2015 07:50 AM YEAST NOT REPORTED 12/16/2015 07:50 AM BACTERIA 2+ 07/08/2024 08:39 AM LEUKOCYTESUR TRACE 07/08/2024 08:39 AM UROBILINOGEN Normal 07/08/2024 08:39 AM BILIRUBINUR NEGATIVE 07/08/2024 08:39 AM GLUCOSEU NEGATIVE 07/08/2024 08:39 AM KETUA NEGATIVE 07/08/2024 08:39 AM AMORPHOUS NOT REPORTED 12/16/2015 07:50 AM HgBA1c: Lab Results Component Value Date/Time LABA1C 6.0 11/28/2022 05:15 AM Latest Reference Range & Units 07/08/24 12:04 Chlamydia pneumoniae By PCR Not Detected Not Detected Rhino/Enterovirus PCR Not Detected Not Detected Human Metapneumovirus PCR Not Detected Not Detected Adenovirus PCR Not Detected Not Detected B Pertussis by PCR Not Detected Not Detected Coronavirus 229E PCR Not Detected Not Detected Coronavirus HKU1 PCR Not Detected Not Detected Coronavirus NL63 PCR Not Detected Not Detected Coronavirus OC Not Detected Not Detected Influenza A by PCR Not Detected Not Detected Influenza B by PCR Not Detected Not Detected Parainfluenza 1 PCR Not Detected Not Detected Parainfluenza 2 PCR Not Detected Not Detected Parainfluenza 3 PCR Not Detected Not Detected Parainfluenza 4 PCR Not Detected Not Detected Resp Syncytial Virus PCR Not Detected Not Detected Mycoplasma pneumo by PCR Not Detected Not Detected Bordetella parapertussis by PCR Not Detected Not Detected SARS-CoV-2, PCR Not Detected Not Detected Radiology/Imaging: CT CHEST PULMONARY EMBOLISM W CONTRAST Final Result 1. No pulmonary embolism. 2. Cardiomegaly with diffuse airspace opacification and septal thickening. Findings may represent pulmonary edema or atypical infection. 3. Compression deformity of L1 of uncertain chronicity. XR CHEST PORTABLE Final Result Slightly increased mild diffuse interstitial prominence, which may represent background interstitial disease. Non-emergent CT chest can be obtained for further evaluation. ASSESSMENT / PLAN: MEDICAL DECISION MAKING: Primary Problem(s): Electrolyte imbalance Differential diagnoses: Medication intolerance, dehydration, gastroenteritis, viral illness Condition is an undiagnosed new problem with uncertain prognosis Condition is worsening Treatment plan: Appreciate Nephrology Monitor and replace electrolytes Initial Mg 1.1 Initial K 2.6 Initial Ca 6.2 1800 ML fluid restriction Mg daily Telemetry Up with assistance MELVA Viral Panel-negative Imaging: no further imaging studies ordered today Medications: IV Ca Glucanate 2 gm x 1 on 07/08 IV MGSO 2 gm x 1 given on 07/08 Klor Con 40 meq x 1 given on 07/08 Start IVF -D5/0.45NS with 20 KCL Zofran Stop [place] Increase Tramadol to 50 mg q6 hrs prn Medication Monitoring / High Risk Medications: none HTN Condition is stable Treatment plan: Continue current treatment Imaging: no further imaging studies ordered today Medications: Continue Entresto, Bystolic (Toprol XL) S/p Right Humerus Fracture Condition is stable Treatment plan: Follows with Dr Oconnor as outpatient Sling and swluis to arm PT/OT SS-Discharge planning Imaging: no further imaging studies ordered today Medications: Stop [place] Start Tramadol Nutrition status: at risk for malnutrition Rail Setter consult initiated Hospital Prophylaxis: DVT: Lovenox Stress Ulcer: na Disposition: Shared decision making: All test results, treatment options and disposition options were discussed with the patient today Social determinants of health that may impact management: Pt lives alone and is unable to care for self Code status: Full Code Disposition: Discharge plan is [facility] Advanced Care Planning documentation: [x] I have confirmed that the patient's Advance Care Plan is present, Code Status is documented, or surrogate decision maker is listed in the patient's medical record [If yes , STOP HERE] [] The patient's Advance Care Plan is NOT present because: [] I confirmed today that the patient does not wish or was not able to name a surrogate decision maker or provide and advance care plan. [] Hospice care is currently being provided or has been provided within the calendar year. [] I did NOT confirm today the presence of an Advance Care Plan or surrogate decision maker documented within the patient's medical record. [DOES NOT SATISFY [employer] PER[employer]MAN[employer]] Guerita Anderson, ARIEL - NAIL TECHNICIAN , LIQUOR RUNNER, GAS STATION CLERK-C Hospitalist Medicine 07/10/2024, 8:08 AM Associated attestation - Dayo Vitale MD - 07/10/2024 12:46 PM EST Dayo Vitale M.D. Internal Medicine PA/GAS STATION CLERK Attestation Note Patient: Julius Clarke Date of Admission: 07/08/2024 5:41 AM Date of Evaluation: 07/10/2024 I personally evaluated and examined the patient [id number] in conjunction with the PA/GAS STATION CLERK and agree with the management and dispostition of the patient. Please see the PA/GAS STATION CLERK's note for full details. My barnes findings are: SUBJECTIVE: Julius Clarke is a 83 y.o. female who was seen today along with Guerita Gotti CNP for follow up of Electrolyte imbalance. She is still complaining of right shoulder pain . Tramadol 25 mg doesn't seem to help much however the [place] made her loopy and she doesn't want to take that anymore. She denies any other complaints. She denies chest pain, palpitations or SOB. She is tolerating diet without any nausea, vomiting or diarrhea. OBJECTIVE: Vitals: Temp: 99.3 F (37.4 C) BP: (!) 162/79 Respirations: 23 Pulse: 80 SpO2: 91% Weight Wt Readings from Last 3 Encounters: 07/10/24 67.5 kg (148 lb 12.8 oz) 07/06/24 59.9 kg (132 lb) 12/21/23 62.6 kg (138 lb) Body mass index is 28.12 kg/m . 24HR INTAKE/OUTPUT: Intake/Output Summary (Last 24 hours) at 07/10/2024 1241 Last data filed at 07/10/2024 0836 Gross per 24 hour Intake 3517.17 ml Output 650 ml Net 2867.17 ml Exam: GEN: Awake, alert and oriented x 3. EYES: EOMI, pupils equal NECK: Supple. No lymphadenopathy. No carotid bruit CVS: regular rate and rhythm, no audible murmur PULM: CTA, no wheezes, rales or rhonchi, no acute respiratory distress ABD: Bowels sounds normal. Abdomen is soft. No distention. no tenderness to palpation. EXT: no edema bilaterally . No calf tenderness. NEURO: Moves all extremities. Motor and sensory are grossly intact SKIN: No rashes. No skin lesions. DATA: Complete Blood Count: Recent Labs 07/08/24 0645 07/09/24 0540 07/10/24 0520 WBC 7.8 9.1 10.5 RBC 3.20* 4.11 4.11 HGB 9.3* 11.6* 11.8* HCT 28.3* 35.1* 34.3* MCV 88.4 85.4 83.5 RDW 13.4 13.0 12.6 PLT 182 228 249 Recent Labs 07/08/24 0645 07/09/24 0540 07/10/24 0520 NEUTROABS 6.02 6.19 7.50 LYMPHOPCT 13* 20* 17* LYMPHSABS 1.00* 1.82 1.74 MONOPCT 8 10 10 BASOPCT 0 0 0 IMMGRAN 0 0 0 CMP: Recent Labs 07/08/24 1555 07/09/24 0540 07/10/24 0520 NA 128* 123* 117* K 4.4 4.3 3.9 CL 93* 89* 83* CO2 25 24 23 BUN 8 6* 6* CREATININE 0.5 0.4* 0.4* GLUCOSE 124* 123* 115* CALCIUM 9.6 8.9 9.0 UA: Lab Results Component Value Date COLORU Yellow 07/08/2024 WBCUA 5 TO 10 07/08/2024 RBCUA 2 TO 5 07/08/2024 LEUKOCYTESUR TRACE (A) 07/08/2024 GLUCOSEU NEGATIVE 07/08/2024 KETUA NEGATIVE 07/08/2024 PROTEINU NEGATIVE 07/08/2024 HGBUR TRACE (A) 07/08/2024 CASTUA NOT REPORTED 12/16/2015 BACTERIA 2+ (A) 07/08/2024 YEAST NOT REPORTED 12/16/2015 High Sensitivity Troponin: Recent Labs 07/08/24 0645 TROPHS 8 Microbiology / Cultures: Results Procedure Component Value Units Date/Time Respiratory Panel, Molecular, with COVID-19 (Restricted: peds pts or suitable admitted adults) [[id number]] Collected: 07/08/24 1204 Order Status: Completed Specimen: Nasopharyngeal Swab Updated: 07/08/24 1715 Specimen Description .NASOPHARYNGEAL SWAB Adenovirus PCR Not Detected Coronavirus 229E PCR Not Detected Coronavirus HKU1 PCR Not Detected Coronavirus NL63 PCR Not Detected Coronavirus OC43 PCR Not Detected SARS-CoV-2, PCR Not Detected Human Metapneumovirus PCR Not Detected Rhino/Enterovirus PCR Not Detected Influenza A by PCR Not Detected Influenza B by PCR Not Detected Parainfluenza 1 PCR Not Detected Parainfluenza 2 PCR Not Detected Parainfluenza 3 PCR Not Detected Parainfluenza 4 PCR Not Detected Resp Syncytial Virus PCR Not Detected Bordetella parapertussis by PCR Not Detected B Pertussis by PCR Not Detected Chlamydia pneumoniae By PCR Not Detected Mycoplasma pneumo by PCR Not Detected Comment: Performed by multiplexed nucleic acid assay. Rapid influenza A/B antigens [[id number]] Collected: 07/08/2432 Order Status: Completed Specimen: Nasopharyngeal Updated: 07/08/24 0656 Flu A Antigen NEGATIVE Comment: for Influenza A Antigen Flu B Antigen NEGATIVE Comment: for Influenza B Antigen. COVID-19, Rapid [[id number]] Collected: 07/08/2432 Order Status: Completed Specimen: Nasopharyngeal Swab Updated: 07/08/24 0655 Specimen Description .NASOPHARYNGEAL SWAB SARS-CoV-2, Rapid Not Detected Comment: Rapid NAAT: The specimen is NEGATIVE for SARS-CoV-2, the novel coronavirus associated with COVID-19. The ID NOW COVID-19 assay is designed to detect the virus that causes COVID-19 in patients with signs and symptoms of infection who are suspected of COVID-19. An individual without symptoms of COVID-19 and who is not shedding SARS-CoV-2 virus would expect to have a negative (not detected) result in this assay. Negative results should be treated as presumptive and, if inconsistent with clinical signs and symptoms or necessary for patient management, should be tested with an alternative molecular assay. Negative results do not preclude SARS-CoV-2 infection and should not be used as the sole basis for patient management decisions. Methodology: Isothermal Nucleic Acid Amplification Imaging Data: CT CHEST PULMONARY EMBOLISM W CONTRAST Result Date: 07/08/2024 FINDINGS: Pulmonary Arteries: Study is of good technical quality for evaluation of pulmonary embolism. There are no filling defects to suggest pulmonary embolism. Main pulmonary artery is normal in caliber. No evidence of right ventricular strain. 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 Atherosclerotic changes of a normal caliber aorta. No lymphadenopathy. Thyroid and esophagus are normal. Lungs/pleura: The airways are patent. No pleural fluid. Patchy ground-glass airspace opacification diffusely in the lungs with septal thickening and scattered bandlike opacities. No focal consolidation. No significant pleural fluid. No pneumothorax. No underlying mass or nodule. Upper Abdomen: Visualized abdominal structures in the upper abdomen are normal. Soft Tissues/Bones: Loss of height to the superior endplate of L1. No acute skeletal finding. 1. No pulmonary embolism. 2. Cardiomegaly with diffuse airspace opacification and septal thickening. Findings may represent pulmonary edema or atypical infection. 3. Compression deformity of L1 of uncertain chronicity. XR CHEST PORTABLE Result Date: 07/08/2024 FINDINGS: Mild diffuse interstitial prominence, slightly increased from prior. No focal consolidation. No pneumothorax or pleural effusion. Unchanged cardiomediastinal silhouette. No pulmonary edema. Slightly increased mild diffuse interstitial prominence, which may represent background interstitial disease. Non-emergent CT chest can be obtained for further evaluation. XR RADIUS ULNA RIGHT (2 VIEWS) Result Date: 07/06/2024 FINDINGS: No acute fracture or dislocation. The scapholunate joint space is widened, unchanged. Bones are osteopenic. No focal soft tissue swelling. There is marked calcification of the triangular fibrocartilage. 1. No acute osseous abnormality identified. 2. Scapholunate joint space widening unchanged compared to September 2023. XR HUMERUS RIGHT (MIN 2 VIEWS) Result Date: 07/06/2024 FINDINGS: Mildly angulated fracture of the right humeral head that involves the greater tuberosity Mildly angulated fracture of the right humeral head ASSESSMENT: Principal Problem: Electrolyte imbalance with hyponatremia, hypokalemia and hypomagnesemia Active Problems: Hypertension Nondisplaced fracture of right humerus Resolved Problems: * No resolved hospital problems. * PLAN: I agree with the assessment, plan and medical decision making documentation as outlined by APC: Treatment plan: Keep outpatient Ortho f/u Sling/Swathe right arm PT / OT eval and Tx SS for DC planning DC [place] due to cognitive side effects, Increase Tramadol to 50 mg po TID PRN for pain Replace Lytes: IV Ca Gluconate 2 gm x 1 on 07/08 IV MGSO 2 gm x 1 given on 07/08 Klor Con 40 meq x 1 given on 07/08 Continue IVF -D5/0.45NS with 20 KCL Nephrology consult requested Disposition: Discharge plan is pending SHARED APC VISIT, PHYSICIAN ATTESTATION: [id number] I personally performed a substantive part of the MDM during the patient's visit. I personally evaluated and examined the patient. I personally made or approved the documented management plan and acknowledge its risk of complications. Test interpretation: My independent EKG interpretation: Normal sinus rhythm with normal axis and intervals, no ST segment changes My independent imaging interpretation: X-ray of right shoulder shows fractured humerus Management and/or test interpretation discussed with ABDULKADIR Shah MD , M.D. 07/10/2024 12:41 PM Patient continues to push call light. [employer] entered the room. Patient c/o pain in arm but she had removed the sling around her arm and placed it on the table. [employer] placed patients arm back in the sling and educated on sling placement and that it needs to stay on d/t arm fx. Patient verbalized understanding. Pt noted to have taken her sling off again. Pt was assisted to the bathroom and then put back to bed after sling was reapplied. Pt denies any further needs at this time. Call light within reach, care ongoing. [employer] entered room and pt was sitting on the side of the bed and had pulled her sling off and was saying that she feels really nauseous and just doesn't feel good. She stated that the sling was hurting her so she took it off. Pt was given prn zofran for the nausea and toradol for the pain. Sling was reapplied to pt and she was taken to the bathroom and put back into bed and repositioned for comfort. Assessment and vitals were obtained as charted. Pt is resting comfortably in bed and denies any further needs at this time. Call light within reach, care ongoing. Physical Therapy Facility/Department: [facility] Daily Treatment Note NAME: Julius Clarke : 1940 Date of Service: 07/09/2024 Discharge Recommendations: Continue to assess pending progress, Home with assist PRN, Home with Home health PT Patient Diagnosis(es): The primary encounter diagnosis was Debility. Diagnoses of Hypokalemia, Low magnesium level, and Low calcium levels were also pertinent to this visit. Assessment Assessment: Pt. ambulated 20ftx1, 10xft1 with william walker, CGA for safety. Pt R UE NWB and in sling. Pt. has slow cadnece with decreased step length. Bed mobility: CGA/Min A. Transfers: CGA. Seated exercises B Le x15.Commode use and trnsfer. Pt.reports pain in R UE with movement. Activity Tolerance: Patient limited by pain;Patient tolerated treatment well Plan Physical Therapy Plan General Plan: 2 times a day 7 days a week Specific Instructions for Next Treatment: once per day on weekends and holidays Current Treatment Recommendations: Strengthening;ROM;Balance training;Functional mobility training;Transfer training;Endurance training;Gait training;Stair training;Neuromuscular re-education;Pain management;Home exercise program;Therapeutic activities Restrictions Restrictions/Precautions Restrictions/Precautions: Fall Risk, Isolation, ROM Restrictions, Weight Bearing Required Braces or Orthoses?: Yes Upper Extremity Weight Bearing Restrictions Right Upper Extremity Weight Bearing: Non Weight Bearing Other: prox humeral fx Required Braces or Orthoses Right Upper Extremity Brace/Splint: Sling Subjective Subjective Subjective: Pt. in chair upon arrival, agreeable to therapy at this time and wating to return to bed. Pain: 6/10 R shoulder with movement Orientation Overall Orientation Status: Within Normal Limits Objective Bed Mobility Training Bed Mobility Training: Yes Overall Level of Assistance: Contact-guard assistance;Minimum assistance;Assist X1 Interventions: Verbal cues Rolling: Contact-guard assistance;Assist X1 Supine to Sit: Contact-guard assistance;Minimum assistance;Assist X1 Sit to Supine: Contact-guard assistance;Minimum assistance;Assist X1 Scooting: Contact-guard assistance;Minimum assistance;Assist X1 Transfer Training Transfer Training: Yes Overall Level of Assistance: Contact-guard assistance;Assist X1 Interventions: Verbal cues Sit to Stand: Contact-guard assistance;Assist X1 Stand to Sit: Contact-guard assistance;Assist X1 Gait Training Right Side Weight Bearing: Full Left Side Weight Bearing: Full Gait Gait Training: Yes Left Side Weight Bearing: Full Right Side Weight Bearing: Full Overall Level of Assistance: Contact-guard assistance;Assist X1 Distance (ft): 30 Feet Assistive Device: Walker william Interventions: Verbal cues Speed/Grisel: Slow Step Length: Left shortened;Right shortened Swing Pattern: Right asymmetrical PT Exercises Exercise Treatment: Seated exercises B LE x15. Other Specialty Interventions Other Treatments/Modalities: commode use and transfer Safety Devices Type of Devices: All fall risk precautions in place;Call light within reach;Left in bed;Bed alarm in place;Nurse notified Goals Short Term Goals Time Frame for Short Term Goals: 20 days Short Term Goal 1: Pt to tolerate 20 minutes of ther ex to facilitate return to PLOF. Short Term Goal 2: Pt to ambulate 150ft with william walker and SBA to increase ambulatory capacity for d/c Short Term Goal 3: Pt to complete transfers with hemiwakler and SBA to demonstrate increased independacne for safety with d/c. Patient Goals Patient Goals : Pt goal to return home Education Patient Education Education Given To: Patient Education Provided: Transfer Training Education Method: Verbal Barriers to Learning: None Education Outcome: Verbalized understanding Therapy Time Individual Concurrent Group Co-treatment Time In 1304 Time Out 1332 Minutes 28 Mirta Frost PTA Spiritual Services Interventions [id number] 07/09/2024 Jah Clarke 83 y.o. year old female Encounter Summary Encounter Overview/Reason: (P) Initial Encounter Service Provided For: (P) Patient Referral/Consult From: (P) Rounding Last Encounter : (P) 07/09/24 Complexity of Encounter: (P) Moderate Begin Time: (P) 1045 End Time : (P) 1055 Total Time Calculated: (P) 10 min Spiritual/Emotional needs Type: (P) Spiritual Support Assessment/Intervention/Outcome Assessment: (P) Calm Intervention: (P) Discussed belief system/presybeterian practices/jose c, Discussed illness injury and it s impact Outcome: (P) Encouraged, Engaged in conversation Sling and swathe applied per order. Occupational Therapy Facility/Department: [facility] Daily Treatment Note NAME: Julius Clarke : 1940 Date of Service: 07/09/2024 Discharge Recommendations: Continue to assess pending progress, Subacute/Usp Facility Patient Diagnosis(es): The primary encounter diagnosis was Debility. Diagnoses of Hypokalemia, Low magnesium level, and Low calcium levels were also pertinent to this visit. Assessment Activity Tolerance: Patient limited by pain Discharge Recommendations: Continue to assess pending progress;Subacute/Usp Facility Plan Occupational Therapy Plan Times Per Day: Once a day Days Per Week: 7 Days Current Treatment Recommendations: Strengthening;Balance training;Functional mobility training;Endurance training;Equipment evaluation, education, & procurement;Patient/Caregiver education & training;Safety education & training;Self-Care / ADL;Neuromuscular re-education;ROM;Home management training Restrictions NWB RUE, fall risk Subjective Subjective Subjective: Pt in chair, agreed to toileting and self care standing at sink. Pain: 6/10 R UE pain, I havent had any pain meds yet. Objective Vitals ADL Grooming: Moderate assistance;Minimal assistance Grooming Skilled Clinical Factors: dynmaic standing at sink x 10 min, 0 LOB noted UE Bathing: Maximum assistance LE Bathing: Maximum assistance UE Dressing: Maximum assistance LE Dressing: Maximum assistance Putting On/Taking Off Footwear: Maximum assistance Toileting: Minimal assistance Toileting Skilled Clinical Factors: seated void Functional Mobility: Contact guard assistance Functional Mobility Skilled Clinical Factors: william walker to/from restroom Additional Comments: Min A sit<>stand from recliner, CGA sit<>stand from toilet using L grab bar. Skin Care: Soap and water Safety Devices Type of Devices: All fall risk precautions in place;Call light within reach;Chair alarm in place;Left in chair Patient Education Education Given To: Patient Education Provided: Role of Therapy;Plan of Care;ADL Adaptive Strategies;Transfer Training;Fall Prevention Strategies;Mobility Training Education Method: Verbal Barriers to Learning: None Education Outcome: Demonstrated understanding Goals Short Term Goals Time Frame for Short Term Goals: 21 visits Short Term Goal 1: Patient to complete ADL routine c min A while maintaining ROM and WB restructions to ensure safe and indep return home. Short Term Goal 2: Patient to be educated on d/c folder, AE/DME and home safety to ensure safe return home. Short Term Goal 3: Patient to engage in RUE HEP with pendulums and elbow, forearm and wrist ROM as well as LUE HEP with strengthening daily. AM-PAC - ADL Therapy Time Individual Concurrent Group Co-treatment Time In 910 Time Out 0935 Minutes 24 PANTERA Bryan Physical Therapy Facility/Department: [facility] Daily Treatment Note NAME: Julius Clarke : 1940 Date of Service: 07/09/2024 Discharge Recommendations: Continue to assess pending progress, Home with assist PRN, Home with Home health PT Patient Diagnosis(es): The primary encounter diagnosis was Debility. Diagnoses of Hypokalemia, Low magnesium level, and Low calcium levels were also pertinent to this visit. Assessment Assessment: Pt. ambulated 20ftx1 with william walker, CGA for safety. Pt R UE NWB and in sling. Pt. has slow cadnece with decreased step length. Bed mobility: CGA/Min A. Transfers: CGA. Supine and seated exercises B Le x20. Pt.reports pain in R UE with movement. Activity Tolerance: Patient tolerated treatment well Plan Physical Therapy Plan General Plan: 2 times a day 7 days a week Specific Instructions for Next Treatment: once per day on weekends and holidays Current Treatment Recommendations: Strengthening;ROM;Balance training;Functional mobility training;Transfer training;Endurance training;Gait training;Stair training;Neuromuscular re-education;Pain management;Home exercise program;Therapeutic activities Restrictions Restrictions/Precautions Restrictions/Precautions: Fall Risk, Isolation, ROM Restrictions, Weight Bearing Required Braces or Orthoses?: Yes Upper Extremity Weight Bearing Restrictions Right Upper Extremity Weight Bearing: Non Weight Bearing Other: prox humeral fx Required Braces or Orthoses Right Upper Extremity Brace/Splint: Sling Subjective Subjective Subjective: Pt. in bed upon arrival, agreeable to therapy at this time. Pain: 6/10 R shoulder with movement Orientation Overall Orientation Status: Within Normal Limits Objective Bed Mobility Training Bed Mobility Training: Yes Overall Level of Assistance: Contact-guard assistance;Minimum assistance;Assist X1 Interventions: Verbal cues Rolling: Contact-guard assistance;Assist X1 Supine to Sit: Contact-guard assistance;Minimum assistance;Assist X1 Scooting: Contact-guard assistance;Minimum assistance;Assist X1 Transfer Training Transfer Training: Yes Overall Level of Assistance: Contact-guard assistance;Assist X1 Interventions: Verbal cues Sit to Stand: Contact-guard assistance;Assist X1 Stand to Sit: Contact-guard assistance;Assist X1 Gait Training Right Side Weight Bearing: Full Left Side Weight Bearing: Full Gait Gait Training: Yes Left Side Weight Bearing: Full Right Side Weight Bearing: Full Overall Level of Assistance: Contact-guard assistance;Assist X1 Distance (ft): 20 Feet Assistive Device: Walker william Interventions: Verbal cues Speed/Grisel: Slow Step Length: Left shortened;Right shortened Swing Pattern: Right asymmetrical PT Exercises Exercise Treatment: Supine and seated exercises B LE x20 Safety Devices Type of Devices: Call light within reach;All fall risk precautions in place;Left in chair;Chair alarm in place Goals Short Term Goals Time Frame for Short Term Goals: 20 days Short Term Goal 1: Pt to tolerate 20 minutes of ther ex to facilitate return to PLOF. Short Term Goal 2: Pt to ambulate 150ft with william walker and SBA to increase ambulatory capacity for d/c Short Term Goal 3: Pt to complete transfers with hemiwakler and SBA to demonstrate increased independacne for safety with d/c. Patient Goals Patient Goals : Pt goal to return home Education Patient Education Education Given To: Patient Education Provided: Transfer Training Education Method: Verbal Barriers to Learning: None Education Outcome: Verbalized understanding Therapy Time Individual Concurrent Group Co-treatment Time In 818 Time Out 0843 Minutes 24 Mirta Frost PTA Progress Note SUBJECTIVE: Patient seen for f/u of Electrolyte imbalance. She resting in bed no distress. Tolerating diet. ROS: Constitutional: negative for fevers, and negative for chills. Respiratory: negative for shortness of breath, negative for cough, and negative for wheezing Cardiovascular: negative for chest pain, and negative for palpitations Gastrointestinal: negative for abdominal pain, negative for nausea,negative for vomiting, negative for diarrhea, and negative for constipation All other systems were reviewed with the patient and are negative unless otherwise stated in HPI OBJECTIVE: Vitals: Vitals: 07/09/24 0700 BP: (!) 161/79 Pulse: 69 Resp: 20 Temp: 97.6 F (36.4 C) SpO2: 91% Weight - Scale: 65.8 kg (145 lb) Height: 154.9 cm (5' 1 ) Weight Wt Readings from Last 3 Encounters: 07/09/24 65.8 kg (145 lb) 07/06/24 59.9 kg (132 lb) 12/21/23 62.6 kg (138 lb) Body mass index is 27.4 kg/m . 24HR INTAKE/OUTPUT: Intake/Output Summary (Last 24 hours) at 07/09/2024 0811 Last data filed at 07/09/2024 0703 Gross per 24 hour Intake 1721.25 ml Output 1400 ml Net 321.25 ml Exam: GEN: Awake, alert and oriented x3. EYES: EOMI, pupils equal NECK: Supple. No lymphadenopathy. No carotid bruit CVS: regular rate and rhythm, no audible murmur PULM: CTA, no wheezes, rales or rhonchi, no acute respiratory distress ABD: Bowels sounds normal. Abdomen is soft. No distention. no tenderness to palpation. EXT: no edema bilaterally . No calf tenderness. Sling to right arm NEURO: Moves all extremities. Motor and sensory are grossly intact SKIN: No rashes. No skin lesions. Diagnostic Data: Complete Blood Count: Recent Labs 07/08/24 0645 07/09/24 0540 WBC 7.8 9.1 RBC 3.20* 4.11 HGB 9.3* 11.6* HCT 28.3* 35.1* MCV 88.4 85.4 MCH 29.1 28.2 MCHC 32.9 33.0 RDW 13.4 13.0 PLT 182 228 MPV 9.2 9.4 Last 3 Blood Glucose: Recent Labs 07/08/24 0645 07/08/24 1555 07/09/24 0540 GLUCOSE 90 124* 123* Comprehensive Metabolic Profile: Recent Labs 07/08/24 0645 07/08/24 1555 07/09/24 0540 NA 136 128* 123* K 2.6* 4.4 4.3 CL 109* 93* 89* CO2 19* 25 24 BUN 8 8 6* CREATININE 0.3* 0.5 0.4* GLUCOSE 90 124* 123* CALCIUM 6.2* 9.6 8.9 Urinalysis: Lab Results Component Value Date/Time NITRU NEGATIVE 07/08/2024 08:39 AM COLORU Yellow 07/08/2024 08:39 AM PHUR 7.0 07/08/2024 08:39 AM PHUR 6.0 06/05/2023 08:25 PM WBCUA 5 TO 10 07/08/2024 08:39 AM RBCUA 2 TO 5 07/08/2024 08:39 AM MUCUS 1+ 07/08/2024 08:39 AM TRICHOMONAS NOT REPORTED 12/16/2015 07:50 AM YEAST NOT REPORTED 12/16/2015 07:50 AM BACTERIA 2+ 07/08/2024 08:39 AM LEUKOCYTESUR TRACE 07/08/2024 08:39 AM UROBILINOGEN Normal 07/08/2024 08:39 AM BILIRUBINUR NEGATIVE 07/08/2024 08:39 AM GLUCOSEU NEGATIVE 07/08/2024 08:39 AM KETUA NEGATIVE 07/08/2024 08:39 AM AMORPHOUS NOT REPORTED 12/16/2015 07:50 AM HgBA1c: Lab Results Component Value Date/Time LABA1C 6.0 11/28/2022 05:15 AM Latest Reference Range & Units 07/08/24 12:04 Chlamydia pneumoniae By PCR Not Detected Not Detected Rhino/Enterovirus PCR Not Detected Not Detected Human Metapneumovirus PCR Not Detected Not Detected Adenovirus PCR Not Detected Not Detected B Pertussis by PCR Not Detected Not Detected Coronavirus 229E PCR Not Detected Not Detected Coronavirus HKU1 PCR Not Detected Not Detected Coronavirus NL63 PCR Not Detected Not Detected Coronavirus OC Not Detected Not Detected Influenza A by PCR Not Detected Not Detected Influenza B by PCR Not Detected Not Detected Parainfluenza 1 PCR Not Detected Not Detected Parainfluenza 2 PCR Not Detected Not Detected Parainfluenza 3 PCR Not Detected Not Detected Parainfluenza 4 PCR Not Detected Not Detected Resp Syncytial Virus PCR Not Detected Not Detected Mycoplasma pneumo by PCR Not Detected Not Detected Bordetella parapertussis by PCR Not Detected Not Detected SARS-CoV-2, PCR Not Detected Not Detected Radiology/Imaging: CT CHEST PULMONARY EMBOLISM W CONTRAST Final Result 1. No pulmonary embolism. 2. Cardiomegaly with diffuse airspace opacification and septal thickening. Findings may represent pulmonary edema or atypical infection. 3. Compression deformity of L1 of uncertain chronicity. XR CHEST PORTABLE Final Result Slightly increased mild diffuse interstitial prominence, which may represent background interstitial disease. Non-emergent CT chest can be obtained for further evaluation. ASSESSMENT / PLAN: MEDICAL DECISION MAKING: Primary Problem(s): Electrolyte imbalance Differential diagnoses: Medication intolerance, dehydration, gastroenteritis, viral illness Condition is an undiagnosed new problem with uncertain prognosis Condition is stable Treatment plan: Monitor and replace electrolytes Initial Mg 1.1 Initial K 2.6 Initial Ca 6.2 Recheck BMP and Mg at 1500 Mg daily Telemetry Up with assistance MELVA Viral Panel-negative Imaging: no further imaging studies ordered today Medications: IV Ca Glucanate 2 gm x 1 on 07/08 IV MGSO 2 gm x 1 given on 07/08 Klor Con 40 meq x 1 given on 07/08 Start IVF -D5/0.45NS with 20 KCL Zofran Stop [place] Continue Tramadol Medication Monitoring / High Risk Medications: none HTN Condition is stable Treatment plan: Continue current treatment Imaging: no further imaging studies ordered today Medications: Continue Entresto, Bystolic (Toprol XL) S/p Right Humerus Fracture Condition is stable Treatment plan: Follows with Dr Oconnor as outpatient Daniel and stephanie to arm PT/OT SS-Discharge planning Imaging: no further imaging studies ordered today Medications: Stop [place] Start Tramadol Nutrition status: at risk for malnutrition Rail Setter consult initiated Hospital Prophylaxis: DVT: Lovenox Stress Ulcer: na Disposition: Shared decision making: All test results, treatment options and disposition options were discussed with the patient today Social determinants of health that may impact management: Pt lives alone and is unable to care for self Code status: Full Code Disposition: Discharge plan is [facility] Advanced Care Planning documentation: [x] I have confirmed that the patient's Advance Care Plan is present, Code Status is documented, or surrogate decision maker is listed in the patient's medical record [If yes , STOP HERE] [] The patient's Advance Care Plan is NOT present because: [] I confirmed today that the patient does not wish or was not able to name a surrogate decision maker or provide and advance care plan. [] Hospice care is currently being provided or has been provided within the calendar year. [] I did NOT confirm today the presence of an Advance Care Plan or surrogate decision maker documented within the patient's medical record. [DOES NOT SATISFY [employer]] Guerita Anderson APRN - NAIL TECHNICIAN , LIQUOR RUNNER, GAS STATION CLERK-C Hospitalist Medicine 07/09/2024, 8:11 AM Associated attestation - Dayo Vitale MD - 07/09/2024 5:46 PM EST Dayo Vitale M.D. Internal Medicine PA/GAS STATION CLERK Attestation Note Patient: Julius Clarke Date of Admission: 07/08/2024 5:41 AM Date of Evaluation: 07/09/2024 I personally evaluated and examined the patient [id number] in conjunction with the PA/GAS STATION CLERK and agree with the management and dispostition of the patient. Please see the PA/GAS STATION CLERK's note for full details. My barnes findings are: SUBJECTIVE: Julius Clarke is a 83 y.o. female who was seen today along with Guerita Gotti CNP for follow up of Electrolyte imbalance. She is still complaining of right shoulder pain . She denies any other complaints. She denies chest pain, palpitations or SOB. She is tolerating diet without any nausea, vomiting or diarrhea. OBJECTIVE: Vitals: Temp: 97.6 F (36.4 C) BP: (!) 161/79 Respirations: 18 Pulse: 69 SpO2: 91 % Weight Wt Readings from Last 3 Encounters: 07/09/24 65.8 kg (145 lb) 07/06/24 59.9 kg (132 lb) 12/21/23 62.6 kg (138 lb) Body mass index is 27.4 kg/m . 24HR INTAKE/OUTPUT: Intake/Output Summary (Last 24 hours) at 07/09/2024 1741 Last data filed at 07/09/2024 1644 Gross per 24 hour Intake 3144.42 ml Output 600 ml Net 2544.42 ml Exam: GEN: Awake, alert and oriented x 3. EYES: EOMI, pupils equal NECK: Supple. No lymphadenopathy. No carotid bruit CVS: regular rate and rhythm, no audible murmur PULM: CTA, no wheezes, rales or rhonchi, no acute respiratory distress ABD: Bowels sounds normal. Abdomen is soft. No distention. no tenderness to palpation. EXT: no edema bilaterally . No calf tenderness. NEURO: Moves all extremities. Motor and sensory are grossly intact SKIN: No rashes. No skin lesions. DATA: Complete Blood Count: Recent Labs 07/08/24 0645 07/09/24 0540 WBC 7.8 9.1 RBC 3.20* 4.11 HGB 9.3* 11.6* HCT 28.3* 35.1* MCV 88.4 85.4 RDW 13.4 13.0 PLT 182 228 Recent Labs 07/08/24 0645 07/09/24 0540 NEUTROABS 6.02 6.19 LYMPHOPCT 13* 20* LYMPHSABS 1.00* 1.82 MONOPCT 8 10 BASOPCT 0 0 IMMGRAN 0 0 CMP: Recent Labs 07/08/24 0645 07/08/24 1555 07/09/24 0540 NA 136 128* 123* K 2.6* 4.4 4.3 CL 109* 93* 89* CO2 19* 25 24 BUN 8 8 6* CREATININE 0.3* 0.5 0.4* GLUCOSE 90 124* 123* CALCIUM 6.2* 9.6 8.9 UA: Lab Results Component Value Date COLORU Yellow 07/08/2024 WBCUA 5 TO 10 07/08/2024 RBCUA 2 TO 5 07/08/2024 LEUKOCYTESUR TRACE (A) 07/08/2024 GLUCOSEU NEGATIVE 07/08/2024 KETUA NEGATIVE 07/08/2024 PROTEINU NEGATIVE 07/08/2024 HGBUR TRACE (A) 07/08/2024 CASTUA NOT REPORTED 12/16/2015 BACTERIA 2+ (A) 07/08/2024 YEAST NOT REPORTED 12/16/2015 Lactic Acid: No results for input(s): LACTA , LACTSEPSIS in the last 72 hours. High Sensitivity Troponin: Recent Labs 07/08/24 0645 TROPHS 8 Microbiology / Cultures: Results Procedure Component Value Units Date/Time Respiratory Panel, Molecular, with COVID-19 (Restricted: peds pts or suitable admitted adults) [[id number]] Collected: 07/08/24 1204 Order Status: Completed Specimen: Nasopharyngeal Swab Updated: 07/08/24 4893 Specimen Description .NASOPHARYNGEAL SWAB Adenovirus PCR Not Detected Coronavirus 229E PCR Not Detected Coronavirus HKU1 PCR Not Detected Coronavirus NL63 PCR Not Detected Coronavirus OC43 PCR Not Detected SARS-CoV-2, PCR Not Detected Human Metapneumovirus PCR Not Detected Rhino/Enterovirus PCR Not Detected Influenza A by PCR Not Detected Influenza B by PCR Not Detected Parainfluenza 1 PCR Not Detected Parainfluenza 2 PCR Not Detected Parainfluenza 3 PCR Not Detected Parainfluenza 4 PCR Not Detected Resp Syncytial Virus PCR Not Detected Bordetella parapertussis by PCR Not Detected B Pertussis by PCR Not Detected Chlamydia pneumoniae By PCR Not Detected Mycoplasma pneumo by PCR Not Detected Comment: Performed by multiplexed nucleic acid assay. Rapid influenza A/B antigens [[id number]] Collected: 07/08/24631 Order Status: Completed Specimen: Nasopharyngeal Updated: 07/08/2456 Flu A Antigen NEGATIVE Comment: for Influenza A Antigen Flu B Antigen NEGATIVE Comment: for Influenza B Antigen. COVID-19, Rapid [[id number]] Collected: 07/08/24631 Order Status: Completed Specimen: Nasopharyngeal Swab Updated: 07/08/24654 Specimen Description .NASOPHARYNGEAL SWAB SARS-CoV-2, Rapid Not Detected Comment: Rapid NAAT: The specimen is NEGATIVE for SARS-CoV-2, the novel coronavirus associated with COVID-19. The ID NOW COVID-19 assay is designed to detect the virus that causes COVID-19 in patients with signs and symptoms of infection who are suspected of COVID-19. An individual without symptoms of COVID-19 and who is not shedding SARS-CoV-2 virus would expect to have a negative (not detected) result in this assay. Negative results should be treated as presumptive and, if inconsistent with clinical signs and symptoms or necessary for patient management, should be tested with an alternative molecular assay. Negative results do not preclude SARS-CoV-2 infection and should not be used as the sole basis for patient management decisions. Methodology: Isothermal Nucleic Acid Amplification Imaging Data: CT CHEST PULMONARY EMBOLISM W CONTRAST Result Date: 07/08/2024 EXAMINATION: CTA OF THE CHEST 07/08/2024 7:48 am TECHNIQUE: CTA of the chest was performed after the administration of intravenous contrast. Multiplanar reformatted images are provided for review. MIP images are provided for review. Automated exposure control, iterative reconstruction, and/or weight based adjustment of the mA/kV was utilized to reduce the radiation dose to as low as reasonably achievable. COMPARISON: None. HISTORY: ORDERING SYSTEM PROVIDED HISTORY: PE TECHNOLOGIST PROVIDED HISTORY: PE Additional Contrast?->1 FINDINGS: Pulmonary Arteries: Study is of good technical quality for evaluation of pulmonary embolism. There are no filling defects to suggest pulmonary embolism. Main pulmonary artery is normal in caliber. No evidence of right ventricular strain. 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 Atherosclerotic changes of a normal caliber aorta. No lymphadenopathy. Thyroid and esophagus are normal. Lungs/pleura: The airways are patent. No pleural fluid. Patchy ground-glass airspace opacification diffusely in the lungs with septal thickening and scattered bandlike opacities. No focal consolidation. No significant pleural fluid. No pneumothorax. No underlying mass or nodule. Upper Abdomen: Visualized abdominal structures in the upper abdomen are normal. Soft Tissues/Bones: Loss of height to the superior endplate of L1. No acute skeletal finding. 1. No pulmonary embolism. 2. Cardiomegaly with diffuse airspace opacification and septal thickening. Findings may represent pulmonary edema or atypical infection. 3. Compression deformity of L1 of uncertain chronicity. XR CHEST PORTABLE Result Date: 07/08/2024 EXAMINATION: ONE XRAY VIEW OF THE CHEST 07/08/2024 7:03 am COMPARISON: Chest radiograph 06/05/2023 HISTORY: ORDERING SYSTEM PROVIDED HISTORY: sob TECHNOLOGIST PROVIDED HISTORY: sob FINDINGS: Mild diffuse interstitial prominence, slightly increased from prior. No focal consolidation. No pneumothorax or pleural effusion. Unchanged cardiomediastinal silhouette. No pulmonary edema. Slightly increased mild diffuse interstitial prominence, which may represent background interstitial disease. Non-emergent CT chest can be obtained for further evaluation. XR RADIUS ULNA RIGHT (2 VIEWS) Result Date: 07/06/2024 EXAMINATION: TWO XRAY VIEWS OF THE RIGHT FOREARM 07/06/2024 5:55 pm COMPARISON: October 16, 2023 HISTORY: ORDERING SYSTEM PROVIDED HISTORY: pain, fall TECHNOLOGIST PROVIDED HISTORY: pain, fall FINDINGS: No acute fracture or dislocation. The scapholunate joint space is widened, unchanged. Bones are osteopenic. No focal soft tissue swelling. There is marked calcification of the triangular fibrocartilage. 1. No acute osseous abnormality identified. 2. Scapholunate joint space widening unchanged compared to September 2023. XR HUMERUS RIGHT (MIN 2 VIEWS) Result Date: 07/06/2024 EXAMINATION: TWO XRAY VIEWS OF THE RIGHT HUMERUS 07/06/2024 5:54 pm COMPARISON: None. HISTORY: ORDERING SYSTEM PROVIDED HISTORY: Fall TECHNOLOGIST PROVIDED HISTORY: Fall FINDINGS: Mildly angulated fracture of the right humeral head that involves the greater tuberosity Mildly angulated fracture of the right humeral head ASSESSMENT: Principal Problem: Electrolyte imbalance Active Problems: Hypertension Nondisplaced fracture of right humerus Resolved Problems: * No resolved hospital problems. * PLAN: I agree with the assessment, plan and medical decision making documentation as outlined by APC: Treatment plan: Keep outpatient Ortho f/u Sling/Swathe right arm PT / OT eval and Tx SS for DC planning DC [place], start Tramadol PRN for pain Replace Lytes: IV Ca Gluconate 2 gm x 1 on 07/08 IV MGSO 2 gm x 1 given on 07/08 Klor Con 40 meq x 1 given on 07/08 Start IVF -D5/0.45NS with 20 KCL Disposition: Discharge plan is pending SHARED APC VISIT, PHYSICIAN ATTESTATION: [id number] I personally performed a substantive part of the MDM during the patient's visit. I personally evaluated and examined the patient. I personally made or approved the documented management plan and acknowledge its risk of complications. Test interpretation: My independent EKG interpretation: Normal sinus rhythm with normal axis and intervals, no ST segment changes My independent imaging interpretation: X-ray of right shoulder shows fractured humerus Management and/or test interpretation discussed with ABDULKADIR Shah MD , MMelinda 07/09/2024 5:41 PM Daughter called for updates on pt. Nurse updated daughter at this time, all questions answered. Comprehensive Nutrition Assessment Type and Reason for Visit: Initial Nutrition Recommendations/Plan: Continue current diet. Start 4 oz ensure enlive TID with meals. Malnutrition Assessment: Malnutrition Status: At risk for malnutrition (07/09/24 0713) Context: Acute Illness Findings of the 6 clinical characteristics of malnutrition: Energy Intake: Unable to assess Weight Loss: No weight loss Body Fat Loss: No body fat loss Muscle Mass Loss: No muscle mass loss Fluid Accumulation: Mild Extremities (non pitting trace edema BLE, RUE. Active bowel sounds.) Yardage Estimator Strength: Not Performed Nutrition Assessment: Increased nutrient needs r/t acute injury/trauma aeb healing needs from humerus Fx. Inadequate oral intakes r/t altered Gi function aeb nausea and poor PO before admission. A1c 6.0, good glycemic control for advanced age. Pt admitted with electrolyte imbalance. Pt with therapy at this time. Will add 4 oz ensure enlive TID with meals. Nutrition Related Findings: trace non pitting edema BLE, RUE. Active bowel sounds. Wound Type: None Current Nutrition Intake & Therapies: Average Meal Intake: Unable to assess Average Supplements Intake: None Ordered ADULT DIET; Regular Anthropometric Measures: Height: 154.9 cm (5' 1 ) [place] Body Weight (IBW): 105 lbs (48 kg) Admission Body Weight: 65.7 kg (144 lb 13 oz) Current Body Weight: 65.8 kg (145 lb 1 oz), 138.2 % IBW. Weight Source: Bed scale Current BMI (kg/m2): 27.4 Usual Body Weight: 65.3 kg (144 lb) % Weight Change (Calculated): 0.7 Weight Adjustment For: No Adjustment BMI Categories: Overweight (BMI 25.0-29.9) Estimated Daily Nutrient Needs: Energy Requirements Based On: Kcal/kg Weight Used for Energy Requirements: Current Energy (kcal/day): 9343-7893 (25-28/kg) Weight Used for Protein Requirements: [place] Protein (g/day): 62-72g (1.3-1.5g/kg) Method Used for Fluid Requirements: 1 ml/kcal Fluid (ml/day): 1,600 ml Hematology: Recent Labs 07/08/24 0645 07/09/24 0540 WBC 7.8 9.1 HGB 9.3* 11.6* HCT 28.3* 35.1* Chemistry: Recent Labs 07/08/24 0645 07/08/24 1555 07/09/24 0540 NA 136 128* 123* K 2.6* 4.4 4.3 CL 109* 93* 89* CO2 19* 25 24 GLUCOSE 90 124* 123* BUN 8 8 6* CREATININE 0.3* 0.5 0.4* MG 1.1* 2.1 1.8 CALCIUM 6.2* 9.6 8.9 Recent Labs 07/08/24 0645 TSH 3.63 Lab Results Component Value Date/Time LABA1C 6.0 11/28/2022 05:15 AM No results found for: VITD25 Nutrition Diagnosis: Increased nutrient needs related to acute injury/trauma as evidenced by other (humerus Fx) Inadequate oral intake related to altered GI function as evidenced by poor intake prior to admission, nausea Nutrition Interventions: Food and/or Nutrient Delivery: Continue Current Diet, Start Oral Nutrition Supplement Nutrition Education/Counseling: No recommendation at this time Coordination of Nutrition Care: Continue to monitor while inpatient Plan of Care discussed with: no one Goals: Goals: Meet at least 75% of estimated needs Previous Goal Met: New Goal Nutrition Monitoring and Evaluation: Behavioral-Environmental Outcomes: None Identified Food/Nutrient Intake Outcomes: Food and Nutrient Intake, Supplement Intake Physical Signs/Symptoms Outcomes: Biochemical Data, Weight, Fluid Status or Edema Discharge Planning: Continue current diet, Continue Oral Nutrition Supplement EWELINA LINDSEY RD, LD Contact: [phone] Nurse at bedside for shift assessment. Pt in bed awake. Assisted pt to bathroom with 4-point walker. Right arm in sling. Assessment and vitals obtained and documented. On room air. White board updated. Ice pack refreshed and placed on right arm. Pt states all needs met at this time. Care ongoing. Patient resting comfortably at this time with family at bedside. Patient denies any pain while sitting up but when the pain hits, it is about a 8/10. Denies any other needs at this time. Patient alert & oriented x4 and able to answer all questions appropriately and follow commands. Assessment and vitals as charted. Chair alarm on, Chair locked, gripper socks on, call light within reach and able to use appropriately. Will continue to monitor this shift. Occupational Therapy Facility/Department: [facility] Occupational Therapy Initial Assessment Name: Julius Clarke : 1940 Date of Service: 07/08/2024 Discharge Recommendations: Continue to assess pending progress, Subacute/Usp Facility Patient Diagnosis(es): The primary encounter diagnosis was Debility. Diagnoses of Hypokalemia, Low magnesium level, and Low calcium levels were also pertinent to this visit. Past Medical History: has a past medical history of Hyperlipidemia, Hypertension, Nondisplaced fracture of right humerus, Thrush, oral, Thyroid disease, and Vertigo. Past Surgical History: has a past surgical history that includes Cardiac catheterization; Coronary artery bypass graft; Hysterectomy; Appendectomy; and Carotid endarterectomy. Treatment Diagnosis: Weakness Assessment Performance deficits / Impairments: Decreased functional mobility ;Decreased high-level IADLs;Decreased ADL status;Decreased endurance;Decreased fine motor control;Decreased coordination;Decreased ROM;Decreased strength;Decreased balance Assessment: 83 y/o F admitted to [facility] for hypokalemia. Patient with recent ER visit (07/06) s/p fall with R humerus fracture and d/c home. Patient currently requires increased need for assist during ADL and would benefit from OT services to improve ADL independence. Treatment Diagnosis: Weakness Prognosis: Good Decision Making: Medium Complexity REQUIRES OT FOLLOW-UP: Yes Plan Occupational Therapy Plan Times Per Day: Once a day Days Per Week: 7 Days Current Treatment Recommendations: Strengthening, Balance training, Functional mobility training, Endurance training, Equipment evaluation, education, & procurement, Patient/Caregiver education & training, Safety education & training, Self-Care / ADL, Neuromuscular re-education, ROM, Home management training Restrictions Restrictions/Precautions Restrictions/Precautions: Fall Risk, Isolation, ROM Restrictions, Weight Bearing Required Braces or Orthoses?: Yes Upper Extremity Weight Bearing Restrictions Right Upper Extremity Weight Bearing: Non Weight Bearing Other: prox humeral fx Required Braces or Orthoses Right Upper Extremity Brace/Splint: Sling Subjective General Patient assessed for rehabilitation services?: Yes Subjective Subjective: Patient without pain until splint adjusted. Patient in chair upon arrival, agreeable to OT evaluation. Social/Functional History Social/Functional History Lives With: Spouse Type of Home: Senior housing apartment Home Layout: One level Home Access: Elevator Bathroom Shower/Tub: Tub/Shower unit Bathroom Equipment: Grab bars in shower, Shower chair Home Equipment: None Has the patient had two or more falls in the past year or any fall with injury in the past year?: Yes Receives Help From: Family ADL Assistance: Independent Homemaking Assistance: Independent Homemaking Responsibilities: Yes Ambulation Assistance: Independent Transfer Assistance: Independent Active Property Portfolio Officer: Yes Mode of Transportation: Car Occupation: Retired Objective Safety Devices Type of Devices: Call light within reach;All fall risk precautions in place;Left in chair;Nurse notified AROM: Generally decreased, functional (DNT R UE) PROM: Generally decreased, functional (DNT R UE) Strength: Generally decreased, functional (DNT R UE) Coordination: Generally decreased, functional (DNT R UE) Tone: Normal Sensation: Intact ADL Feeding: Minimal assistance Grooming: Moderate assistance UE Bathing: Maximum assistance LE Bathing: Maximum assistance UE Dressing: Maximum assistance LE Dressing: Maximum assistance Putting On/Taking Off Footwear: Maximum assistance Toileting: Maximum assistance Functional Mobility: Contact guard assistance Functional Mobility Skilled Clinical Factors: william walker Additional Comments: CGA ADL transfers Activity Tolerance Activity Tolerance: Patient tolerated evaluation without incident Vision Vision: Impaired Vision Exceptions: Wears glasses at all times Hearing Hearing: Within functional limits Orientation Overall Orientation Status: Within Normal Limits Education Given To: Patient Education Provided: Role of Therapy;Plan of Care;Transfer Training Education Method: Verbal Barriers to Learning: None Education Outcome: Verbalized understanding;Demonstrated understanding AM-PAC - ADL AM-[facility] Daily Activity - Inpatient How much help is needed for putting on and taking off regular lower body clothing?: A Lot How much help is needed for bathing (which includes washing, rinsing, drying)?: A Lot How much help is needed for toileting (which includes using toilet, bedpan, or urinal)?: A Lot How much help is needed for putting on and taking off regular upper body clothing?: A Lot How much help is needed for taking care of personal grooming?: A Lot How much help for eating meals?: A Little AM-[facility] Inpatient Daily Activity Raw Score: 13 AM-[facility] Inpatient ADL T-Scale Score : 32.03 ADL Inpatient CMS 0-100% Score: 63.03 ADL Inpatient [facility] G-Code Modifier : CL Goals Short Term Goals Time Frame for Short Term Goals: 21 visits Short Term Goal 1: Patient to complete ADL routine c min A while maintaining ROM and WB restructions to ensure safe and indep return home. Short Term Goal 2: Patient to be educated on d/c folder, AE/DME and home safety to ensure safe return home. Short Term Goal 3: Patient to engage in RUE HEP with pendulums and elbow, forearm and wrist ROM as well as LUE HEP with strengthening daily. Therapy Time Individual Concurrent Group Co-treatment Time In 1425 Time Out 1440 Minutes 15 Nohelia Sharma OTR/L Physical Therapy Facility/Department: [facility] Physical Therapy Initial Assessment Name: Julius Clarke : 1940 Date of Service: 07/08/2024 Discharge Recommendations: Continue to assess pending progress, Home with assist PRN, Home with Home health PT Patient Diagnosis(es): The primary encounter diagnosis was Debility. Diagnoses of Hypokalemia, Low magnesium level, and Low calcium levels were also pertinent to this visit. Past Medical History: has a past medical history of Hyperlipidemia, Hypertension, Nondisplaced fracture of right humerus, Thrush, oral, Thyroid disease, and Vertigo. Past Surgical History: has a past surgical history that includes Cardiac catheterization; Coronary artery bypass graft; Hysterectomy; Appendectomy; and Carotid endarterectomy. Assessment Assessment: Pt is a 83 y.o. female who is currently admitted for a fall at home resulting in a fractured humeral head of R UE. Upon exam pt demos good B LE strength and fair balance. Pt is right handed and displays difficulty with ambulation as she uses the hemiwalker with the L UE. Pt able to ambulate 30' in room with william walker and CGA with no LOB and steady gait pattern. Pt would benefit from skilled therapy to address current defecits and for safe return home where she lives alone. Treatment Diagnosis: R humeral head fracture, decreased safety with ambulation Specific Instructions for Next Treatment: once per day on weekends and holidays Therapy Prognosis: Good Decision Making: Low Complexity Requires PT Follow-Up: Yes Activity Tolerance Activity Tolerance: Patient tolerated evaluation without incident Plan Physical Therapy Plan General Plan: 2 times a day 7 days a week Specific Instructions for Next Treatment: once per day on weekends and holidays Current Treatment Recommendations: Strengthening, ROM, Balance training, Functional mobility training, Transfer training, Endurance training, Gait training, Stair training, Neuromuscular re-education, Pain management, Home exercise program, Therapeutic activities Safety Devices Type of Devices: Call light within reach Restrictions Restrictions/Precautions Restrictions/Precautions: Fall Risk, Isolation, ROM Restrictions, Weight Bearing Required Braces or Orthoses?: Yes Upper Extremity Weight Bearing Restrictions Right Upper Extremity Weight Bearing: Non Weight Bearing Other: prox humeral fx Required Braces or Orthoses Right Upper Extremity Brace/Splint: Sling Subjective General Chart Reviewed: Yes Patient assessed for rehabilitation services?: Yes Social/Functional History Social/Functional History Lives With: Spouse Type of Home: Senior housing apartment Home Layout: One level Home Access: Elevator Bathroom Shower/Tub: Tub/Shower unit Bathroom Equipment: Grab bars in shower, Shower chair Home Equipment: None Has the patient had two or more falls in the past year or any fall with injury in the past year?: Yes Receives Help From: Family ADL Assistance: Independent Homemaking Assistance: Independent Homemaking Responsibilities: Yes Ambulation Assistance: Independent Transfer Assistance: Independent Active Property Portfolio Officer: Yes Mode of Transportation: Car Occupation: Retired Vision/Hearing Vision Vision: Impaired Vision Exceptions: Wears glasses at all times Hearing Hearing: Within functional limits Cognition Orientation Overall Orientation Status: Within Normal Limits Objective Temp: 97.7 F (36.5 C) Pulse: 71 Heart Rate Source: Monitor;Apical Respirations: 18 SpO2: 94 % O2 Device: None (Room air) BP: (!) 152/66 MAP (Calculated): 95 BP Location: Left upper arm BP Method: Automatic Patient Position: Semi fowlers AROM RLE (degrees) RLE AROM: WNL AROM LLE (degrees) LLE AROM : WNL Strength RLE Strength RLE: WNL Strength LLE Strength LLE: WNL Transfers Sit to Stand: Minimal Assistance;Contact guard assistance Stand to Sit: Contact guard assistance Ambulation WB Status: fwb B in LE, R arm NWB Ambulation Surface: Level tile Device: Hemiwalker Assistance: Contact guard assistance Quality of Gait: Pt able to ambulate 30' in room with william walker and CGA with no LOB and steady gait pattern. Balance Posture: Good Sitting - Static: Good Sitting - Dynamic: Good Standing - Static: Good Standing - Dynamic: Good;- AM-PAC - Mobility AM-PAC Mobility without Stair Climbing Inpatient How much difficulty turning over in bed?: A Little How much difficulty sitting down on / standing up from a chair with arms?: A Little How much difficulty moving from lying on back to sitting on side of bed?: A Little How much help from another person moving to and from a bed to a chair?: A Little How much help from another person needed to walk in hospital room?: A Little AM-PAC Inpatient Mobility without Stair Climbing Raw Score : 15 AM-PAC Inpatient without Stair Climbing T-Scale Score : 43.03 Mobility Inpatient CMS 0-100% Score: 47.43 Mobility Inpatient without Stair CMS G-Code Modifier : CK Goals Short Term Goals Time Frame for Short Term Goals: 20 days Short Term Goal 1: Pt to tolerate 20 minutes of ther ex to facilitate return to PLOF. Short Term Goal 2: Pt to ambulate 150ft with william walker and SBA to increase ambulatory capacity for d/c Short Term Goal 3: Pt to complete transfers with hemiwakler and SBA to demonstrate increased independacne for safety with d/c. Patient Goals Patient Goals : Pt goal to return home Education Patient Education Education Given To: Patient Education Provided Comments: Pt edu: PT POC Therapy Time Individual Concurrent Group Co-treatment Time In 1415 Time Out 1432 Minutes 17 Timed Code Treatment Minutes: 17 Minutes JOSE DENNY, PT,DPT Patient transferred from ER to Room 321 at this time via cart. Patient ambulated to bed with assistance from staff. Curtain Hemmer Automatic at bedside at this time to perform admission assessment. Vital signs taken and assessment completed at this time. Patient is alert and oriented and has complaint of right shoulder/arm pain 7/10; pt repositioned for comfort and ice applied. Admission navigator completed with assistance from patient. Patient denies any further needs at this time. Call light within reach, bed alarm on for safety, care ongoing. documented in this encounter [facility] 07-14-2024 Hospital course Narrative Patient informed of her discharge today to [facility], IV discontinued left wrist and PICC discontinued left upper arm per order Guerita Kaplan. Telemetry removed, belongings gathered and placed in bag. SCAT arranged to pick patient up at 2pm, report called to [facility] per Mayuri SHAW. All questions answered. Sling remains in place left upper arm. documented in this encounter [facility] 07-14-2024 Hospital Discharge instructions Modesta Rivera LSW - 07/14/2024 9:53 AM EST Continuity of Care Form Patient Name: Julius Clarke : 1940 Admit date: 07/08/2024 Discharge date: 07-14-2024 Code Status Order: Full Code Advance Directives: Advance Care Flowsheet Documentation Admitting Physician: Dayo Vitale MD PCP: Ignacio Cintron DO Discharging Nurse: Mayuri SHAW Discharging Hospital Unit/Room#: 0319/0319-01 Discharging Unit Phone Number: [phone] Emergency Contact: Extended Emergency Contact Information Primary Emergency Contact: Gloria Gutierrez Relation: Child Preferred language: Colombian Secondary Emergency Contact: Ignacio Staley Relation: Child Past Surgical History: Past Surgical History: Procedure Laterality Date APPENDECTOMY CARDIAC CATHETERIZATION CAROTID ENDARTERECTOMY right CORONARY ARTERY BYPASS GRAFT quad 1995 HYSTERECTOMY (CERVIX STATUS UNKNOWN) Immunization History: Immunization History Administered Date(s) Administered COVID-19, PFIZER Bivalent, DO NOT Dilute, (age 12y+), IM, 30 mcg/0.3 mL 06/19/2022 COVID-19, PFIZER WOOD top, DO NOT Dilute, (age 12 y+), IM, 30 mcg/0.3 mL 11/29/2021 COVID-19, PFIZER PURPLE top, DILUTE for use, (age 12 y+), 30mcg/0.3mL 09/13/2020, 10/01/2020, 05/31/2021 Active Problems: Patient Active Problem List Diagnosis Code Chest pain R07.9 Hypertension I10 Dyslipidemia E78.5 ASHD (arteriosclerotic heart disease) I25.10 S/P CABG (coronary artery bypass graft) Z95.1 Electrolyte imbalance E87.8 Nondisplaced fracture of right humerus S42.301A Acute hyponatremia E87.1 Isolation/Infection: Isolation No Isolation Patient Infection Status None to display Nurse Assessment: Last Vital Signs: BP 134/63 Pulse 79 Temp 98.4 F (36.9 C) (Oral) Resp 20 Ht 1.549 m (5' 1 ) Wt 63.5 kg (140 lb) SpO2 94% BMI 26.45 kg/m Last documented pain score (0-10 scale): Pain Level: 0 Last Weight: Wt Readings from Last 1 Encounters: 07/14/24 63.5 kg (140 lb) Mental Status: oriented, alert, thought processes intact, and able to concentrate and follow conversation IV Access: - None Nursing Mobility/ADLs: Walking Assisted Transfer Assisted Bathing Assisted Dressing Assisted Toileting Assisted Feeding Assisted Biological Science Aide Assisted Med Delivery whole Wound Care Documentation and Therapy: Elimination: Continence: Bowel: Yes Bladder: Yes Urinary Catheter: None Colostomy/Ileostomy/Ileal Conduit: No Date of Last BM: 07-14-2024 Intake/Output Summary (Last 24 hours) at 07/14/2024 0953 Last data filed at 07/13/2024 1725 Gross per 24 hour Intake 1170 ml Output -- Net 1170 ml I/O last 3 completed shifts: In: 1350 [P.O.:1350] Out: - Safety Concerns: History of Falls (last 30 days) and At Risk for Falls Impairments/Disabilities: None Nutrition Therapy: Current Nutrition Therapy: - Oral Diet: General - Oral Nutrition Supplement: Standard three times a day Routes of Feeding: Oral Liquids: Thin Liquids Daily Fluid Restriction: yes - amount 2000 ml Last Modified Barium Swallow with Video (Video Swallowing Test): not done Treatments at the Time of Hospital Discharge: Respiratory Treatments: na Oxygen Therapy: is not on home oxygen therapy. Ventilator: - No ventilator support Rehab Therapies: Physical Therapy and Occupational Therapy Weight Bearing Status/Restrictions: No weight bearing restrictions Other Medical Equipment (for information only, NOT a DME order): cane Other Treatments: na Patient's personal belongings (please select all that are sent with patient): Charlene RN SIGNATURE: CASE MANAGEMENT/SOCIAL WORK SECTION Inpatient Status Date: 07/08/2024 Readmission Risk Assessment Score: Readmission Risk Risk of Unplanned Readmission: 18 Discharging to Facility/ Agency Name: [facility] Address: [address] [place] [address]/[place] [address] Dialysis Facility (if applicable) Name: Address: Dialysis Schedule: Phone: Fax: Maintenance Analyst/Marketing Automation Manager signature: PHYSICIAN SECTION Prognosis: Fair Condition at Discharge: Stable Rehab Potential (if transferring to Rehab): Fair Recommended Labs or Other Treatments After Discharge: na Physician Certification: I certify the above information and transfer of Julius Clarke is necessary for the continuing treatment of the diagnosis listed and that she requires [facility] Facility for greater 30 days. Update Admission H&P: No change in H&P PHYSICIAN SIGNATURE: documented in this encounter [facility] 07-06-2024 Hospital Discharge instructions Natalie Nguyen MD - 07/06/2024 8:09 PM EST Tylenol as needed for pain. Use [place] in place of Tylenol for pain not controlled with Tylenol. Remain in sling. Ice for 5 to 10-minute intervals as desired for comfort. Follow-up with orthopedics call the morning to schedule the earliest available appointment. Please return immediately should you develop any worsening pain any numbness or tingling i in your hand wrist or forearm or any other acute concerns. The following attachments cannot be sent through Care Everywhere.Arm Fracture (Colombian)documented in this encounter [facility] 12-21-2023 Hospital Discharge instructions Juan Francisco Hermosillo DO - 12/21/2023 12:35 PM EDT You were seen in the emergency department due to sore throat and painful swallowing. He had a negative COVID, flu, strep test. This likely due to the abrasion to the back of your throat. You stated that he felt better with the Cepacol lozenge. You were offered CT scan in the emergency department. However you stated that you prefer to be discharged home to follow-up with your primary care physician. Please return to the emergency department for any worsening symptoms, questions or concerns. You are given a prescription for Cepacol lozenges. Please take this medication as prescribed. The following attachments cannot be sent through Care Everywhere.Abrasions (Colombian)documented in this encounter [facility] 11-28-2022 History of Present illness Narrative Curtain Hemmer Automatic reviewed discharge instructions with patient. Patient aware of follow up appointment with Dr. Cintron. Patient aware of need to make a follow up appointment with Dr. Castillo Burleson. Phone number provided for her to call tomorrow. Patient denies questions. Copy of discharge instructions given to patient. Met with Patient this p.m. to discuss discharge planning. Patient is an 82 year old , white female, admitted with a diagnosis of Chest Pain. She is alert and oriented, pleasant and cooperative with this assessment. States that her plan will be to return to [facility] in [place] following this hospitalization. Patient resides at [facility] in [place]. She has lived there about 3 years. Patient has DME but does not use per her own report. She has no outside resources or services in place. Patient has a car and drives herself but also lets her friend drive her car and take her places as well. Patient does all of her own cooking and cleaning. She is independent with her ADL's. 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 PCP is Dr. Cintron in [place]. Patient has medical insurance and reports no difficulty with regards to affording her prescription medications at this point. Discharge plan is home when stable. She remains a 'Full Code' status and does have Advanced Directives in place just not on file at the hospital. Encouraged her to provide a copy for her medical record as she is able. No further unmet needs or concerns noted by Patient. PRESS FEEDER to monitor and assist with any/all discharge planning issues as they present. LARA Watts 11/28/2022 Patient off the floor for testing. Will attempt discharge planning assessment when she returns. LARA Watts 11/28/2022 Instructed on objectives and procedure of lexiscan/cardiolite stress test. Pt taken by wheelchair to cardiopulmonary for stress test. Telemetry reapplied after pt finished washing up. Pt states that she feels very calm after receiving oral Ativan. Cardiology consult called to office at this time. Nutrition Assessment Type and Reason for Visit: Initial, Patient Education Nutrition Recommendations/Plan: Heart healthy eating (reinforced). Malnutrition Assessment: Malnutrition Status: No malnutrition Nutrition Assessment: No nutrition diagnosis at this time. No usual ingestion issues or appetite concerns. NPO for stress testing with 4 vessel CABG in 1995. States generally eats healthy, but did provide and reinforce heart healthy eating with handout provided. Hopes to d/c home after testing. Nutrition Related Findings: heavier appearing than weight suggests. no edema. Wound Type: None Current Nutrition Therapies: ADULT DIET; Regular; 4 carb choices (60 gm/meal); Low Fat/Low Chol/High Fiber/EDISON; No Caffeine Anthropometric Measures: Height: 5' 1 (154.9 cm) Current Body Wt: 143 lb 4.8 oz (65 kg) BMI: 27.1 Nutrition Diagnosis: No nutrition diagnosis at this time Lab Results Component Value Date NA 134 (L) 11/28/2022 K 4.8 11/28/2022 CL 100 11/28/2022 CO2 25 11/28/2022 BUN 28 (H) 11/28/2022 CREATININE 0.80 11/28/2022 GLUCOSE 107 (H) 11/28/2022 CALCIUM 9.9 11/28/2022 PROT 7.4 08/12/2022 LABALBU 4.3 08/12/2022 BILITOT 0.2 (L) 08/12/2022 ALKPHOS 79 08/12/2022 AST 20 08/12/2022 ALT 16 08/12/2022 LABGLOM >60 11/28/2022 GFRAA >60 12/16/2015 No results found for: LABA1C No results found for: VITD25 Nutrition Interventions: Food and/or Nutrient Delivery: Continue Current Diet Nutrition Education/Counseling: Education initiated Coordination of Nutrition Care: Continue to monitor while inpatient Plan of Care discussed with: patient Goals: Goals: Meet at least 75% of estimated needs Nutrition Monitoring and Evaluation: Behavioral-Environmental Outcomes: None Identified Food/Nutrient Intake Outcomes: Food and Nutrient Intake Physical Signs/Symptoms Outcomes: Biochemical Data, Weight Discharge Planning: No discharge needs at this time Scott Denny RD, NOEMÍ Contact: [phone] Curtain Hemmer Automatic to bedside to complete morning assessment. Upon entry to room, pt sitting up in bed, respirations even and unlabored while on room air. Vitals obtained and assessment completed by Lyn JANG precepting with this nurse, see flow sheet for details. Pt denies needs from advertising writer at this time. Call light in reach. Care ongoing. Vital signs and assessment completed and charted. Navigator complete. Patient educated production control scheduler light, bed, lights, and room. Curtain Hemmer Automatic gone over plan of care with patient. Patient aware of stress test in a.m. Patient NPO at this time. Patient is alert and orientated. Patient is stable on feet and capable of moving about in the room independently. Patient encouraged to call out if patient is feeling lightheadness, unsteady or is in need of any assistance. Patient denies any other needs at this time. Call light, bedside table and personal belongings within reach. Pharmacy Note Renal Dose Adjustment Julius Clarke is a 82 y.o. female. Pharmacist assessment of renally cleared medications. Recent Labs 11/27/22 2140 BUN 31* Recent Labs 11/27/22 2140 CREATININE 1.10* Estimated Creatinine Clearance: 33 mL/min (A) (based on SCr of 1.1 mg/dL (H)). Estimated CrCl using [place] Body Weight: 29 mL/min (based on IBW 47.76 kg) Height: Ht Readings from Last 1 Encounters: 11/27/22 5' 1 (1.549 m) Weight: Wt Readings from Last 1 Encounters: 11/27/22 140 lb (63.5 kg) The following medication dose has been adjusted based upon renal function per P&T Guidelines: Famotidine 20mg twice daily changed to 20mg once daily Patient arrived to [facility], room 301 via wheelchair, patient independently stood and ambulated to sit on bed. Patient in personal clothes. Patient is alert and orientated and on room air. Curtain Hemmer Automatic assisted patient to put on gown and telemetry applied. Weight was obtained. documented in this encounter [facility] [email or web address] Work Phone: 11-28-2022 Hospital Discharge instructions Shwetha Alvarado RN - 11/28/2022 4:37 PM EDT As tolerated Shwetha Alvarado RN - 11/28/2022 4:37 PM EDT Good nutrition is important when healing from an illness, injury, or surgery. Follow any nutrition recommendations given to you during your hospital stay. If you were given an oral nutrition supplement while in the hospital, continue to take this supplement at home. You can take it with meals, in-between meals, and/or before bedtime. These supplements can be purchased at most local grocery stores, pharmacies, and [employer]-stores. If you have any questions about your diet or nutrition, call the hospital and ask for the dietitian. Cardiac: low salt, low fat, low cholesterol documented in this encounter [facility] [employer] Phone: 08-12-2022 Hospital Discharge instructions Natalie Nguyen MD - 08/12/2022 10:34 PM EST Continue current medications as prescribed. Use Antivert as needed for symptoms of vertigo. Zofran if needed for nausea or vomiting. Make sure to stand up slowly and have a cane or walker available at all times to avoid falling symptoms persist. Use Nasacort 2 sprays each nostril at bedtime for at least 2 weeks continue if this does seem to help. Follow-up with your primary care provider within 1 week. Please return immediately for any worsening symptoms or any acute concerns. The following attachments cannot be sent through Care Everywhere.Hyponatremia (Colombian)Vertigo (Colombian)Hawa Maneuver: Vertigo: Exercises (Colombian)documented in this encounter [facility] [employer] Phone: 07-08-2021 Hospital Discharge instructions Arnulfo Otero Jr., MD - 07/08/2021 Use the medication as directed. Follow-up with ENT doctor Dr. Donnelly in [place] this coming week. Stop using the Listerine that you are using. The following attachments cannot be sent through Care Everywhere.Stomatitis (Colombian)documented in this encounter [employer] Phone: Evaluation note Diagnosis Aphthous ulcer- Primary Oral aphthae documented in this encounter [employer] Phone: evaluation note* Diagnosis Vertigo- Primary Dizziness and giddiness Hyponatremia Hyposmolality and/or hyponatremia documented in this encounter [facility] [employer] Phone: evaluation note* Diagnosis Chest pain- Primary Chest pain, unspecified Hypertension Unspecified essential hypertension documented in this encounter [facility] [employer] Phone: evaluation note* Diagnosis Sore throat- Primary Acute pharyngitis documented in this encounter [facility] note* Diagnosis Abrasion of oropharynx, initial encounter- Primary documented in this encounter [facility] note* Diagnosis Closed fracture of head of right humerus, initial encounter- Primary documented in this encounter [facility] note* Diagnosis Acute hyponatremia- Primary Hyposmolality and/or hyponatremia Debility Debility, unspecified Hypokalemia Hypopotassemia Low magnesium level Low calcium levels Hypocalcemia Acute hyponatremia Hyposmolality and/or hyponatremia Electrolyte imbalance Electrolyte and fluid disorders not elsewhere classified Hypertension Unspecified essential hypertension Nondisplaced fracture of right humerus documented in this encounter [facility] note* Diagnosis Melena- Primary Blood in stool Community acquired pneumonia of left lower lobe of lung documented in this encounter [facility] Discharge instructions* Attachments The following attachments cannot be sent through Care Everywhere. * S[facility] (Colombian) [facility] Attachments The following attachments cannot be sent through Care Everywhere. * Pneumonia (Colombian) * Upper GI Bleed (Colombian) [facility] * Rahul Solorzano MD - 09/09/2018 Avoid Bread, Processed meats and Pizza.Low salt diet see attached. Plenty of fluid. The following attachments cannot be sent through Care Everywhere. * Diet, Discharge Instructions for Eating a Low-Salt (Colombian) * My Anxiety Plan ([facility]) (Colombian) in this encounter* Instructions* Nohelia Nassar MD - 10/12/2018 Keep wound clean and dry for 3 days Apply antibiotic ointment to wound every 8 hours for 7-10 days. Over the counter Suture out in 8-10 days Take augmentin 875mg twice a day for 7 days. Return if worse * Attachments The following attachments cannot be sent through Care Everywhere. * Bite, Animal (General) (Colombian) * Laceration: All Closures (Colombian) documented in this encounter* Instructions* Bal Daniel PA-C - 02/09/2019 SAME DAY SURGERY DISCHARGE INSTRUCTIONS Dr. Sameer Morales MD DIET INSTRUCTIONS: Diet as tolerated. Start with a light diet and progress to your normal diet as you feel like eating. ACTIVITY INSTRUCTIONS: Rest today. Increase activity as tolerated. WOUND/DRESSING INSTRUCTIONS: Always ensure you wash your hands before and after caring for the wound/dressing. Keep dressing clean and dry. Keep splint on for 1 week and replace with dry dressing. Can wash around surgical incision but don't get surgical incision/stitches/chris wet. Do not submerge surgical incision in water. Do not place antibiotic ointment, lotion, creams on surgical incision. Smoking impairs adequate wound healing. If smoking , consider quitting. WEIGHTBEARING STATUS: Weight bearing as tolerated to the left hand MEDICATION INSTRUCTIONS: Take pain medication as prescribed. Percocet 5-325mg, 1 tablet every 6 hours as needed for pain. Take Antibiotic as prescribed. Keflex 500mg, 1 capsule twice a day until gone. See orders regarding resuming your home medications and any new medications. FOLLOW-UP CARE: If a follow-up appointment was not made for you at discharge, call [phone] to schedule an appointment for 2 weeks status post your surgery Call Dr Morales's office with any concerns. If a medical emergerncy, please call 911 or go to your local emergency room. documented in this encounter* Instructions* Joanne Burks MD - 06/24/2019 CALL YOU TOMORROW * Attachments The following attachments cannot be sent through Care Everywhere. * Blood Pressure: Checking Your ([facility]) (Colombian) documented in this encounter* Attachments The following attachments cannot be sent through Care Everywhere. * Rib Contusion (Colombian) documented in this encounter* Instructions* Bal Daniel PA - 10/05/2019 SAME DAY SURGERY DISCHARGE INSTRUCTIONS Dr. Sameer Morales MD DIET INSTRUCTIONS: Diet as tolerated. Start with a light diet and progress to your normal diet as you feel like eating. ACTIVITY INSTRUCTIONS: Rest today. Increase activity as tolerated. WOUND/DRESSING INSTRUCTIONS: Always ensure you wash your hands before and after caring for the wound/dressing. Keep dressing clean and dry. Keep splint on for 1 week and replace with dry dressing. Can wash around surgical incision but don't get surgical incision/stitches/chris wet. Do not submerge surgical incision in water. Do not place antibiotic ointment, lotion, creams on surgical incision. Smoking impairs adequate wound healing. If smoking , consider quitting. WEIGHTBEARING STATUS: Weight bearing as tolerated to the right hand MEDICATION INSTRUCTIONS: Take pain medication as prescribed. [place] 5-325mg, 1 tablet every 6 hours as needed for pain. Take Antibiotic as prescribed. Keflex 500mg, 1 capsule twice daily for 7 days. See orders regarding resuming your home medications and any new medications. FOLLOW-UP CARE: If a follow-up appointment was not made for you at discharge, call [phone] to schedule an appointment for 2 weeks status post your surgery Call Dr Morales's office with any concerns. If a medical emergerncy, please call 911 or go to your local emergency room. * Attachments The following attachments cannot be sent through Care Everywhere. * Carpal Tunnel Release: Post-op (Colombian) * Carpal Tunnel Syndrome (Colombian) documented in this encounter Assessments Diagnosis Uncontrolled hypertension- Primary Unspecified essential hypertension Anxiety Anxiety state, unspecified Diagnosis Laceration of left middle finger without foreign body without damage to nail, initial encounter- Primary Dog bite, initial encounter Diagnosis Pre-op testing- Primary Preoperative examination, unspecified Diagnosis Left carpal tunnel syndrome- Primary Carpal tunnel syndrome Pre-op testing Preoperative examination, unspecified Diagnosis Hypertension, unspecified type- Primary Diagnosis Contusion of rib on right side, initial encounter Diagnosis Carpal tunnel syndrome on right Carpal tunnel syndrome Reason for Referral Status Reason Specialty Diagnoses / Procedures Referred By Contact Referred To Contact New Request Diagnoses Left carpal tunnel syndrome Procedures NO MECHANICAL DVT PROPHYLAXIS Bal Daniel PA-C [employer] [place] [address] Status Reason Specialty Diagnoses / Procedures Re ferred By Contact Referred To Contact New Request Diagnoses Left carpal tunnel syndrome Procedures LOW RISK - NO PHARMACOLOGICAL DVT PROPHYLAXIS Bal Daniel PA-C [employer], [place] [address] Status Reason Specialty Diagnoses / Procedures Referred By Contact Referred To Contact New Request Diagnoses Left carpal tunnel syndrome Procedures DVT/VTE RISK ASSESSMENT Bal Daniel PA-C [address], [place] [address] Status Reason Specialty Diagnoses / Procedures Referred By Contact Referred To Contact New Request Procedures ECG Joanne Burks MD [address] [place] [address] Status Reason Specialty Diagnoses / Procedures Referred By Contact Referred To Contact New Request Diagnoses Carpal tunnel syndrome on right Procedures NO MECHANICAL DVT PROPHYLAXIS Bal Daniel PA [address], [place] [address] Status Reason Specialty Diagnoses / Procedures Re ferred By Contact Referred To Contact New Request Diagnoses Carpal tunnel syndrome on right Procedures LOW RISK - NO PHARMACOLOGICAL DVT PROPHYLAXIS Bal Daniel PA [address], [facility] [place] [address] Status Reason Specialty Diagnoses / Procedures Referred By Contact Referred To Contact New Request Diagnoses Carpal tunnel syndrome on right Procedures DVT/VTE RISK ASSESSMENT Bal Daniel PA [address], [facility] [place] [address] Advance Directives No Advanced Directives Records Found Date Activated Date Inactivated Comments 07/08/2024 11:10 AM 07/14/2024 4:58 PM Date Activated Date Inactivated Comments 11/28/2022 12:06 AM 11/28/2022 6:56 PM Healthcare Agents on File Name Relationship Healthcare Agent [facility] p Communication Ignacio Staley Child Primary Decision Maker Samantha Mccullough Child Primary Decision Maker Latest Code Status on File Code Status Date Activated Date Inactivated Comments Full Code 02/09/2019 12:32 PM Latest Code Status on File Code Status Date Activated Date Inactivated Comments Full Code 10/05/2019 11:48 AM Full Code 02/09/2019 12:32 PM 10/05/2019 11:48 AM Latest Code Status on File Code Status Date Activated Date Inactivated Comments Full Code 10/05/2019 11:48 AM Full Code 02/09/2019 12:32 PM 10/05/2019 11:48 AM Latest Code Status on File Code Status Date Activated Date Inactivated Comments Full Code 02/09/2019 12:32 PM Documents on File Type Date Recorded 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 Architect Expl anation ACP-Advance Directive ACP-Power of Paper Spooler Latest Code Status on File Code Status Date Activated Date Inactivated Comments Full Code 11/28/2022 12:06 AM Healthcare Agents on File Name Relationship Healthcare Agent Relationshi p Communication Ignacio Staley Child Primary Decision Maker Samantha Mccullough Child Primary Decision Maker Latest Code Status on File Code Status Date Activated Date Inactivated Comments Full Code 11/28/2022 12:06 AM 11/28/2022 6:56 PM Healthcare Agents on File Name Relationship Healthcare Agent Relationshi p Communication Ignacio Staley Child Primary Decision Maker Samantha Mccullough Child Primary Decision Maker Healthcare Agents on File Name Relationship Healthcare Agent Relationshi p Communication Ignacio Staley Child Primary Decision Maker Samantha Mccullough Child Primary Decision Maker Date Activated Date Inactivated Comments 11/28/2022 12:06 AM 11/28/2022 6:56 PM Healthcare Agents on File Name Relationship Healthcare Agent Relationshi p Communication Ignacio Staley Child Primary Decision Maker Samantha Mccullough Child Primary Decision Maker Date Activated Date Inactivated Comments 07/08/2024 11:10 AM Healthcare Agents on File Name Relationship Healthcare Agent Relationshi p Communication Ignacio Staley Child Primary Decision Maker Samantha Mccullough Child Primary Decision Maker Summary Purpose Family History No Family History Records FoundNo Family History Records FoundNo Family History Records Found Additional Source Comments Reason for Visit (unrecogniz ed section and content) Reason Comments Hypertension pt c/o my losartin w as taken off the market so they changed me to valsartin 80mg (about 3wks) today everything got got , like disappearing so sat in chair did not pass out took all meds aruond 10am w/o eating. no MAXWELL no visual changes . Just don't feel good.son in law took my BP every 1/2 hour & kept going up, was able to eat a bowl of cereal Reason Comments Animal Bite patient bit by her d jesika puppy Reason Comments Hypertension Pt checked her BP to night and got abnormally high readings- was 199/102@ home just prior to coming into ED. Pt has had this happen before. Pt alters her BP meds at times for BP changes. Pt states she was scared because she has had open heart surgery and carotid endart in the past. Appears calm. Denies pain. Reason Comments Rib Injury Pt had a fall today at 3pm. Pt was outside pulling weeds, fell forward and struck her right rib area on a 6 drain pipe. Pt had no LOC. Able to get up on her own. Pt took Tylenol without much relief. Pt has more pain with position changes. Denies SOB. Status Reason Specialty Diagnoses / Procedures Referre d By Contact Referred To Contact Diagnoses Right carpal tunnel syndrome Primary localized osteoarthrosis, forearm, right Right carpal tunnel syndrome [G56.01] Primary localized osteoarthrosis, forearm, right [M19.031] Procedures SC REVISE MEDIAN N/CARPAL TUNNEL SURG DECOMPRESSION TRANSPOSITION MEDIAN NERVE Reason Comments Thrush been going on for 1 month Reason Comments Dizziness Dizziness started af ter changing positions quickly, has hx of vertigo Reason Comments Rib Pain (injury) Left side sharp pain in ribs that takes breath away, under breast Reason Comments Sore Throat States yesterday justino und 1500 she was eating ice cream and felt like a peanut was stuck in her throat then around 1999 throat pain started and continues today. Emesis x2 today. Reason Comments Pharyngitis Pain to back of thro at started Saturday12/20/23 was seen in this ER yesterday 12/20/23 scratched throat on nut 12/19/23 Reason Comments Fall Mechanical fall from standing, pt thinks she hit counter when she fell, denies head injury. C/O right arm pain. Reason Comments Fatigue Pt had mechanical fa ll on Saturday with right radial head fracture noted. Pt in sling with follow up with Dr. Elvin yesterday. Pt states increased weakness and emesis since fall. Pt states decreased PO intake, right shoulder pain and posterior neck pain since fall. Reason Comments Melena Reports starting to have black stool yesterday. Complains of lower back and abd pain. INFORMATION SOURCE (unrecogn ized section and content) DATE CREATED AUTHOR 01/01/2020 [facility] DATE CREATED AUTHOR AUTHOR'S ORGANIZ ATION 08/15/2022 [facility] DATE CREATED AUTHOR AUTHOR'S ORGANIZ ATION 08/11/2024 [facility] Ordered Prescriptions (unrec ognized section and content) Prescription Sig Dispensed Refills Start Date End Da te acyclovir (ZOVIRAX) 800 MG tablet Take 1 tablet by mouth 5 times daily for 10 days 50 tablet 0 07/08/2021 07/18/2021 Magic Mouthwash (MIRACLE MOUTHWASH) Swish and spit 5 mLs 4 times daily as needed for Irritation 240 mL 0 07/08/2021 Prescription Sig Dispensed Refills Start Date End Da te triamcinolone (NASACORT ALLERGY 24HR) 55 MCG/ACT nasal inhaler 2 sprays each nostril daily at bedtime 1 each 3 08/12/2022 ondansetron (ZOFRAN-ODT) 4 MG disintegrating tablet Take 1 tablet by mouth 3 times daily as needed for Nausea or Vomiting 10 tablet 0 08/12/2022 meclizine (ANTIVERT) 12.5 MG tablet Take 1 tablet by mouth 3 times daily as needed for Dizziness 30 tablet 0 08/12/2022 08/22/2022 Prescription Sig Dispensed Refills Start Date End Da te benzocaine-menthol (CEPACOL) 15-4 MG LOZG lozenge Take 1 lozenge by mouth 3 times daily as needed for Sore Throat (Sore throat) 15 lozenge 0 12/21/2023 12/26/2023 Prescription Sig Dispensed Refills Start Date End Da te HYDROcodone-acetaminophe n (NORCO) 5-325 MG per tabletIndications:Closed fracture of head of right humerus, initial encounter Take 1 tablet by mouth every 6 hours as needed for Pain for up to 3 days. Intended supply: 3 days. Take lowest dose possible to manage pain Max Daily Amount: 4 tablets 12 tablet 07/06/2024 07/09/2024 Prescription Sig Dispensed Refills Start Date End Da te sodium chloride 1 g tablet Take 2 tablets by mouth 2 times daily (with meals) 07/14/2024 polyethylene glycol (GLYCOLAX) 17 g packet Take 1 packet by mouth daily as needed for Constipation 07/14/2024 08/13/2024 diclofenac sodium (VOLTAREN) 1 % GEL Apply 2 g topically 2 times daily 07/14/2024 amLODIPine (NORVASC) 5 MG tablet Take 1 tablet by mouth daily 07/14/2024 acetaminophen (TYLENOL) 325 MG tablet Take 2 tablets by mouth every 6 hours as needed for Pain or Fever 07/14/2024 traMADol (ULTRAM) 50 MG tabletIndications:Acut e hyponatremia Take 1 tablet by mouth every 6 hours as needed for Pain for up to 3 days. Max Daily Amount: 200 mg 12 tablet 07/14/2024 07/17/2024 predniSONE (DELTASONE) 10 MG tablet Take 3 tablets by mouth 2 times daily for 3 days, THEN 2 tablets 2 times daily for 3 days, THEN 1 tablet 2 times daily for 3 days, THEN 1 tablet daily for 5 days. 07/14/2024 07/28/2024 Prescription Sig Dispensed Refills Start Date End Da te doxycycline hyclate (VIBRA-TABS) 100 MG tablet Take 1 tablet by mouth 2 times daily for 10 days 20 tablet 08/08/2024 08/18/2024 Care Teams (unrecognized sec tion and content) Cheese Supervisor Relationship Specialty Start Date End Date Ignacio Cintron DO [address] [place] [address] [phone] PCP - General 09/21/15 Cheese Supervisor Relationship Specialty Start Date End Date Ignacio Cintron DO [address] [place] [address] [phone] PCP - General 09/21/15 Cheese Supervisor Relationship Specialty Start Date End Date Ignacio Cintron DO [address] [place] [address] [phone] PCP - General 09/21/15 Cheese Supervisor Relationship Specialty Start Date End Date Ignacio Cintron DO [address] [place] [address] [phone] PCP - General 09/21/15 Cheese Supervisor Relationship Specialty Start Date End Date Ignacio CintronDO [address] [place] [address] [phone] PCP - General 09/21/15 Cheese Supervisor Relationship Specialty Start Date End Date SuziIgnacio sung DO Madelyn [address] [place] [address] [phone] PCP - General 09/21/15 Cheese Supervisor Relationship Specialty Start Date End Date Ignacio Cintron DO [address] [place] [address] [phone] PCP - General 09/21/15 Cheese Supervisor Relationship Specialty Start Date End Date Suziana lilia Ignacio DO Madelyn [address] [place] [address] [phone] PCP - General 09/21/15 Scheduled Active and Recently Administ ered Medications (unrecognized section and content) Medication Order 08/10/2022 08/11/2022 08/12/2022 meclizine (ANTIVERT) tablet 25 mg (COMPLETED) 25 mg, Oral, ONCE, 1 dose, On 08/12/22 at 1999 2003 (Given - Provid er: Jessi Bravo RN) ondansetron (ZOFRAN) injection 4 mg (COMPLETED) 4 mg, IntraVENous, ONCE, 1 dose, On 08/12/22 at 1999 2003 (Given - Provid er: Jessi Bravo RN) Scheduled Medication Order 11/26/2022 11/27/2022 11/28/2022 aspirin chewable tablet 324 mg (COMPLETED) 324 mg, Oral, ONCE, 1 dose, On Sat11/27/22 at 5510 1331 (Given - Provider: Jessi Isaac RN) aspirin EC tablet 81 mg 81 mg, Oral, DAILY, First dose on Sat11/28/22 at 0900, Until Discontinued 908 (Given - Provid er: Lyn Bower) DULoxetine (CYMBALTA) extended release capsule 40 mg 40 mg, Oral, NIGHTLY, First dose (after last modification) on Sat11/28/22 at 0115, Until Discontinued, Do not crush or break. May add contents of capsule to apple juice or apple sauce, but not chocolate. 0051 (Given - Provid er: Nichol Das RN)2100 (Due) enoxaparin (LOVENOX) injection 40 mg 40 mg, SubCUTAneous, DAILY, First dose on Sat11/28/22 at 0900, Until Discontinued, Indication of Use: Prophylaxis-DVT/PE 909 (Not Given - Provider: Lyn Bower - Reason: Patient/family refused) ezetimibe (ZETIA) tablet 5 mg 5 mg, Oral, EVERY MORNING, First dose on Sat11/28/22 at 0900, Until Discontinued 908 (Given - Provid er: Lyn Bower) famotidine (PEPCID) tablet 20 mg 20 mg, Oral, DAILY, First dose on Sat11/28/22 at 0900, Until Discontinued 908 (Given - Provid er: Lyn Bower) Icosapent Ethyl (VASCEPA) capsule CAPS 1 capsule (Patient Supplied) 1 capsule, Oral, DAILY, First dose on Sat11/28/22 at 0900 0911 (Not Given - Provider: Lyn Bower - Reason: Medication not available) levothyroxine (SYNTHROID) tablet 125 mcg 125 mcg, Oral, EVERY MORNING, First dose on Sat11/28/22 at 0900, Until Discontinued, Tube feeding (TF) interaction, obtain physician order to manage, recommend holding TF for 30 minutes before and after dose. 908 (Given - Provid er: Lyn Bower) LORazepam (ATIVAN) tablet 0.5 mg (COMPLETED) 0.5 mg, Oral, ONCE, 1 dose, On Sat11/28/22 at 0900 908 (Given - Provid er: Lyn Bower) losartan (COZAAR) tablet 100 mg 100 mg, Oral, EVERY MORNING, First dose on Sat11/28/22 at 0900, Until Discontinued 908 (Not Given - Provider: Deb Gauthier RN - Reason: Patient/family refused) montelukast (SINGULAIR) tablet 10 mg 10 mg, Oral, NIGHTLY, First dose on Sat11/28/22 at 0030, Until Discontinued 005 (Given - Provid er: Nichol Das RN)2099 (Due) nebivolol (BYSTOLIC) tablet 10 mg (Patient Supplied) 10 mg, Oral, EVERY MORNING, First dose on Sat11/28/22 at 0900, Until Discontinued, Please select a reason the therapeutic interchange was not accepted: Lack of Response to Alternative 910 (Not Given - Provider: Lyn Bower - Reason: Medication not available) rosuvastatin (CRESTOR) tablet 40 mg 40 mg, Oral, EVERY EVENING, First dose on Sat11/28/22 at 0030, Until Discontinued 50 (Given - Provid er: Nichol Das RN)1800 (Due) sacubitril-valsartan (ENTRESTO) 24-26 MG per tablet 1 tablet 1 tablet, Oral, 2 TIMES DAILY, First dose on Sat11/28/22 at 0030, Until Discontinued 43 (Not Given - Provider: Nichol Das RN - Reason: Patient took at home)911 (Given - Provider: Lyn Bower)2099 (Due) sodium chloride flush 0.9 % injection 5-40 mL 5-40 mL, IntraVENous, EVERY 12 HOURS SCHEDULED (2 times per day), First dose on Sat11/28/22 at 0900, Until Discontinued, For Line Patency: Peripheral IV = 5 mL; Midline or Central Line = 10 mL/lumen. If following IV push medication, administer flush at same rate as the IV push. Flush volume is determined by type of infusion therapy being given. For non-viscous solutions use: Peripheral IV = 5 mL Midline or Central Line = 10 mL/lumen For viscous solutions (i.e. blood components, parenteral nutrition, contrast media, or after obtaining blood sample) use: Peripheral IV = 10 mL Midline or Central Line = 20 mL/lumen 09 (Given - Provid er: Lyn Bower)2100 (Due) PRN Medication Order 11/26/2022 11/27/2022 11/28/2022 0.9 % sodium chloride infusion 25 mL, IntraVENous, at 100 mL/hr, PRN, If patient receiving piggyback infusions without ordered maintenance IV fluids or with frequent/long duration piggyback infusions, Starting on Sat11/28/22 at 0005, Administer at the same rate as the piggyback being infused. acetaminophen (TYLENOL) suppository 650 mg(Linked Group 1) 650 mg, Rectal, EVERY 6 HOURS PRN, Starting on Sat11/28/22 at 0005, Until Discontinued, Pain Mild (1-3), Fever, For temp greater than 100.4 F (38 C), Administer if oral route cannot be used. acetaminophen (TYLENOL) tablet 650 mg(Linked Group 1) 650 mg, Oral, EVERY 6 HOURS PRN, Starting on Sat11/28/22 at 0005, Until Discontinued, Pain Mild (1-3), Fever, For temp greater than 100.4 F (38 C), Maximum dose of acetaminophen is 4000 mg from all sources in 24 hours. nitroGLYCERIN (NITROSTAT) SL tablet 0.4 mg 0.4 mg, SubLINGual, EVERY 5 MIN PRN, 3 doses, Starting on Sat11/28/22 at 0005, Until Discontinued, Chest pain, Place 1 tablet under tongue upon chest pain, wait 5 minutes and may repeat up to 3 doses in 15 minutes. Do not crush or break. ondansetron (ZOFRAN) injection 4 mg(Linked Group 2) 4 mg, IntraVENous, EVERY 6 HOURS PRN, Starting on Sat11/28/22 at 0005, Until Discontinued, Nausea, Vomiting, Administer if oral route cannot be used. ondansetron (ZOFRAN-ODT) disintegrating tablet 4 mg(Linked Group 2) 4 mg, Oral, EVERY 8 HOURS PRN, Starting on Sat11/28/22 at 0005, Until Discontinued, Nausea, Vomiting polyethylene glycol (GLYCOLAX) packet 17 g 17 g, Oral, DAILY PRN, Starting on Sat11/28/22 at 0005, Until Discontinued, Constipation, First line therapy for constipation potassium bicarb-citric acid (EFFER-K) effervescent tablet 40 mEq(Linked Group 3) 40 mEq, Oral, PRN, Starting on Sat11/28/22 at 0005, Until Discontinued, Per Potassium Replacement Protocol, Administer as alternative if patient unable to tolerate oral tablet. K Lab Replacement Action 3.1 to 3.5 40 mEq ORAL x 1 Under 3.1 Refer to IV replacement protocol Recheck K level in AM. Protocol not for use in patients with CrCl less than 30 mL/min. Do not chew or crush. Dissolve flavored tablets completely in 3 to 4 ounces of cold water; unflavored tablets may be dissolved in 3 to 4 ounces of cold juice. Patient to sip slowly over a 5 to 10 minute period. May further dilute if GI adverse effects occur. potassium chloride (KLOR-CON M) extended release tablet 40 mEq(Linked Group 3) 40 mEq, Oral, PRN, Starting on Sat11/28/22 at 0005, Until Discontinued, Potassium Replacement, May give alternative linked oral order (ordered as effervescent, packet, or liquid solution) if patient unable to tolerate tablet. K Lab Replacement Action 3.1 to 3.5 40 mEq ORAL x 1 Under 3.1 Refer to IV replacement protocol Recheck K level in AM. Protocol not for use in patients with CrCl less than 30 mL/min. potassium chloride 10 mEq/100 mL IVPB (Peripheral Line)(Linked Group 3) 10 mEq, IntraVENous, PRN, Starting on Sat11/28/22 at 0005, Until Discontinued, at 100 mL/hr, Potassium Replacement, K Lab Replacement Action 2.7 to 3.0 10 mEq IVPB x 6 doses (60 mEq Total) Under 2.7 CALL PROVIDER and administer 10 mEq IVPB x 6 doses (60 mEq Total) Infuse at 10 mEq/hr. Repeat Potassium lab 1 hour after final administration. Protocol not for use in patients with CrCl less than 30 mL/min. regadenoson (LEXISCAN) injection 0.4 mg (COMPLETED) 0.4 mg, IntraVENous, IMG ONCE PRN, 1 dose, Starting on Sat11/28/22 at 1147, Until Sat11/28/22 at 1206, Other 1206 (Given - Provid er: Raissa Greene RN) sodium chloride flush 0.9 % injection 5-40 mL 5-40 mL, IntraVENous, PRN, Starting on Sat11/28/22 at 0005, Until Discontinued, Line Care, After every IV line use, For Line Patency: Peripheral IV = 5 mL; Midline or Central Line = 10 mL/lumen. If following IV push medication, administer flush at same rate as the IV push. Flush volume is determined by type of infusion therapy being given. For non-viscous solutions use: Peripheral IV = 5 mL Midline or Central Line = 10 mL/lumen For viscous solutions (i.e. blood components, parenteral nutrition, contrast media, or after obtaining blood sample) use: Peripheral IV = 10 mL Midline or Central Line = 20 mL/lumen technetium sestamibi (CARDIOLITE) injection 10 millicurie (COMPLETED) 10 millicurie, IntraVENous, IMG ONCE PRN, 1 dose, Starting on Sat11/28/22 at 1030, Until Discontinued, Other 1027 (Given - Provid er: Deb C Dryfuse) technetium sestamibi (CARDIOLITE) injection 30 millicurie (COMPLETED) 30 millicurie, IntraVENous, IMG ONCE PRN, 1 dose, Starting on Sat11/28/22 at 1031, Until Discontinued, Other 1157 (Given - Provid er: Deb C Dryfuse) Linked Groups Order Group 1: acetaminophen (TYLENOL) tablet 650 mgJump to med 650 mg, Oral, EVERY 6 HOURS PRN, Starting on Sat11/28/22 at 0005, Until Discontinued, Pain Mild (1-3), Fever, For temp greater than 100.4 F (38 C)
Maximum dose of acetaminophen is 4000 mg from all sources in 24 hours.
Or acetaminophen (TYLENOL) suppository 650 mgJump to med 650 mg, Rectal, EVERY 6 HOURS PRN, Starting on Sat11/28/22 at 0005, Until Discontinued, Pain Mild (1-3), Fever, For temp greater than 100.4 F (38 C)
Administer if oral route cannot be used.
Group 2: ondansetron (ZOFRAN-ODT) disintegrating tablet 4 mgJump to med 4 mg, Oral, EVERY 8 HOURS PRN, Starting on Sat11/28/22 at 0005, Until Discontinued, Nausea, Vomiting Or ondansetron (ZOFRAN) injection 4 mgJump to med 4 mg, IntraVENous, EVERY 6 HOURS PRN, Starting on Sat11/28/22 at 0005, Until Discontinued, Nausea, Vomiting
Administer if oral route cannot be used.
Group 3: potassium chloride (KLOR-CON M) extended release tablet 40 mEqJump to med 40 mEq, Oral, PRN, Starting on Sat11/28/22 at 0005, Until Discontinued, Potassium Replacement
May give alternative linked oral order (ordered as effervescent, packet, or liquid solution) if patient unable to tolerate tablet. K Lab Repla cemen t Action 3.1 to 3.5 40 mEq ORAL x 1 Under 3.1 Refer to IV replacement protocol Recheck K level in AM. Protocol not for use in patients with CrCl less than 30 mL/min.
Or potassium bicarb-citric acid (EFFER-K) effervescent tablet 40 mEqJump to med 40 mEq, Oral, PRN, Starting on Sat11/28/22 at 0005, Until Discontinued, Per Potassium Replacement Protocol
Administer as alternative if patient unable to tolerate oral tablet. K Lab Repla cemen t Action 3.1 to 3.5 40 mEq ORAL x 1 Under 3.1 Refer to IV replacement protocol Recheck K level in AM. Protocol not for use in patients with CrCl less than 30 mL/min. Do not chew or crush. Dissolve flavored tablets completely in 3 to 4 ounces of cold water; unflavored tablets may be dissolved in 3 to 4 ounces of cold juice. Patient to sip slowly over a 5 to 10 minute period. May further dilute if GI adverse effects occur.
Or potassium chloride 10 mEq/100 mL IVPB (Peripheral Line)Jump to med 10 mEq, IntraVENous, PRN, Starting on Sat11/28/22 at 0005, Until Discontinued, at 100 mL/hr, Potassium Replacement
K Lab Replacement Action 2.7 to 3.0 10 mEq IVPB x 6 doses (60 mEq Total) Under 2.7 CALL PROVIDER and administer 10 mEq IVPB x 6 doses (60 mEq Total) Infuse at 10 mEq/hr. Repeat Potassium lab 1 hour after final administration. Protocol not for use in patients with CrCl less than 30 mL/min.
Scheduled Medication Order 12/17/2023 12/18/2023 12/19/2023 aluminum & magnesium hydroxide-simethicone (MAALOX) 200-200-20 MG/5ML suspension 15 mL (COMPLETED) 15 mL, Oral, ONCE, 1 dose, On Celi 12/19/23 at 1615 1619 (Given - Provid er: Nando Hurd RN) lidocaine viscous hcl (XYLOCAINE) 2 % solution 15 mL (COMPLETED) 15 mL, Mouth/Throat, ONCE, 1 dose, On Sat12/19/23 at 1615 1620 (Given - Provid er: Nando Hurd RN) Scheduled Medication Order 12/19/2023 12/20/2023 12/21/2023 Benzocaine-Menthol (CEPACOL) 1 lozenge (COMPLETED) 1 lozenge, Oral, ONCE, 1 dose, On 12/21/23 at 1145 1150 (Given - Provid er: Cynthia Car RN) Scheduled Medication Order 07/04/2024 07/05/2024 07/06/2024 HYDROcodone-acetaminophen (NORCO) 5-325 MG per tablet 1 tablet (COMPLETED) 1 tablet, Oral, ONCE, 1 dose, On 07/06/24 at 1715, Maximum dose of acetaminophen is 4000 mg from all sources in 24 hours. 1711 (Given - Provid er: Maricarmen Tao RN) HYDROcodone-acetaminophen (NORCO) 5-325 MG per tablet 1 tablet (COMPLETED) 1 tablet, Oral, ONCE, 1 dose, On 07/06/24 at 1930, Maximum dose of acetaminophen is 4000 mg from all sources in 24 hours. 1943 (Given - Provid er: Yue Fowler RN) hydrocodone-acetaminophen (NORCO) tablet 5-325 mg (STARTER PACK) This order is for a take home starter pack of medication. Please document Furnish to patient on the 2032 (Furnished to P atient - Provider: Yue Fowler RN) morphine (PF) injection 2 mg (COMPLETED) 2 mg, IntraVENous, ONCE, 1 dose, On 07/06/24 at 1730, If oral and IV narcotics ordered, use oral first and only use IV if oral is ineffective or cannot take oral. Do Not give oral and IV within 1 hour of each other unless specifically ordered. 1720 (Given - Provid er: Maricarmen Tao RN) ondansetron (ZOFRAN) injection 4 mg (COMPLETED) 4 mg, IntraVENous, ONCE, 1 dose, On 07/06/24 at 1730 1720 (Given - Provid er: Maricarmen Tao RN) Scheduled Medication Order 07/12/2024 07/13/2024 07/14/2024 amLODIPine (NORVASC) tablet 5 mg 5 mg, Oral, DAILY, First dose on Sat07/10/24 at 1430, Until Discontinued 0857 (Given - Provider: Padmaja Henley RN) 0857 (Given - Provider: Mayuri Driscoll, COLIN) 1012 (Given - Provider: Mayuri Driscoll RN) aspirin chewable tablet 81 mg 81 mg, Oral, DAILY, First dose on Sat07/08/24 at 1130, Until Discontinued 08 (Given - Provider: Padmaja Henley RN) 0856 (Given - Provider: Mayuri Driscoll RN) 101 (Given - Provider: Mayuri Driscoll RN) diclofenac sodium (VOLTAREN) 1 % gel 2 g 2 g, Topical, 2 TIMES DAILY, First dose on Sat07/12/24 at 2100, Until Discontinued, Apply to knees bilaterally. 192 (Given - Provider: Lelia Barraza RN) 08 (Given - Provider: Mayuri Driscoll RN)2008 (Not Given - Provider: Dina Bingham RN - Reason: Patient/family refused) 102 (Given - Provider: Mayuri Driscoll RN)2099 (Due) DULoxetine (CYMBALTA) extended release capsule 40 mg 40 mg, Oral, Nightly, First dose on Sat07/08/24 at 2100, Until Discontinued, Do not crush or break. May add contents of capsule to apple juice or apple sauce, but not chocolate., On hold since Sat07/10/2024 at 0720 until manually unheld 2100 (Automatically Held - Provider: Dayo Vitale MD) 2100 (Automatically Held - Provider: Dayo Vitale MD) 2100 (Automatically Held - Provider: Dayo Vitale MD) enoxaparin (LOVENOX) injection 40 mg 40 mg, SubCUTAneous, DAILY, First dose on Sat07/08/24 at 1130, Until Discontinued, Indication of Use: Prophylaxis-DVT/PE 0857 (Given - Provider: Padmaja Henley RN) 0856 (Given - Provider: Mayuri Driscoll RN) 101 (Given - Provider: Mayuri Driscoll RN) ezetimibe (ZETIA) tablet 5 mg 5 mg, Oral, EVERY MORNING, First dose on Sat07/08/24 at 1130, Until Discontinued 08 (Given - Provider: Padmaja Henley RN) 0857 (Given - Provider: Mayuri Driscoll RN) 101 (Given - Provider: Mayuri Driscoll RN) ketorolac (TORADOL) injection 15 mg (COMPLETED) 15 mg, IntraVENous, ONCE, 1 dose, On Sat07/13/24 at 0400, Do not administer for more than 5 days. 0340 (Given - Provider: Lelia Barraza RN) levothyroxine (SYNTHROID) tablet 125 mcg 125 mcg, Oral, EVERY MORNING, First dose on Sat07/08/24 at 1130, Until Discontinued, Tube feeding (TF) interaction, obtain physician order to manage, recommend holding TF for 30 minutes before and after dose. 07 (Given - Provider: Padmaja Henley RN) 07 (Given - Provider: Mayuri Driscoll RN) 722 (Given - Provider: Mayuri Driscoll RN) lidocaine 1 % injection 50 mg 50 mg, IntraDERmal, ONCE, 1 dose, On Sat07/10/24 at 1115 meclizine (ANTIVERT) tablet 12.5 mg 12.5 mg, Oral, 2 times daily, First dose on Sat07/08/24 at 1130, Until Discontinued 08 (Given - Provider: Padmaja Henley RN)1929 (Given - Provider: Lelia Barraza RN) 856 (Given - Provider: Mayuri Driscoll RN)2005 (Given - Provider: Dina Bingham, COLIN) 1010 (Given - Provider: Mayuri Driscoll RN)2099 (Due) methylPREDNISolone sodium succ (SOLU-MEDROL) 125 mg in sterile water 2 mL injection (COMPLETED) 125 mg, IntraVENous, ONCE, On Sat07/13/24 at 0830, For 1 dose, Reconstitute 125 mg vial with 2 mL diluent. 08 (Given - Provider: Mayuri Driscoll RN) metoprolol succinate (TOPROL XL) extended release tablet 100 mg 100 mg, Oral, DAILY, First dose on Sat07/08/24 at 1130, Until Discontinued, Substituted for nebivolol (BYSTOLIC) 08 (Given - Provider: Padmaja Henley RN) 08 (Given - Provider: Mayuri Driscoll RN) 1011 (Given - Provider: Mayuri Driscoll, COLIN) montelukast (SINGULAIR) tablet 10 mg 10 mg, Oral, NIGHTLY, First dose on Sat07/08/24 at 2100, Until Discontinued 1929 (Given - Provider: Lelia Barraza RN) 2005 (Given - Provider: Dina Bingham, COLIN) 2099 (Due) oyster shell calcium w/D 500-5 MG-MCG tablet 1 tablet 1 tablet, Oral, DAILY WITH BREAKFAST, First dose on Sat07/09/24 at 0800, Until Discontinued, Administer, preferably with food, 2 hours before or after other medications. 0723 (Given - Provider: Padmaja Henley RN) 0721 (Given - Provider: Mayuri Driscoll RN) 0723 (Given - Provider: Mayuri Driscoll RN) rosuvastatin (CRESTOR) tablet 40 mg 40 mg, Oral, EVERY EVENING, First dose on Sat07/08/24 at 1800, Until Discontinued 1751 (Given - Provider: Padmaja Henley RN) 1716 (Given - Provider: Keisha Paul RN) 1800 (Due) sacubitril-valsartan (ENTRESTO) 24-26 MG per tablet 1 tablet 1 tablet, Oral, 2 TIMES DAILY, First dose on Sat07/08/24 at 1130, Until Discontinued 0857 (Given - Provider: Padmaja Henley RN)1930 (Given - Provider: Lelia Barraza RN) 0857 (Given - Provider: Mayuri Driscoll RN)2005 (Given - Provider: Dina Bingham, COLIN) 101 (Given - Provider: Mayuri Driscoll RN)2100 (Due) sodium chloride flush 0.9 % injection 10 mL 10 mL, IntraVENous, EVERY 12 HOURS SCHEDULED (2 times per day), First dose on Sat07/08/24 at 1130, Until Discontinued 0858 (Given - Provider: Padmaja Henley RN)2100 (Given - Provider: Lelia Barraza RN) 0911 (Given - Provider: Mayuri Driscoll RN)2007 (Given - Provider: Dina Bingham, COLIN) 1059 (Not Given - Provider: Mayuri Driscoll RN - Reason: IV Fluid Infusing)2100 (Due) sodium chloride flush 0.9 % injection 5-40 mL 5-40 mL, IntraVENous, EVERY 12 HOURS SCHEDULED (2 times per day), First dose on Sat07/10/24 at 1115, Until Discontinued, For Line Patency: Peripheral IV = 5 mL; Midline or Central Line = 10 mL/lumen. If following IV push medication, administer flush at same rate as the IV push. Flush volume is determined by type of infusion therapy being given. For non-viscous solutions use: Peripheral IV = 5 mL Midline or Central Line = 10 mL/lumen For viscous solutions (i.e. blood components, parenteral nutrition, contrast media, or after obtaining blood sample) use: Peripheral IV = 10 mL Midline or Central Line = 20 mL/lumen 0858 (Given - Provider: Padmaja Henley RN)210 (Given - Provider: Lelia Barraza RN) 09 (Not Given - Provider: Mayuri Driscoll RN - Reason: Other)2008 (Given - Provider: Dina Bingham RN) 1100 (Not Given - Provider: Mayuri Driscoll RN - Reason: IV Fluid Infusing)2100 (Due) sodium chloride tablet 2 g 2 g, Oral, 2 TIMES DAILY WITH MEALS, First dose on Sat07/11/24 at 0800, Until Discontinued 07 (Given - Provider: Padmaja Henley RN)175 (Given - Provider: Padmaja Henley RN) 0721 (Given - Provider: Mayuri Driscoll RN)1631 (Given - Provider: Mayuri Driscoll RN) 0723 (Given - Provider: Mayuri Driscoll RN)1700 (Due) PRN Medication Order 07/12/2024 07/13/2024 07/14/2024 0.9 % sodium chloride infusion IntraVENous, at 5-250 mL/hr, PRN, if patient receiving piggyback infusions and maintenance fluids are not ordered OR KVO fluids to protect IV site / prevent frequent line interruptions/ long duration, Starting on Sat07/08/24 at 1110, For piggyback infusion, administer at same rate as piggyback for a total of 25 mL. Enter 25 mL into dose field and piggyback rate into rate field of order. If piggyback is infusing at a rate less than 100 mL/hr, enter 25 mL into dose field and 100 mL/hr into rate field of order. For KVO fluids, enter rate of 20 mL/hr or less into rate field of order. 0.9 % sodium chloride infusion IntraVENous, at 5-250 mL/hr, PRN, if patient receiving piggyback infusions and maintenance fluids are not ordered, Starting on Sat07/10/24 at 1048, For piggyback infusion, administer at same rate as piggyback for a total of 25 mL. Enter 25 mL into dose field and piggyback rate into rate field of order. If piggyback is infusing at a rate less than 100 mL/hr, enter 25 mL into dose field and 100 mL/hr into rate field of order. acetaminophen (TYLENOL) suppository 650 mg(Linked Group 1) 650 mg, Rectal, EVERY 6 HOURS PRN, Starting on Sat07/08/24 at 1110, Until Discontinued, Pain Mild (1-3), Fever, For temp greater than 100.4 F (38 C), Administer if oral route cannot be used. acetaminophen (TYLENOL) tablet 650 mg(Linked Group 1) 650 mg, Oral, EVERY 6 HOURS PRN, Starting on Sat07/08/24 at 1110, Until Discontinued, Pain Mild (1-3), Fever, For temp greater than 100.4 F (38 C), Maximum dose of acetaminophen is 4000 mg from all sources in 24 hours. ondansetron (ZOFRAN) injection 4 mg(Linked Group 2) 4 mg, IntraVENous, EVERY 6 HOURS PRN, Starting on Sat07/08/24 at 1110, Until Discontinued, Nausea, Vomiting, Administer if oral route cannot be used. ondansetron (ZOFRAN-ODT) disintegrating tablet 4 mg(Linked Group 2) 4 mg, Oral, EVERY 8 HOURS PRN, Starting on Sat07/08/24 at 1110, Until Discontinued, Nausea, Vomiting polyethylene glycol (GLYCOLAX) packet 17 g 17 g, Oral, DAILY PRN, Starting on Sat07/08/24 at 1110, Until Discontinued, Constipation, First line therapy for constipation 0723 (Given - Provider: Mayuri Driscoll RN) sodium chloride flush 0.9 % injection 10 mL 10 mL, IntraVENous, PRN, Starting on Sat07/08/24 at 1110, Until Discontinued, Line Care, After every IV line use sodium chloride flush 0.9 % injection 5-40 mL 5-40 mL, IntraVENous, PRN, Starting on Sat07/10/24 at 1048, Until Discontinued, Line Care, After every IV line use, For Line Patency: Peripheral IV = 5 mL; Midline or Central Line = 10 mL/lumen. If following IV push medication, administer flush at same rate as the IV push. Flush volume is determined by type of infusion therapy being given. For non-viscous solutions use: Peripheral IV = 5 mL Midline or Central Line = 10 mL/lumen For viscous solutions (i.e. blood components, parenteral nutrition, contrast media, or after obtaining blood sample) use: Peripheral IV = 10 mL Midline or Central Line = 20 mL/lumen traMADol (ULTRAM) tablet 50 mg 50 mg, Oral, EVERY 6 HOURS PRN, Starting on Sat07/10/24 at 0810, Until Discontinued, Allowed for higher pain score per patient request 1252 (Given - Provider: Padmaja Henley RN)1930 (Given - Provider: Lelia Barraza, COLIN) 0317 (Given - Provider: Lelia Barraza RN) Linked Groups Order Group 1: acetaminophen (TYLENOL) tablet 650 mgJump to med 650 mg, Oral, EVERY 6 HOURS PRN, Starting on Sat07/08/24 at 1110, Until Discontinued, Pain Mild (1-3), Fever, For temp greater than 100.4 F (38 C), Maximum dose of acetaminophen is 4000 mg from all sources in 24 hours. Or acetaminophen (TYLENOL) suppository 650 mgJump to med 650 mg, Rectal, EVERY 6 HOURS PRN, Starting on Sat07/08/24 at 1110, Until Discontinued, Pain Mild (1-3), Fever, For temp greater than 100.4 F (38 C), Administer if oral route cannot be used. Group 2: ondansetron (ZOFRAN-ODT) disintegrating tablet 4 mgJump to med 4 mg, Oral, EVERY 8 HOURS PRN, Starting on Sat07/08/24 at 1110, Until Discontinued, Nausea, Vomiting Or ondansetron (ZOFRAN) injection 4 mgJump to med 4 mg, IntraVENous, EVERY 6 HOURS PRN, Starting on Sat07/08/24 at 1110, Until Discontinued, Nausea, Vomiting, Administer if oral route cannot be used. Scheduled Medication Order 08/06/2024 08/07/2024 08/08/2024 doxycycline hyclate (VIBRAMYCIN) capsule 100 mg (COMPLETED) 100 mg, Oral, ONCE, 1 dose, On 08/08/24 at 1945, Antimicrobial Indications: Pneumonia (Nosocomial), Pnuemonia (Nosocomial) duration of therapy: Other, Other Pneumonia (Nosocomial) Duration: 1, This medication can interact with tube feedings (TF)- obtain MD order to manage. Recommend holding TF for 1 h before and 2 h after dose. Take 1 h before or 2 h after dairy, calcium, iron, magnesium, aluminum or zinc. 1948 (Given - Provid er: Salvador Soriano RN) PRN Medication Order 08/06/2024 08/07/2024 08/08/2024 iopamidol (ISOVUE-370) 76 % injection 75 mL (COMPLETED) 75 mL, IntraVENous, IMG ONCE PRN, 1 dose, Starting on 08/08/24 at 1853, Until 08/08/24 at 1854, Other 1854 (Given - Provid er: Susan Forbes) FOR RECORDS PERTAINING TO PATIENTS WHO ARE OR HAVE BEEN ENROLLED IN A CHEMICAL DEPENDENCY/SUBSTANCEABUSE PROGRAM, SOME INFORMATION MAY BE OMITTED. This clinical summary was aggregated from multiple sources. Caution should be exercised in using it in the provision of clinical care. This summary normalizes information from multiple sources, and as a consequence, information in this document may materially change the coding, format and clinical context of patient data. In addition, data may be omitted in some cases. CLINICAL DECISIONS SHOULD BE BASED ON THE PRIMARY CLINICAL RECORDS. [employer] provides no warranty or guarantee of the accuracy or completeness of information in this document.
[2024-09-13 12:48] VITALS: BP 142/71; PULSE 75; TEMP 36.6; O2SAT 97; BMI 24.9
--- NOTE | 2024-09-13 13:27 | CT_ITS ---
The [address] [address] Patient Name: JULIUS TEJADA MRN: [facility]:[id number] date: 1940 Sex: F Assigned Patient Location: ER Current Patient Location: ER Accession/Order Number: [id number] Exam Date: 09/13/2024 13:52 Report Date: 09/13/2024 15:04 At the request of: CHANTELLE BAL Procedure: CT cervical spine wo con EXAM: CT cervical spine wo con HISTORY: trauma fall from standing, neck injury. Pain. COMPARISON: CT head, facial bones 09/13/2024 TECHNIQUE: CT C-spine without contrast. Axial scans with reformatted coronal and sagittal images. Individualized radiation dose reduction used for this exam. FINDINGS: Negative for fracture. Minimal anterolisthesis C2-1 C3, C4 on C3 and C5 felt to be degenerative. Straightening lower spine. Severe degenerative disc facet joint and uncovertebral joint disease C3-4 through C6-7. 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 Ligamentous calcification spinal canal posteriorly. No soft tissue fluid collection or thickening. Soft tissue calcification seen adjacent to the medial aspect of each clavicle partially imaged. No acute appearing abnormality upper chest limited visualization. CT/CT cervical spine wo con IMPRESSION: 1. Negative for fracture or traumatic subluxation. 2. Severe multilevel degenerative disc, facet joint and uncovertebral joint disease. Large pannus seen posteriorly C1-C2. Can be seen with inflammatory arthritis, correlate clinically. Electronically authenticated by: AUDELIA AZUL Date: 09/13/2024 15:04
--- NOTE | 2024-09-13 13:27 | CT_ITS ---
The [address] [address] Patient Name: JULIUS TEJADA MRN: [facility]:[id number] date: 1940 Sex: F Assigned Patient Location: ER Current Patient Location: ER Accession/Order Number: [id number] Exam Date: 09/13/2024 13:52 Report Date: 09/13/2024 15:05 At the request of: CHANTELLE BAL Procedure: CT head/brain wo con EXAM: CT head/brain wo con HISTORY: trauma . Closed cranial trauma. COMPARISON: None. TECHNIQUE: CT/brain noncontrast. Axial scans with reformatted coronal sagittal images. Individualized radiation dose reduction used for this exam. FINDINGS: Brain density normal without hemorrhage mass or edema. Ventricles and sulci normal for patient age. No extra-axial collection or hematoma. No mass effect or midline shift. No skull fracture. Soft tissue scalp injury left frontal area. Visualized sinuses, mastoids, middle ear cavities clear. CT/CT head/brain wo con IMPRESSION: Negative CT brain without hemorrhage or other acute abnormality. Mild soft tissue scalp injury left frontal area without adjacent fracture. Electronically authenticated by: AUDELIA AZUL Date: 09/13/2024 15:05
--- NOTE | 2024-09-13 13:43 | CT_ITS ---
The [address] [address] Patient Name: JULIUS TEJADA MRN: [facility]:[id number] date: 1940 Sex: F Assigned Patient Location: ER Current Patient Location: ER Accession/Order Number: [id number] Exam Date: 09/13/2024 13:52 Report Date: 09/13/2024 15:04 At the request of: CHANTELLE BAL Procedure: CT facial bones wo con EXAM: CT facial bones wo con HISTORY: trauma [head/eye injury. Fall from standing. COMPARISON: Head, C-spine CT 09/13/2024 TECHNIQUE: CT facial bones noncontrast. Axial scans with coronal sagittal reformatted images. Individualized radiation dose reduction used for this exam. FINDINGS: Negative for facial fracture. No sinus fluid level or hemorrhage. Hypoplastic frontal sinuses. Minimal sinus mucosal thickening. Orbital, periorbital nasopharyngeal and other facial soft tissues unremarkable without fluid collection or hematoma. Dental caries noted. C-spine abnormalities described separately. CT/CT facial bones wo con IMPRESSION: Negative for facial fracture. No soft tissue fluid collection or hematoma. Electronically authenticated by: AUDELIA AZUL Date: 09/13/2024 15:04
--- NOTE | 2024-09-13 15:14 | ED_ITS ---
HPI HPI - Head Injury General Chief complaint: Head Injury Stated complaint: FALL 09/11 - HEAD INJURY Time Seen by Provider: 09/13/24 13:26 Source: patient Mode of arrival: walk-in Limitations: no limitations History of Present Illness HPI Narrative: Patient had a fall almost 2 days ago when she accidentally had a vertigo spell and she felt dizzy and hit the left side of her head, patient noted that she did not pass out then but she remember that she hurt the left side of her neck , the patient did notice today that she have a bruise around her left eye although she did not hit her eye No blurry vision no other concerns Related Data Home Medications ?Medication ?Instructions ?Recorded ?Confirmed ezetimibe 10 mg tablet 10 mg PO DAILY 09/13/24 09/13/24 levothyroxine 125 mcg tablet 125 mcg PO DAILY 09/13/24 09/13/24 meclizine 12.5 mg tablet 12.5 mg PO DAILY 09/13/24 09/13/24 montelukast 10 mg tablet 10 mg PO DAILY 09/13/24 09/13/24 nebivolol 10 mg tablet 10 mg PO DAILY 09/13/24 09/13/24 rosuvastatin 40 mg tablet 40 mg PO BEDTIME 09/13/24 09/13/24 sacubitril 24 mg-valsartan 26 mg 1 tab PO BID 09/13/24 09/13/24 tablet (Entresto) Previous Rx's ?Medication ?Instructions ?Recorded meloxicam 7.5 mg tablet 7.5 mg PO DAILY PRN pain #10 tabs 09/13/24 Allergies Allergy/AdvReac Type Severity Reaction Status Date / Time Sulfa (Sulfonamide Allergy Severe Rash Verified 09/13/24 12:55 Antibiotics) Opioid HPI Opioid Management Most Recent Pain and Opioid Data: No Data to Display Review of Systems ROS Status of ROS 10 or more systems reviewed and unremark able except as noted in history and below PFSH PFSH Social History Little interest or pleasure in doing things: not at all Feeling down, depressed, or hopeless: not at all Exam Narrative Exam Narrative: Nurses notes and vital signs reviewed and patient is not hypoxic. General: Well-appearing and in no apparent distress. Skin: Warm, dry, no pallor noted. No rash. Head: Normocephalic, small bruise to the left temporal area of the head, no open wound and the patient have ecchymosis to the left eye. Neck: Supple, no intervertebral line tenderness tenderness mostly in the right lower cervical level Eye: Pupils are equal, round and EOMI. No scleral icterus. Ears, Nose, Mouth, and Throat: TM are clear, no nasal mucosal hypertrophy. Oral mucosa is moist, no posterior oropharynx erythema, uvula is mid-line Cardiovascular: Regular Rate and Rhythm without murmur, gallop or rub. Respiratory: No accessory muscle use or respiratory distress. Lungs are clear to auscultation, no wheezing, rales or rhonchi Chest Wall: no tenderness Back: No midline thoracic or lumbar vertebral tenderness. No CVA tenderness Musculoskeletal: normal ROM, no calf or popliteal tenderness, no lower extremity edema/swelling GI: Abdomen is soft, non-distended. Normal bowel sounds. No masses appreciated. No tenderness to palpation. No rebound, guarding, or rigidity noted. Neurological: A&O x4. No cranial nerve dysfunction observed. No truncal ataxia. Moves all extremities. Sensation intact. Psychiatric: Cooperative and interactive. Normal mood and affect. Constitutional Vital Signs, click to edit/add: Last Vital Signs Temp 98 F 09/13/24 12:48 Pulse 75 09/13/24 12:48 Resp 16 09/13/24 12:48 BP 142/71 H 09/13/24 12:48 Pulse Ox 97 09/13/24 12:48 O2 Del Method Room Air 09/13/24 12:48 Course Vital Signs Vital signs: Vital Signs Temperature 98 F 09/13/24 12:48 Pulse Rate 75 09/13/24 12:48 Respiratory Rate 16 09/13/24 12:48 Blood Pressure 142/71 H 09/13/24 12:48 Pulse Oximetry 97 09/13/24 12:48 Oxygen Delivery Method Room Air 09/13/24 12:48 Temperature 98 F 09/13/24 12:48 Pulse Rate 75 09/13/24 12:48 Respiratory Rate 16 09/13/24 12:48 Blood Pressure 142/71 H 09/13/24 12:48 Pulse Oximetry 97 09/13/24 12:48 Oxygen Delivery Method Room Air 09/13/24 12:48 MDM - Head Injury MDM Narrative Medical decision making narrative: CT head as well as CT cervical spine showed no acute significant pathology Was treated with Mobic for pain The patient is to follow up with primary care physician in next 2-3 days or to return to the emergency department should any of the signs or symptoms worsen or new symptoms develop. The patient agrees with the following Diagnosis and Treatment plan and the patient will be discharged home. Discharge Plan Discharge Chief Complaint: Head Injury Clinical Impression: Closed head injury Patient Disposition: Home, Self-Care Time of Disposition Decision: 15:14 Condition: Good Prescriptions / Home Meds: New meloxicam 7.5 mg tablet 7.5 mg PO DAILY PRN (Reason: pain) Qty: 10 0RF No Action levothyroxine 125 mcg tablet 125 mcg PO DAILY rosuvastatin 40 mg tablet 40 mg PO BEDTIME nebivolol 10 mg tablet 10 mg PO DAILY ezetimibe 10 mg tablet 10 mg PO DAILY meclizine 12.5 mg tablet 12.5 mg PO DAILY montelukast 10 mg tablet 10 mg PO DAILY sacubitril-valsartan [Entresto] 24-26 mg tablet 1 tab PO BID Print Language: Croatian Instructions: Head Injury (DC) Referrals: ARIANNA CINTRON DO [Primary Care Provider] - 1 week Discharge Date/Time: 09/13/24 15:29
== END 2024-09-13 15:29 | disposition home or self-care (01) ==
PROVIDERS: Emergency Provider Emergency Medicine; PCP Internal Medicine
DX: S09.8XXA Other specified injuries of head, initial encounter (principal); W19.XXXA Unspecified fall, initial encounter
CPT/HCPCS: 70450; 70486; 72125; 99284

== ENCOUNTER 2024-10-23 10:50 | Outpatient (OUT) | payer MEDICARE, SELFPAY ==
--- NOTE | 2024-10-23 10:52 | MM_ITS ---
Patient Name: JULIUS TEJADA MR#: [id number] : 1940 Exam Date: 10/23/2024 Ordering Doctor: DR ARIANNA CINTRON D.O. RADIOLOGY REPORT PROCEDURE: MM TOMOSYNTHESIS SCREENING BI COMPARISON: MM TOMOSYNTHESIS SCREENING BI, 08/07/2023. MG MAMM SCREEN 3D DARLIN CAD, 08/06/2022. MG MAMM SCREEN DARLIN W CAD, 06/21/2020. MG MAMM DARLIN SCRN W CAD DIG, 12/07/2013. INDICATIONS: Screening mammogram Calculator Name NCI Breast Cancer Risk Assessment Tool 5 Year Breast Cancer Risk 1.20% Lifetime Breast Cancer Risk 1.20% Personal Breast Cancer No Personal Ovarian Cancer No Treatments None Family Cancers Mother with skin cancer at age 69; Sister with skin cancer at age 50. LOCATION: [facility] BREAST COMPOSITION: There are scattered areas of fibroglandular density. FINDINGS: DIAGNOSTIC CATEGORY 1--NEGATIVE. RIGHT BREAST: No significant suspicious finding. LEFT BREAST: No significant suspicious finding. RECOMMENDATIONS: ROUTINE MAMMOGRAM AND CLINICAL EVALUATION IN 12 MONTHS. PLEASE NOTE: Dictated by: Felipe Martines DO on 10/23/2024 at 16:24 Approved by: Felipe Martines DO on 10/23/2024 at 16:27
== END 2024-10-23 10:51 | disposition home or self-care (01) ==
LOC: MAMMO 10:50
PROVIDERS: PCP Internal Medicine; Visit Provider Internal Medicine
DX: Z12.31 Encounter for screening mammogram for malignant neoplasm of breast (principal); Z80.8 Family history of malignant neoplasm of other organs or systems
CPT/HCPCS: 77063; 77067

== ENCOUNTER 2025-01-17 10:49 | Emergency (ER) | payer MEDICARE, SELFPAY ==
[2025-01-17 10:56] VITALS: BP 178/85; PULSE 70; TEMP 36.6; O2SAT 97; BMI 29.3
[2025-01-17] MEDS: KETOROLAC TROMETHAMINE 30 MG/ML VIAL 15 MG IM (11:46)
[2025-01-17] MEDS: METHYLPREDNISOLONE SOD SUCC PF 40 MG/ML VIAL IM (11:47)
--- NOTE | 2025-01-17 12:23 | ED.EXTPRO1 ---
HPI - Extremity Problem General Chief complaint: Extremity Problem, Nontraumatic Stated complaint: LEFT KNEE PAIN Time Seen by Provider: 01/17/25 11:18 Source: patient Mode of arrival: Wheelchair History of Present Illness HPI Narrative: The patient is 84 years old female is coming with 2 weeks history of left knee pain, she mentioned that she always have a chronic pain but it got exacerbated 2 weeks ago when she was trying to put some recliner, she mentioned that she leaned with her knee on the recliner, the patient denies any fall or trauma she mentioned that she tried some Tylenol at home that did not help The patient is supposed to have injection in her knee regularly and she did not have 1 for the last 6 months No other complaints Related Data Home Medications ?Medication ?Instructions ?Recorded ?Confirmed ezetimibe 10 mg tablet 10 mg PO DAILY 09/13/24 09/13/24 levothyroxine 125 mcg tablet 125 mcg PO DAILY 09/13/24 09/13/24 meclizine 12.5 mg tablet 12.5 mg PO DAILY 09/13/24 09/13/24 montelukast 10 mg tablet 10 mg PO DAILY 09/13/24 09/13/24 nebivolol 10 mg tablet 10 mg PO DAILY 09/13/24 09/13/24 rosuvastatin 40 mg tablet 40 mg PO BEDTIME 09/13/24 09/13/24 sacubitril 24 mg-valsartan 26 mg 1 tab PO BID 09/13/24 09/13/24 tablet (Entresto) Previous Rx's ?Medication ?Instructions ?Recorded meloxicam 7.5 mg tablet 7.5 mg PO DAILY PRN pain #10 tabs 09/13/24 meloxicam 7.5 mg tablet 7.5 mg PO DAILY PRN pain #20 tabs 01/17/25 prednisone 20 mg tablet 40 mg (2 x 20 mg) PO DAILY 5 days 01/17/25 #10 tabs Allergies Allergy/AdvReac Type Severity Reaction Status Date / Time Sulfa (Sulfonamide Allergy Severe Rash Verified 09/13/24 12:55 Antibiotics) Review of Systems ROS Status of ROS 10 or more systems reviewed and unremarkable except as noted in history and below PFSH PFSH Social History Little interest or pleasure in doing things: not at all Feeling down, depressed, or hopeless: not at all Exam Narrative Exam Narrative: Nurses notes and vital signs reviewed and patient is not hypoxic. Lower extremity exam: Left lower extremity examination showed that the patient had no swelling no edema except for mild maybe effusion in the left knee there is no redness no hotness and the patient have a good anterior tibial pulse and no vascular injury detected, no signs of fall or trauma, the patient have limited movement at flexion of the left knee more than 90 degrees but she can fully extend the knee There is no significant swelling no calf edema General: Well-appearing and in no apparent distress. Skin: Warm, dry, no pallor noted. No rash. Head: Normocephalic, atraumatic. Neck: Supple, non-tender. Cardiovascular: Regular Rate and Rhythm without murmur, gallop or rub. Respiratory: No accessory muscle use or respiratory distress. Lungs are clear to auscultation, no wheezing, rales or rhonchi Chest Wall: no tenderness Back: No midline thoracic or lumbar vertebral tenderness. No CVA tenderness GI: Abdomen is soft, non-distended. Normal bowel sounds. No masses appreciated. No tenderness to palpation. No rebound, guarding, or rigidity noted. Neurological: A&O x4. No cranial nerve dysfunction observed. No truncal ataxia. Moves all extremities. Sensation intact. Psychiatric: Cooperative and interactive. Normal mood and affect. Constitutional Vital Signs, click to edit/add: Last Vital Signs Temp 98 F 01/17/25 10:56 Pulse 70 01/17/25 10:56 Resp 16 01/17/25 10:56 BP 178/85 H 01/17/25 10:56 Pulse Ox 97 01/17/25 10:56 O2 Del Method Room Air 01/17/25 10:56 Course Vital Signs Vital signs: Vital Signs Temperature 98 F 01/17/25 10:56 Pulse Rate 70 01/17/25 10:56 Respiratory Rate 16 01/17/25 10:56 Blood Pressure 178/85 H 01/17/25 10:56 Pulse Oximetry 97 01/17/25 10:56 Oxygen Delivery Method Room Air 01/17/25 10:56 Temperature 98 F 01/17/25 10:56 Pulse Rate 70 01/17/25 10:56 Respiratory Rate 16 01/17/25 10:56 Blood Pressure 178/85 H 01/17/25 10:56 Pulse Oximetry 97 01/17/25 10:56 Oxygen Delivery Method Room Air 01/17/25 10:56 MDM - Extremity (Nontraumatic) MDM Narrative Medical decision making narrative: The patient presentation is mostly secondary arthritis although it could be also due to bursitis The patient started on Toradol and steroid in the ER after which she was feeling much better Discharged home with prednisone and Mobic The patient is to follow up with primary care physician in next 2-3 days or to return to the emergency department should any of the signs or symptoms worsen or new symptoms develop. The patient agrees with the following Diagnosis and Treatment plan and the patient will be discharged home. Discharge Plan Discharge Chief Complaint: Extremity Problem, Nontraumatic Clinical Impression: Acute knee pain Patient Disposition: Home, Self-Care Time of Disposition Decision: 12:33 Condition: Good Prescriptions / Home Meds: New prednisone 20 mg tablet 40 mg PO DAILY 5 Days Qty: 10 0RF meloxicam 7.5 mg tablet 7.5 mg PO DAILY PRN (Reason: pain) Qty: 20 0RF No Action levothyroxine 125 mcg tablet 125 mcg PO DAILY rosuvastatin 40 mg tablet 40 mg PO BEDTIME nebivolol 10 mg tablet 10 mg PO DAILY ezetimibe 10 mg tablet 10 mg PO DAILY meclizine 12.5 mg tablet 12.5 mg PO DAILY montelukast 10 mg tablet 10 mg PO DAILY sacubitril-valsartan [Entresto] 24-26 mg tablet 1 tab PO BID meloxicam 7.5 mg tablet 7.5 mg PO DAILY PRN (Reason: pain) Qty: 10 0RF Print Language: Algerian Instructions: Knee Pain (ED) Referrals: ARIANNA CINTRON DO [Primary Care Provider, Family Practice] - 1 week Discharge Date/Time: 01/17/25 12:51
--- OUTSIDE RECORDS SUMMARY | 2025-01-17 12:55 | XMS_ITS | CCD ---
Author Organization [facility] Care Team Providers Care Tare Worker Name Role Phone Ignacio Cintron Primary Care Provider [phone] Kristie Mcarthur Attending Unavailable Sameer Morales Referring Unavailable VALONE , IGNACIO Joshi Primary Care Unavailabl e Sameer Morales Attending Unavailable Sameer Morales Referring Unavailable VALONE , IGNACIO Joshi Primary Care Unavailabl e Sameer Morales Admitting Unavailable Sameer Morales Attending Unavailable ABDULAZIZ COLUNGA, IGNACIO Joshi Referring Unavailabl e VALONE , IGNACIO Joshi Primary Care Unavailabl e VALONE , IGNACIO Joshi Primary Care UnavailJOANNE Galvez Attending Unavailable Sameer Morales Admitting Unavailable Andrew, Sameer Attending Unavailable Sameer Morales Referring Unavailable VALONE , IGNACIO Joshi Primary Care Unavailabl e ABDULAZIZ COLUNGA, IGNACIO Joshi Primary Care Unavailabl NAVJOT Burk Attending Unavailable Ignacio Cintron DO Primary Care Provider Ignacio Cintron DO Primary Care Provider [phone] ABDULAZIZ, DR PIERRE Admitting Unavailable ABDULAZIZ, DR PIERRE Attending Unavailable ABDULAZIZ, DR PIERRE Primary Care Unavailable VALONE, DR PIERRE Consulting Unavailable JAGDEEP, DR BEN Goins Consulting Unavailable Ignaico Cintron DO Primary Care Provider [phone] IGNACIO CINTRON Primary Care Unavailable NATALIE NGUYEN Attending Unavailable IGNACIO CINTRON Primary Care Unavailable CAROLE LOPEZ Admitting Unavailable CAROLE LOPEZ Attending Unavailable IGNACIO CINTRON Primary Care Unavailable DAYO VITALE Admitting Unavailable DAYO VITALE Attending Unavailable JENNIFER FERRARA Consulting Unavailable DANIELA OCONNOR Consulting Unavailable IGNACIO CINTRON Primary Care Unavailable JUAN FRANCISCO HERMOSILLO Attending Unavailable IGNACIO CINTRON Primary Care Unavailable VALERIY CALZADA Attending Unavailable IGNACIO CINTRON Primary Care Unavailable DANNY ARAUJO Attending Unavailable IGNACIO CINTRON Primary Care Unavailable MARK HILLS Attending Unavailable Allergies Allergy Classification Reported Allergen(s) Allergy Type Date of Onset Reaction(s) Facility (12 sources) Sulfonamides (Antibiotic) Propensity to adverse reactions to drug 6 Nausea Only [facility] Work Phone: (7 sources) Sulfonamides (Antibiotic) Propensity to adverse reactions to drug 6 Nausea Only [facility] (1 source) Sulfonamides (Antibiotic) Drug allergy (disorder) 3 [facility] Repository (2 sources) Acetaminophen / HYDROcodone Drug Allergy 4 Nausea And Vomiting, Dizziness or Vertigo [facility] Medications Current Medications Medication Drug Class(es) Dates [...] Taking at Discharge) take 1 capsule by [facility] once daily duloxetine [address] [...] disintegrating tablet 4 mg polyethylene glycol 3350 67110 mg powder for oral solution (4 sources) [...] IntraVENous, at 75 mL/hr, CONTINUOUS, Starting on Sat07/09/24 at 1445, For 48 hours, Complete last [...] Oral, DAILY WITH BREAKFAST, First dose on Celi 07/09/24 at 0800, Until Discontinued, Administer, preferably with food, 2 hours before or after other medications. 100 ml calcium gluconate 20 mg/ml injection (1 source) Start: 07-08-2024 End: 07-08-2024 2,000 mg, IntraVENous, at 50 mL/hr, Administer over 120 Minutes, ONCE, On Sat07/08/24 at 1000, For 1 dose docosahexaenoic acid 1000 mg / omega-3 acid ethyl esters (correction) 300 mg delayed release oral capsule (3 sources) End: 11-27-2022 take 2000 mg by mouth once daily [place]-3 Fatty Acids (FISH OIL) 1000 MG CPDR [...] Local Anesthetic Start: 10-05-2019 End: 10-05-2019 lidocaine-epinephrine 1%-1:514877 injection ezetimibe 10 mg oral tablet (20 [...] 125 mg by mouth. 125 every & Th, 1/2 on Saturday, Saturday, Saturday, Saturday & [...] minutes. Do not crush or break. nystatin 413994 unt/ml oral suspension (3 sources) Polyene Antifungal End: 11-27-2022 take 522361 [IU] by mouth three times daily before mealtime nystatin (MYCOSTATIN) 340523 UNIT/ML suspension Take 500,000 Units by mouth 3 times daily (before meals) 0 11/27/2022 Discontinued omega-3 acid ethyl esters (correction) 1000 mg oral capsule (10 sources) End: [...] Coronary arteriosclerosis; Translations: [Atherosclerotic heart disease of [place] coronary artery without angina pectoris] Onset: 11-29-2022 11-29-2022 Chronic Diseases of mouth; excluding dental (1 source) Aphthous ulceration of skin and/or mucous membrane; Translations: [Recurrent oral aphthae] Episodic Disorders of lipid metabolism (5 sources) Dyslipidemia; Translations: [Hyperlipidemia, unspecified] Onset: 11-29-2022 11-29-2022 Chronic Essential hypertension (10 sources) Hypertensive disorder; Translations: [Essential (primary) hypertension] Onset: 11-28-2022 Chronic Fluid and electrolyte disorders (12 sources) Hyponatremia; Translations: [Hypo-osmolality and hyponatremia] Onset: 07-08-2024 Episodic Gastrointestinal hemorrhage (2 sources) Melena; Translations: [Melena] Onset: 08-08-2024 08-08-2024 Episodic Malaise and fatigue (3 sources) Asthenia; Translations: [Other malaise] Onset: 07-08-2024 07-08-2024 Episodic Open wounds of extremities (1 source) Laceration of finger; Translations: [Laceration of left middle finger without foreign body without damage to nail, initial encounter] Episodic Other gastrointestinal disorders (1 source) Diarrhea, unspecified; Translations: [Diarrhea, unspecified] Onset: 10-10-2024 Episodic Other injuries and conditions due to [...] source) Hypocalcemia; Translations: [Hypocalcemia] Onset: 07-08-2024 Chronic Pneumonia (except that caused by tuberculosis or [...] Classification Problem Date Documented Da te Episodic/Chronic Fracture of upper limb (5 sources) Closed fracture of head of humerus; Translations: [Other displaced fracture of upper end of right humerus, initial encounter for closed fracture] Onset: 07-06-2024 07-06-2024 Episodic Nonspecific chest pain (7 sources) Chest pain; Translations: [Chest pain, unspecified] Onset: 11-27-2022 Episodic Other screening for suspected conditions (not mental disorders or infectious disease) (6 sources) Encounter for screening mammogram for malignant neoplasm of breast; Translations: [Hypomagnesemia] Onset: 08-06-2022 Episodic Other upper respiratory infections (2 sources) [...] Test Name Value Interpretation Reference Range Facility CBC with Diffon 10-11-2024 Abs. Basophil <0.03 Normal 0.00-0.20 [facility] Comment on above: Performed By: #### N A #### [address] [place] [address] [employer] Supervisor: Robb Lewis MD Abs. Eosinophil <0.03 Normal 0.00-0.44 [facility] Comment on above: Performed By: #### N A #### [address] [place] [id number] [employer] Supervisor: oRbb Lewis MD Abs.Imm.Granulocyte <0.03 Normal 0.00-0.30 [facility] Comment on above: Performed By: #### N A #### [address] [place] [facility] [employer] Supervisor: Robb Lewis MD Abs.Neutrophil (Seg) 2.45 k/uL Normal 1.50-8.10 [facility] Comment on above: Performed By: #### N A #### [address] [place] [address] [employer] Supervisor: Robb Lewis MD Basophils/100 WBC (Bld) 0 % Normal 0-2 [facility] Comment on above: Performed By: #### N A #### [facility] [address] [place] [address] [place], [place] [id number] [employer] Supervisor: Robb Lewis MD Eosinophils/100 WBC (Bld) 0 % Low 1-4 [facility] Comment on above: Performed By: #### N A #### [address] [place], [place] [id number] [employer] Supervisor: Robb Lewis MD Erythrocyte distribution width (RBC) [Ratio] 14.1 % Normal 11.8-14.4 [facility] Comment on above: Performed By: #### N A #### [address] [place], [place] [id number] [employer] Supervisor: Robb Lewis MD Hematocrit (Bld) [Volume fraction] 39.3 % Normal 36.3-47.1 [facility] Comment on above: Performed By: #### N A #### [address] [place], [place] [id number] [employer] Supervisor: Robb Lewis MD Hemoglobin (Bld) [Mass/Vol] 12.2 g/dL Normal 11.9-15.1 [facility] Comment on above: Performed By: #### N A #### [address] [place], [place] [id number] [employer] Supervisor: Robb Lewis MD Immature granulocytes/100 WBC (Bld) 0 % Normal 0 [facility] Comment on above: Performed By: #### N A #### [address] [place], [place] [id number] [employer] Supervisor: Robb Lewis MD Lymphocytes (Bld) [#/Vol] 2.90 10*3/uL Normal 1.10-3.70 [facility] Comment on above: Performed By: #### N A #### [address] [place], [place] [id number] [employer] Supervisor: Robb Lewis MD Lymphocytes/100 WBC (Bld) 46 % High 24-43 [facility] Comment on above: Performed By: #### N A #### [facility] [address] [place], [place] [id number] [employer] Supervisor: Robb Lewis MD MCH (RBC) [Entitic mass] 26.7 pg Normal 25.2-33.5 [facility] Comment on above: Performed By: #### N A #### [facility] [address] [place], [place] [phone] [employer] Supervisor: Robb Lewis MD MCHC (RBC) [Mass/Vol] 31.0 g/dL Normal 28.4-34.8 [facility] Comment on above: Performed By: #### N A #### [facility] [address] [place], [place] [id number] [employer] Supervisor: Robb Lewis MD MCV (RBC) [Entitic vol] 86.0 fL Normal 82.6-102.9 [facility] Comment on above: Performed By: #### N A #### [facility] [address] [place], [place] [id number] [employer] Supervisor: Robb Lewis MD Monocytes (Bld) [#/Vol] 1.06 10*3/uL Normal 0.10-1.20 [facility] Comment on above: Performed By: #### N A #### [facility] [address] [place], [place] [id number] [employer] Supervisor: Robb Lewis MD Monocytes/100 WBC (Bld) 16 % High 3-12 [facility] Comment on above: Performed By: #### N A #### [facility] [address] [place] [address] [employer] Supervisor: Robb Lewis MD Neutrophil (Seg) 38 % Normal 36-65 [facility] Comment on above: Performed By: #### N A #### [facility] [address] [place] [address] [employer] Supervisor: Robb Lewis MD NRBC Automated 0.0 per 100 WBC Normal 0.0 [facility] Comment on above: Performed By: #### N A #### [address] [place], [facility] [employer] Supervisor: Robb Lewis MD Platelet mean volume (Bld) [Entitic vol] 9.9 fL Normal 8.1-13.5 [facility] Comment on above: Performed By: #### N A #### [address] [place], [facility] [employer] Supervisor: Robb Lewis MD Platelets (Bld) [#/Vol] 265 10*3/uL Normal 138-453 [facility] Comment on above: Performed By: #### N A #### [address] [place], [facility] [employer] Supervisor: Robb Lewis MD RBC (Bld) [#/Vol] 4.57 10*6/uL Normal 3.95-5.11 [facility] Comment on above: Performed By: #### N A #### [address] [place], [facility] [employer] Supervisor: Robb Lewis MD WBC (Bld) [#/Vol] 6.5 10*3/uL Normal 3.5-11.3 [facility] Comment on above: Performed By: #### N A #### [address] [place], [facility] [employer] Supervisor: Robb Lewis MD Comp Metabolic Pr/rfx MGon 0 2- Albumin [Mass/Vol] 3.4 g/dL Low 3.5-5.2 [facility] Comment on above: Performed By: #### N A #### [address] [place], [facility] [employer] Supervisor: Robb Lewis MD Albumin/Glob Ratio 1.8 Normal 1.0-2.5 [facility] Comment on above: Performed By: #### N A #### [facility] [address] [place], [place] [id number] [employer] Supervisor: Robb Lewis MD Alkaline Phos 55 U/L Normal 35-104 [facility] Comment on above: Performed By: #### N A #### [facility] [address] [place], [place] [id number] [employer] Supervisor: Robb Lewis MD ALT [Catalytic activity/Vol] 18 U/L Normal 10-35 [facility] Comment on above: Performed By: #### N A #### [facility] [address] [place], [place] [id number] [employer] Supervisor: Robb Lewis MD Anion gap [Moles/Vol] 11 mmol/L Normal 9-16 [facility] Comment on above: Performed By: #### N A #### [facility] [address] [place], [place] [id number] [employer] Supervisor: Robb Lewis MD AST [Catalytic activity/Vol] 24 U/L Normal 10-35 [facility] Comment on above: Performed By: #### N A #### [facility] [address] [place], [place] [phone] [employer] Supervisor: Robb Lewis MD Bilirubin [Mass/Vol] 0.3 mg/dL Normal 0.00-1.20 [facility] Comment on above: Performed By: #### N A #### [facility] [address] [place] [address] [employer] Supervisor: Robb Lewis MD BUN/CRE Ratio 22 High 9-20 [facility] Comment on above: Performed By: #### N A #### [facility] [address] [place], [place] [id number] [employer] Supervisor: Robb Lewis MD Calcium [Mass/Vol] 8.8 mg/dL Normal 8.6-10.4 [facility] Comment on above: Performed By: #### N A #### [facility] [address] [place] [address] [employer] Supervisor: Robb Lewis MD Chloride [Moles/Vol] 102 mmol/L Normal 98-107 [facility] Comment on above: Performed By: #### N A #### [facility] [address] [place] [address] [employer] Supervisor: Robb Lewis MD CO2 [Moles/Vol] 22 mmol/L Normal 20-31 [facility] Comment on above: Performed By: #### N A #### [facility] [address] [place] [address] [employer] Supervisor: Robb Lewis MD Creatinine [Mass/Vol] 0.6 mg/dL Normal 0.50-0.90 [facility] Comment on above: Performed By: #### N A #### [facility] [address] [place] [address] [employer] Supervisor: Robb Lewis MD GFR/1.73 sq M.predicted among non-blacks MDRD (S/P/Bld) [Vol rate/Area] 88 mL/min/{1.73_m2} Normal >60 [facility] Comment on above: Result Comment: These results [...] secretion. Performed By: #### N A #### [facility] [address] [place] [address] [employer] Supervisor: Robb Lewis MD Glucose [Mass/Vol] 80 mg/dL Normal 74-99 [facility] Comment on above: Performed By: #### N A #### [facility] [address] [place], [place] [id number] [employer] Supervisor: Robb Lewis MD Potassium [Moles/Vol] 3.4 mmol/L Low 3.7-5.3 [facility] Comment on above: Performed By: #### N A #### [facility] [address] [place] [address] [employer] Supervisor: Robb Lewis MD Protein [Mass/Vol] 5.3 g/dL Low 6.6-8.7 [facility] Comment on above: Performed By: #### N A #### [facility] [address] [place] [address] [place], [place] [id number] [employer] Supervisor: Robb Lewis MD Sodium [Moles/Vol] 135 mmol/L Low 136-145 [facility] Comment on above: Performed By: #### N A #### [facility] [address] [place] [address] Dr[place], [place] [phone] [employer] Supervisor: Robb Lewis MD Urea nitrogen [Mass/Vol] 13 mg/dL Normal 04-10 [facility] Comment on above: Performed By: #### N A #### [facility] [address] [place] [address] [place] [address] [employer] Supervisor: Robb Lewis MD Magnesiumon 10-11-2024 Magnesium [Mass/Vol] 1.8 mg/dL Normal 1.6-2.4 [facility] Comment on above: Performed By: #### N A #### [facility] [address] [place], [place] [phone] [employer] Supervisor: Robb Lewis MD Stool PCR [place] 10-11-19 Campylobacter sp PCR NEGATIVE: No Campylobacter spp. (jejuni or coli) DNA Detected Normal CAMNEG [facility] Comment on above: Performed By: #### M G, TROPI, CDP, DIME, BMP #### [facility] [address] [place] [address] [place] [address] [employer] Supervisor: Robb Lewis MD E coli enterotox PCR NEGATIVE: No Enterotoxigenic E. coli (ETEC) Heat-labile and heat-stable (LT/ST) [facility] Comment on above: Result Comment: DNA Detected Performed By: #### M G, TROPI, CDP, DIME, BMP #### [facility] [address] [place] [address] [place] [address] [employer] Supervisor: Robb Lewis MD Plesiomonas sp PCR Negative [place] [facility] Comment on above: Performed By: #### M G, TROPI, CDP, DIME, BMP #### [address] [place] [address] [employer] Supervisor: Robb Lewis MD Salmonella sp PCR Negative [facility] Comment on above: Performed By: #### M G, TROPI, CDP, DIME, BMP #### [address] [place] [address] [employer] Supervisor: Robb Lewis MD Shigatoxin gene PCR Negative [place] [facility] Comment on above: Performed By: #### M G, TROPI, CDP, DIME, BMP #### [address] [place] [address] [employer] Supervisor: Robb Lewis MD Shigella sp PCR Negative Normal [facility] Comment on above: Performed By: #### M G, TROPI, CDP, DIME, BMP #### [address] [place], [place] [phone] [employer] Supervisor: Robb Lewis MD Vibrio sp PCR NEGATIVE: No Vibrio (V. vulnificus, V, parahaemolyticus and V. cholerae) DNA Normal [facility] Comment on above: Result Comment: Dete cted Performed By: #### M G, TROPJA Milligan, DIME, BMP #### [facility] [address] [place], [place] [phone] [employer] Supervisor: Robb Lewis MD Yersinia gene PCR Negative Normal YERNEG [facility] Comment on above: Performed By: #### M Abundio, TROPI, JA, DIME, BMP #### [facility] [address] [place] [address] Dr[place], [place] [address] [employer] Supervisor: Robb Lewis MD C diff Ag + Toxinon 10-10-19 25 C diff Ag + Toxin Negative Normal NEG [facility] Comment on above: Result Comment: No C . difficile antigen and Toxin Detected. Performed By: #### N A #### [address] [place], [facility] [employer] Supervisor: Robb Lewis MD Specimen Description .FECES Normal [facility] Comment on above: Performed By: #### N A #### [address] [place], [facility] [employer] Supervisor: Robb Lewis MD CBC with Diffon 10-10-2024 Abs. Basophil <0.03 Normal 0.00-0.20 [facility] Comment on above: Performed By: #### SAMUEL Hernandez CDP, DIME, BMP #### [address] [place], [place] [address] [employer] Supervisor: Robb Lewis MD Abs.Imm.Granulocyte <0.03 Normal 0.00-0.30 [facility] Comment on above: Performed By: #### M Abundio, JA BAKER, DIME, BMP #### [address] [place] [address] [employer] Supervisor: Robb Lewis MD Abs.Neutrophil (Seg) 5.56 k/uL Normal 1.50-8.10 [facility] Comment on above: Performed By: #### M SAMUEL Del Castillo CDP, DIME, BMP #### [facility] [address] [place], [place] [address] [employer] Supervisor: Robb Lewis MD Basophils/100 WBC (Bld) 0 % Normal 0-2 [facility] Comment on above: Performed By: #### M G, TROPI, CDP, DIME, BMP #### [facility] [address] [place] [address] [employer] Supervisor: Robb Lewis MD Eosinophils (Bld) [#/Vol] 0.07 10*3/uL Normal 0.00-0.44 [facility] Comment on above: Performed By: #### M G, TROPI, CDP, DIME, BMP #### [address] [place] [address] [employer] Supervisor: Robb Lewis MD Eosinophils/100 WBC (Bld) 1 % Normal 1-4 [facility] Comment on above: Performed By: #### M G, TROPI, CDP, DIME, BMP #### [address] [place] [address] [employer] Supervisor: Robb Lewis MD Erythrocyte distribution width (RBC) [Ratio] 14.1 % Normal 11.8-14.4 [facility] Comment on above: Performed By: #### M G, TROPI, CDP, DIME, BMP #### [address] [place], [place] [address] [employer] Supervisor: Robb Lewis MD Hematocrit (Bld) [Volume fraction] 40.8 % Normal 36.3-47.1 [facility] Comment on above: Performed By: #### M G, TROPI, CDP, DIME, BMP #### [address] [place], [facility] [employer] Supervisor: Robb Lewis MD Hemoglobin (Bld) [Mass/Vol] 13.4 g/dL Normal 11.9-15.1 [facility] Comment on above: Performed By: #### M G, TROPI, CDP, DIME, BMP #### [facility] [address] [place] [address] [employer] Supervisor: Robb Lewis MD Immature granulocytes/100 WBC (Bld) 0 % Normal 0 [facility] Comment on above: Performed By: #### M G, TROPI, CDP, DIME, BMP #### [facility] [address] [place], [place] [address] [employer] Supervisor: Robb Lewis MD Lymphocytes (Bld) [#/Vol] 1.40 10*3/uL Normal 1.10-3.70 [facility] Comment on above: Performed By: #### M G, TROPI, CDP, DIME, BMP #### [address] [place] [address] [employer] Supervisor: Robb Lewis MD Lymphocytes/100 WBC (Bld) 18 % Low 24-43 [facility] Comment on above: Performed By: #### M G, TROPI, CDP, DIME, BMP #### [address] [place], [facility] [employer] Supervisor: Robb Lewis MD MCH (RBC) [Entitic mass] 27.1 pg Normal 25.2-33.5 [facility] Comment on above: Performed By: #### M G, TROPI, CDP, DIME, BMP #### [address] [place], [facility] [employer] Supervisor: Robb Lewis MD MCHC (RBC) [Mass/Vol] 32.8 g/dL Normal 28.4-34.8 [facility] Comment on above: Performed By: #### M G, TROPI, CDP, DIME, BMP #### [address] [place], [facility] [employer] Supervisor: Robb Lewis MD MCV (RBC) [Entitic vol] 82.6 fL Normal 82.6-102.9 [facility] Comment on above: Performed By: #### M G, TROPI, CDP, DIME, BMP #### [address] [place], [place] [id number] [employer] Supervisor: Robb Lewis MD Monocytes (Bld) [#/Vol] 0.92 10*3/uL Normal 0.10-1.20 [facility] Comment on above: Performed By: #### M G, TROPI, CDP, DIME, BMP #### [address] [place] [address] [employer] Supervisor: Robb Lewis MD Monocytes/100 WBC (Bld) 12 % Normal 3-12 [facility] Comment on above: Performed By: #### Terry G, TROPI, CDP, DIME, BMP #### [address] [place] [address] [employer] Supervisor: Robb Lewis MD Neutrophil (Seg) 69 % High 36-65 [facility] Comment on above: Performed By: #### M G, TROPI, CDP, DIME, BMP #### [address] [place], [place] [id number] [employer] Supervisor: Robb Lewis MD NRBC Automated 0.0 per 100 WBC Normal 0.0 [facility] Comment on above: Performed By: #### M G, TROPI, CDP, DIME, BMP #### [address] [place] [address] [employer] Supervisor: Robb Lewis MD Platelet mean volume (Bld) [Entitic vol] 9.8 fL Normal 8.1-13.5 [facility] Comment on above: Performed By: #### M G, TROPI, CDP, DIME, BMP #### [address] [place] [address] [employer] Supervisor: Robb Lewis MD Platelets (Bld) [#/Vol] 296 10*3/uL Normal 138-453 [facility] Comment on above: Performed By: #### M G, TROPI, CDP, DIME, BMP #### [facility] [address] [place] [address] [employer] Supervisor: Robb Lewis MD RBC (Bld) [#/Vol] 4.94 10*6/uL Normal 3.95-5.11 [facility] Comment on above: Performed By: #### M G, TROPI, CDP, DIME, BMP #### [facility] [address] [place] [address] [employer] Supervisor: Robb Lewis MD WBC (Bld) [#/Vol] 8.0 10*3/uL Normal 3.5-11.3 [facility] Comment on above: Performed By: #### M G, TROPI, CDP, DIME, BMP #### [facility] [address] [place] [address] [employer] Supervisor: Robb Lewis MD CT ABDOMEN PELVIS W IV CONTR [place] 10-10-2024 CT ABDOMEN PELVIS W IV CONTRAST EXAMINATION: CT OF THE ABDOMEN AND PELVIS WITH CONTRAST 10/10/2024 6:07 am TECHNIQUE: CT of the abdomen and pelvis was performed with the administration of intravenous contrast. Multiplanar reformatted images are provided for review. Automated exposure control, iterative reconstruction, and/or weight based adjustment of the mA/kV was utilized to reduce the radiation dose to as low as reasonably achievable. COMPARISON: 08 August 2024 HISTORY: ORDERING SYSTEM PROVIDED HISTORY: Abdominal pain and diarrhea TECHNOLOGIST PROVIDED HISTORY: Abdominal pain and diarrhea Decision Support Exception - unselect if not a suspected or confirmed emergency medical condition->Emergency Medical Condition (MA) FINDINGS: Lower Chest: Normal bronchovascular markings. No effusion, pneumothorax or airspace process. Organs: Liver: Minimal intrahepatic ductal dilatation post cholecystectomy. No worrisome mass. Gallbladder: Cholecystectomy. Pancreas: Normal Adrenal glands: Normal Kidneys: Tiny simple cyst lower pole right kidney. Spleen: Normal GI/Bowel: Stomach: Unremarkable Small bowel: Unremarkable. Colon: There are a few scattered colonic diverticulum. Pelvis: Prostate gland and bladder are unremarkable. No free fluid. Peritoneum/Retroperit oneum: Moderate atherosclerotic changes of the aorta. No adenopathy or free fluid. Bones/Soft Tissues: Advanced degenerative changes throughout the spine. Superior endplate compression fracture L 1 unchanged with prominent Schmorl's node. Moderate enthesopathy about the hips and hamstrings. IMPRESSION: No acute abdominal or pelvic finding. No change compared to the prior study. Interpreted by: Arnulfo Miguel MD Signed by: Arnulfo Miguel MD 10/10/24 Final result Normal [facility] Comp Metabolic Profon 2024 Albumin [Mass/Vol] 4.2 g/dL Normal 3.5-5.2 [facility] Comment on above: Performed By: #### M G, TROPI, CDP, DIME, BMP #### [facility] [address] [place] [address] [place] [address] [employer] Supervisor: Robb Lewis MD Albumin/Glob Ratio 1.7 Normal 1.0-2.5 [facility] Comment on above: Performed By: #### M G, TROPI, CDP, DIME, BMP #### [address] [place], [place] [id number] [employer] Supervisor: Robb Lewis MD Alkaline Phos 67 U/L Normal 35-104 [facility] Comment on above: Performed By: #### M G, TROPI, CDP, DIME, BMP #### [address] [place] [address] [employer] Supervisor: Robb Lewis MD ALT [Catalytic activity/Vol] 17 U/L Normal 10-35 [facility] Comment on above: Performed By: #### M G, TROPI, CDP, DIME, BMP #### [address] [place] [place] [address] [employer] Supervisor: Robb Lewis MD Anion gap [Moles/Vol] 14 mmol/L Normal 9-16 [facility] Comment on above: Performed By: #### M G, TROPI, CDP, DIME, BMP #### [facility] [address] [place], [place] [id number] [employer] Supervisor: Robb Lewis MD AST [Catalytic activity/Vol] 23 U/L Normal 10-35 [facility] Comment on above: Performed By: #### M G, TROPI, CDP, DIME, BMP #### [facility] [address] [place], [place] [id number] [employer] Supervisor: Robb Lewis MD Bilirubin [Mass/Vol] 0.4 mg/dL Normal 0.00-1.20 [facility] Comment on above: Performed By: #### M G, TROPI, CDP, DIME, BMP #### [address] [place], [place] [id number] [employer] Supervisor: Robb Lewis MD BUN/CRE Ratio 25 High 9-20 [facility] Comment on above: Performed By: #### M G, TROPI, CDP, DIME, BMP #### [address] [place], [place] 8193983 [employer] Supervisor: Robb Lewis MD Calcium [Mass/Vol] 9.5 mg/dL Normal 8.6-10.4 [facility] Comment on above: Performed By: #### M G, TROPI, CDP, DIME, BMP #### [facility] [address] [place] [address] [place], [place] 7111183 [employer] Supervisor: Robb Lewis MD Chloride [Moles/Vol] 97 mmol/L Low 98-107 [facility] Comment on above: Performed By: #### M G, TROPI, CDP, DIME, BMP #### [facility] [address] [place] [address] [place], [place] [phone] [employer] Supervisor: Robb Lewis MD CO2 [Moles/Vol] 21 mmol/L Normal 20-31 [facility] Comment on above: Performed By: #### M G, TROPI, CDP, DIME, BMP #### [facility] [address] [place] [address] [employer] Supervisor: Robb Lewis MD Creatinine [Mass/Vol] 0.6 mg/dL Normal 0.50-0.90 [facility] Comment on above: Performed By: #### M G, TROPI, CDP, DIME, BMP #### [facility] [address] [place] [address] [employer] Supervisor: Robb Lewis MD GFR/1.73 sq M.predicted among non-blacks MDRD (S/P/Bld) [Vol rate/Area] 87 mL/min/{1.73_m2} Normal >60 [facility] Comment on above: Result Comment: These results [...] tubular secretion. Performed By: #### M G, TROPI, CDP, DIME, BMP #### [facility] [address] [place] [address] [employer] Supervisor: Robb Lewis MD Glucose [Mass/Vol] 106 mg/dL High 74-99 [facility] Comment on above: Performed By: #### M G, TROPI, CDP, DIME, BMP #### [facility] [address] [place] [address] [employer] Supervisor: Robb Lewis MD Potassium [Moles/Vol] 3.8 mmol/L Normal 3.7-5.3 [facility] Comment on above: Performed By: #### M G, TROPI, CDP, DIME, BMP #### [facility] [address] [place], [place] 2246983 [employer] Supervisor: Robb Lewis MD Protein [Mass/Vol] 6.8 g/dL Normal 6.6-8.7 [facility] Comment on above: Performed By: #### M G, TROPI, CDP, DIME, BMP #### [facility] [address] [place] [address] [place], [place] [phone] [employer] Supervisor: Robb Lewis MD Sodium [Moles/Vol] 132 mmol/L Low 136-145 [facility] Comment on above: Performed By: #### M G, TROPI, CDP, DIME, BMP #### [address] [place], [place] [id number] [employer] Supervisor: Robb Lewis MD Urea nitrogen [Mass/Vol] 15 mg/dL Normal 8-23 [facility] Comment on above: Performed By: #### M Abundio, TROPI, CDP, DIME, BMP #### [address] [place], [place] [phone] [employer] Supervisor: Robb Lewis MD Lactic Acidon 10-10-2024 Lactate [Moles/Vol] 1.6 mmol/L Normal 0.5-2.2 [facility] Comment on above: Performed By: #### L ACTIC #### [address] [place], [place] 1343083 [employer] Supervisor: Robb Lewis MD Lipaseon 10-10-2024 Lipase [Catalytic activity/Vol] 15 U/L Normal 13-60 [facility] Comment on above: Performed By: #### M G, TROPI, CDP, DIME, BMP #### [address] [place], [place] [id number] [employer] Supervisor: Robb Lewis MD Occ Bld, Fecal Scrnon 2024 Occult Blood 1 Negative Normal NEG [facility] Comment on above: Performed By: #### N A #### [address] [place], [place] [phone] [employer] Supervisor: Robb Lewis MD Specimen 1 Date [facility] Comment on above: Performed By: #### N A #### [facility] [address] [place] [address] [place] [place], [place] [id number] [employer] Supervisor: Robb Lewis MD Specimen 1 Time 637 [facility] Comment on above: Performed By: #### N A #### [facility] [address] [place] [address] [place] [address] [employer] Supervisor: Robb Lewis MD Stool PCR [place] 10-10-19 Specimen Description .FECES Normal [facility] Comment on above: Performed By: #### M G, TROPI, CDP, DIME, BMP #### [facility] [address] [place] [address] [place], [place] [phone] [employer] Supervisor: Robb Lewis MD Urinalysis w/ Microon 2024 Bilirubin, SemiQt,Ur Negative Normal NEG [facility] Comment on above: Performed By: #### M G, TROPI, CDP, DIME, BMP #### [address] [place], [place] [id number] [employer] Supervisor: Robb Lewis MD Blood, Urine Negative Normal NEG [facility] Comment on above: Performed By: #### M G, TROPI, CDP, DIME, BMP #### [facility] [address] [place] [address] [place], [place] 1054083 [employer] Supervisor: Robb Lewis MD Clarity (U) Clear Normal CLEAR [facility] Comment on above: Performed By: #### M G, TROPI, CDP, DIME, BMP #### [facility] [address] [place] [address] [employer] Supervisor: Robb Lewis MD Color (U) Yellow Normal YEL [facility] Comment on above: Performed By: #### M G, TROPI, CDP, DIME, BMP #### [facility] [address] [place], [place] [phone] [employer] Supervisor: Robb Lewis MD Epithelial cells LM Ql (Urine sed) 0 TO 2 Normal 0-25 [facility] Comment on above: Performed By: #### M G, TROPI, CDP, DIME, BMP #### [facility] [address] [place] [address] [place] [address] [employer] Supervisor: Robb Lewis MD Glucose Ql (U) Negative Normal NEG [facility] Comment on above: Performed By: #### M G, TROPI, CDP, DIME, BMP #### [address] [place] [address] [employer] Supervisor: Robb Lewis MD Ketones Ql (U) Negative Normal NEG [facility] Comment on above: Performed By: #### M G, TROPI, CDP, DIME, BMP #### [address] [place], [place] [id number] [employer] Supervisor: Robb Lewis MD Leukocyte esterase Test strip Ql (U) Negative Normal NEG [facility] Comment on above: Performed By: #### M G, TROPI, CDP, DIME, BMP #### [address] [place], [place] 9806983 [employer] Supervisor: Robb Lewis MD Nitrite,Ur Negative Normal NEG [facility] Comment on above: Performed By: #### M G, TROPI, CDP, DIME, BMP #### [address] [place], [place] 7156783 [employer] Supervisor: Robb Lewis MD PH,Ur 6.0 Normal 5.0-9.0 [facility] Comment on above: Performed By: #### M G, TROPI, CDP, DIME, BMP #### [address] [place], [place] 2374383 [employer] Supervisor: Robb Lewis MD Protein Ql (U) Negative Normal NEG [facility] Comment on above: Performed By: #### M Abundio, TROPI, CDP, DIME, BMP #### [address] [place], [place] 9947083 [employer] Supervisor: Robb Lewis MD Spec. [place],Ur <1.005 Low 1.010-1.020 [facility] Comment on above: Performed By: #### M G, TROPI, CDP, DIME, BMP #### [address] [place], [place] 8233583 [employer] Supervisor: Robb Lewis MD Urine RBC's 0 TO 2 Normal 0-2 [facility] Comment on above: Performed By: #### Terry Del Castillo, TROPI, CDP, DIME, BMP #### [address] [place], [place] 1443883 [employer] Supervisor: Robb Lewis MD Urine WBC's 0 TO 2 Normal 0-5 [facility] Comment on above: Performed By: #### M Abundio, TROPI, CDP, DIME, BMP #### [address] [place], [place] [phone] [employer] Supervisor: Robb Lewis MD Urobilinogen,Ur Normal Normal 0.0-1.0 [facility] Comment on above: Performed By: #### M G, TROPI, CDP, DIME, BMP #### [facility] [address] [place] [address] [place], [place] [phone] [employer] Supervisor: Robb Lewis MD APTTon 08-08-2024 aPTT Coag (Bld) [Time] 25.5 s Low [facility] Comment on above: IV Heparin Therapy Range: 62.0-94.0 Interpretation and review of laboratory results Abnormal [facility] aPTT Coag (Bld) [Time] 25.5 s Low 26.8-34.8 [facility] Comment on above: Result Comment: IV Heparin Therapy Range: 62.0-94.0 Performed By: #### M Abundio, JA BAKER, ZOILA, PAOLA #### [facility] [address] [place] [address] [employer] Supervisor: Robb Lewis MD Basic Metabolic Panelon - Anion gap [Moles/Vol] 12 mmol/L 9 - 16 mmol/L [facility] Calcium [Mass/Vol] 9.8 mg/dL 8.6 - 10. 4 mg/dL [facility] Chloride [Moles/Vol] 102 mmol/L 98 - 10 7 mmol/L [facility] CO2 [Moles/Vol] 24 mmol/L 20 - 31 mmol/L [facility] Creatinine [Mass/Vol] 0.7 mg/dL 0.50 - 0.90 mg/dL [facility] Est, Glom Filt Rate 86 - PINF [facility] Comment on above: These results are not [...] 102 mg/dL High 74 - 99 mg/dL [facility] Potassium [Moles/Vol] 3.8 mmol/L 3.7 - 5.3 mmol/L [facility] Sodium [Moles/Vol] 138 mmol/L 136 - 145 mmol/L [facility] Urea nitrogen [Mass/Vol] 7 mg/dL Low 8 - 23 mg/dL [facility] Urea nitrogen/Creatinine [Mass ratio] 10 mg/mg - 20 [facility] Basic Metabolic Profon 08-08 Anion gap [Moles/Vol] 12 mmol/L Normal - [facility] Comment on above: Performed By: #### N A #### [facility] [address] [place] [address] [employer] Supervisor: Robb Lewis MD BUN/CRE Ratio 10 Normal 9-20 [facility] Comment on above: Performed By: #### N A #### [facility] [address] [place], [place] [phone] [employer] Supervisor: Robb Lewis MD Calcium [Mass/Vol] 9.8 mg/dL Normal 8.6-10.4 [facility] Comment on above: Performed By: #### N A #### [facility] [address] [place] [id number] [employer] Supervisor: Robb Lewis MD Chloride [Moles/Vol] 102 mmol/L Normal 98-107 [facility] Comment on above: Performed By: #### N A #### [facility] [address] [place] [address] [place] [id number] [employer] Supervisor: Robb Lewis MD CO2 [Moles/Vol] 24 mmol/L Normal 20-31 [facility] Comment on above: Performed By: #### N A #### [facility] [address] [place] [address] [place] [address] [employer] Supervisor: Robb Lewis MD Creatinine [Mass/Vol] 0.7 mg/dL Normal 0.50-0.90 [facility] Comment on above: Performed By: #### N A #### [facility] [address] [place], [place] 0356983 [employer] Supervisor: Robb Lewis MD GFR/1.73 sq M.predicted among non-blacks MDRD (S/P/Bld) [Vol rate/Area] 86 mL/min/{1.73_m2} Normal >60 [facility] Comment on above: Result Comment: These results [...] secretion. Performed By: #### N A #### [facility] [address] [place] [id number] [employer] Supervisor: Robb Lewis MD Glucose [Mass/Vol] 102 mg/dL High 74-99 [facility] Comment on above: Performed By: #### N A #### [facility] [address] [place] [phone] [employer] Supervisor: Robb Lewis MD Potassium [Moles/Vol] 3.8 mmol/L Normal 3.7-5.3 [facility] Comment on above: Performed By: #### N A #### [facility] [address] [place] [address] [place] [phone] [employer] Supervisor: Robb Lewis MD Sodium [Moles/Vol] 138 mmol/L Normal 136-145 [facility] Comment on above: Performed By: #### N A #### [facility] [address] [place] [address] [employer] Supervisor: Robb Lewis MD Urea nitrogen [Mass/Vol] 7 mg/dL Low 8-23 [facility] Comment on above: Performed By: #### N A #### [facility] [address] [place], [place] [id number] [employer] Supervisor: Robb Lewis MD Blood Occult Stool Screen #1 on 08-08-2024 Date, Stool #1 12 [facility] Comment on above: Hemoglobin.gastroint estinal spec 1 Ql (Stl) Negative NEGATIVE [facility] Time, Stool #1 1845 [facility] CBC with Auto Differentialon 08-08-2024 Basophils (Bld) [#/Vol] 0.03 10*3/uL [facility] Basophils/100 WBC (Bld) 1 % 0 - 2 % [facility] Eosinophils (Bld) [#/Vol] 0.22 10*3/uL [facility] Eosinophils/100 WBC (Bld) 4 % 1 - 4 % [facility] Erythrocyte distribution width (RBC) [Ratio] 14.0 % 11.8 - 14.4 % [facility] Hematocrit (Bld) [Volume fraction] 34.4 % Low 36.3 - 47.1 % [facility] Hemoglobin (Bld) [Mass/Vol] 11.1 g/dL Low 11.9 - 15.1 g/dL [facility] Immature granulocytes (Bld) [#/Vol] [facility] Immature granulocytes/100 WBC (Bld) 0 % 0 [facility] Interpretation and review of laboratory results Abnormal [facility] Lymphocytes/100 WBC (Bld) 31 % 24 - 43 % [facility] Lymphocytes/100 WBC (Bld) 1.94 % [facility] MCH (RBC) [Entitic mass] 28.1 pg 25.2 - 33.5 pg [facility] MCHC (RBC) [Mass/Vol] 32.3 g/dL 28.4 - 34.8 g/dL [facility] MCV (RBC) [Entitic vol] 87.1 fL 82.6 - 102.9 fL [facility] Monocytes/100 WBC (Bld) 8 % 3 - 12 % [facility] Monocytes/100 WBC (Bld) 0.49 % [facility] Neutrophils/100 WBC (Bld) 56 % 36 - 65 % [facility] Nucleated RBC/100 WBC (Bld) [Ratio] 0.0 % 0.0 per 100 WBC [facility] Platelet mean volume (Bld) [Entitic vol] 10.0 fL 8.1 - 13.5 fL [facility] Platelets (Bld) [#/Vol] 362 10*3/uL [facility] RBC (Bld) [#/Vol] 3.95 10*6/uL 3.95 - 5.1 1 m/uL [facility] Segmented neutrophils/100 WBC (Bld) 3.62 % [facility] WBC other (Bld) [#/Vol] 6.3 [facility] CBC with Diffon 08-08-2024 Abs. Basophil 0.03 k/uL Normal 0.00-0.20 [facility] Comment on above: Performed By: #### M G, TROPI, CDP, DIME, BMP #### [facility] [address] [place] [address] Dr[place], [place] [address] [employer] Supervisor: Robb Lewis MD Abs.Imm.Granulocyte <0.03 Normal 0.00-0.30 [facility] Comment on above: Performed By: #### M G, TROPI, CDP, DIME, BMP #### [address] [place] [address] [employer] Supervisor: Robb Lewis MD Abs.Neutrophil (Seg) 3.62 k/uL Normal 1.50-8.10 [facility] Comment on above: Performed By: #### M G, TROPI, CDP, DIME, BMP #### [address] [place], [place] [address] [employer] Supervisor: Robb Lewis MD Basophils/100 WBC (Bld) 1 % Normal 0-2 [facility] Comment on above: Performed By: #### M G, TROPI, CDP, DIME, BMP #### [address] [place], [place] [address] [employer] Supervisor: Robb Lewis MD Eosinophils (Bld) [#/Vol] 0.22 10*3/uL Normal 0.00-0.44 [facility] Comment on above: Performed By: #### M G, TROPI, CDP, DIME, BMP #### [address] [place] [phone] [employer] Supervisor: Robb Lewis MD Eosinophils/100 WBC (Bld) 4 % Normal 1-4 [facility] Comment on above: Performed By: #### M G, TROPI, CDP, DIME, BMP #### [facility] [address] [place], [place] [id number] [employer] Supervisor: Robb Lewis MD Erythrocyte distribution width (RBC) [Ratio] 14.0 % Normal 11.8-14.4 [facility] Comment on above: Performed By: #### M G, TROPI, CDP, DIME, BMP #### [address] [place] [address] [employer] Supervisor: Robb Lewis MD Hematocrit (Bld) [Volume fraction] 34.4 % Low 36.3-47.1 [facility] Comment on above: Performed By: #### M G, TROPI, CDP, DIME, BMP #### [address] [place] [address] [employer] Supervisor: Robb Lewis MD Hemoglobin (Bld) [Mass/Vol] 11.1 g/dL Low 11.9-15.1 [facility] Comment on above: Performed By: #### M G, TROPI, CDP, DIME, BMP #### [address] [place] [id number] Sh[employer] Supervisor: Robb Lewis MD Immature granulocytes/100 WBC (Bld) 0 % Normal 0 [facility] Comment on above: Performed By: #### M G, TROPI, CDP, DIME, BMP #### [address] [place] [address] [employer] Supervisor: Robb Lewis MD Lymphocytes (Bld) [#/Vol] 1.94 10*3/uL Normal 1.10-3.70 [facility] Comment on above: Performed By: #### M G, TROPI, CDP, DIME, BMP #### [address] [place] [phone] [employer] Supervisor: Robb Lewis MD Lymphocytes/100 WBC (Bld) 31 % Normal 24-43 [facility] Comment on above: Performed By: #### M G, TROPI, CDP, DIME, BMP #### [facility] [address] [place], [facility] [employer] Supervisor: Robb Lewis MD MCH (RBC) [Entitic mass] 28.1 pg Normal 25.2-33.5 [facility] Comment on above: Performed By: #### M G, TROPI, CDP, DIME, BMP #### [facility] [address] [place], [facility] [employer] Supervisor: Robb Lewis MD MCHC (RBC) [Mass/Vol] 32.3 g/dL Normal 28.4-34.8 [facility] Comment on above: Performed By: #### M G, TROPI, CDP, DIME, BMP #### [address] [place], [place] [address] [employer] Supervisor: Robb Lewis MD MCV (RBC) [Entitic vol] 87.1 fL Normal 82.6-102.9 [facility] Comment on above: Performed By: #### M G, TROPI, CDP, DIME, BMP #### [address] [place], [facility] [employer] Supervisor: Robb Lewis MD Monocytes (Bld) [#/Vol] 0.49 10*3/uL Normal 0.10-1.20 [facility] Comment on above: Performed By: #### M G, TROPI, CDP, DIME, BMP #### [facility] [address] [place], [place] [id number] [employer] Supervisor: Robb Lewis MD Monocytes/100 WBC (Bld) 8 % Normal 3-12 [facility] Comment on above: Performed By: #### M G, TROPI, CDP, DIME, BMP #### [facility] [address] [place], [facility] [employer] Supervisor: Robb Lewis MD Neutrophil (Seg) 56 % Normal 36-65 [facility] Comment on above: Performed By: #### M G, TROPI, CDP, DIME, BMP #### [address] [place], [place] [phone] [employer] Supervisor: Robb Lewis MD NRBC Automated 0.0 per 100 WBC Normal 0.0 [facility] Comment on above: Performed By: #### M G, TROPI, CDP, DIME, BMP #### [facility] [address] [place] [address] [employer] Supervisor: Robb Lewis MD Platelet mean volume (Bld) [Entitic vol] 10.0 fL Normal 8.1-13.5 [facility] Comment on above: Performed By: #### Terry Del Castillo, TROPI, CDP, DIME, BMP #### [address] [place], [facility] [employer] Supervisor: Robb Lewis MD Platelets (Bld) [#/Vol] 362 10*3/uL Normal 138-453 [facility] Comment on above: Performed By: #### M Abundio, TROPI, CDP, DIME, BMP #### [address] [place] [address] [employer] Supervisor: Robb Lewis MD RBC (Bld) [#/Vol] 3.95 10*6/uL Normal 3.95-5.11 [facility] Comment on above: Performed By: #### M G, TROPI, CDP, DIME, BMP #### [address] [place], [place] [id number] [employer] Supervisor: Robb Lewis MD WBC (Bld) [#/Vol] 6.3 10*3/uL Normal 3.5-11.3 [facility] Comment on above: Performed By: #### M G, TROPI, CDP, DIME, BMP #### [facility] [address] [place] [address] [employer] Supervisor: Robb Lewis MD CT ABDOMEN PELVIS W [...] Arnulfo Marroquin MD 08/08/24 Final result Normal [facility] CT Abdomen and Pelvis W cont rast Yannick 08-08-2024 1. No acute intra-abdominal or intrapelvic abnormalities are noted. 2. Bibasal ground-glass opacities underlying and emphysematous changes. [facility] RIS CONSOLIDATED EXAMINATION: CT OF THE ABDOMEN [...] visualized spine . No acute bony abnormalities. [facility] RIS CONSOLIDATED Arnulfo Marroquin MD - 08/08/2024 [...] Bibasal ground-glass opacities underlying and emphysematous changes. [facility] Radiology Study observation (narrative) [facility] CT Abdomen and Pelvis W cont rast IVOrdered By: Arnulfo Marroquin on 08-08-2024 [facility] [employer] Work Phone: Hepatic Function Panelon Albumin [Mass/Vol] 4.0 g/dL 3.5 - 5.2 g/dL [facility] Albumin/Globulin [Mass ratio] 1.4 {ratio} 1.0 - 2.5 [facility] ALP [Catalytic activity/Vol] 125 U/L High 35 - 104 U/L [facility] ALT [Catalytic activity/Vol] 16 U/L 10 - 35 U/L [facility] AST [Catalytic activity/Vol] 23 U/L 10 - 35 U/L [facility] Bilirubin [Mass/Vol] 0.4 mg/dL 0.00 - 1.20 mg/dL [facility] Bilirubin.direct [Mass/Vol] mg/dL 0.00 - 0.30 mg/dL [facility] Bilirubin.indirect [Mass/Vol] Can not be calculated 0.0 - 1.0 mg/dL [facility] Protein [Mass/Vol] 6.9 g/dL 6.6 - 8.7 g/dL [facility] Lactate, Sepsison 08-08-2024 Lactate (BldV) [Moles/Vol] 1.1 mmol/L 0.5 - 1.9 mmol/L [facility] Lactic Acid, Sepsis 1.1 mmol/L Normal 0.5-1.9 [facility] Comment on above: Performed By: #### N A #### [facility] [address] [place] [address] [employer] Supervisor: Robb Lewis MD Liver Profileon 08-08-2024 Albumin [Mass/Vol] 4.0 g/dL Normal 3.5-5.2 [facility] Comment on above: Performed By: #### N A #### [facility] [address] [place], [place] [id number] [employer] Supervisor: Robb Lewis MD Albumin/Glob Ratio 1.4 Normal 1.0-2.5 [facility] Comment on above: Performed By: #### N A #### [facility] [address] [place], [place] [id number] [employer] Supervisor: Robb Lewis MD Alkaline Phos 125 U/L High 35-104 [facility] Comment on above: Performed By: #### N A #### [facility] [address] [place] [address] [employer] Supervisor: Robb Lewis MD ALT [Catalytic activity/Vol] 16 U/L Normal 10-35 [facility] Comment on above: Performed By: #### N A #### [facility] [address] [place] [address] [employer] Supervisor: Robb Lewis MD AST [Catalytic activity/Vol] 23 U/L Normal 10-35 [facility] Comment on above: Performed By: #### N A #### [facility] [address] [place], [place] [id number] [employer] Supervisor: Robb Lewis MD Bilirubin [Mass/Vol] 0.4 mg/dL Normal 0.00-1.20 [facility] Comment on above: Performed By: #### N A #### [facility] [address] [place] [address] [employer] Supervisor: Robb Lewis MD Bilirubin, Indirect Can not be calculated Normal 0.0-1 .0 [facility] Comment on above: Performed By: #### N A #### [address] [place] [address] [employer] Supervisor: Robb Lewis MD Bilirubin.indirect [Mass/Vol] mg/dL Normal 0.00-0.30 [facility] Comment on above: Performed By: #### N A #### [address] [place] [address] [employer] Supervisor: Robb Lewis MD Protein [Mass/Vol] 6.9 g/dL Normal 6.6-8.7 [facility] Comment on above: Performed By: #### N A #### [facility] [address] [place] [address] [place] [address] [employer] Supervisor: Robb Lewis MD No Panel Informationon 08-08 Interpretation and review of laboratory results Abnormal [facility] Occ Bld, Fecal Scrnon 2023 Occult Blood 1 Negative Normal NEG [facility] Comment on above: Performed By: #### M G, TROPI, CDP, DIME, BMP #### [facility] [address] [place] [address] [place], [place] [id number] [employer] Supervisor: Robb Lewis MD Specimen 1 Date 12 [facility] Comment on above: Result Comment: Performed By: #### M Abundio, TROPI, CDP, DIME, BMP #### [facility] [address] [place], [place] [id number] [employer] Supervisor: Robb Lewis MD Specimen 1 Time 184 [facility] Comment on above: Performed By: #### Terry Del Castillo, TROPI, CDP, DIME, BMP #### [facility] [address] [place], [place] [id number] [employer] Supervisor: Robb Lewis MD PTon 08-08-2024 INR Coag (PPP) [Relative time] 1.0 {INR} [facility] Comment on above: Result Comment: Therapeutic Range: Moderate Anticoagulant Intensity: INR = 2.0-3.0 High Anticoagulant Intensity: INR = 2.5-3.5 Performed By: #### Terry Del Castillo, SAMUEL, JA, DIME, BMP #### [address] [place], [place] [id number] [employer] Supervisor: Robb Lewis MD PT Coag (PPP) [Time] 12.8 s Normal 11.7-14.1 [facility] Comment on above: Performed By: #### Terry Del Castillo, SAMUEL, JA, DIME, BMP #### [address] [place], [place] [id number] [employer] Supervisor: Robb Lewis MD Protime-INRon 08-08-2024 INR Coag (PPP) [Relative time] 1.0 {INR} [facility] Comment on above: Therapeutic Range: Moderate Anticoagulant Intensity: INR = 2.0-3.0 High Anticoagulant Intensity: INR = 2.5-3.5 PT Coag (PPP) [Time] 12.8 s [facility] Specimen Rejectionon 024 Reason for rejection Unable to perform testing: Specimen hemolyzed. [facility] Comment on above: Performed By: #### Terry Del Castillo, TROPI, CDP, DIME, BMP #### [facility] [address] [place] [address] [employer] Supervisor: Robb Lewis MD Source of sample .BLOOD Normal [facility] Comment on above: Performed By: #### M G, TROPI, CDP, DIME, BMP #### [facility] [address] [place] [address] [employer] Supervisor: Robb Lewis MD Test ordered BMP/LIVP Normal [facility] Comment on above: Performed By: #### M G, TROPI, CDP, DIME, BMP #### [facility] [address] [place] [address] [employer] Supervisor: Robb Lewis MD Basic Metabolic Panel 11-2 Anion gap [Moles/Vol] 10 mmol/L 9 - 16 mmol/L [facility] Calcium [Mass/Vol] 9.7 mg/dL 8.6 - 10. 4 mg/dL [facility] Chloride [Moles/Vol] 94 mmol/L Low 98 - 10 7 mmol/L [facility] CO2 [Moles/Vol] 26 mmol/L 20 - 31 mmol/L [facility] Creatinine [Mass/Vol] 0.4 mg/dL Low 0.50 - 0.90 mg/dL [facility] Est, Glom Filt Rate - PINF [facility] Comment on above: These results are not [...] 145 mg/dL High 74 - 99 mg/dL [facility] Potassium [Moles/Vol] 4.0 mmol/L 3.7 - 5.3 mmol/L [facility] Sodium [Moles/Vol] 130 mmol/L Low 136 - 145 mmol/L [facility] Urea nitrogen [Mass/Vol] 18 mg/dL 8 - 23 mg/dL [facility] Urea nitrogen/Creatinine [Mass ratio] 45 mg/mg High 9 - 20 [facility] Basic Metabolic Profon 07-14 Anion gap [Moles/Vol] 10 mmol/L Normal 9-16 [facility] Comment on above: Performed By: #### N A #### [facility] [address] [place], [place] [id number] [employer] Supervisor: Robb Lewis MD BUN/CRE Ratio 45 [facility] 9-20 [facility] Comment on above: Performed By: #### N A #### [facility] [address] [place], [place] [id number] [employer] Supervisor: Robb Lewis MD Calcium [Mass/Vol] 9.7 mg/dL Normal 8.6-10.4 [facility] Comment on above: Performed By: #### N A #### [facility] [address] [place], [place] [id number] [employer] Supervisor: Robb Lewis MD Chloride [Moles/Vol] 94 mmol/L Low 98-107 [facility] Comment on above: Performed By: #### N A #### [facility] [address] [place], [place] [id number] [employer] Supervisor: Robb Lewis MD CO2 [Moles/Vol] 26 mmol/L Normal 20-31 [facility] Comment on above: Performed By: #### N A #### [facility] [address] [place], [place] [id number] [employer] Supervisor: Robb Lewis MD Creatinine [Mass/Vol] 0.4 mg/dL Low 0.50-0.90 [facility] Comment on above: Performed By: #### N A #### [facility] [address] [place], [place] [id number] [employer] Supervisor: Robb Lewis MD GFR/1.73 sq M.predicted among non-blacks MDRD (S/P/Bld) [Vol rate/Area] mL/min/{1.73_m2} Normal >60 [facility] Comment on above: Result Comment: These results [...] secretion. Performed By: #### N A #### [facility] [address] [place] [address] [place] [address] [employer] Supervisor: Robb Lewis MD Glucose [Mass/Vol] 145 mg/dL High 74-99 [facility] Comment on above: Performed By: #### N A #### [address] [place], [place] [id number] [employer] Supervisor: Robb Lewis MD Potassium [Moles/Vol] 4.0 mmol/L Normal 3.7-5.3 [facility] Comment on above: Performed By: #### N A #### [address] [place], [place] [id number] [employer] Supervisor: Robb Lewis MD Sodium [Moles/Vol] 130 mmol/L Low 136-145 [facility] Comment on above: Performed By: #### N A #### [facility] [address] [place] [address] [place], [place] [id number] [employer] Supervisor: Robb Lewis MD Urea nitrogen [Mass/Vol] 18 mg/dL Normal 8-23 [facility] Comment on above: Performed By: #### N A #### [facility] [address] [place] [address] [place] [address] [employer] Supervisor: Robb Lewis MD C-Reactive Proteinon 11-26-2 024 CRP High sensitivity method [Mass/Vol] 159.0 mg/L High 0.0 - 5.0 mg/L [facility] CRP [Mass/Vol] 159.0 mg/L High 0.0-5.0 [facility] Comment on above: Performed By: #### N A #### [facility] [address] [place] [address] [place], [place] [id number] [employer] Supervisor: Robb Lewis MD EKG Rhythm Stripon [facility] No Panel Informationon 07-14 Interpretation and review of laboratory results Abnormal [facility] Sedimentation Rateon 024 ESR Photometric method (Bld) [Velocity] 72 High [facility] Interpretation and review of laboratory results Abnormal [facility] Sedimentation Rate 72 mm/Hr High 0-30 [facility] Comment on above: Performed By: #### N A #### [facility] [address] [place], [place] [id number] [employer] Supervisor: Robb Lewis MD Basic Metab w/rfx MGon 07-13 Anion gap [Moles/Vol] 9 mmol/L Normal 9-16 [facility] Comment on above: Performed By: #### N A #### [facility] [address] [place] [address] [place], [place] [id number] [employer] Supervisor: Robb Lewis MD BUN/CRE Ratio 24 High 9-20 [facility] Comment on above: Performed By: #### N A #### [facility] [address] [place] [address] [employer] Supervisor: Robb Lewis MD Calcium [Mass/Vol] 9.0 mg/dL Normal 8.6-10.4 [facility] Comment on above: Performed By: #### N A #### [facility] [address] [place] [address] [place] [address] [employer] Supervisor: Robb Lewis MD Chloride [Moles/Vol] 93 mmol/L Low 98-107 [facility] Comment on above: Performed By: #### N A #### [facility] [address] [place] [address] [employer] Supervisor: Robb Lewis MD CO2 [Moles/Vol] 27 mmol/L Normal 20-31 [facility] Comment on above: Performed By: #### N A #### [facility] [address] [place] [address] [employer] Supervisor: Robb Lewis MD Creatinine [Mass/Vol] 0.5 mg/dL Normal 0.50-0.90 [facility] Comment on above: Performed By: #### N A #### [facility] [address] [place] [address] [employer] Supervisor: Robb Lewis MD GFR/1.73 sq M.predicted among non-blacks MDRD (S/P/Bld) [Vol rate/Area] mL/min/{1.73_m2} Normal >60 [facility] Comment on above: Result Comment: These results [...] secretion. Performed By: #### N A #### [facility] [address] [place] [address] [employer] Supervisor: Robb Lewis MD Glucose [Mass/Vol] 109 mg/dL High 74-99 [facility] Comment on above: Performed By: #### N A #### [facility] [address] [place] [address] [employer] Supervisor: Robb Lewis MD Potassium [Moles/Vol] 3.8 mmol/L Normal 3.7-5.3 [facility] Comment on above: Performed By: #### N A #### [facility] [address] [place] [address] [employer] Supervisor: Robb Lewis MD Sodium [Moles/Vol] 129 mmol/L Low 136-145 [facility] Comment on above: Performed By: #### N A #### [facility] [address] [place] [address] [employer] Supervisor: Robb Lewis MD Urea nitrogen [Mass/Vol] 12 mg/dL Normal 8-23 [facility] Comment on above: Performed By: #### N A #### [facility] [address] [place] [address] [employer] Supervisor: Robb Lewis MD Basic Metabolic Panel w/ Ref dago to MGon 07-13-2024 Anion gap [Moles/Vol] 9 mmol/L 9 - 16 mmol/L [facility] Calcium [Mass/Vol] 9.0 mg/dL 8.6 - 10. 4 mg/dL [facility] Chloride [Moles/Vol] 93 mmol/L Low 98 - 10 7 mmol/L [facility] CO2 [Moles/Vol] 27 mmol/L 20 - 31 mmol/L [facility] Creatinine [Mass/Vol] 0.5 mg/dL 0.50 - 0.90 mg/dL [facility] Est, Glom Filt Rate - PINF [facility] Comment on above: These results are not [...] 109 mg/dL High 74 - 99 mg/dL [facility] Interpretation and review of laboratory results Abnormal [facility] Potassium [Moles/Vol] 3.8 mmol/L 3.7 - 5.3 mmol/L [facility] Sodium [Moles/Vol] 129 mmol/L Low 136 - 145 mmol/L [facility] Urea nitrogen [Mass/Vol] 12 mg/dL 8 - 23 mg/dL [facility] Urea nitrogen/Creatinine [Mass ratio] 24 mg/mg High 9 - 20 [facility] C-Reactive Proteinon 024 CRP High sensitivity method [Mass/Vol] 117.0 mg/L High 0.0 - 5.0 mg/L [facility] Interpretation and review of laboratory results Abnormal [facility] CRP [Mass/Vol] 117.0 mg/L High 0.0-5.0 [facility] Comment on above: Performed By: #### N A #### [facility] [address] [place] [address] [employer] Supervisor: Robb Lewis MD CBC auto differentialon 06-20 Basophils (Bld) [#/Vol] 0.00 10*3/uL [facility] Basophils/100 WBC (Bld) 0 % 0 - 2 % [facility] Eosinophils (Bld) [#/Vol] 0.00 10*3/uL [facility] Eosinophils/100 WBC (Bld) 0 % Low 1 - 4 % [facility] Erythrocyte distribution width (RBC) [Ratio] 13.4 % 11.8 - 14.4 % [facility] Hematocrit (Bld) [Volume fraction] 27.4 % Low 36.3 - 47.1 % [facility] Hemoglobin (Bld) [Mass/Vol] 9.1 g/dL Low 11.9 - 15.1 g/dL [facility] Immature granulocytes (Bld) [#/Vol] 0.00 10*3/uL [facility] Immature granulocytes/100 WBC (Bld) 0 % 0 [facility] Interpretation and review of laboratory results Abnormal [facility] Lymphocytes/100 WBC (Bld) 12 % Low 24 - 43 % [facility] Lymphocytes/100 WBC (Bld) 1.24 % [facility] MCH (RBC) [Entitic mass] 28.5 pg 25.2 - 33.5 pg [facility] MCHC (RBC) [Mass/Vol] 33.2 g/dL 28.4 - 34.8 g/dL [facility] MCV (RBC) [Entitic vol] 85.9 fL 82.6 - 102.9 fL [facility] Monocytes/100 WBC (Bld) 14 % High 3 - 12 % [facility] Monocytes/100 WBC (Bld) 1.44 % High [facility] Morphology [place] (Bld) [Interp] Normal [facility] Neutrophils/100 WBC (Bld) 74 % High 36 - 65 % [facility] Nucleated RBC/100 WBC (Bld) [Ratio] 0.0 % 0.0 per 100 WBC [facility] Platelet mean volume (Bld) [Entitic vol] 9.0 fL 8.1 - 13.5 fL [facility] Platelets (Bld) [#/Vol] 250 10*3/uL [facility] RBC (Bld) [#/Vol] 3.19 10*6/uL Low 3.95 - 5.1 1 m/uL [facility] Segmented neutrophils/100 WBC (Bld) 7.62 % [facility] WBC other (Bld) [#/Vol] 10.3 [facility] CBC with Diffon 07-13-2024 Abs. Basophil 0.00 k/uL Normal 0.0-0.2 [facility] Comment on above: Performed By: #### N A #### [facility] [address] [place] [address] [employer] Supervisor: Robb Lewis MD Abs.Imm.Granulocyte 0.00 k/uL Normal 0.00-0.30 [facility] Comment on above: Performed By: #### N A #### [facility] [address] [place] [address] [employer] Supervisor: Robb Lewis MD Abs.Neutrophil (Seg) 7.62 k/uL Normal 1.50-8.10 [facility] Comment on above: Performed By: #### N A #### [facility] [address] [place] [address] [employer] Supervisor: Robb Lewis MD Basophils/100 WBC (Bld) 0 % Normal 0-2 [facility] Comment on above: Performed By: #### N A #### [facility] [address] [place] [address] [place] [address] [employer] Supervisor: Robb Lewis MD Eosinophils (Bld) [#/Vol] 0.00 10*3/uL Normal 0.00-0.44 [facility] Comment on above: Performed By: #### N A #### [address] [place] [id number] [employer] Supervisor: Robb Lewis MD Eosinophils/100 WBC (Bld) 0 % Low 1-4 [facility] Comment on above: Performed By: #### N A #### [address] [place] [address] [employer] Supervisor: Robb Lewis MD Immature granulocytes/100 WBC (Bld) 0 % Normal 0 [facility] Comment on above: Performed By: #### N A #### [address] [place], [facility] [employer] Supervisor: Robb Lewis MD Lymphocytes (Bld) [#/Vol] 1.24 10*3/uL Normal 1.10-3.70 [facility] Comment on above: Performed By: #### N A #### [address] [place] [address] [employer] Supervisor: Robb Lewis MD Lymphocytes/100 WBC (Bld) 12 % Low 24-43 [facility] Comment on above: Performed By: #### N A #### [address] [place], [place] [id number] [employer] Supervisor: Robb Lewis MD Monocytes (Bld) [#/Vol] 1.44 10*3/uL High 0.10-1.20 [facility] Comment on above: Performed By: #### N A #### [facility] [address] [place], [place] [id number] [employer] Supervisor: Robb Lewis MD Monocytes/100 WBC (Bld) 14 % High 3-12 [facility] Comment on above: Performed By: #### N A #### [facility] [address] [place], [facility] [employer] Supervisor: Robb Lewis MD Morphology [place] (Bld) [Interp] Normal Normal [facility] Comment on above: Performed By: #### N A #### [facility] [address] [place] [address] [place], [place] [address] [employer] Supervisor: Robb Lewis MD Neutrophil (Seg) 74 % High 36-65 [facility] [place] Comment on above: Performed By: #### N A #### [facility] [address] [place] [address] [place], [facility] [employer] Supervisor: Robb Lewis MD Erythrocyte distribution width (RBC) [Ratio] 13.4 % Normal 11.8-14.4 [facility] Comment on above: Performed By: #### N A #### [facility] [address] [place], [facility] [employer] Supervisor: Robb Lewis MD Hematocrit (Bld) [Volume fraction] 27.4 % Low 36.3-47.1 [facility] Comment on above: Performed By: #### N A #### [address] [place], [facility] [employer] Supervisor: Robb Lewis MD Hemoglobin (Bld) [Mass/Vol] 9.1 g/dL Low 11.9-15.1 [facility] Comment on above: Performed By: #### N A #### [facility] [address] [place] [address] [place], [place] [id number] [employer] Supervisor: Robb Lewis MD MCH (RBC) [Entitic mass] 28.5 pg Normal 25.2-33.5 [facility] Comment on above: Performed By: #### N A #### [address] [place] [facility] [employer] Supervisor: Robb Lewis MD MCHC (RBC) [Mass/Vol] 33.2 g/dL Normal 28.4-34.8 [facility] Comment on above: Performed By: #### N A #### [address] [place] [facility] [employer] Supervisor: Robb Lewis MD MCV (RBC) [Entitic vol] 85.9 fL Normal 82.6-102.9 [facility] Comment on above: Performed By: #### N A #### [address] [place] [id number] [employer] Supervisor: Robb Lewis MD NRBC Automated 0.0 per 100 WBC Normal 0.0 [facility] Comment on above: Performed By: #### N A #### [address] [place] [facility] [employer] Supervisor: Robb Lewis MD Platelet mean volume (Bld) [Entitic vol] 9.0 fL Normal 8.1-13.5 [facility] Comment on above: Performed By: #### N A #### [address] [place] [id number] [employer] Supervisor: Robb Lewis MD Platelets (Bld) [#/Vol] 250 10*3/uL Normal 138-453 [facility] Comment on above: Performed By: #### N A #### [address] [place] [facility] [employer] Supervisor: Robb Lewis MD RBC (Bld) [#/Vol] 3.19 10*6/uL Low 3.95-5.11 [facility] Comment on above: Performed By: #### N A #### [facility] [address] [place], [place] [id number] [employer] Supervisor: Robb Lewis MD WBC (Bld) [#/Vol] 10.3 10*3/uL Normal 3.5-11.3 [facility] Comment on above: Performed By: #### N A #### [facility] [address] [place], [place] [id number] [employer] Supervisor: Robb Lewis MD EKG Rhythm Stripon [facility] NA (Sodium)on 07-13-2024 Sodium [Moles/Vol] 129 mmol/L Low 136-145 [facility] Comment on above: Performed By: #### N A #### [facility] [address] [place], [place] [phone] [employer] Supervisor: Robb Lewis MD Sedimentation Rateon 024 ESR Photometric method (Bld) [Velocity] 52 High [facility] Interpretation and review of laboratory results Abnormal [facility] Sedimentation Rate 52 mm/Hr High 0-30 [facility] [facility] Comment on above: Performed By: #### N A #### [facility] [address] [place], [place] [id number] Shuttle Fitting Supervisor: Robb Lewis MD Sodiumon 07-13-2024 Interpretation and review of laboratory results Abnormal [facility] Sodium [Moles/Vol] 129 mmol/L Low 136 - 145 mmol/L [facility] XR ANKLE LEFT (MIN 3 VIEWS)o [...] Carlos Tyler MD 07/13/24 Final result Normal [facility] XR Ankle - left 3 Viewson No acute fracture or dislocation. Degenerative changes of the medial and lateral malleolus [facility] RIS CONSOLIDATED EXAMINATION: THREE XRAY VIEWS OF THE LEFT ANKLE 07/13/2024 8:15 am COMPARISON: None. HISTORY: ORDERING SYSTEM PROVIDED HISTORY: left ankle TECHNOLOGIST PROVIDED HISTORY: left ankle FINDINGS: There is a remote healed fracture of the distal tibia. Degenerative changes of the medial and lateral malleolus. No acute fracture. [facility] CONSOLIDATED Roberto Carlos Tyler M D - [...] changes of the medial and lateral malleolus [facility] Radiology Study observation (narrative) [facility] XR Ankle - left 3 ViewsOrder ed By: Roberto Carlos Tyler on 07-13-2024 [facility] Work Phone: XR FOOT LEFT (MIN 3 [...] Razia Perez MD 07/13/24 Final result Normal [facility] XR Foot - left 3 Viewson 1. Osteopenia and degenerative changes as described above. 2. No acute fracture or dislocation. 3. 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 RECOMMENDATION: Follow-up studies as clinically indicated. [facility] CONSOLIDATED EXAMINATION: THREE XRAY VIEWS OF THE [...] clips are present in the lower leg. [facility] CONSOLIDATED Razia Perez MD - 07/13/2024 EXAMINATION: THREE XRAY VIEWS [...] deformity. RECOMMENDATION: Follow-up studies as clinically indicated. [facility] Radiology Study observation (narrative) [facility] XR Foot - left 3 ViewsOrdere d By: Razia Perez on 07-13-2024 [facility] Work Phone: XR TIBIA FIBULA [...] Matthew Alfaro MD 07/13/24 Final result Normal [facility] XR Tibia and Fibula - left 2 Viewson 07-13-2024 1. No acute traumati c injury involving the left tibia and fibula. [facility] RIS CONSOLIDATED EXAMINATION: 2 XRAY VIEWS OF THE [...] There is no evidence of acute fracture. [facility] CONSOL[facility] Matthew Alfaro MD - 07/13/2024 EXAMINATION: [...] injury involving the left tibia and fibula. [facility] Radiology Study observation (narrative) [facility] XR Tibia and Fibula - left 2 ViewsOrdered By: Matthew Alfaro on 07-13-2024 [facility] Work Phone: Basic Metab w/rfx MGon 07-12 Anion gap [Moles/Vol] 10 mmol/L Normal 9-16 [facility] Comment on above: Performed By: #### N A #### [facility] [address] [place] [address] Sh[employer] Fitting Supervisor: Robb Lewis MD BUN/CRE Ratio 18 Normal 9-20 [facility] Comment on above: Performed By: #### N A #### [facility] [address] [place] [address] Sh[employer] Supervisor: Robb Lewis MD Calcium [Mass/Vol] 9.4 mg/dL Normal 8.6-10.4 [facility] Comment on above: Performed By: #### N A #### [facility] [address] [place] [address] Sh[employer] Fitting Supervisor: Robb Lewis MD Chloride [Moles/Vol] 92 mmol/L Low 98-107 [facility] Comment on above: Performed By: #### N A #### [facility] [address] [place] [address] [employer] Supervisor: Robb Lewis MD CO2 [Moles/Vol] 27 mmol/L Normal 20-31 [facility] Comment on above: Performed By: #### N A #### [facility] [address] [place] [id number] [employer] Supervisor: Robb Lewis MD Creatinine [Mass/Vol] 0.5 mg/dL Normal 0.50-0.90 [facility] Comment on above: Performed By: #### N A #### [facility] [address] [place] [address] [employer] F[employer] Supervisor: Robb Lewis MD GFR/1.73 sq M.predicted among non-blacks MDRD (S/P/Bld) [Vol rate/Area] mL/min/{1.73_m2} Normal >60 [facility] Comment on above: Result Comment: These results [...] secretion. Performed By: #### N A #### [facility] [address] [place] [id number] [employer] Supervisor: Robb Lewis MD Glucose [Mass/Vol] 105 mg/dL High 74-99 [facility] Comment on above: Performed By: #### N A #### [facility] [address] [place] [id number] [employer] Supervisor: Robb Lewis MD Potassium [Moles/Vol] 4.1 mmol/L Normal 3.7-5.3 [facility] Comment on above: Performed By: #### N A #### [facility] [address] [place] [address] [employer]itting Supervisor: Robb Lewis MD Sodium [Moles/Vol] 129 mmol/L Low 136-145 [facility] Comment on above: Performed By: #### N A #### [facility] [address] [place] [address] [employer] Supervisor: Robb Lewis MD Urea nitrogen [Mass/Vol] 9 mg/dL Normal 8-23 [facility] Comment on above: Performed By: #### N A #### [facility] [address] [place] [address] [employer] Supervisor: Robb Lewis MD Basic Metabolic Panel w/ Ref dago to MGon 07-12-2024 Anion gap [Moles/Vol] 10 mmol/L 9 - 16 mmol/L [facility] Calcium [Mass/Vol] 9.4 mg/dL 8.6 - 10. 4 mg/dL [facility] Chloride [Moles/Vol] 92 mmol/L Low 98 - 10 7 mmol/L [facility] CO2 [Moles/Vol] 27 mmol/L 20 - 31 mmol/L [facility] Creatinine [Mass/Vol] 0.5 mg/dL 0.50 - 0.90 mg/dL [facility] Est, Kodi Walton Rate - PIN[facility] Comment on above: These results are not [...] 105 mg/dL High 74 - 99 mg/dL [facility] Interpretation and review of laboratory results Abnormal [facility] Potassium [Moles/Vol] 4.1 mmol/L 3.7 - 5.3 mmol/L [facility] Sodium [Moles/Vol] 129 mmol/L Low 136 - 145 mmol/L [facility] Urea nitrogen [Mass/Vol] 9 mg/dL 8 - 23 mg/dL [facility] Urea nitrogen/Creatinine [Mass ratio] 18 mg/mg 9 - 20 [facility] CBC auto differentialon 06-20 Basophils (Bld) [#/Vol] [facility] Basophils/100 WBC (Bld) 0 % 0 - 2 % [facility] Eosinophils (Bld) [#/Vol] 0.04 10*3/uL [facility] Eosinophils/100 WBC (Bld) 0 % Low 1 - 4 % [facility] Erythrocyte distribution width (RBC) [Ratio] 13.2 % 11.8 - 14.4 % [facility] Hematocrit (Bld) [Volume fraction] 29.8 % Low 36.3 - 47.1 % [facility] Hemoglobin (Bld) [Mass/Vol] 10.0 g/dL Low 11.9 - 15.1 g/dL [facility] Immature granulocytes (Bld) [#/Vol] 0.03 10*3/uL [facility] Immature granulocytes/100 WBC (Bld) 0 % 0 [facility] Interpretation and review of laboratory results Abnormal [facility] Lymphocytes/100 WBC (Bld) 15 % Low 24 - 43 % [facility] Lymphocytes/100 WBC (Bld) 1.41 % [facility] MCH (RBC) [Entitic mass] 28.6 pg 25.2 - 33.5 pg [facility] MCHC (RBC) [Mass/Vol] 33.6 g/dL 28.4 - 34.8 g/dL [facility] MCV (RBC) [Entitic vol] 85.1 fL 82.6 - 102.9 fL [facility] Monocytes/100 WBC (Bld) 14 % High 3 - 12 % [facility] Monocytes/100 WBC (Bld) 1.28 % High [facility] Neutrophils/100 WBC (Bld) 70 % High 36 - 65 % [facility] Nucleated RBC/100 WBC (Bld) [Ratio] 0.0 % 0.0 per 100 WBC [facility] Platelet mean volume (Bld) [Entitic vol] 9.2 fL 8.1 - 13.5 fL [facility] Platelets (Bld) [#/Vol] 232 10*3/uL [facility] RBC (Bld) [#/Vol] 3.50 10*6/uL Low 3.95 - 5.1 1 m/uL [facility] Segmented neutrophils/100 WBC (Bld) 6.59 % [facility] WBC other (Bld) [#/Vol] 9.3 [facility] CBC with Diffon 07-12-2024 Abs. Basophil <0.03 Normal 0.00-0.20 [facility] Comment on above: Performed By: #### N A #### [address] [place] [address] Shuttle Fitting Supervisor: Robb Lewis MD Abs.Imm.Granulocyte 0.03 k/uL Normal 0.00-0.30 [facility] Comment on above: Performed By: #### N A #### [address] [place], [place] [id number] [employer] Supervisor: Robb Lewis MD Abs.Neutrophil (Seg) 6.59 k/uL Normal 1.50-8.10 [facility] Comment on above: Performed By: #### N A #### [address] [place], [place] [id number] Sh[employer] Fitting Supervisor: Robb Lewis MD Basophils/100 WBC (Bld) 0 % Normal 0-2 [facility] Comment on above: Performed By: #### N A #### [address] [place], [place] [id number] [employer]itting Supervisor: Robb Lewis MD Eosinophils (Bld) [#/Vol] 0.04 10*3/uL Normal 0.00-0.44 [facility] Comment on above: Performed By: #### N A #### [address] [place], [place] [id number] [employer] Supervisor: Robb Lewis MD Eosinophils/100 WBC (Bld) 0 % Low 1-4 [facility] Comment on above: Performed By: #### N A #### [facility] [address] [place] [address] [employer]itting Supervisor: Robb Lewis MD Immature granulocytes/100 WBC (Bld) 0 % Normal 0 [facility] Comment on above: Performed By: #### N A #### [facility] [address] [place], [facility] [employer] Supervisor: Robb Lewis MD Lymphocytes (Bld) [#/Vol] 1.41 10*3/uL Normal 1.10-3.70 [facility] Comment on above: Performed By: #### N A #### [facility] [address] [place] [address] [place] [id number] Shuttle Fitting Supervisor: Robb Lewis MD Lymphocytes/100 WBC (Bld) 15 % Low 24-43 [facility] Comment on above: Performed By: #### N A #### [address] [place], [facility] Sh[employer]itting Supervisor: Robb Lewis MD Monocytes (Bld) [#/Vol] 1.28 10*3/uL High 0.10-1.20 [facility] Comment on above: Performed By: #### N A #### [facility] [address] [place], [facility] ( [employer] Supervisor: Robb Lewis MD Monocytes/100 WBC (Bld) 14 % High 3-12 [facility] Comment on above: Performed By: #### N A #### [facility] [address] [place], [facility] [employer] Supervisor: Robb Lewis MD Neutrophil (Seg) 70 % High 36-65 [facility] Comment on above: Performed By: #### N A #### [facility] [address] [place] [address] [place] [address] [employer]itting Supervisor: Robb Lewis MD Erythrocyte distribution width (RBC) [Ratio] 13.2 % Normal 11.8-14.4 [facility] Comment on above: Performed By: #### N A #### [facility] [address] [place] [address] [place], [place] [id number] [employer] Supervisor: Robb Lewis MD Hematocrit (Bld) [Volume fraction] 29.8 % Low 36.3-47.1 [facility] Comment on above: Performed By: #### N A #### [address] [place] [address] [employer] Fitting Supervisor: Robb Lewis MD Hemoglobin (Bld) [Mass/Vol] 10.0 g/dL Low 11.9-15.1 [facility] Comment on above: Performed By: #### N A #### [address] [place], [facility] Sh[employer] F[employer] Supervisor: Robb Lewis MD MCH (RBC) [Entitic mass] 28.6 pg Normal 25.2-33.5 [facility] Comment on above: Performed By: #### N A #### [address] [place] [address] Sh[employer] Fitting Supervisor: Robb Lewis MD MCHC (RBC) [Mass/Vol] 33.6 g/dL Normal 28.4-34.8 [facility] Comment on above: Performed By: #### N A #### [facility] [address] [place] [address] [place], [facility] Sh[employer] Supervisor: Robb Lewis MD MCV (RBC) [Entitic vol] 85.1 fL Normal 82.6-102.9 [facility] Comment on above: Performed By: #### N A #### [address] [place] [address] Sh[employer] Fitting Supervisor: Robb Lewis MD NRBC Automated 0.0 per 100 WBC Normal 0.0 [facility] Comment on above: Performed By: #### N A #### [facility] [address] [place] [address] [place], [facility] [employer] Supervisor: Robb Lewis MD Platelet mean volume (Bld) [Entitic vol] 9.2 fL Normal 8.1-13.5 [facility] Comment on above: Performed By: #### N A #### [facility] [address] [place] [address] [place], [facility] Sh[employer] Supervisor: Robb Lewis MD Platelets (Bld) [#/Vol] 232 10*3/uL Normal 138-453 [facility] Comment on above: Performed By: #### N A #### [address] [place] [id number] Shuttle Fitting Supervisor: Robb Lewis MD RBC (Bld) [#/Vol] 3.50 10*6/uL Low 3.95-5.11 [facility] Comment on above: Performed By: #### N A #### [address] [place], [place] [address] Shuttle Fitting Supervisor: Robb Lewis MD WBC (Bld) [#/Vol] 9.3 10*3/uL Normal 3.5-11.3 [facility] Comment on above: Performed By: #### N A #### [address] [place], [facility] Sh[employer] F[employer] Supervisor: Robb Lewis MD EKG Rhythm Stripon [facility] NA (Sodium)on 07-12-2024 Sodium [Moles/Vol] 130 mmol/L Low 136-145 [facility] Comment on above: Performed By: #### M Abundio, SAMUEL, CDP, DIME, BMP #### [address] [place], [place] [id number] Sh[employer] Fitting Supervisor: Robb Lewis MD Sodium [Moles/Vol] 128 mmol/L Low 136-145 [facility] Comment on above: Performed By: #### N A #### [facility] [address] [place], [place] [id number] Sh[employer] Fitting Supervisor: Robb Lewis MD Sodium [Moles/Vol] 129 mmol/L Low 136-145 [facility] Comment on above: Performed By: #### SAMUEL Hernandez CDP, ZOILA, BMP #### [facility] [address] [place] [address] [employer]itting Supervisor: Robb Lewis MD Sodiumon 07-12-2024 Interpretation and review of laboratory results Abnormal [facility] Sodium [Moles/Vol] 130 mmol/L Low 136 - 145 mmol/L [facility] Interpretation and review of laboratory results Abnormal [facility] Sodium [Moles/Vol] 128 mmol/L Low 136 - 145 mmol/L [facility] Interpretation and review of laboratory results Abnormal [facility] Sodium [Moles/Vol] 129 mmol/L Low 136 - 145 mmol/L [facility] Basic Metab w/rfx MGon 07-11 Anion gap [Moles/Vol] 9 mmol/L Normal 9-16 [facility] Comment on above: Performed By: #### SAMUEL Hernandez CDP, DIME, BMP #### [facility] [address] [place] [address] Shuttle Fitting Supervisor: Robb Lewis MD BUN/CRE Ratio 15 Normal 9-20 [facility] Comment on above: Performed By: #### SAMUEL Hernandez CDP, ZOILA, BMP #### [facility] [address] [place] [address] Sh[employer] Fitting Supervisor: Robb Lewis MD Calcium [Mass/Vol] 8.6 mg/dL Normal 8.6-10.4 [facility] Comment on above: Performed By: #### M G, TROPI, CDP, DIME, BMP #### [facility] [address] [place] [address] [employer]itting Supervisor: Robb Lewis MD Chloride [Moles/Vol] 88 mmol/L Low 98-107 [facility] Comment on above: Performed By: #### M G, TROPI, CDP, DIME, BMP #### [facility] [address] [place] [address] Sh[employer] Fitting Supervisor: Robb Lewis MD CO2 [Moles/Vol] 26 mmol/L Normal 20-31 [facility] Comment on above: Performed By: #### M G, TROPI, CDP, DIME, BMP #### [facility] [address] [place] [address] Sh[employer]itting Supervisor: Robb Lewis MD Creatinine [Mass/Vol] 0.4 mg/dL Low 0.50-0.90 [facility] Comment on above: Performed By: #### M Abundio, TROPI, CDP, DIME, BMP #### [address] [place] [address] [employer] Supervisor: Robb Lewis MD GFR/1.73 sq M.predicted among non-blacks MDRD (S/P/Bld) [Vol rate/Area] mL/min/{1.73_m2} Normal >60 [facility] Comment on above: Result Comment: These results [...] tubular secretion. Performed By: #### M G, TROPI, CDP, DIME, BMP #### [facility] [address] [place] [address] Sh[employer] Fitting Supervisor: Robb Lewis MD Glucose [Mass/Vol] 103 mg/dL High 74-99 [facility] Comment on above: Performed By: #### M G, TROPI, CDP, DIME, BMP #### [facility] [address] [place] [address] Sh[employer] Fitting Supervisor: Robb Lewis MD Potassium [Moles/Vol] 3.3 mmol/L Low 3.7-5.3 [facility] Comment on above: Performed By: #### M G, TROPI, CDP, DIME, BMP #### [facility] [address] [place] [address] Sh[employer] Fitting Supervisor: Robb Lewis MD Sodium [Moles/Vol] 123 mmol/L Low 136-145 [facility] Comment on above: Performed By: #### M Abundio, TROPI, CDP, DIME, BMP #### [facility] [address] [place] [address] Shuttle Fitting Supervisor: Robb Lewis MD Urea nitrogen [Mass/Vol] 6 mg/dL Low 8-23 [facility] Comment on above: Performed By: #### M G, TROPI, CDP, DIME, BMP #### [facility] [address] [place] [address] [place] [address] Sh[employer] Fitting Supervisor: Robb Lewis MD Basic Metabolic Panel w/ Ref dago to MGon 07-11-2024 Anion gap [Moles/Vol] 9 mmol/L 9 - 16 mmol/L [facility] Calcium [Mass/Vol] 8.6 mg/dL 8.6 - 10. 4 mg/dL [facility] Chloride [Moles/Vol] 88 mmol/L Low 98 - 10 7 mmol/L [facility] CO2 [Moles/Vol] 26 mmol/L 20 - 31 mmol/L [facility] Creatinine [Mass/Vol] 0.4 mg/dL Low 0.50 - 0.90 mg/dL [facility] Kodi Contreras - FARHAT [facility] Comment on above: These results are not [...] 103 mg/dL High 74 - 99 mg/dL [facility] Interpretation and review of laboratory results Abnormal [facility] Potassium [Moles/Vol] 3.3 mmol/L Low 3.7 - 5.3 mmol/L [facility] Sodium [Moles/Vol] 123 mmol/L Low 136 - 145 mmol/L [facility] Urea nitrogen [Mass/Vol] 6 mg/dL Low 8 - 23 mg/dL [facility] Urea nitrogen/Creatinine [Mass ratio] 15 mg/mg 9 - 20 [facility] CBC auto differentialon 06-20 Basophils (Bld) [#/Vol] [facility] Basophils/100 WBC (Bld) 0 % 0 - 2 % [facility] Eosinophils (Bld) [#/Vol] 0.10 10*3/uL [facility] Eosinophils/100 WBC (Bld) 1 % 1 - 4 % [facility] Erythrocyte distribution width (RBC) [Ratio] 12.6 % 11.8 - 14.4 % [facility] Hematocrit (Bld) [Volume fraction] 31.5 % Low 36.3 - 47.1 % [facility] Hemoglobin (Bld) [Mass/Vol] 10.6 g/dL Low 11.9 - 15.1 g/dL [facility] Immature granulocytes (Bld) [#/Vol] [facility] Immature granulocytes/100 WBC (Bld) 0 % 0 [facility] Interpretation and review of laboratory results Abnormal [facility] Lymphocytes/100 WBC (Bld) 23 % Low 24 - 43 % [facility] Lymphocytes/100 WBC (Bld) 1.89 % [facility] MCH (RBC) [Entitic mass] 28.3 pg 25.2 - 33.5 pg [facility] MCHC (RBC) [Mass/Vol] 33.7 g/dL 28.4 - 34.8 g/dL [facility] MCV (RBC) [Entitic vol] 84.0 fL 82.6 - 102.9 fL [facility] Monocytes/100 WBC (Bld) 14 % High 3 - 12 % [facility] Monocytes/100 WBC (Bld) 1.19 % [facility] Neutrophils/100 WBC (Bld) 62 % 36 - 65 % [facility] Nucleated RBC/100 WBC (Bld) [Ratio] 0.0 % 0.0 per 100 WBC [facility] Platelet mean volume (Bld) [Entitic vol] 9.2 fL 8.1 - 13.5 fL [facility] Platelets (Bld) [#/Vol] 245 10*3/uL [facility] RBC (Bld) [#/Vol] 3.75 10*6/uL Low 3.95 - 5.1 1 m/uL [facility] Segmented neutrophils/100 WBC (Bld) 5.07 % [facility] WBC other (Bld) [#/Vol] 8.3 [facility] CBC with Diffon 07-11-2024 Abs. Basophil <0.03 Normal 0.00-0.20 [facility] Comment on above: Performed By: #### SAMUEL Hernandez CDP, ZOILA, BMP #### [facility] [address] [place] [address] [place] [address] Sh[employer]itting Supervisor: Robb Lewis MD Abs.Imm.Granulocyte <0.03 Normal 0.00-0.30 [facility] Comment on above: Performed By: #### SAMUEL Hernandez CDP, DIME, BMP #### [facility] [address] [place] [address] [place] [address] Sh[employer] Fitting Supervisor: Robb Lewis MD Abs.Neutrophil (Seg) 5.07 k/uL Normal 1.50-8.10 [facility] Comment on above: Performed By: #### M G, TROPI, CDP, DIME, BMP #### [address] [place], [facility] Sh[employer] Supervisor: Robb Lewis MD Basophils/100 WBC (Bld) 0 % Normal 0-2 [facility] Comment on above: Performed By: #### M G, TROPI, CDP, DIME, BMP #### [address] [place], [facility] Sh[employer] Supervisor: Robb Lewis MD Eosinophils (Bld) [#/Vol] 0.10 10*3/uL Normal 0.00-0.44 [facility] Comment on above: Performed By: #### M G, TROPI, CDP, DIME, BMP #### [address] [place], [place] [address] Sh[employer] Supervisor: Robb Lewis MD Eosinophils/100 WBC (Bld) 1 % Normal 1-4 [facility] Comment on above: Performed By: #### M G, TROPI, CDP, DIME, BMP #### [address] [place], [facility] Sh[employer] Supervisor: Robb Lewis MD Erythrocyte distribution width (RBC) [Ratio] 12.6 % Normal 11.8-14.4 [facility] Comment on above: Performed By: #### M G, TROPI, CDP, DIME, BMP #### [address] [place], [facility] Sh[employer] Supervisor: Robb Lewis MD Hematocrit (Bld) [Volume fraction] 31.5 % Low 36.3-47.1 [facility] Comment on above: Performed By: #### M G, TROPI, CDP, DIME, BMP #### [address] [place], [facility] Sh[employer] Supervisor: Robb Lewis MD Hemoglobin (Bld) [Mass/Vol] 10.6 g/dL Low 11.9-15.1 [facility] Comment on above: Performed By: #### M G, TROPI, CDP, DIME, BMP #### [facility] [address] [place], [place] [id number] Sh[employer]itting Supervisor: Robb Lewis MD Immature granulocytes/100 WBC (Bld) 0 % Normal 0 [facility] Comment on above: Performed By: #### M G, TROPI, CDP, DIME, BMP #### [address] [place] [address] [employer] Supervisor: Robb Lewis MD Lymphocytes (Bld) [#/Vol] 1.89 10*3/uL Normal 1.10-3.70 [facility] [facility] Comment on above: Performed By: #### M G, TROPI, CDP, DIME, BMP #### [address] [place], [place] [id number] [employer] Supervisor: Robb Lewis MD Lymphocytes/100 WBC (Bld) 23 % Low 24-43 [facility] Comment on above: Performed By: #### M G, TROPI, CDP, DIME, BMP #### [address] [place], [place] [id number] [employer] Supervisor: Robb Lewis MD MCH (RBC) [Entitic mass] 28.3 pg Normal 25.2-33.5 [facility] Comment on above: Performed By: #### M G, TROPI, CDP, DIME, BMP #### [address] [place], [place] [id number] [employer] Supervisor: Robb Lewis MD MCHC (RBC) [Mass/Vol] 33.7 g/dL Normal 28.4-34.8 [facility] Comment on above: Performed By: #### M G, TROPI, CDP, DIME, BMP #### [facility] [address] [place] [address] [employer] Supervisor: Robb Lewis MD MCV (RBC) [Entitic vol] 84.0 fL Normal 82.6-102.9 [facility] Comment on above: Performed By: #### M G, TROPI, CDP, DIME, BMP #### [facility] [address] [place], [facility] [employer] Supervisor: Robb Lewis MD Monocytes (Bld) [#/Vol] 1.19 10*3/uL Normal 0.10-1.20 [facility] Comment on above: Performed By: #### M G, TROPI, CDP, DIME, BMP #### [address] [place], [place] [address] [employer] Supervisor: Robb Lewis MD Monocytes/100 WBC (Bld) 14 % High 3-12 [facility] Comment on above: Performed By: #### M G, TROPI, CDP, DIME, BMP #### [address] [place], [facility] [employer] Supervisor: Robb Lewis MD Neutrophil (Seg) 62 % Normal 36-65 [facility] Comment on above: Performed By: #### M G, TROPI, CDP, DIME, BMP #### [address] [place], [place] [address] [employer] Supervisor: Robb Lewis MD NRBC Automated 0.0 per 100 WBC Normal 0.0 [facility] Comment on above: Performed By: #### M G, TROPI, CDP, DIME, BMP #### [address] [place], [facility] ( [employer] Supervisor: Robb Lewis MD Platelet mean volume (Bld) [Entitic vol] 9.2 fL Normal 8.1-13.5 [facility] Comment on above: Performed By: #### M G, TROPI, CDP, DIME, BMP #### [facility] [address] [place], [place] [id number] [employer] Supervisor: Robb Lewis MD Platelets (Bld) [#/Vol] 245 10*3/uL Normal 138-453 [facility] Comment on above: Performed By: #### M Abundio, TROPI, CDP, DIME, BMP #### [facility] [address] [place], [place] [id number] [employer] Supervisor: Robb Lewis MD RBC (Bld) [#/Vol] 3.75 10*6/uL Low 3.95-5.11 [facility] Comment on above: Performed By: #### M Abundio, TROPI, CDP, DIME, BMP #### [facility] [address] [place], [place] [id number] [employer] Supervisor: Robb Lewis MD WBC (Bld) [#/Vol] 8.3 10*3/uL Normal 3.5-11.3 [facility] Comment on above: Performed By: #### M Abundio, TROPI, CDP, DIME, BMP #### [facility] [address] [place] [address] [place], [place] [id number] [employer] Supervisor: Robb Lewis MD EKG Rhythm Stripon [facility] Magnesiumon 07-11-2024 Magnesium [Mass/Vol] 1.6 mg/dL 1.6 - 2 .4 mg/dL [facility] Magnesium [Mass/Vol] 1.6 mg/dL Normal 1.6-2.4 [facility] Comment on above: Performed By: #### M G, TROPI, CDP, DIME, BMP #### [facility] [address] [place], [place] [id number] [employer] Supervisor: Robb Lewis MD NA (Sodium)on 07-11-2024 Sodium [Moles/Vol] 126 mmol/L Low 136-145 [facility] Comment on above: Performed By: #### M G, TROPI, CDP, DIME, BMP #### [address] [place] [address] [employer] Supervisor: Robb Lewis MD Sodium [Moles/Vol] 125 mmol/L [facility] [address] [facility] Comment on above: Performed By: #### N A #### [address] [place] [address] [employer] Supervisor: Robb Lewis MD Sodium [Moles/Vol] 125 mmol/L [facility] [address] Comment on above: Performed By: #### M G, TROPI, CDP, DIME, BMP #### [address] [place] [id number] [employer] Supervisor: Robb Lewis MD Sodium [Moles/Vol] 125 mmol/L [facility] [address] Comment on above: Performed By: #### M G, TROPI, CDP, DIME, BMP #### [address] [place] [address] [employer] Supervisor: Robb Lewis MD Sodium [Moles/Vol] 123 mmol/L [facility] [address] Comment on above: Performed By: #### M G, TROPI, CDP, DIME, BMP #### [address] [place] [address] [employer] Supervisor: Robb Lewis MD Sodium [Moles/Vol] 124 mmol/L [facility] [address] [facility] Comment on above: Performed By: #### N A #### [address] [place] [address] [employer] Supervisor: Robb Lewis MD Sodium [Moles/Vol] 122 mmol/L [facility] [address] [facility] Comment on above: Performed By: #### M G, TROPI, CDP, DIME, BMP #### [facility] [address] [place] [address] [employer] Supervisor: Robb Lewis MD No Panel Informationon 07-11 [facility] Sodiumon 07-11-2024 Interpretation and review of laboratory results Abnormal [facility] Sodium [Moles/Vol] 126 mmol/L Low 136 - 145 mmol/L [facility] Interpretation and review of laboratory results Abnormal [facility] Sodium [Moles/Vol] 125 mmol/L Low 136 - 145 mmol/L [facility] Interpretation and review of laboratory results Abnormal [facility] Sodium [Moles/Vol] 125 mmol/L Low 136 - 145 mmol/L [facility] Interpretation and review of laboratory results Abnormal [facility] Sodium [Moles/Vol] 125 mmol/L Low 136 - 145 mmol/L [facility] Interpretation and review of laboratory results Abnormal [facility] Sodium [Moles/Vol] 123 mmol/L Low 136 - 145 mmol/L [facility] Interpretation and review of laboratory results Abnormal [facility] Sodium [Moles/Vol] 124 mmol/L Low 136 - 145 mmol/L [facility] Interpretation and review of laboratory results Abnormal [facility] Sodium [Moles/Vol] 122 mmol/L Low 136 - 145 mmol/L [facility] Basic Metab w/rfx MGon 07-10 Anion gap [Moles/Vol] 11 mmol/L Normal 9-16 [facility] Comment on above: Performed By: #### SAMUEL Hernandez CDP, DIME, BMP #### [facility] [address] [place] [address] [employer] Supervisor: Robb Lewis MD BUN/CRE Ratio 15 Normal 9-20 [facility] Comment on above: Performed By: #### SAMUEL Hernandez CDP, DIME BMP #### [facility] [address] [place] [address] [employer] Supervisor: Robb Lewis MD Calcium [Mass/Vol] 9.0 mg/dL Normal 8.6-10.4 [facility] Comment on above: Performed By: #### M G, TROPI, CDP, DIME, BMP #### [facility] [address] [place], [place] [id number] [employer] Supervisor: Robb Lewis MD Chloride [Moles/Vol] 83 mmol/L Low 98-107 [facility] Comment on above: Performed By: #### M G, TROPI, CDP, DIME, BMP #### [facility] [address] [place] [address] [employer] Supervisor: Robb Lewis MD CO2 [Moles/Vol] 23 mmol/L Normal 20-31 [facility] Comment on above: Performed By: #### M G, TROPI, CDP, DIME, BMP #### [facility] [address] [place] [address] [employer] Supervisor: Robb Lewis MD Creatinine [Mass/Vol] 0.4 mg/dL Low 0.50-0.90 [facility] Comment on above: Performed By: #### M G, TROPI, CDP, DIME, BMP #### [facility] [address] [place] [address] [employer] Supervisor: Robb Lewis MD GFR/1.73 sq M.predicted among non-blacks MDRD (S/P/Bld) [Vol rate/Area] mL/min/{1.73_m2} Normal >60 [facility] Comment on above: Result Comment: These results [...] affects renal tubular secretion. Performed By: #### Terry Del Castillo, JA BAKER, DIME, BMP #### [facility] [address] [place] [address] [employer] Supervisor: Robb Lewis MD Glucose [Mass/Vol] 115 mg/dL High 74-99 [facility] Comment on above: Performed By: #### M Abundio, TROPI, JA, DIME, BMP #### [facility] [address] [place] [address] [employer] Supervisor: Robb Lewis MD Potassium [Moles/Vol] 3.9 mmol/L Normal 3.7-5.3 [facility] Comment on above: Performed By: #### M Abundio, JA BAKER, DIME, BMP #### [address] [place] [address] [employer] Supervisor: Robb Lewis MD Sodium [Moles/Vol] 117 mmol/L Critically low 136-145 [facility] Comment on above: Performed By: #### Terry Del Castillo, SAMUEL, JA, DIME, BMP #### [address] [place] [address] [employer] Supervisor: Robb Lewis MD Urea nitrogen [Mass/Vol] 6 mg/dL Low 8-23 [facility] Comment on above: Performed By: #### SAMUEL Hernandez, JA, DIME, BMP #### [facility] [address] [place] [address] [place] [address] [employer] Supervisor: Robb Lewis MD Basic Metabolic Panel w/ Ref dago to MGon 07-10-2024 Anion gap [Moles/Vol] 11 mmol/L 9 - 16 mmol/L [facility] Calcium [Mass/Vol] 9.0 mg/dL 8.6 - 10. 4 mg/dL [facility] Chloride [Moles/Vol] 83 mmol/L Low 98 - 10 7 mmol/L [facility] CO2 [Moles/Vol] 23 mmol/L 20 - 31 mmol/L [facility] Creatinine [Mass/Vol] 0.4 mg/dL Low 0.50 - 0.90 mg/dL [facility] Kodi Contreras - [facility] Hillary [facility] Comment on above: These results are not [...] 115 mg/dL High 74 - 99 mg/dL [facility] Interpretation and review of laboratory results Abnormal [facility] Potassium [Moles/Vol] 3.9 mmol/L 3.7 - 5.3 mmol/L [facility] Sodium [Moles/Vol] 117 mmol/L Critically low 136 - 1 45 mmol/L [facility] Urea nitrogen [Mass/Vol] 6 mg/dL Low 8 - 23 mg/dL [facility] Urea nitrogen/Creatinine [Mass ratio] 15 mg/mg 9 - 20 [facility] CBC auto differentialon 06-20 Basophils (Bld) [#/Vol] [facility] Basophils/100 WBC (Bld) 0 % 0 - 2 % [facility] Eosinophils (Bld) [#/Vol] 0.08 10*3/uL [facility] Eosinophils/100 WBC (Bld) 1 % 1 - 4 % [facility] Erythrocyte distribution width (RBC) [Ratio] 12.6 % 11.8 - 14.4 % [facility] Hematocrit (Bld) [Volume fraction] 34.3 % Low 36.3 - 47.1 % [facility] Hemoglobin (Bld) [Mass/Vol] 11.8 g/dL Low 11.9 - 15.1 g/dL [facility] Immature granulocytes (Bld) [#/Vol] 0.03 10*3/uL [facility] Immature granulocytes/100 WBC (Bld) 0 % 0 [facility] Interpretation and review of laboratory results Abnormal [facility] Lymphocytes/100 WBC (Bld) 17 % Low 24 - 43 % [facility] Lymphocytes/100 WBC (Bld) 1.74 % [facility] MCH (RBC) [Entitic mass] 28.7 pg 25.2 - 33.5 pg [facility] MCHC (RBC) [Mass/Vol] 34.4 g/dL 28.4 - 34.8 g/dL [facility] MCV (RBC) [Entitic vol] 83.5 fL 82.6 - 102.9 fL [facility] Monocytes/100 WBC (Bld) 10 % 3 - 12 % [facility] Monocytes/100 WBC (Bld) 1.09 % [facility] Neutrophils/100 WBC (Bld) 72 % High 36 - 65 % [facility] Nucleated RBC/100 WBC (Bld) [Ratio] 0.0 % 0.0 per 100 WBC [facility] Platelet mean volume (Bld) [Entitic vol] 9.1 fL 8.1 - 13.5 fL [facility] Platelets (Bld) [#/Vol] 249 10*3/uL [facility] RBC (Bld) [#/Vol] 4.11 10*6/uL 3.95 - 5.1 1 m/uL [facility] Segmented neutrophils/100 WBC (Bld) 7.50 % [facility] WBC other (Bld) [#/Vol] 10.5 [facility] CBC with Diffon 07-10-2024 Abs. Basophil <0.03 Normal 0.00-0.20 [facility] Comment on above: Performed By: #### SAMUEL Hernandez CDP, ZOILA, BMP #### [facility] [address] [place] [address] [employer] Supervisor: Robb Lewis MD Abs.Imm.Granulocyte 0.03 k/uL Normal 0.00-0.30 [facility] Comment on above: Performed By: #### M G, TROPI, CDP, DIME, BMP #### [address] [place], [place] [id number] [employer] Supervisor: Robb Lewis MD Abs.Neutrophil (Seg) 7.50 k/uL Normal 1.50-8.10 [facility] Comment on above: Performed By: #### M G, TROPI, CDP, DIME, BMP #### [address] [place], [place] [address] [employer] Supervisor: Robb Lewis MD Basophils/100 WBC (Bld) 0 % Normal 0-2 [facility] Comment on above: Performed By: #### M G, TROPI, CDP, DIME, BMP #### [address] [place] [id number] [employer] Supervisor: Robb Lewis MD Eosinophils (Bld) [#/Vol] 0.08 10*3/uL Normal 0.00-0.44 [facility] Comment on above: Performed By: #### M G, TROPI, CDP, DIME, BMP #### [address] [place] [address] [employer] Supervisor: Robb Lewis MD Eosinophils/100 WBC (Bld) 1 % Normal 1-4 [facility] Comment on above: Performed By: #### M G, TROPI, CDP, DIME, BMP #### [address] [place], [place] [address] [employer] Supervisor: Robb Lewis MD Erythrocyte distribution width (RBC) [Ratio] 12.6 % Normal 11.8-14.4 [facility] Comment on above: Performed By: #### M G, TROPI, CDP, DIME, BMP #### [address] [place] [id number] [employer] Supervisor: Robb Lewis MD Hematocrit (Bld) [Volume fraction] 34.3 % Low 36.3-47.1 [facility] Comment on above: Performed By: #### M G, TROPI, CDP, DIME, BMP #### [facility] [address] [place], [facility] [employer] Supervisor: Robb Lewis MD Hemoglobin (Bld) [Mass/Vol] 11.8 g/dL Low 11.9-15.1 [facility] Comment on above: Performed By: #### M G, TROPI, CDP, DIME, BMP #### [facility] [address] [place] [address] [place], [facility] [employer] Supervisor: Robb Lewis MD Immature granulocytes/100 WBC (Bld) 0 % Normal 0 [facility] Comment on above: Performed By: #### M G, TROPI, CDP, DIME, BMP #### [address] [place], [place] [address] [employer] Supervisor: Robb Lewis MD Lymphocytes (Bld) [#/Vol] 1.74 10*3/uL Normal 1.10-3.70 [facility] Comment on above: Performed By: #### M G, TROPI, CDP, DIME, BMP #### [address] [place], [facility] [employer] Supervisor: Robb Lewis MD Lymphocytes/100 WBC (Bld) 17 % Low 24-43 [facility] Comment on above: Performed By: #### M G, TROPI, CDP, DIME, BMP #### [facility] [address] [place] [address] [place], [facility] [employer] Supervisor: Robb Lewis MD MCH (RBC) [Entitic mass] 28.7 pg Normal 25.2-33.5 [facility] Comment on above: Performed By: #### M G, TROPI, CDP, DIME, BMP #### [address] [place], [facility] [employer] Supervisor: Robb Lewis MD MCHC (RBC) [Mass/Vol] 34.4 g/dL Normal 28.4-34.8 [facility] Comment on above: Performed By: #### M G, TROPI, CDP, DIME, BMP #### [facility] [address] [place], [place] [id number] [employer] Supervisor: Robb Lewis MD MCV (RBC) [Entitic vol] 83.5 fL Normal 82.6-102.9 [facility] Comment on above: Performed By: #### M G, TROPI, CDP, DIME, BMP #### [facility] [address] [place], [place] [id number] [employer] Supervisor: Robb Lewis MD Monocytes (Bld) [#/Vol] 1.09 10*3/uL Normal 0.10-1.20 [facility] Comment on above: Performed By: #### M G, TROPI, CDP, DIME, BMP #### [address] [place], [place] 1004083 [employer] Supervisor: Robb Lewis MD Monocytes/100 WBC (Bld) 10 % Normal 3-12 [facility] Comment on above: Performed By: #### M G, TROPI, CDP, DIME, BMP #### [address] [place] [address] [employer] Supervisor: Robb Lewis MD Neutrophil (Seg) 72 % High 36-65 [facility] Comment on above: Performed By: #### M G, TROPI, CDP, DIME, BMP #### [facility] [address] [place], [place] [id number] [employer] Supervisor: Robb Lewis MD NRBC Automated 0.0 per 100 WBC Normal 0.0 [facility] Comment on above: Performed By: #### M G, TROPI, CDP, DIME, BMP #### [address] [place] [address] [employer] Supervisor: Robb Lewis MD Platelet mean volume (Bld) [Entitic vol] 9.1 fL Normal 8.1-13.5 [facility] Comment on above: Performed By: #### M Abundio, TROPI, CDP, DIME, BMP #### [facility] [address] [place], [place] [id number] [employer] Supervisor: Robb Lewis MD Platelets (Bld) [#/Vol] 249 10*3/uL Normal 138-453 [facility] Comment on above: Performed By: #### M Abundio, TROPI, CDP, DIME, BMP #### [facility] [address] [place], [place] [id number] [employer] Supervisor: Robb Lewis MD RBC (Bld) [#/Vol] 4.11 10*6/uL Normal 3.95-5.11 [facility] Comment on above: Performed By: #### M Abundio, TROPI, CDP, DIME, BMP #### [facility] [address] [place], [place] [id number] [employer] Supervisor: Robb Lewis MD WBC (Bld) [#/Vol] 10.5 10*3/uL Normal 3.5-11.3 [facility] Comment on above: Performed By: #### M Abundio, TROPI, CDP, DIME, BMP #### [facility] [address] [place] [address] [place], [place] 9648383 [employer] Supervisor: Robb Lewis MD EKG Rhythm Stripon 4 PAC [facility] Magnesiumon 07-10-2024 Magnesium [Mass/Vol] 1.6 mg/dL 1.6 - 2 .4 mg/dL [facility] Magnesium [Mass/Vol] 1.6 mg/dL Normal 1.6-2.4 [facility] Comment on above: Performed By: #### M G, TROPChel, CDP, DIME, BMP #### [address] [place], [place] [id number] [employer] Supervisor: Robb Lewis MD NA (Sodium)on 07-10-2024 Sodium [Moles/Vol] 120 mmol/L Low 136-145 [facility] Comment on above: Performed By: #### N A #### [address] [place], [place] [id number] [employer] Supervisor: Robb Lewis MD Sodium [Moles/Vol] 119 mmol/L Critically low 136-145 [facility] Comment on above: Performed By: #### M Abundio, SAMUEL CDP, DIME, BMP #### [address] [place], [place] [id number] [employer] Supervisor: Robb Lewis MD Sodium [Moles/Vol] 118 mmol/L Critically low 136-145 [facility] Comment on above: Performed By: #### M Abundio, TROPChel, CDP, DIME, BMP #### [address] [place], [place] [id number] [employer] Supervisor: Robb Lewis MD Sodium [Moles/Vol] 117 mmol/L Critically low 136-145 [facility] Comment on above: Performed By: #### M Abundio, SAMUEL CDP, DIME, BMP #### [address] [place], [place] [id number] [employer] Supervisor: Robb Lewis MD Sodium [Moles/Vol] 115 mmol/L Critically low 136-145 [facility] Comment on above: Performed By: #### M Abundio, TROPI, CDP, DIME, BMP #### [address] [place] [address] [employer] Supervisor: Rbob Lewis MD Sodium [Moles/Vol] 115 mmol/L Critically low 136-145 [facility] Comment on above: Performed By: #### N A #### [facility] [address] [place] [address] [employer] Supervisor: Robb Lewis MD No Panel Informationon 07-10 [facility] Osmolality, Urineon 07-10-20 24 Osmolality (U) [Osmolality] 436 mosm/kg [facility] Osmolality - Urine 436 mOsm/kg Normal 80-1300 [facility] Comment on above: Performed By: #### N A #### [facility] [address] [place] [address] [employer] Supervisor: Robb Lewis MD Sodiumon 07-10-2024 Interpretation and review of laboratory results Abnormal [facility] Sodium [Moles/Vol] 120 mmol/L Low 136 - 145 mmol/L [facility] Interpretation and review of laboratory results Abnormal [facility] Sodium [Moles/Vol] 119 mmol/L Critically low 136 - 1 45 mmol/L [facility] Interpretation and review of laboratory results Abnormal [facility] Sodium [Moles/Vol] 118 mmol/L Critically low 136 - 1 45 mmol/L [facility] Interpretation and review of laboratory results Abnormal [facility] Sodium [Moles/Vol] 117 mmol/L Critically low 136 - 1 45 mmol/L [facility] Interpretation and review of laboratory results Abnormal [facility] Sodium [Moles/Vol] 115 mmol/L Critically low 136 - 1 45 mmol/L [facility] Interpretation and review of laboratory results Abnormal [facility] Sodium [Moles/Vol] 115 mmol/L Critically low 136 - 1 45 mmol/L [facility] Sodium, Random Uron 07-10-20 24 Sodium (U) [Moles/Vol] 148 mmol/L Normal [facility] Comment on above: Result Comment: No n ormal range established. Performed By: #### U RNA #### [facility] [address] [place] [address] [employer] Supervisor: Robb Lewis MD #### UOSMO #### [facility] [address] [place] [address] [employer] Supervisor: Tai Vázquez MD Sodium, urine, randomon 06-20 Sodium (U) [Moles/Vol] 148 mmol/L [facility] Comment on above: No normal range esta blished. [facility] Uric Acidon 07-10-2024 Interpretation and review of laboratory results Abnormal [facility] Urate [Mass/Vol] 2.2 mg/dL Low 2.4 - 5.7 mg/dL [facility] Urate [Mass/Vol] 2.2 mg/dL Low 2.4-5.7 [facility] Comment on above: Performed By: #### M G, TROPI, CDP, DIME, BMP #### [facility] [address] [place] [address] [employer] Supervisor: Robb Lewis MD Basic Metab w/rfx MGon 07-09 Anion gap [Moles/Vol] 10 mmol/L Normal 05-04 [facility] Comment on above: Performed By: #### M G, TROPI, CDP, DIME, BMP #### [facility] [address] [place] [address] [employer] Supervisor: Robb Lewis MD BUN/CRE Ratio 15 Normal 05-08 [facility] Comment on above: Performed By: #### M G, TROPI, CDP, DIME, BMP #### [facility] [address] [place] [address] [employer] Supervisor: Robb Lewis MD Calcium [Mass/Vol] 8.9 mg/dL Normal 8.6-10.4 [facility] Comment on above: Performed By: #### M G, TROPI, CDP, DIME, BMP #### [facility] [address] [place] [address] [employer] Supervisor: Robb Lewis MD Chloride [Moles/Vol] 89 mmol/L Low 98-107 [facility] Comment on above: Performed By: #### M G, TROPI, CDP, DIME, BMP #### [facility] [address] [place] [address] [employer] Supervisor: Robb Lewis MD CO2 [Moles/Vol] 24 mmol/L Normal 20-31 [facility] Comment on above: Performed By: #### M G, TROPI, CDP, DIME, BMP #### [facility] [address] [place] [address] [employer] Supervisor: Robb Lewis MD Creatinine [Mass/Vol] 0.4 mg/dL Low 0.50-0.90 [facility] Comment on above: Performed By: #### M G, TROPI, CDP, DIME, BMP #### [facility] [address] [place] [address] [employer] Supervisor: Robb Lewis MD GFR/1.73 sq M.predicted among non-blacks MDRD (S/P/Bld) [Vol rate/Area] mL/min/{1.73_m2} Normal >60 [facility] Comment on above: Result Comment: These results [...] tubular secretion. Performed By: #### M G, TROPI, CDP, DIME, BMP #### [facility] [address] [place] [address] [employer] Supervisor: Robb Lewis MD Glucose [Mass/Vol] 123 mg/dL High 74-99 [facility] Comment on above: Performed By: #### M G, TROPI, CDP, DIME, BMP #### [facility] [address] [place] [address] [employer] Supervisor: Robb Lewis MD Potassium [Moles/Vol] 4.3 mmol/L Normal 3.7-5.3 [facility] Comment on above: Performed By: #### M G, TROPI, CDP, DIME, BMP #### [facility] [address] [place] [address] [employer] Supervisor: Robb Lewis MD Sodium [Moles/Vol] 123 mmol/L Low 136-145 [facility] Comment on above: Performed By: #### M G, TROPI, CDP, DIME, BMP #### [facility] [address] [place] [address] [employer] Supervisor: Robb Lewis MD Urea nitrogen [Mass/Vol] 6 mg/dL Low 8-23 [facility] Comment on above: Performed By: #### M G, TROPI, CDP, DIME, BMP #### [facility] [address] [place] [address] [employer] Supervisor: Robb Lewis MD Basic Metabolic Panel w/ Ref dago to MGon 07-09-2024 Anion gap [Moles/Vol] 10 mmol/L 9 - 16 mmol/L [facility] Calcium [Mass/Vol] 8.9 mg/dL 8.6 - 10. 4 mg/dL [facility] Chloride [Moles/Vol] 89 mmol/L Low 98 - 10 7 mmol/L [facility] CO2 [Moles/Vol] 24 mmol/L 20 - 31 mmol/L [facility] Creatinine [Mass/Vol] 0.4 mg/dL Low 0.50 - 0.90 mg/dL [facility] Est, Glom Filt Rate - PINF [facility] Comment on above: These results are [...] 123 mg/dL High 74 - 99 mg/dL [facility] Interpretation and review of laboratory results Abnormal [facility] Potassium [Moles/Vol] 4.3 mmol/L 3.7 - 5.3 mmol/L [facility] Sodium [Moles/Vol] 123 mmol/L Low 136 - 145 mmol/L [facility] Urea nitrogen [Mass/Vol] 6 mg/dL Low 8 - 23 mg/dL [facility] Urea nitrogen/Creatinine [Mass ratio] 15 mg/mg 9 - 20 [facility] CBC auto differentialon 06-20 Basophils (Bld) [#/Vol] 0.00 10*3/uL [facility] Basophils/100 WBC (Bld) 0 % 0 - 2 % [facility] Eosinophils (Bld) [#/Vol] 0.18 10*3/uL [facility] Eosinophils/100 WBC (Bld) 2 % 1 - 4 % [facility] Erythrocyte distribution width (RBC) [Ratio] 13.0 % 11.8 - 14.4 % [facility] Hematocrit (Bld) [Volume fraction] 35.1 % Low 36.3 - 47.1 % [facility] Hemoglobin (Bld) [Mass/Vol] 11.6 g/dL Low 11.9 - 15.1 g/dL [facility] Immature granulocytes (Bld) [#/Vol] 0.00 10*3/uL [facility] Immature granulocytes/100 WBC (Bld) 0 % 0 [facility] Interpretation and review of laboratory results Abnormal [facility] Lymphocytes/100 WBC (Bld) 20 % Low 24 - 43 % [facility] Lymphocytes/100 WBC (Bld) 1.82 % [facility] MCH (RBC) [Entitic mass] 28.2 pg 25.2 - 33.5 pg [facility] MCHC (RBC) [Mass/Vol] 33.0 g/dL 28.4 - 34.8 g/dL [facility] MCV (RBC) [Entitic vol] 85.4 fL 82.6 - 102.9 fL [facility] Monocytes/100 WBC (Bld) 10 % 3 - 12 % [facility] Monocytes/100 WBC (Bld) 0.91 % [facility] Morphology Dakota (Bld) [Interp] Normal [facility] Neutrophils/100 WBC (Bld) 68 % High 36 - 65 % [facility] Nucleated RBC/100 WBC (Bld) [Ratio] 0.0 % 0.0 per 100 WBC [facility] Platelet mean volume (Bld) [Entitic vol] 9.4 fL 8.1 - 13.5 fL [facility] Platelets (Bld) [#/Vol] 228 10*3/uL [facility] RBC (Bld) [#/Vol] 4.11 10*6/uL 3.95 - 5.1 1 m/uL [facility] Segmented neutrophils/100 WBC (Bld) 6.19 % [facility] WBC other (Bld) [#/Vol] 9.1 [facility] CBC with Diffon 07-09-2024 Abs. Basophil 0.00 k/uL Normal 0.00-0.20 [facility] Comment on above: Performed By: #### SAMUEL Hernandez CDP, DIME, BMP #### [facility] [address] [place] [address] [place] [address] [employer] Supervisor: Robb Lewis MD Abs.Imm.Granulocyte 0.00 k/uL Normal 0.00-0.30 [facility] Comment on above: Performed By: #### SAMUEL Hernandez CDP, DIME, BMP #### [facility] [address] [place] [address] [place] [address] [employer] Supervisor: Robb Lewis MD Abs.Neutrophil (Seg) 6.19 k/uL Normal 1.50-8.10 [facility] Comment on above: Performed By: #### M G, TROPI, CDP, DIME, BMP #### [address] [place] [address] [employer] Supervisor: Robb Lewis MD Basophils/100 WBC (Bld) 0 % Normal 0-2 [facility] Comment on above: Performed By: #### M G, TROPI, CDP, DIME, BMP #### [address] [place] [address] [employer] Supervisor: Robb Lewis MD Eosinophils (Bld) [#/Vol] 0.18 10*3/uL Normal 0.00-0.44 [facility] Comment on above: Performed By: #### M G, TROPI, CDP, DIME, BMP #### [address] [place] [address] [employer] Supervisor: Robb Lewis MD Eosinophils/100 WBC (Bld) 2 % Normal 1-4 [facility] Comment on above: Performed By: #### M G, TROPI, CDP, DIME, BMP #### [address] [place], [place] [address] [employer] Supervisor: Robb Lewis MD Immature granulocytes/100 WBC (Bld) 0 % Normal 0 [facility] Comment on above: Performed By: #### M G, TROPI, CDP, DIME, BMP #### [address] [place], [facility] [employer] Supervisor: Robb Lewis MD Lymphocytes (Bld) [#/Vol] 1.82 10*3/uL Normal 1.10-3.70 [facility] Comment on above: Performed By: #### M G, TROPI, CDP, DIME, BMP #### [address] [place], [facility] [employer] Supervisor: Robb Lewis MD Lymphocytes/100 WBC (Bld) 20 % Low 24-43 [facility] Comment on above: Performed By: #### M G, TROPI, CDP, DIME, BMP #### [facility] [address] [place], [place] [id number] [employer] Supervisor: Robb Lewis MD Monocytes (Bld) [#/Vol] 0.91 10*3/uL Normal 0.10-1.20 [facility] Comment on above: Performed By: #### M G, TROPI, CDP, DIME, BMP #### [facility] [address] [place], [place] [address] [employer] Supervisor: Robb Lewis MD Monocytes/100 WBC (Bld) 10 % Normal 3-12 [facility] Comment on above: Performed By: #### M G, TROPI, CDP, DIME, BMP #### [address] [place], [place] [address] [employer] Supervisor: Robb Lewis MD Morphology Dakota (Bld) [Interp] Normal Normal [facility] Comment on above: Performed By: #### M G, TROPI, CDP, DIME, BMP #### [address] [place], [facility] [employer] Supervisor: Robb Lewis MD Neutrophil (Seg) 68 % High 36-65 [facility] Comment on above: Performed By: #### M G, TROPI, CDP, DIME, BMP #### [address] [place], [facility] [employer] Supervisor: Robb Lewis MD Erythrocyte distribution width (RBC) [Ratio] 13.0 % Normal 11.8-14.4 [facility] Comment on above: Performed By: #### M G, TROPI, CDP, DIME, BMP #### [facility] [address] [place], [place] [id number] [employer] Supervisor: Robb Lewis MD Hematocrit (Bld) [Volume fraction] 35.1 % Low 36.3-47.1 [facility] Comment on above: Performed By: #### M G, TROPI, CDP, DIME, BMP #### [address] [place] [id number] [employer] Supervisor: Robb Lewis MD Hemoglobin (Bld) [Mass/Vol] 11.6 g/dL Low 11.9-15.1 [facility] Comment on above: Performed By: #### M G, TROPI, CDP, DIME, BMP #### [address] [place] [address] [employer] Supervisor: Robb Lewis MD MCH (RBC) [Entitic mass] 28.2 pg Normal 25.2-33.5 [facility] Comment on above: Performed By: #### M G, TROPI, CDP, DIME, BMP #### [address] [place] [id number] [employer] Supervisor: Robb Lewis MD MCHC (RBC) [Mass/Vol] 33.0 g/dL Normal 28.4-34.8 [facility] Comment on above: Performed By: #### M G, TROPI, CDP, DIME, BMP #### [address] [place] [id number] [employer] Supervisor: Robb Lewis MD MCV (RBC) [Entitic vol] 85.4 fL Normal 82.6-102.9 [facility] Comment on above: Performed By: #### M G, TROPI, CDP, DIME, BMP #### [address] [place] [address] [employer] Supervisor: Robb Lewis MD NRBC Automated 0.0 per 100 WBC Normal 0.0 [facility] Comment on above: Performed By: #### M G, TROPI, CDP, DIME, BMP #### [address] [place] [id number] [employer] Supervisor: Robb Lewis MD Platelet mean volume (Bld) [Entitic vol] 9.4 fL Normal 8.1-13.5 [facility] Comment on above: Performed By: #### M G, TROPI, CDP, DIME, BMP #### [facility] [address] [place], [place] [id number] [employer] Supervisor: Robb Lewis MD Platelets (Bld) [#/Vol] 228 10*3/uL Normal 138-453 [facility] Comment on above: Performed By: #### M G, TROPI, CDP, DIME, BMP #### [facility] [address] [place], [place] [id number] [employer] Supervisor: Robb Lewis MD RBC (Bld) [#/Vol] 4.11 10*6/uL Normal 3.95-5.11 [facility] Comment on above: Performed By: #### M G, TROPI, CDP, DIME, BMP #### [facility] [address] [place], [place] [id number] [employer] Supervisor: Robb Lewis MD WBC (Bld) [#/Vol] 9.1 10*3/uL Normal 3.5-11.3 [facility] Comment on above: Performed By: #### M G, TROPI, CDP, DIME, BMP #### [facility] [address] [place], [place] [id number] [employer] Supervisor: Robb Lewis MD EKG Rhythm Stripon [facility] Magnesiumon 07-09-2024 Magnesium [Mass/Vol] 1.8 mg/dL 1.6 - 2 .4 mg/dL [facility] Magnesium [Mass/Vol] 1.8 mg/dL Normal 1.6-2.4 [facility] Comment on above: Performed By: #### M SAMUEL Del Castillo CDP, DIME, BMP #### [facility] [address] [place] [address] [employer] Supervisor: Robb Lewis MD No Panel Informationon 07-09 [facility] BMPon 07-08-2024 Anion gap [Moles/Vol] 8 mmol/L Low 9 - 16 mmol/L [facility] Calcium [Mass/Vol] 6.2 mg/dL Low 8.6 - 10. 4 mg/dL [facility] Chloride [Moles/Vol] 109 mmol/L High 98 - 10 7 mmol/L [facility] CO2 [Moles/Vol] 19 mmol/L Low 20 - 31 mmol/L [facility] Creatinine [Mass/Vol] 0.3 mg/dL Low 0.50 - 0.90 mg/dL [facility] Est, Glom Filt Rate - PINF [facility] Comment on above: These results are not [...] [Mass/Vol] 90 mg/dL 74 - 99 mg/dL [facility] Potassium [Moles/Vol] 2.6 mmol/L Critically low 3.7 - 5.3 mmol/L [facility] Sodium [Moles/Vol] 136 mmol/L 136 - 145 mmol/L [facility] Urea nitrogen [Mass/Vol] 8 mg/dL 8 - 23 mg/dL [facility] Urea nitrogen/Creatinine [Mass ratio] 27 mg/mg High - [facility] Basic Metab w/rfx MGon 07-08 Anion gap [Moles/Vol] 10 mmol/L Normal - [facility] Comment on above: Performed By: #### M SAMUEL Del Castillo CDP, DIME, BMP #### [facility] [address] [place], [place] [id number] [employer] Supervisor: Robb Lewis MD BUN/CRE Ratio 16 Normal 9-20 [facility] Comment on above: Performed By: #### M G, TROPI, CDP, DIME, BMP #### [facility] [address] [place], [place] [id number] [employer] Supervisor: Robb Lewis MD Calcium [Mass/Vol] 9.6 mg/dL Normal 8.6-10.4 [facility] Comment on above: Performed By: #### M G, TROPI, CDP, DIME, BMP #### [facility] [address] [place], [place] [id number] [employer] Supervisor: Robb Lewis MD Chloride [Moles/Vol] 93 mmol/L Low 98-107 [facility] Comment on above: Performed By: #### M G, TROPI, CDP, DIME, BMP #### [facility] [address] [place], [place] [phone] [employer] Supervisor: Robb Lewis MD CO2 [Moles/Vol] 25 mmol/L Normal 20-31 [facility] Comment on above: Performed By: #### M G, TROPI, CDP, DIME, BMP #### [facility] [address] [place], [place] [id number] [employer] Supervisor: Robb Lewis MD Creatinine [Mass/Vol] 0.5 mg/dL Normal 0.50-0.90 [facility] Comment on above: Performed By: #### M G, TROPI, CDP, DIME, BMP #### [facility] [address] [place] [address] [employer] Supervisor: Robb Lewis MD GFR/1.73 sq M.predicted among non-blacks MDRD (S/P/Bld) [Vol rate/Area] mL/min/{1.73_m2} Normal >60 [facility] Comment on above: Result Comment: These results [...] renal tubular secretion. Performed By: #### M SAMUEL Del Castillo, JA, DIME, BMP #### [facility] [address] [place] [address] [place], [place] [phone] [employer] Supervisor: Robb Lewis MD Glucose [Mass/Vol] 124 mg/dL High 74-99 [facility] Comment on above: Performed By: #### M Abundio TROPI, CDP, DIME, BMP #### [address] [place], [place] [id number] [employer] Supervisor: Robb Lewis MD Potassium [Moles/Vol] 4.4 mmol/L Normal 3.7-5.3 [facility] Comment on above: Performed By: #### M SAMUEL Del Castillo, CDP, DIME, BMP #### [address] [place] [address] [employer] Supervisor: Robb Lewis MD Sodium [Moles/Vol] 128 mmol/L Low 136-145 [facility] Comment on above: Performed By: #### M EDUARD Del CastilloI, CDP, DIME, BMP #### [address] [place], [place] [address]363883 [employer] Supervisor: Robb Lewis MD Urea nitrogen [Mass/Vol] 8 mg/dL Normal 8-23 [facility] Comment on above: Performed By: #### M Abundio, TROPI, CDP, DIME, BMP #### [address] [place], [place] [phone] [employer] Supervisor: Robb Lewis MD Basic Metabolic Panel w/ Ref dago to MGon 07-08-2024 Anion gap [Moles/Vol] 10 mmol/L 9 - 16 mmol/L [facility] Calcium [Mass/Vol] 9.6 mg/dL 8.6 - 10. 4 mg/dL [facility] Chloride [Moles/Vol] 93 mmol/L Low 98 - 10 7 mmol/L [facility] CO2 [Moles/Vol] 25 mmol/L 20 - 31 mmol/L [facility] Creatinine [Mass/Vol] 0.5 mg/dL 0.50 - 0.90 mg/dL [facility] Est, Kodi Buenrostrot Rate - PINF [facility] Comment on above: These results are not [...] 124 mg/dL High 74 - 99 mg/dL [facility] Interpretation and review of laboratory results Abnormal [facility] Potassium [Moles/Vol] 4.4 mmol/L 3.7 - 5.3 mmol/L [facility] Sodium [Moles/Vol] 128 mmol/L Low 136 - 145 mmol/L [facility] Urea nitrogen [Mass/Vol] 8 mg/dL 8 - 23 mg/dL [facility] Urea nitrogen/Creatinine [Mass ratio] 16 mg/mg - [facility] Basic Metabolic Profon 07-08 Anion gap [Moles/Vol] 8 mmol/L Low -16 [facility] Comment on above: Performed By: #### SAMUEL Hernandez CDP, DIME BMP #### [facility] [address] [place] [address] [employer] Supervisor: Robb Lewis MD BUN/CRE Ratio 27 High - [facility] Comment on above: Performed By: #### SAMUEL Hernandez CDP, DIME, BMP #### [facility] [address] [place] [address] [employer] Supervisor: Robb Lewis MD Calcium [Mass/Vol] 6.2 mg/dL Low 8.6-10.4 [facility] Comment on above: Performed By: #### M G, TROPI, CDP, DIME, BMP #### [facility] [address] [place], [place] 101[address]83 [employer] Supervisor: Robb Lewis MD Chloride [Moles/Vol] 109 mmol/L High 98-107 [facility] Comment on above: Performed By: #### M G, TROPI, CDP, DIME, BMP #### [facility] [address] [place], [place] [id number] [employer] Supervisor: Robb Lewis MD CO2 [Moles/Vol] 19 mmol/L Low 20-31 [facility] Comment on above: Performed By: #### M G, TROPI, CDP, DIME, BMP #### [facility] [address] [place], [place] [address]83 [employer] Supervisor: Robb Lewis MD Creatinine [Mass/Vol] 0.3 mg/dL Low 0.50-0.90 [facility] Comment on above: Performed By: #### M G, TROPI, CDP, DIME, BMP #### [facility] [address] [place], [facility] [employer] Supervisor: Robb Lewis MD GFR/1.73 sq M.predicted among non-blacks MDRD (S/P/Bld) [Vol rate/Area] mL/min/{1.73_m2} Normal >60 [facility] Comment on above: Result Comment: These results [...] tubular secretion. Performed By: #### M G, TROPI, CDP, DIME, BMP #### [facility] [address] [place], [place] [id number] [employer] Supervisor: Robb Lewis MD Glucose [Mass/Vol] 90 mg/dL Normal 74-99 [facility] Comment on above: Performed By: #### M G, TROPI, CDP, DIME, BMP #### [facility] [address] [place], [place] [id number] [employer] Supervisor: Robb Lewis MD Potassium [Moles/Vol] 2.6 mmol/L Critically low 3.7-5.3 [facility] Comment on above: Performed By: #### M G, TROPI, CDP, DIME, BMP #### [address] [place], [place] [phone] [employer] Supervisor: Robb Lewis MD Sodium [Moles/Vol] 136 mmol/L Normal 136-145 [facility] Comment on above: Performed By: #### M Abundio, TROPI, CDP, DIME, BMP #### [address] [place], [place] [id number] [employer] Supervisor: Robb Lewis MD Urea nitrogen [Mass/Vol] 8 mg/dL Normal 8-23 [facility] Comment on above: Performed By: #### M G, TROPI, CDP, DIME, BMP #### [address] [place], [place] [id number] [employer] Supervisor: Robb Lewis MD Brain Natri. Peptideon 07-08 Natriuretic peptide B (Bld) [Mass/Vol] 627 pg/mL High 0-450 [facility] Comment on above: Performed By: #### M G, TROPI, CDP, DIME, BMP #### [facility] [address] [place], [place] [id number] [employer] Supervisor: Robb Lewis MD Brain Natriuretic Peptideon 07-08-2024 Interpretation and review of laboratory results Abnormal [facility] Natriuretic peptide B (Bld) [Mass/Vol] 627 pg/mL High 0 - 450 pg/mL [facility] CBC with Auto Differentialon 07-08-2024 Basophils (Bld) [#/Vol] [facility] Basophils/100 WBC (Bld) 0 % 0 - 2 % [facility] Eosinophils (Bld) [#/Vol] 0.05 10*3/uL [facility] Eosinophils/100 WBC (Bld) 1 % 1 - 4 % [facility] Erythrocyte distribution width (RBC) [Ratio] 13.4 % 11.8 - 14.4 % [facility] Hematocrit (Bld) [Volume fraction] 28.3 % Low 36.3 - 47.1 % [facility] Hemoglobin (Bld) [Mass/Vol] 9.3 g/dL Low 11.9 - 15.1 g/dL [facility] Immature granulocytes (Bld) [#/Vol] [facility] Immature granulocytes/100 WBC (Bld) 0 % 0 [facility] Interpretation and review of laboratory results Abnormal [facility] Lymphocytes/100 WBC (Bld) 13 % Low 24 - 43 % [facility] Lymphocytes/100 WBC (Bld) 1.00 % Low [facility] MCH (RBC) [Entitic mass] 29.1 pg 25.2 - 33.5 pg [facility] MCHC (RBC) [Mass/Vol] 32.9 g/dL 28.4 - 34.8 g/dL [facility] MCV (RBC) [Entitic vol] 88.4 fL 82.6 - 102.9 fL [facility] Monocytes/100 WBC (Bld) 8 % 3 - 12 % [facility] Monocytes/100 WBC (Bld) 0.65 % [facility] Neutrophils/100 WBC (Bld) 78 % High 36 - 65 % [facility] Nucleated RBC/100 WBC (Bld) [Ratio] 0.0 % 0.0 per 100 WBC [facility] Platelet mean volume (Bld) [Entitic vol] 9.2 fL 8.1 - 13.5 fL [facility] Platelets (Bld) [#/Vol] 182 10*3/uL [facility] RBC (Bld) [#/Vol] 3.20 10*6/uL Low 3.95 - 5.1 1 m/uL [facility] Segmented neutrophils/100 WBC (Bld) 6.02 % [facility] WBC other (Bld) [#/Vol] 7.8 [facility] CBC with Diffon 07-08-2024 Abs. Basophil <0.03 Normal 0.00-0.20 [facility] Comment on above: Performed By: #### Terry Del Castillo, TROPI, CDP, DIME, BMP #### [address] [place], [place] [id number] [employer] Supervisor: Robb Lewis MD Abs.Imm.Granulocyte <0.03 Normal 0.00-0.30 [facility] Comment on above: Performed By: #### Terry Del Castillo, TROPChel, CDP, DIME, BMP #### [address] [place] [address] [employer] Supervisor: Robb Lewis MD Abs.Neutrophil (Seg) 6.02 k/uL Normal 1.50-8.10 [facility] Comment on above: Performed By: #### Terry Del Castillo, TROPI, CDP, DIME, BMP #### [address] [place] [address] [employer] Supervisor: Robb Lewis MD Basophils/100 WBC (Bld) 0 % Normal 0-2 [facility] Comment on above: Performed By: #### M G, TROPI, CDP, DIME, BMP #### [address] [place], [place] [id number] [employer] Supervisor: Robb Lewis MD Eosinophils (Bld) [#/Vol] 0.05 10*3/uL Normal 0.00-0.44 [facility] Comment on above: Performed By: #### M G, TROPI, CDP, DIME, BMP #### [address] [place], [facility] [employer] Supervisor: Robb Lewis MD Eosinophils/100 WBC (Bld) 1 % Normal 1-4 [facility] Comment on above: Performed By: #### M G, TROPI, CDP, DIME, BMP #### [address] [place], [place] [address] [employer] Supervisor: Robb Lewis MD Erythrocyte distribution width (RBC) [Ratio] 13.4 % Normal 11.8-14.4 [facility] Comment on above: Performed By: #### M G, TROPI, CDP, DIME, BMP #### [address] [place], [place] [address] [employer] Supervisor: Robb Lewis MD Hematocrit (Bld) [Volume fraction] 28.3 % Low 36.3-47.1 [facility] Comment on above: Performed By: #### M G, TROPI, CDP, DIME, BMP #### [address] [place], [facility] [employer] Supervisor: Robb Lewis MD Hemoglobin (Bld) [Mass/Vol] 9.3 g/dL Low 11.9-15.1 [facility] Comment on above: Performed By: #### M G, TROPI, CDP, DIME, BMP #### [address] [place], [facility] [employer] Supervisor: Robb Lewis MD Immature granulocytes/100 WBC (Bld) 0 % Normal 0 [facility] Comment on above: Performed By: #### M G, TROPI, CDP, DIME, BMP #### [address] [place], [facility] [employer] Supervisor: Robb Lewis MD Lymphocytes (Bld) [#/Vol] 1.00 10*3/uL Low 1.10-3.70 [facility] Comment on above: Performed By: #### M Abundio, TROPI, CDP, DIME, BMP #### [facility] [address] [place], [place] [id number] [employer] Supervisor: Robb Lewis MD Lymphocytes/100 WBC (Bld) 13 % Low 24-43 [facility] Comment on above: Performed By: #### M G, TROPI, CDP, DIME, BMP #### [facility] [address] [place], [facility] [employer] Supervisor: Robb Lewis MD MCH (RBC) [Entitic mass] 29.1 pg Normal 25.2-33.5 [facility] Comment on above: Performed By: #### Terry Del Castillo, TROPI, CDP, DIME, BMP #### [address] [place], [place] [address] [employer] Supervisor: Robb Lewis MD MCHC (RBC) [Mass/Vol] 32.9 g/dL Normal 28.4-34.8 [facility] Comment on above: Performed By: #### M Abundio, TROPI, CDP, DIME, BMP #### [address] [place], [facility] ( [employer] Supervisor: Robb Lewis MD MCV (RBC) [Entitic vol] 88.4 fL Normal 82.6-102.9 [facility] Comment on above: Performed By: #### M Abundio, TROPI, CDP, DIME, BMP #### [facility] [address] [place], [facility] [employer] Supervisor: Robb Leiws MD Monocytes (Bld) [#/Vol] 0.65 10*3/uL Normal 0.10-1.20 [facility] Comment on above: Performed By: #### M G, TROPI, CDP, DIME, BMP #### [facility] [address] [place] [address] [employer] Supervisor: Robb Lewis MD Monocytes/100 WBC (Bld) 8 % Normal 3-12 [facility] Comment on above: Performed By: #### M G, TROPI, CDP, DIME, BMP #### [facility] [address] [place], [facility] [employer] Supervisor: Robb Lewis MD Neutrophil (Seg) 78 % High 36-65 [facility] Comment on above: Performed By: #### M G, TROPI, CDP, DIME, BMP #### [facility] [address] [place], [facility] [employer] Supervisor: Robb Lewis MD NRBC Automated 0.0 per 100 WBC Normal 0.0 [facility] Comment on above: Performed By: #### M G, TROPI, CDP, DIME, BMP #### [facility] [address] [place], [facility] [employer] Supervisor: Robb Lewis MD Platelet mean volume (Bld) [Entitic vol] 9.2 fL Normal 8.1-13.5 [facility] Comment on above: Performed By: #### M G, TROPI, CDP, DIME, BMP #### [address] [place], [place] [address] [employer] Supervisor: Robb Lewis MD Platelets (Bld) [#/Vol] 182 10*3/uL Normal 138-453 [facility] Comment on above: Performed By: #### M G, TROPI, CDP, DIME, BMP #### [facility] [address] [place] [address] [employer] Supervisor: Robb Lewis MD RBC (Bld) [#/Vol] 3.20 10*6/uL Low 3.95-5.11 [facility] Comment on above: Performed By: #### M G, TROPI, CDP, DIME, BMP #### [facility] [address] [place] [address] [employer] Supervisor: Robb Lewis MD WBC (Bld) [#/Vol] 7.8 10*3/uL Normal 3.5-11.3 [facility] Comment on above: Performed By: #### M SAMUEL Del Castillo CDP, DIME, BMP #### [facility] [address] [place] [address] [employer] Supervisor: Robb Lewis MD COVID-19, Rapidon 07-08-2024 SARS-CoV-2 (COVID-19) RdRp gene TIFFANIE+probe Ql (Resp) Not detected Not Detected [facility] Comment on above: Rapid NAAT: The specimen [...] Nucleic Acid Amplification Specimen Description .NASOPHARYNGEAL SWAB [facility] CT CHEST PULMONARY EMBOLISM W CONTRASTon [...] Nevarez IV, MD 07/08/24 Final result Normal [facility] 1. No pulmonary embolism. 2. Cardiomegaly with diffuse airspace opacification and septal thickening. Findings may represent pulmonary edema or atypical infection. 3. Compression deformity of L1 of uncertain chronicity. [facility] RIS CONSOLIDATED EXAMINATION: CTA OF THE CHEST [...] endplate of L1. No acute skeletal finding. [facility] Harsha Phillips IV, MD - 07/08/2024 EXAMINATION: [...] Compression deformity of L1 of uncertain chronicity. [facility] Radiology Study observation (narrative) [facility] CT CHEST PULMONARY EMBOLISM W CONTRASTOrdered By: Harsha Nevarez on 07-08-2024 [facility] Work Phone: D-Dimer Teston 07-08-2024 D-Dimer Test 1.01 ug/mL FEU High 0.00-0.59 [facility] Comment on above: Result Comment: When combined [...] with distal DVT. Performed By: #### M G, TROPChel, CDP, ZOILA, BMP #### [facility] [address] [place] [address] [employer] Supervisor: Robb Lewis MD D-Dimer, Quantitativeon 11- Fibrin D-dimer FEU (PPP) [Mass/Vol] 1.01 [facility] Comment on above: When combined with a [...] Interpretation and review of laboratory results Abnormal [facility] EKG 12 Leadon 07-08-2024 Atrial Rate 71 BPM [facility] P [place] 72 degrees [facility] P-R Interval 186 ms [facility] Q-T Interval 394 ms [facility] QRS Duration 72 ms [facility] QTc Calculation (Bazett) 428 ms [facility] R [place] 19 degrees [facility] T [place] 50 degrees [facility] Ventricular Rate [address] [facility] Normal sinus rhythm Normal ECG When compared with ECG of 05-JUN-2023 19:18, No significant change was found Confirmed by DAYO VITALE ([id number]) on 07/08/2024 11:58:11 AM [facility] RADIOLOGY Dayo Vitale MD - 07/08/2024 Normal sinus rhythm Normal ECG When compared with ECG of 05-JUN-2023 19:18, No significant change was found Confirmed by DAYO VITALE ([id number]) on 07/08/2024 11:58:11 AM [facility] EKG Rhythm Stripon [facility] Flu A/B Ag Detectionon 07-08 Flu A Ag Detection Negative Normal NEG [facility] Comment on above: Result Comment: for Influenza A Antigen Performed By: #### M Abundio, SAMUEL, JA, DIME, BMP #### [facility] [address] [place] [address] [employer] Supervisor: Robb Lewis MD Flu B Ag Detection Negative Normal NEG [facility] Comment on above: Result Comment: for Influenza B Antigen. Performed By: #### M Abundio, TROPI, JA, DIME, BMP #### [facility] [address] [place] [address] [employer] Supervisor: Robb Lewis MD Magnesiumon 07-08-2024 Magnesium [Mass/Vol] 2.1 mg/dL 1.6 - 2 .4 mg/dL [facility] Magnesium [Mass/Vol] 2.1 mg/dL Normal 1.6-2.4 [facility] Comment on above: Performed By: #### M Abundio, TROPChel, JA, DIME, BMP #### [facility] [address] [place] [address] [employer] Supervisor: Robb Lewis MD Magnesium [Mass/Vol] 1.1 mg/dL Low 1.6 - 2 .4 mg/dL [facility] Magnesium [Mass/Vol] 1.1 mg/dL Low 1.6-2.4 [facility] Comment on above: Performed By: #### M Abundio, TROPChel, JA, DIME, BMP #### [facility] [address] [place] [address] [employer] Supervisor: Robb Lewis MD Microscopic Urinalysison Bacteria LM Ql (Urine sed) 2+ Abnormal None [facility] Epithelial cells LM.HPF (Urine sed) [#/Area] 2 TO 5 [facility] Interpretation and review of laboratory results Abnormal [facility] Mucus Ql (Urine sed) 1+ Abnormal None [facility] RBC LM.HPF (Urine sed) [#/Area] 2 TO 5 [facility] WBC LM.HPF (Urine sed) [#/Area] 5 TO 10 [facility] No Panel Informationon 07-08 [facility] Interpretation and review of laboratory results Abnormal [facility] Portable XR Chest AP single viewon 07-08-2024 Slightly increased mild diffuse interstitial prominence, which may represent background interstitial disease. Non-emergent CT chest can be obtained for further evaluation. [facility] RIS CONSOLIDATED EXAMINATION: ONE XRAY VIEW OF THE CHEST 07/08/2024 7:03 am COMPARISON: Chest radiograph 06/05/2023 HISTORY: ORDERING SYSTEM PROVIDED HISTORY: sob TECHNOLOGIST PROVIDED HISTORY: sob FINDINGS: Mild diffuse interstitial prominence, slightly increased from prior. No focal consolidation. No pneumothorax or pleural effusion. Unchanged cardiomediastinal silhouette. No pulmonary edema. [facility] RIS CONSOLIDATED Briana Dorman MD - 07/08/2024 [...] chest can be obtained for further evaluation. [facility] Radiology Study observation (narrative) [facility] Portable XR Chest AP single viewOrdered By: Briana Dorman on 07-08-2024 [facility] Work Phone: Rapid influenza A/B antigens on 07-08-2024 FLUAV Ag Ql (Unsp spec) Negative NEGATIVE [facility] Comment on above: for Influenza A Anti gen FLUBV Ag Ql (Unsp spec) Negative NEGATIVE [facility] Comment on above: for Influenza B Anti gen. [facility] Resp Viral Panelon 4 Adenovirus Not detected Normal [facility] Comment on above: Performed By: #### N A #### [facility] [address] [place] [address] [employer] Supervisor: MD Britney Rios.parapertussis Not detected Normal [facility] Comment on above: Performed By: #### N A #### [facility] [address] [place] [address] [employer] Supervisor: Robb Sturtz, MD Bordetella pertussis Not detected Normal [facility] Comment on above: Performed By: #### N A #### [facility] [address] [place] [address] [place] [place], [place] [id number] [employer]itting Supervisor: Robb Lewis MD Chlamyd.pneumoniae Not detected [facility] Comment on above: Performed By: #### N A #### [facility] [address] [place] [address] [place] [address] [employer] Supervisor: Robb Lewis MD Coronavirus 229E Not detected [facility] Comment on above: Performed By: #### N A #### [address] [place], [place] [id number] [employer] Supervisor: Robb Lewis MD Coronavirus HKU1 Not detected [facility] Comment on above: Performed By: #### N A #### [facility] [address] [place] [address] [place] [place], [place] [id number] [employer] Supervisor: Robb Lewis MD Coronavirus NL63 Not detected [facility] Comment on above: Performed By: #### N A #### [address] [place], [place] [id number] [employer]itting Supervisor: Robb Lewis MD Coronavirus OC43 Not detected [facility] Comment on above: Performed By: #### N A #### [facility] [address] [place] [address] [place] [place], [place] [id number] [employer] Supervisor: Robb Lewis MD Human Metapneumo Not detected [facility] Comment on above: Performed By: #### N A #### [facility] [address] [place] [address] [place], [place] [id number] Sh[employer]itting Supervisor: Robb Lewis MD Influenza A Not detected Normal [facility] Comment on above: Performed By: #### N A #### [facility] [address] [place] [address] Sh[employer]itting Supervisor: Robb Lewis MD Influenza B Not detected Normal [facility] Comment on above: Performed By: #### N A #### [address] [place] [address] Sh[employer]itting Supervisor: Robb Lewis MD Mycoplas.pneumoniae Not detected Normal [facility] Comment on above: Result Comment: Perf ormed by multiplexed nucleic acid assay. Performed By: #### N A #### [address] [place] [address] [employer] Supervisor: Robb Lewis MD Parainfluenza 1 Not detected Normal [facility] Comment on above: Performed By: #### N A #### [facility] [address] [place] [address] [place] [address] [employer]itting Supervisor: Robb Lewis MD Parainfluenza 2 Not detected Normal [facility] Comment on above: Performed By: #### N A #### [address] [place] [address] Sh[employer]itting Supervisor: Robb Lewis MD Parainfluenza 3 Not detected Normal [facility] Comment on above: Performed By: #### N A #### [facility] [address] [place] [address] [place] [address] Sh[employer]itting Supervisor: Robb Lewis MD Parainfluenza 4 Not detected Normal [facility] Comment on above: Performed By: #### N A #### [facility] [address] [place] [address] [place] [address] Sh[employer]itting Supervisor: Robb Lewis MD Resp Syncytial Virus Not detected Normal [facility] Comment on above: Performed By: #### N A #### [facility] [address] [place] [address] [place], [place] 1633683 Sh[employer]itting Supervisor: Robb Lewis MD Rhino/Enterovirus Not detected Normal [facility] Comment on above: Performed By: #### N A #### [facility] [address] [place] [address] Sh[employer] Supervisor: Robb Lewis MD SARS-CoV-2 (COVID-19) RNA TIFFANIE+probe Ql (Unsp spec) Not detected Normal [facility] Comment on above: Performed By: #### N A #### [facility] [address] [place], [place] [id number] [employer]itting Supervisor: Robb Lewis MD Source: .NASOPHARYNGEAL SWAB [facility] Comment on above: Performed By: #### N A #### [facility] [address] [place], [place] [id number] Sh[employer]itting Supervisor: Robb Lewis MD Respiratory Panel, Molecular , with COVID-19 (Restricted: peds pts or suitable admitted adults)on 07-08-2024 Adenovirus DNA TIFFANIE+non-probe Ql (Nph) Not detected Not Detected [facility] B. parapertussis [id number] DNA TIFFANIE+non-probe Ql (Nph) Not detected Not Detected [facility] B. pertussis DNA TIFFANIE+probe Ql (Unsp spec) Not detected Not Detected [facility] C. pneumoniae DNA TIFFANIE+non-probe Ql (Nph) Not detected Not Detected [facility] FLUAV RNA TIFFANIE+non-probe Ql (Nph) Not detected Not Detected [facility] FLUBV RNA TIFFANIE+non-probe Ql (Nph) Not detected Not Detected [facility] HCoV 229E RNA TIFFANIE+non-probe Ql (Nph) Not detected Not Detected [facility] HCoV HKU1 RNA TIFFANIE+non-probe Ql (Nph) Not detected Not Detected [facility] HCoV NL63 RNA TIFFANIE+non-probe Ql (Nph) Not detected Not Detected [facility] HCoV OC43 RNA TIFFANIE+non-probe Ql (Nph) Not detected Not Detected [facility] hMPV RNA TIFFANIE+non-probe Ql (Nph) Not detected Not Detected [facility] M. pneumoniae DNA TIFFANIE+non-probe Ql (Nph) Not detected Not Detected [facility] Comment on above: Performed by [employer] nucleic acid assay. Parainfluenza virus 1 RNA TIFFANIE+non-probe Ql (Nph) Not detected Not Detected [facility] Parainfluenza virus 2 RNA TIFFANIE+non-probe Ql (Nph) Not detected Not Detected [facility] Parainfluenza virus 3 RNA TIFFANIE+non-probe Ql (Nph) Not detected Not Detected [facility] Parainfluenza virus 4 RNA TIFFANIE+non-probe Ql (Nph) Not detected Not Detected [facility] Rhinovirus+Enterovir us RNA TIFFANIE+non-probe Ql (Nph) Not detected Not Detected [facility] RSV RNA TIFFANIE+non-probe Ql (Nph) Not detected Not Detected [facility] SARS-CoV-2 (COVID-19) RNA TIFFANIE+non-probe Ql (Nph) Not detected Not Detected [facility] Specimen Description .NASOPHARYNGEAL SWAB [facility] [id number] 07-08-2024 SARS-CoV-2 (COVID-19) RNA TIFFANIE+probe Ql (Unsp spec) Not detected Normal [facility] Comment on above: Result Comment: Rapid [...] Isothermal Nucleic Acid Amplification Performed By: #### N A #### [facility] [address] [place] [address] [place] [address] [employer]itting Supervisor: Robb Lewis MD T4, Freeon 07-08-2024 Free T4 [Mass/Vol] 1.2 ng/dL 0.92 - 1. 68 ng/dL [facility] TSH w/reflex to FT4on 2023 Thyroid Stim. Horm. 3.63 uIU/mL Normal 0.27-4.20 [facility] Comment on above: Performed By: #### M G, TROPI, CDP, DIME, BMP #### [facility] [address] [place] [address] [place] [address] [employer] Supervisor: Robb Lewis MD TSH with Reflexon 07-08-2024 TSH Qn 3.63 m[IU]/L [facility] Thyroxine, Freeon 07-08-2024 Thyroxine, Free 1.2 ng/dL Normal 0.92-1.68 [facility] Comment on above: Performed By: #### N A #### [facility] [address] [place] [address] [place], [place] [id number] [employer] Supervisor: Robb Lewis MD Troponinon 07-08-2024 Troponin I.cardiac High sensitivity method [Mass/Vol] 8 ng/L 0 - 14 ng/L [facility] Comment on above: High Sensitivity Tro ponin values cannot be compared with other Troponin methodologies. Troponin, High Sens 8 ng/L Normal 0-14 [facility] Comment on above: Result Comment: High Sensitivity Troponin values cannot be compared with other Troponin methodologies. Performed By: #### M Abundio, TROPI, JA, DIME, BMP #### [facility] [address] [place] [address] Sh[employer]itting Supervisor: Robb Lewis MD UA w/Reflex Cultureon 2023 Clarity (U) Clear Normal CLEAR [facility] Comment on above: Performed By: #### N A #### [facility] [address] [place] [address] [place] [address] Sh[employer]itting Supervisor: Robb Lewis MD Color (U) Yellow Normal YEL [facility] Comment on above: Performed By: #### N A #### [facility] [address] [place] [address] [place], [place] [id number] Sh[employer]itting Supervisor: Robb Lewis MD Leukocyte esterase Test strip Ql (U) TRACE Abnormal NEG [facility] Comment on above: Performed By: #### N A #### [facility] [address] [place] [address] [place], [place] [id number] [employer]itting Supervisor: Robb Lewis MD Bilirubin, SemiQt,Ur Negative Normal NEG [facility] Comment on above: Performed By: #### N A #### [address] [place], [place] [id number] Sh[employer]itting Supervisor: Robb Lewis MD Blood, Urine TRACE Abnormal NEG [facility] Comment on above: Performed By: #### N A #### [facility] [address] [place] [address] [place], [place] [address] Sh[employer]itting Supervisor: Robb Lewis MD Glucose Ql (U) Negative Normal NEG [facility] Comment on above: Performed By: #### N A #### [facility] [address] [place] [address] [place], [place] [id number] Sh[employer] Fitting Supervisor: Robb Lewis MD Ketones Ql (U) Negative Normal NEG [facility] Comment on above: Performed By: #### N A #### [facility] [address] [place] [address] [place], [place] [id number] Sh[employer]itting Supervisor: Robb Lewis MD Nitrite,Ur Negative Normal [facility] Comment on above: Performed By: #### N A #### [facility] [address] [place] [address] [place], [place] [id number] Sh[employer]itting Supervisor: Robb Lewis MD PH,Ur 7.0 Normal 5.0-9.0 [facility] Comment on above: Performed By: #### N A #### [facility] [address] [place], [place] 1638383 Sh[employer]itting Supervisor: Robb Lewis MD Protein Ql (U) Negative Normal NEG [facility] Comment on above: Performed By: #### N A #### [facility] [address] [place], [place] [id number] Sh[employer]itting Supervisor: Robb Lewis MD Spec. [place],Ur 1.010 Normal 1.010-1.020 [facility] Comment on above: Performed By: #### N A #### [facility] [address] [place], [place] [phone] Shuttle [employer]itting Supervisor: Robb Lewis MD Urobilinogen,Ur Normal Normal 0.0-1.0 [facility] Comment on above: Performed By: #### N A #### [facility] [address] [place] [address] [place], [place] [id number] [employer] Supervisor: Robb Lewis MD Urinalysis with Reflex to Cu ltureon 07-08-2024 Bilirubin Ql (U) Negative NEGATIVE [facility] Glucose Test strip (U) [Mass/Vol] Negative NEGATIVE mg/dL [facility] Hemoglobin Auto test strip Ql (U) TRACE Abnormal NEGATIVE [facility] Interpretation and review of laboratory results Abnormal [facility] Ketones (U) [Mass/Vol] Negative NEGATIVE mg/dL [facility] Nitrite Ql (U) Negative NEGATIVE [facility] pH (U) 7.0 [pH] 5.0 - 9.0 [facility] Protein (U) [Mass/Vol] Negative NEGATIVE mg/dL [facility] Specific gravity (U) [Rel density] 1.010 1.010 - 1.020 [facility] Urobilinogen Qn (U) Normal 0.0 - 1. 0 EU/dL [facility] Urinalysis,Microon 4 Bacteria 2+ Abnormal NONE [facility] Comment on above: Performed By: #### N A #### [facility] [address] [place] [address] Sh[employer]itting Supervisor: Robb Lewis MD Epithelial cells LM Ql (Urine sed) 2 TO 5 Normal 0-25 [facility] Comment on above: Performed By: #### N A #### [facility] [address] [place] [address] Sh[employer]itting Supervisor: Robb Lewis MD Mucus Strands 1+ Abnormal NONE [facility] Comment on above: Performed By: #### N A #### [facility] [address] [place] [facility] Sh[employer]itting Supervisor: Robb Lewis MD Urine RBC's 2 TO 5 Normal 0-2 [facility] Comment on above: Performed By: #### N A #### [facility] [address] [place] [address] Shuttle Fitting Supervisor: Robb Lewis MD Urine WBC's 5 TO 10 Normal 0-5 [facility] Comment on above: Performed By: #### N A #### [facility] [address] [place] [address] Sh[employer]itting Supervisor: Robb Lewis MD XR CHEST PORTABLEon 07-08-20 XR [...] Briana Dorman MD 07/08/24 Final result Normal [facility] XR HUMERUS RIGHT (MIN 2 VIEW S)on [...] Carlos Tyler MD 07/06/24 Final result Normal [facility] XR Humerus - right 2 Viewson 07-06-2024 [...] angulated fracture of the right humeral head [facility] Radiology Study observation (narrative) [facility] XR Humerus - right 2 ViewsOr dered By: Roberto Carlos Tyler on 07-06-2024 [facility] Work Phone: XR RADIUS ULNA RIGHT (2 [...] compared to September 2023. Interpreted by: Saurav Rosen MD Signed by: Saurav Rosen MD 07/06/24 Final result Normal [facility] XR Radius and Ulna - right 2 Viewson 07-06-2024 1. No acute osseous abnormality identified. 2. Scapholunate joint space widening unchanged compared to September 2023. [facility] EXAMINATION: TWO XRAY VIEWS OF THE RIGHT FOREARM 07/06/2024 5:55 pm COMPARISON: October 16, 2023 HISTORY: ORDERING SYSTEM PROVIDED HISTORY: pain, fall TECHNOLOGIST PROVIDED HISTORY: pain, fall FINDINGS: No acute fracture or dislocation. The scapholunate joint space is widened, unchanged. Bones are osteopenic. No focal soft tissue swelling. There is marked calcification of the triangular fibrocartilage. [facility] Saurav Rosen MD - 07/06/2024 EXAMINATION: [...] space widening unchanged compared to September 2023. [facility] Radiology Study observation (narrative) [facility] XR Radius and Ulna - right 2 ViewsOrdered By: Saurav Rosen on 07-06-2024 [facility] Work Phone: COVID-19, Rapidon 12-21-2023 SARS-CoV-2 (COVID-19) RdRp gene TIFFANIE+probe Ql (Resp) Not detected Not Detected [facility] Comment on above: Rapid NAAT: The [...] management decisions. Fact sheet for Healthcare Providers: https://www.fda.gov/media/109483/download Fact sheet for Patients: https://www.fda.gov/media/868887/download Methodology: Isothermal Nucleic Acid Amplification Specimen Description .NASOPHARYNGEAL SWAB [facility] Flu A/B Ag Detectionon 12-20 Flu A Ag Detection Negative Normal NEG [facility] Comment on above: Result Comment: for Influenza A Antigen Performed By: #### N A #### [address] [place] [address] Shuttle Fitting Supervisor: Robb Lewis MD Flu B Ag Detection Negative Normal [facility] Comment on above: Result Comment: for Influenza B Antigen. Performed By: #### N A #### [address] [place] [address] Shuttle Fitting Supervisor: Robb Lewis MD Rapid Strep Screenon 024 Specimen source Nom (Unsp spec) .THROAT SWAB [facility] Strep A, Molecular Negative NEGATIVE [facility] Rapid influenza A/B antigens on 12-21-2023 FLUAV Ag Ql (Unsp spec) Negative NEGATIVE [facility] Comment on above: for Influenza A Anti gen FLUBV Ag Ql (Unsp spec) Negative NEGATIVE [facility] Comment on above: for Influenza B Anti gen. [facility] UOEE-DiO-9ds 12-21-2023 SARS-CoV-2 (COVID-19) RNA TIFFANIE+probe Ql (Unsp spec) Not detected Normal NOTDET [facility] Comment on above: Result Comment: Rapid [...] management decisions. Fact sheet for Healthcare Providers: https://www.fda.gov/media/523335/download Fact sheet for Patients: https://www.fda.gov/media/258197/download Methodology: Isothermal Nucleic Acid Amplification Performed By: #### N A #### [facility] [address] [place] [address] Shuttle Fitting Supervisor: Robb Lewis MD Strep Group A, Rapidon 12-20 Strep A, Molecular Negative Normal NEG [facility] Comment on above: Performed By: #### M SAMUEL Del Castillo CDP, DIME, BMP #### [facility] [address] [place] [address] Shuttle Fitting Supervisor: Robb Lewis MD Source .THROAT SWAB Normal [facility] Comment on above: Performed By: #### SAMUEL Hernandez CDP, DIME, BMP #### [facility] [address] [place] [address] Shuttle Fitting Supervisor: Robb Lewis MD XR HAND LEFT (MIN [...] Sean Lan MD 10/17/23 Final result Normal [facility] CT HEAD WO CONTRASTon 2023 CT HEAD [...] Deven Somers MD 10/16/23 Final result Normal [facility] XR HAND RIGHT (MIN 3 VIEWS)o n [...] Deven Somers MD 10/16/23 Final result Normal [facility] XR RADIUS ULNA RIGHT (2 VIEW S)on [...] Deven Somers MD 10/16/23 Final result Normal [facility] XR WRIST RIGHT (MIN 3 VIEWS) on [...] Deven Somers MD 10/16/23 Final result Normal [facility] Basic Metabolic Panel w/ Ref dago to [facility] 11-28-2022 Anion gap [Moles/Vol] 9 mmol/L 9 - 17 mmol/L [facility] Calcium [Mass/Vol] 9.9 mg/dL 8.6 - 10. 4 mg/dL [facility] Chloride [Moles/Vol] 100 mmol/L 98 - 10 7 mmol/L [facility] CO2 [Moles/Vol] 25 mmol/L 20 - 31 mmol/L [facility] Creatinine [Mass/Vol] 0.8 mg/dL 0.50 - 0.90 mg/dL [facility] GFR/1.73 sq M.predicted MDRD (S/P/Bld) [Vol rate/Area] - PINF [facility] Comment on above: These results are [...] 107 mg/dL High 70 - 99 mg/dL [facility] Interpretation and review of laboratory results Abnormal [facility] Potassium [Moles/Vol] 4.8 mmol/L 3.7 - 5.3 mmol/L [facility] Sodium [Moles/Vol] 134 mmol/L Low 135 - 144 mmol/L [facility] Urea nitrogen [Mass/Vol] 28 mg/dL High 8 - 23 mg/dL [facility] Urea nitrogen/Creatinine (Bld) [Mass ratio] 35 High 9 - 20 [facility] Brain natriuretic peptideon 11-28-2022 Natriuretic peptide B (Bld) [Mass/Vol] 262 pg/mL NINF - 300 pg/mL [facility] Comment on above: An age-independent cutoff point of 300 pg/ml has a 98% negative predictive value excluding acute heart failure. CBCon 11-28-2022 Hematocrit (Bld) [Volume fraction] 42.2 % 36.3 - 47.1 % [facility] Hemoglobin (Bld) [Mass/Vol] 14.1 g/dL 11.9 - 15.1 g/dL [facility] MCH (RBC) [Entitic mass] 29.0 pg 25.2 - 33.5 pg [facility] MCHC (RBC) [Mass/Vol] 33.4 g/dL 28.4 - 34.8 g/dL [facility] MCV (RBC) [Entitic vol] 86.7 fL 82.6 - 102.9 fL [facility] NRBC Automated 0.0 0.0 per 100 WBC [facility] Platelet distribution width (Bld) [Ratio] 13.6 % 11.8 - 14.4 % [facility] Platelet mean volume (Bld) [Entitic vol] 9.1 fL 8.1 - 13.5 fL [facility] Platelets (Bld) [#/Vol] 282 10*3/uL [facility] RBC (Bld) [#/Vol] 4.87 10*6/uL 3.95 - 5.1 1 m/uL [facility] WBC (Bld) [#/Vol] 8.8 10*3/uL [facility] [employer] [facility] [employer] [employer] EKG 12 Leadon 11-28-2022 Atrial Rate 73 BPM [facility] Work Phone: P [place] 57 degrees [facility] Work Phone: P-R Interval 172 ms [facility] [employer] Work Phone: Q-T Interval 386 ms [employer] [facility] [employer] [employer] Work Phone: QRS Duration 68 ms [facility] [employer] Work Phone: QTc Calculation (Bazett) 425 ms [facility]Y [facility] [employer] [employer] Work Phone: R [place] 29 degrees [facility] [employer] Work Phone: T [place] 55 degrees [facility]Y [facility] [employer] Work Phone: Ventricular Rate 73 BPM [facility] [employer] Work Phone: Normal sinus rhythm Normal ECG When compared with ECG of 12-AUG-2022 19:58, No significant change was found Confirmed by DAYO VITALE ([id number]) on 11/28/2022 3:01:30 PM [facility] RADIOLOGY Dayo Vitale MD - 11/28/2022 Normal sinus rhythm Normal ECG When compared with ECG of 12-AUG-2022 19:58, No significant change was found Confirmed by DAYO VITALE ([id number]) on 11/28/2022 3:01:30 PM [facility] Work Phone: [facility] [employer] Work Phone: EKG 12 leadon 11-28-2022 Atrial Rate 70 BPM [facility] Work Phone: P [place] 59 degrees [facility] Work Phone: P-R Interval 174 ms [facility] Work Phone: Q-T Interval 394 ms [facility] [employer] Work Phone: QRS Duration 76 ms [facility] Work Phone: QTc Calculation (Bazett) 425 ms [facility] Work Phone: R [place] 50 degrees [facility] [employer] Work Phone: T [place] 53 degrees [facility] Work Phone: Ventricular Rate 70 BPM [employer] [facility] [employer] Work Phone: Sinus rhythm with occasional Premature ventricular complexes Otherwise normal ECG When compared with ECG of 27-NOV-2022 20:26, (unconfirmed) Premature ventricular complexes are now Present Confirmed by DAYO VITALE ([id number]) on 11/28/2022 3:00:39 PM [facility] RADIOLOGY Dayo Vitale MD - 11/28/2022 Sinus rhythm with occasional Premature ventricular complexes Otherwise normal ECG When compared with ECG of 27-NOV-2022 20:26, (unconfirmed) Premature ventricular complexes are now Present Confirmed by DAYO VITALE ([id number]) on 11/28/2022 3:00:39 PM [facility] [employer] Work Phone: [facility] Work Phone: EKG Rhythm Stripon 3 [facility] PVCs [facility] Hemoglobin A1con 11-28-2022 Average glucose Estimated from glycated hemoglobin (Bld) [Mass/Vol] 126 mg/dL [facility] [employer] Comment on above: The ADA and AACC rec ommend providing the estimated average glucose result to permit better patient understanding of their HBA1c result. HbA1c (Bld) [Mass fraction] 6.0 % 4.0 - 6.0 % [facility] [employer] [facility] [employer] Lipid Panelon 11-28-2022 Cholesterol [Mass/Vol] 174 mg/dL NINF - 200 mg/dL [facility] [employer] Comment on above: Cholesterol Guidelines: <200 Desirable 200-240 Borderline >240 Undesirable Cholesterol in HDL [Mass/Vol] 58 mg/dL 40 - PINF mg/dL [facility] [employer] Comment on above: HDL Guidelines: <40 Undesirable 40-59 Borderline >59 Desirable Cholesterol in LDL [Mass/Vol] 85 mg/dL 0 - 130 mg/dL [facility] [employer] Comment on above: LDL Guidelines: <100 Desirable 100-129 Near to/above Desirable 130-159 Borderline >159 Undesirable Direct (measured) LDL and calculated LDL are not interchangeable tests. Cholesterol.total/Ch olesterol in HDL [Mass ratio] 3 {ratio} NINF - 5 [facility] Interpretation and review of laboratory results Abnormal [facility] Triglyceride [Mass/Vol] 156 mg/dL High NINF - 150 mg/dL [facility] [employer] Comment on above: Triglyceride Guidelines: <150 Desirable 150-199 Borderline 200-499 High >499 Very high Based on AHA Guidelines for fasting triglyceride, May 2012. [facility] Magnesiumon 11-28-2022 Magnesium [Mass/Vol] 2.3 mg/dL 1.6 - 2 .6 mg/dL [facility] [employer] No Panel Informationon 11-28 [facility] [employer] Protime-INRon 11-28-2022 INR Coag (PPP) [Relative time] 0.9 {INR} [facility] Comment on above: Therapeutic Range: Moderate Anticoagulant Intensity: INR = 2.0-3.0 High Anticoagulant Intensity: INR = 2.5-3.5 PT Coag (PPP) [Time] 12.2 s [facility] Troponinon 11-28-2022 Troponin I.cardiac DL <= 0.01 ng/mL [Mass/Vol] 6 ng/L 0 - 14 ng/L [facility] [employer] Comment on above: High Sensitivity Tro ponin values cannot be compared with other Troponin methodologies. Troponin I.cardiac DL <= 0.01 ng/mL [Mass/Vol] 7 ng/L 0 - 14 ng/L [facility] [employer] Comment on above: High Sensitivity Tro ponin values cannot be compared with other Troponin methodologies. [facility] [employer] Troponin I.cardiac DL <= 0.01 ng/mL [Mass/Vol] 7 ng/L 0 - 14 ng/L [facility] Comment on above: High Sensitivity Tro ponin values cannot be compared with other Troponin methodologies. [facility] Basic Metabolic Panelon 11-17 Anion gap [Moles/Vol] 9 mmol/L 9 - 17 mmol/L [facility] Calcium [Mass/Vol] 9.6 mg/dL 8.6 - 10. 4 mg/dL [facility] Chloride [Moles/Vol] 96 mmol/L Low 98 - 10 7 mmol/L [facility] CO2 [Moles/Vol] 24 mmol/L 20 - 31 mmol/L [facility] Creatinine [Mass/Vol] 1.1 mg/dL High 0.50 - 0.90 mg/dL [facility] GFR/1.73 sq M.predicted MDRD (S/P/Bld) [Vol rate/Area] 50 mL/min/{1.73_m2} Low - PINF [facility] Comment on above: These results are [...] 109 mg/dL High 70 - 99 mg/dL [facility] Interpretation and review of laboratory results Abnormal [facility] Potassium [Moles/Vol] 4.6 mmol/L 3.7 - 5.3 mmol/L [facility] Sodium [Moles/Vol] 129 mmol/L Low 135 - 144 mmol/L [facility] Urea nitrogen [Mass/Vol] 31 mg/dL High 8 - 23 mg/dL [facility] Urea nitrogen/Creatinine (Bld) [Mass ratio] 28 High 9 - 20 [facility] CBC with Auto Differentialon 11-27-2022 Absolute Eos # 0.06 [facility] Absolute Immature Granulocyte [facility] Absolute Lymph # 3.95 High [place] [facility] Absolute [place] # 0.90 [facility] RS [facility] Basophils (Bld) [#/Vol] 0.03 10*3/uL [facility] Basophils/100 WBC (Bld) 0 % 0 - 2 % [facility] Eosinophils/100 WBC (Bld) 1 % 1 - 4 % [facility] Hematocrit (Bld) [Volume fraction] 42.1 % 36.3 - 47.1 % [facility] Hemoglobin (Bld) [Mass/Vol] 13.6 g/dL 11.9 - 15.1 g/dL [facility] Immature granulocytes/100 WBC (Bld) 0 % 0 [facility] Interpretation and review of laboratory results Abnormal [facility] Lymphocytes/100 WBC (Bld) 42 % 24 - 43 % [facility] MCH (RBC) [Entitic mass] 28.5 pg 25.2 - 33.5 pg [facility] MCHC (RBC) [Mass/Vol] 32.3 g/dL 28.4 - 34.8 g/dL [facility] MCV (RBC) [Entitic vol] 88.3 fL 82.6 - 102.9 fL [facility] Monocytes/100 WBC (Bld) 10 % 3 - 12 % [facility] NRBC Automated 0.0 0.0 per 100 WBC [facility] Platelet distribution width (Bld) [Ratio] 13.6 % 11.8 - 14.4 % [facility] Platelet mean volume (Bld) [Entitic vol] 9.1 fL 8.1 - 13.5 fL [facility] Platelets (Bld) [#/Vol] 292 10*3/uL [facility] RBC (Bld) [#/Vol] 4.77 10*6/uL 3.95 - 5.1 1 m/uL [facility] Segmented neutrophils/100 WBC (Bld) 47 % 36 - 65 % [facility] Segs Absolute 4.43 [facility] WBC (Bld) [#/Vol] 9.4 10*3/uL [facility]RS [facility] Troponinon 11-27-2022 Troponin I.cardiac DL <= 0.01 ng/mL [Mass/Vol] 7 ng/L 0 - 14 ng/L [facility] Comment on above: High Sensitivity Tro ponin values cannot be compared with other Troponin methodologies. [facility] XR CHEST (2 VW)on 11-27-2022 No acute process. Stable COPD. Stable postthoracotomy changes. [facility] EXAMINATION: TWO XRAY VIEWS OF THE CHEST 11/27/2022 8:18 pm COMPARISON: December 16, 2015 HISTORY: ORDERING SYSTEM PROVIDED HISTORY: pain TECHNOLOGIST PROVIDED HISTORY: pain FINDINGS: The lungs are without acute focal process. There is no effusion or pneumothorax. Underlying COPD. The cardiomediastinal silhouette is without acute process. Redemonstration of postthoracotomy changes. The osseous structures are without acute process. [facility] Marizol Cormier MD - 11/27/2022 EXAMINATION: [...] acute process. Stable COPD. Stable postthoracotomy changes. [facility] Work Phone: Radiology Study observation (narrative) [facility] Work Phone: XR CHEST (2 VW)Ordered By: Terry Cormier on 11-27-2022 [facility] Work Phone: CBC with Auto Differentialon 08-12-2022 Absolute Eos # 0.11 [place] [facility] Absolute Immature Granulocyte 0.03 [facility] Absolute Lymph # 3.27 [facility] Absolute [place] # 1.03 [facility] RS [facility] Basophils (Bld) [#/Vol] 0.04 10*3/uL [facility] Basophils/100 WBC (Bld) 0 % 0 - 2 % [facility] Eosinophils/100 WBC (Bld) 1 % 1 - 4 % [facility] Hematocrit (Bld) [Volume fraction] 39.0 % 36.3 - 47.1 % [facility] Hemoglobin (Bld) [Mass/Vol] 13.1 g/dL 11.9 - 15.1 g/dL [facility] Immature granulocytes/100 WBC (Bld) 0 % 0 [facility] Lymphocytes/100 WBC (Bld) 36 % 24 - 43 % [facility] MCH (RBC) [Entitic mass] 28.9 pg 25.2 - 33.5 pg [facility] MCHC (RBC) [Mass/Vol] 33.6 g/dL 28.4 - 34.8 g/dL [facility] MCV (RBC) [Entitic vol] 85.9 fL 82.6 - 102.9 fL [facility] Monocytes/100 WBC (Bld) 12 % 3 - 12 % [facility] NRBC Automated 0.0 0.0 per 100 WBC [facility] Platelet distribution width (Bld) [Ratio] 13.8 % 11.8 - 14.4 % [facility] Platelet mean volume (Bld) [Entitic vol] 9.3 fL 8.1 - 13.5 fL [facility] Platelets (Bld) [#/Vol] 290 10*3/uL [facility] RBC (Bld) [#/Vol] 4.54 10*6/uL 3.95 - 5.1 1 m/uL [facility] Segmented neutrophils/100 WBC (Bld) 51 % 36 - 65 % [facility] Segs Absolute 4.51 [facility] WBC (Bld) [#/Vol] 9.0 10*3/uL [facility] CMPon 08-12-2022 Albumin [Mass/Vol] 4.3 g/dL 3.5 - 5.2 g/dL [facility] Albumin/Globulin [Mass ratio] 1.4 {ratio} 1.0 - 2.5 [facility] ALP (Bld) [Catalytic activity/Vol] 79 U/L 35 - 104 U/L [facility] ALT [Catalytic activity/Vol] 16 U/L 5 - 33 U/L [facility] Anion gap [Moles/Vol] 10 mmol/L 9 - 17 mmol/L [facility] AST [Catalytic activity/Vol] 20 U/L NINF - 32 U/L [facility] Bilirubin [Mass/Vol] 0.2 mg/dL Low 0.3 - 1 .2 mg/dL [facility] Calcium [Mass/Vol] 10.1 mg/dL 8.6 - 10. 4 mg/dL [facility] Chloride [Moles/Vol] 94 mmol/L Low 98 - 10 7 mmol/L [facility] CO2 [Moles/Vol] 25 mmol/L 20 - 31 mmol/L [facility] Creatinine [Mass/Vol] 0.73 mg/dL 0.50 - 0.90 mg/dL [facility] GFR/1.73 sq M.predicted MDRD (S/P/Bld) [Vol rate/Area] - PINF [facility] Comment on above: Effective May 21, [...] 125 mg/dL High 70 - 99 mg/dL [facility] Interpretation and review of laboratory results Abnormal [facility] Potassium [Moles/Vol] 3.7 mmol/L 3.7 - 5.3 mmol/L [facility] Protein [Mass/Vol] 7.4 g/dL 6.4 - 8.3 g/dL [facility] Sodium [Moles/Vol] 129 mmol/L Low 135 - 144 mmol/L [facility] Urea nitrogen (BldV) [Mass/Vol] 15 mg/dL 8 - 23 mg/dL [facility] Urea nitrogen/Creatinine (Bld) [Mass ratio] 21 High 9 - 20 [facility] COVID-19, Rapidon 08-12-2022 SARS-CoV-2 (COVID-19) RNA TIFFANIE+probe Ql (Unsp spec) Not detected Not Detected [facility] Comment on above: Rapid NAAT: The [...] management decisions. Fact sheet for Healthcare Providers: https://www.fda.gov/media/112101/download Fact sheet for Patients: https://www.fda.gov/media/491053/download Methodology: Isothermal Nucleic Acid Amplification Specimen Description .NASOPHARYNGEAL SWAB [facility] CT Head W/O Contraston 08-12 No acute intracrania l abnormality. [facility] RIS CONSOLIDATED EXAMINATION: CT OF THE HEAD [...] of the visualized skull or soft tissues. [facility] Kirt Holliday MD - 08/12/2022 EXAMINATION: CT [...] soft tissues. IMPRESSION: No acute intracranial abnormality. [employer] Work Phone: Radiology Study observation (narrative) [employer] Work Phone: CT Head W/O ContrastOrdered By: Kirt Miguel on 08-12-2022 [employer] Work Phone: Rapid influenza A/B antigens on 08-12-2022 Flu A Antigen Negative NEGATIVE [employer] Comment on above: for Influenza A Anti gen Flu B Antigen Negative NEGATIVE [employer] Comment on above: for Influenza B Anti gen. [employer] MG MAMM SCREEN 3D DARLIN CADon 08-06-2022 MG MAMM SCREEN 3D DARLIN CAD Patient: JULIUS CLARKE Exam Date: 08/06/2022 : 1940 Gender:F Ordering : DR IGNACIO CINTRON D.O. Admission #: [id number] Family : Order #: [id number] CLICK HERE TO VIEW EXAM RADIOLOGY REPORT [...] skin cancer at age 49. LOCATION: [facility] BREAST COMPOSITION: Scattered areas fibroglandular density. [...] M.D. on 08/07/2022 at 12:24 Normal [facility] XR RIBS WITH CHEST, RIGHTon 12-22-2019 [...] Hardin MD 12/21/2019 9:14 PM CDT Normal [facility] XR RIBS WITH CHEST, RIGHTon 12-21-2019 IMPRESSION: No apparent acute abnormality. Electronically signed by: Speedy Hardin MD 12/21/2019 9:14 PM CDT [facility] EXAM: XR RIBS UNILATERAL WITH CHEST HISTORY: 79 years, Female, SIGNS & SYMPTOMS: fall, possible injury; TECHNIQUE: Frontal views of the chest including a bone algorithm, plus a single right lateral review. COMPARISON: None FINDINGS: Lungs: No consolidation. Pleura: No apparent pneumothorax or effusion. Mediastinum: No cardiomegaly. CABG. Bones: No acute findings. Median sternotomy. [facility] User, Interfaces - 12/21/2019 10:15 PM EDT [...] Speedy Hardin MD 12/21/2019 9:14 PM CDT [facility] Anti-Nuclear Antibodies (MYRNA ), IgG Screenon 09-28-2019 MYRNA SCREEN None Detected Normal None [facility] Comment on above: Order Comment: This order was split into 2 orders: [id number] (Cyclic Citrullinated PeptideAntibody, IgG,Anti-Nuclear Antibodies (MYRNA), IgG Screen,RheumatoidFactor,Sedimentation Rate,Uric Acid, Serum,Complete Blood Count w/oDiff,Thyroid Stimulating Hormone (TSH) Third Generation,Vitamin [id number],Spec Collectioni), [id number] (MRSA By PCR) Result Comment: If s uspicion of connective tissue disease is strong and MYRNA EIA is negative, consider testing for MYRNA by IFA ([id number]). INTERPRETIVE INFORMATION: Anti-Nuclear Abs , IgG by DEMETRIO Antinuclear Abs , IgG (DEMETRIO): MYRNA specimens are screened using enzyme-linked immunosorbent assay (DEMETRIO) methodology. All DEMETRIO results reported as Detected are further tested by indirect fluorescent assay (IFA) using HEp-2 substrate with an IgG-specific conjugate. The MYRNA DEMETRIO screen is designed to detect antibodies against dsDNA, histones, SS-A (Ro), SS-B (La), Miguel, Miguel/EXPORT MANAGER, Scl-70, Kymberly-1, centromeric proteins, other antigens extracted from the HEp-2 cell nucleus. MYRNA DEMETRIO assays have been reported to have lower sensitivities than MYRNA IFA for systemic autoimmune rheumatic diseases (SARD). Negative results do not necessarily rule out SARD. Performed by [facility], [address] [place] [address] [email or web address], Christopher Workman MD, Lab. Director Performed By: #### 1 [id number], [id number], [id number], [id number], [id number], [id number] #### [facility] [address] [place] [address] Complete Blood Count w/o Dif aftab 09-28-2019 Erythrocyte distribution width (RBC) [Ratio] 13.6 % Normal 11.5-14.5 [facility] Comment on above: Performed By: #### 1 [id number], [id number], [id number], [id number], [id number], [id number] #### [facility] [address] [id number] Hematocrit (Bld) [Volume fraction] 39.4 % Normal 37.0-47.0 [facility] Comment on above: Performed By: #### 1 [id number], [id number], [id number], 1653726, 1624227, 1150642, 8509304, [id number] #### [facility] [address] [place] [address] Hemoglobin (Bld) [Mass/Vol] 12.9 g/dL Normal 12.0-16.0 [facility] Comment on above: Performed By: #### 1 [id number], [id number], [id number], [id number], [id number], 0501429, 8200255, [id number] #### [facility] [address] [place] [address] MCH (RBC) [Entitic mass] 27.0 pg Low 28.0-32.0 [facility] Comment on above: Performed By: #### 1 [id number], [id number], 0878590, 9079492, 9058732, 6495548, 5906425, 2833537 #### [facility] [address] [place] [address] MCHC (RBC) [Mass/Vol] 32.8 g/dL Low 33.0-37.0 [facility] Comment on above: Performed By: #### 1 373746, 9471879, 8992238, 4141801, 5086980, 7986828, 5473696, 3679747 #### [facility] [address] [place] [address] MCV (RBC) [Entitic vol] 82.4 fL Normal 81.0-99.0 [facility] Comment on above: Performed By: #### 1 163829, 0344907, 1685078, 8719600, 1682248, 7347218, 0020932, 5428848 #### [facility] [address] [place] [address] Platelets (Bld) [#/Vol] 263 thou/cumm Normal 130-400 [facility] Comment on above: Performed By: #### 1 170823, 8181050, 2028034, 0287596, 8727135, 3750838, 6877242, 2806076 #### [facility] [address] [place] [address] RBC (Bld) [#/Vol] 4.79 mil/cumm Normal 4.20-5.40 [facility] Comment on above: Performed By: #### 1 793256, 1292807, 6730745, 8388244, 3293809, 0765079, 1753322, 4295728 #### [facility] [address] [place] [address] WBC (Bld) [#/Vol] 7.6 thou/cumm Normal 4.8-10.8 [facility] Comment on above: Performed By: #### 1 031634, 1541280, 2740387, 8104837, 4015546, 6549748, 8064947, 5881639 #### [facility] [address] [place] [id number] Cyclic Citrullinated Peptide Antibody, IgGon 09-28-2019 CYCLIC CITRULLINATED PEPTIDE AB IGG < 1.5 Normal <4.0 [facility] Comment on above: Order Comment: This order was split into 2 orders: [id number] (Cyclic Citrullinated PeptideAntibody, IgG,Anti-Nuclear Antibodies (MYRNA), IgG Screen,RheumatoidFactor,Sedimentation Rate,Uric Acid, Serum,Complete Blood Count w/oDiff,Thyroid Stimulating Hormone (TSH) Third Generation,Vitamin E35-Yigavcq,Spec Collectioni), [id number] (MRSA By PCR) Result Comment: Refe rence Range: 0.0-4.0 U/mL Non Reactive/Negative >4.0 U/mL Reactive/Positive [address] [place] [address] ([phone] Performed By: #### 1 039927, 8646258, 1494442, 5758623, 1640633, 7387834, 6047236 #### [facility] [address] [place], [place] [id number] MRSA By PCRon 09-28-2019 MRSA SCREEN RT-PCR Negative Normal [facility] Comment on above: Order Comment: Perfo rmed by [employer] [place] [id number] Result Comment: No M RSA detected by Real Time - Polymerase Chain Reaction. Performed By: #### 1 978917, 3642905, 9043138, 8022590, 6054883, 8489813, 2398150 #### [facility] [address] [place], [place] [id number] Rheumatoid Factoron 09-28-19 20 RHEUMATOID FACTOR < 10 Normal 0-13 [facility] Comment on above: Order Comment: Perfo rmed by [employer] [id number] Performed By: #### 1 956681, 9881109, 1499024, 2790835, 0459240, 6700442, 2095114 #### [facility] [address] [place], [place] [id number] Sedimentation Rateon 020 ESR (Bld) [Velocity] 11 mm/h Normal 0-30 [facility] Comment on above: Performed By: #### 1 880638, 8671168, 6724485, 1019642, 9843609, 0239817, 1516909 #### [facility] [address] [place] [address] Thyroid Stimulating Hormone (TSH) Third Generationon 09-28-2019 TSH Qn m[IU]/L Low 0.490-4.670 [facility] Comment on above: Performed By: #### 1 657534, 7379374, 8933626, 5542726, 7610741, 9056937, 5612852 #### [facility] [address] [place] [address] Uric Acid, Serumon 0 Urate [Mass/Vol] 6.8 mg/dL Normal 2.6-7.2 [facility] Comment on above: Performed By: #### 1 114886, 3004345, 8944854, 5777096, 5376564, 8987936, 5360072, 3187733 #### [facility] [address] [place] [address] Vitamin D 25-Hydroxyon 09-28 VITAMIN D TOTAL 25 (OH) 26 ng/ml Low 30-100 [facility] Comment on above: Order Comment: Perfo rmed by [facility] [address] [place], [place] [id number] Result Comment: Razia min D Status Range Deficiency <20 ng/ml Insuffiency 20-30 ng/ml Sufficiency 30-100 ng/ml Toxicity >100 ng/ml Performed By: #### 1 163640, 0015924, 8314563, 3782274, 1205869, 1991864, 6397230 #### [facility] [address] [place] [address] B-Type Natriuretic Peptideon 06-24-2019 Natriuretic peptide B (Bld) [Mass/Vol] 105 pg/mL High 15-100 [facility] Comment on above: Order Comment: If hi story of congestive heart failure. Performed By: #### 1 078435, 2063830, 5011035, 4448261, 7532953, 7556703, 3797300 #### [facility] [address] [place] [address] Complete Blood Counton 06-24 Basophils/100 WBC (Bld) 0.7 % Normal 0.0-3.0 [facility] Comment on above: Performed By: #### 1 563678, 2420754, 3447386, 6496428, 4846250, 1614742, 2175081 #### [facility] [address] [place] [address] Eosinophils/100 WBC (Bld) 2.2 % Normal 0.0-4.0 [facility] Comment on above: Performed By: #### 1 333291, 5594752, 5905279, 4924686, 6967268, 3569288, 9450144 #### [facility] [place] [address] Erythrocyte distribution width (RBC) [Ratio] 13.2 % Normal 11.5-14.5 [facility] Comment on above: Performed By: #### 1 867574, 8713248, 7316476, 6964967, 9117992, 2597737, 4907170 #### [facility] [place] [address] Hematocrit (Bld) [Volume fraction] 38.9 % Normal 37.0-47.0 [facility] Comment on above: Performed By: #### 1 641417, 4613474, 2140125, 2818310, 9294864, 3997242, 5365612 #### [facility] [place] [address] Hemoglobin (Bld) [Mass/Vol] 12.8 g/dL Normal 12.0-16.0 [facility] Comment on above: Performed By: #### 1 660618, 4983626, 2740881, 2267570, 5291510, 5034293, 8666678 #### [facility] [address] [place] [address] Lymphocytes/100 WBC (Bld) 33.6 % Normal 20.5-51.1 [facility] Comment on above: Performed By: #### 1 357378, 3282057, 9229622, 6452694, 2097200, 0650545, 6549997 #### [facility] [address] [place] [address] MCH (RBC) [Entitic mass] 27.9 pg Low 28.0-32.0 [facility] Comment on above: Performed By: #### 1 442671, 1037360, 6789683, 4148983, 9857516, 4388741, 9314548 #### [facility] [address] [place] [address] MCHC (RBC) [Mass/Vol] 32.8 g/dL Low 33.0-37.0 [facility] Comment on above: Performed By: #### 1 263042, 0576746, 2338420, 6803142, 5677649, 0340913, 3700899 #### [facility] [address] [place] [address] MCV (RBC) [Entitic vol] 85.0 fL Normal 81.0-99.0 [facility] Comment on above: Performed By: #### 1 702519, 4536945, 4597583, 4636060, 9369758, 1794519, 4689026 #### [facility] [address] [place] [address] Monocytes/100 WBC (Bld) 9.5 % Normal 0.0-13.0 [facility] Comment on above: Performed By: #### 1 022341, 3021197, 7779522, 5605530, 7436188, 1179766, 6360725 #### [facility] [address] [place] [address] Neutrophils/100 WBC (Bld) 54.0 % Normal 42.2-75.2 [facility] Comment on above: Performed By: #### 1 135497, 6666715, 8709562, 1430438, 0895883, 3031567, 7156558 #### [facility] [address] [place] [address] Platelets (Bld) [#/Vol] 298 thou/cumm Normal 130-400 [facility] Comment on above: Performed By: #### 1 578508, 9598775, 3326208, 8309378, 5302193, 0802525, 4605962 #### [facility] [address] [place] [address] RBC (Bld) [#/Vol] 4.57 mil/cumm Normal 4.20-5.40 [facility] Comment on above: Performed By: #### 1 898972, 8749037, 0287768, 3298329, 9481033, 6525391, 6527182 #### [facility] [address] [place] [address] SCAN NO Normal NO [facility] Comment on above: Performed By: #### 1 744773, 6417284, 2009935, 7241388, 9155701, 2657666, 0201168 #### [facility] [address] [place] [address] WBC (Bld) [#/Vol] 8.6 thou/cumm Normal 4.8-10.8 [facility] Comment on above: Performed By: #### 1 839351, 4722319, 5477715, 3177343, 9479688, 2865449, 6959223 #### [facility] [address] [place] [address] Comprehensive Metabolic Prof grace Zhong 06-24-2019 Albumin [Mass/Vol] 4.0 g/dL Normal 3.5-5.0 [facility] Comment on above: Performed By: #### 1 120005, 7746858, 3088211, 2184625, 3880784, 9698985, 4560124 #### [facility] [address] [place] [address] Albumin/Globulin [Mass ratio] 1.3 {ratio} Normal 1.2-1.5 [facility] Comment on above: Performed By: #### 1 334703, 3046200, 0185962, 3861059, 2868540, 1426467, 0729842 #### [facility] [address] [place] [address] ALP [Catalytic activity/Vol] 67 U/L Normal 38-126 [facility] Comment on above: Performed By: #### 1 453979, 3575305, 2160521, 9752436, 0494900, 3209243, 0362987 #### [facility] [address] [place] [address] ALT [Catalytic activity/Vol] 15 U/L Normal 7-35 [facility] Comment on above: Performed By: #### 1 125364, 0894427, 3148303, 8759906, 1572479, 7378382, 3851082 #### [facility] [address] [place] [address] Anion gap [Moles/Vol] 10.0 mmol/L Normal 10.0-20.0 [facility] Comment on above: Performed By: #### 1 531245, 9578900, 5593699, 1914609, 9048579, 9406440, 7968910 #### [facility] [address] [place] [address] AST [Catalytic activity/Vol] 19 U/L Normal 10-42 [facility] Comment on above: Performed By: #### 1 606569, 9689179, 4639406, 3537433, 5165959, 4653486, 0559446 #### [facility] [address] [place] [address] BILI 0.4 mg/dL Normal 0.3-1.2 [facility] Comment on above: Performed By: #### 1 103614, 7396601, 4517934, 1453290, 1956057, 1354114, 5352159 #### [facility] [address] [place] [address] Calcium [Mass/Vol] 9.2 mg/dL Normal 8.4-10.2 [facility] Comment on above: Performed By: #### 1 332995, 5773815, 3481047, 8068562, 1272927, 4439719, 7321031 #### [facility] [address] [place] [address] Chloride [Moles/Vol] 102 mmol/L Normal 98-107 [facility] Comment on above: Performed By: #### 1 415923, 3355544, 0973034, 7644870, 8985149, 2672471, 1286548 #### [facility] [address] [place] [address] CO2 [Moles/Vol] 29 mmol/L Normal 22-31 [facility] Comment on above: Performed By: #### 1 078428, 7313025, 0153631, 2008257, 1204328, 1720111, 3759819 #### [facility] [address] [place] [address] Creatinine [Mass/Vol] 0.9 mg/dL Normal 0.4-1.1 [facility] Comment on above: Performed By: #### 1 738451, 1921352, 1280202, 5297171, 8401208, 9588857, 8670068 #### [facility] [address] [place] [address] GFR/1.73 sq M predicted among non-blacks MDRD (S/P/Bld) [Vol rate/Area] mL/min/{1.73_m2} Normal [facility] Comment on above: Result Comment: Debbie mated Glomerular filtration Rate Reference Ranges: GFR, mL/min/1.73m2 >= 60 Adequate 30 - 59 Moderately decreased GFR 15 - 29 Severely decreased GFR <18 Kidney failure (or dialysis) GFR calculated using abbreviated MDRD formula. MDRD equation not suitable for patients who are under 18, have unstable creatinine concentrations Performed By: #### 1 285104, 8462702, 6816098, 9850066, 1676212, 1072457, 7595296 #### [facility] [address] [place] [address] Globulin (S) [Mass/Vol] 3.1 g/dL Normal 2.9-3.3 [facility] Comment on above: Performed By: #### 1 494768, 1628144, 9018355, 3933300, 0385128, 9489737, 3834736 #### [facility] [address] [place] [address] Glucose [Mass/Vol] 108 mg/dL Normal 70-126 [facility] Comment on above: Performed By: #### 1 071106, 8955173, 3213733, 2454841, 5050440, 9424680, 5096720 #### [facility] [address] [place] [address] Potassium [Moles/Vol] 4.0 mmol/L Normal 3.5-5.1 [facility] Comment on above: Performed By: #### 1 792631, 2329812, 2981855, 9741599, 6279246, 4368317, 9706284 #### [facility] [address] [place] [address] Protein [Mass/Vol] 7.1 g/dL Normal 6.4-8.3 [facility] Comment on above: Performed By: #### 1 538446, 7226146, 9169173, 1944546, 4007378, 6920626, 5224282 #### [facility] [address] [place] [address] Sodium [Moles/Vol] 137 mmol/L Normal 136-145 [facility] Comment on above: Performed By: #### 1 347377, 9109755, 3810347, 6325125, 5927846, 2271141, 7867814 #### [facility] [address] [place] [address] Urea nitrogen [Mass/Vol] 17 mg/dL Normal 7-22 [facility] Comment on above: Performed By: #### 1 720748, 2649003, 4978085, 7838197, 6486254, 2823278, 1905160 #### [facility] [address] [place] [address] Magnesiumon 06-24-2019 Magnesium [Mass/Vol] 2.2 mg/dL Normal 1.7-2.8 [facility] Comment on above: Performed By: #### 1 694080, 4125438, 7240509, 7346851, 1655299, 8688513, 2542795 #### [facility] [address] [place] [address] Phosphorous, Inorganicon Phosphate [Mass/Vol] 4.1 mg/dL Normal 2.5-4.6 [facility] Comment on above: Performed By: #### 1 461282, 0894788, 4040258, 7503650, 9979490, 6086539, 3724306 #### [facility] [address] [place] [address] TSH3 and FT4on 06-24-2019 Free T4 [Mass/Vol] 0.79 ng/dL Normal 0.61-1.12 [facility] Comment on above: Performed By: #### 1 096701, 7947592, 5090433, 9039532, 9428732, 8196409, 6496836 #### [facility] [address] [place] [address] TSH Qn 6.358 uIU/mL High 0.490-4.670 [facility] Comment on above: Performed By: #### 1 431893, 7718904, 9150282, 9287976, 9696173, 6546520, 2134142 #### [facility] [address] [place] [address] Troponin Ion 06-24-2019 Troponin I.cardiac [Mass/Vol] ng/mL Normal 0-0.06 [facility] Comment on above: Result Comment: TROP ONIN [...] or chronic condition. Performed By: #### 1 894123, 0788500, 0114478, 1177262, 8120094, 4915129, 5760884 #### [facility] [address] [place] [address] B-TYPE NATRIURETIC PEPTIDE ( BRAIN)on 06-23-2019 Interpretation and review of laboratory results Abnormal [facility] Natriuretic peptide B (Bld) [Mass/Vol] 105 pg/mL High 15 - 100 pg/mL [facility] CBC, EDIF, PLATELETon 2018 Basophils/100 WBC (Bld) 0.7 % 0 - 3 % [facility] Eosinophils/100 WBC (Bld) 2.2 % 0 - 4 % [facility] Erythrocyte distribution width (RBC) [Ratio] 13.2 % 11.5 - 14.5 % [facility] Hematocrit (Bld) [Volume fraction] 38.9 % 37 - 47 % [facility] Hemoglobin (Bld) [Mass/Vol] 12.8 g/dL 12 - 16 g/dL [facility] Interpretation and review of laboratory results Abnormal [facility] Lymphocytes/100 WBC (Bld) 33.6 % 20.5 - 51.1 % [facility] MCH (RBC) [Entitic mass] 27.9 pg Low 28 - 32 pg [facility] MCHC (RBC) [Mass/Vol] 32.8 g/dL Low 33 - 37 g/dL [facility] MCV (RBC) [Entitic vol] 85.0 fL 81 - 99 fL [facility] Monocytes/100 WBC (Bld) 9.5 % 0 - 13 % [facility] Neutrophils/100 WBC (Bld) 54.0 % 42.2 - 75.2 % [facility] Platelets (Bld) [#/Vol] 298 10*3/uL [facility] RBC (Bld) [#/Vol] 4.57 10*6/uL [facility] SCAN SLIDE NO NO [facility] WBC (Bld) [#/Vol] 8.6 10*3/uL [facility] COMPREHENSIVE METABOLIC PROF GRACE Zhong 06-23-2019 Albumin BCG dye [Mass/Vol] 4.0 g/dL 3.5 - 5 g/dL [facility] Albumin/Globulin [Mass ratio] 1.3 {ratio} [facility] ALP [Catalytic activity/Vol] 67 U/L 38 - 126 U/L [facility] ALT No additional P-5'-P [Catalytic activity/Vol] 15 U/L 7 - 35 U/L [facility] Anion gap [Moles/Vol] 10.0 mmol/L [facility] AST [Catalytic activity/Vol] 19 U/L 10 - 42 U/L [facility] Bilirubin [Mass/Vol] 0.4 mg/dL 0.3 - 1 .2 mg/dL [place] [facility] Calcium [Mass/Vol] 9.2 mg/dL 8.4 - 10. 2 mg/dL [place] [facility] Chloride [Moles/Vol] 102 mmol/L [place] [facility] CO2 [Moles/Vol] 29 mmol/L [facility] Creatinine [Mass/Vol] 0.9 mg/dL 0.4 - 1.1 mg/dL [facility] GFR/1.73 sq M.predicted MDRD (S/P/Bld) [Vol rate/Area] mL/min/{1.73_m2} [facility] Comment on above: Estimated Glomerular filtration Rate Reference Ranges: GFR, mL/min/1.73m2 >= 60 Adequate 30 - 59 Moderately decreased GFR 15 - 29 Severely decreased GFR <18 Kidney failure (or dialysis) GFR calculated using abbreviated MDRD formula. MDRD equation not suitable for patients who are under 18, have unstable creatinine concentrations Globulin (S) [Mass/Vol] 3.1 g/dL 2.9 - 3.3 g/dL [facility] Glucose [Mass/Vol] 108 mg/dL 70 - 126 mg/dL [facility] Potassium [Moles/Vol] 4.0 mmol/L [facility] Protein [Mass/Vol] 7.1 g/dL 6.4 - 8.3 g/dL [facility] Sodium [Moles/Vol] 137 mmol/L [facility] Urea nitrogen [Mass/Vol] 17 mg/dL 7 - 22 mg/dL [facility] MAGNESIUMon 06-23-2019 Magnesium [Mass/Vol] 2.2 mg/dL 1.7 - 2 .8 mg/dL [facility] PHOSPHATE, INORGANICon 06-23 Phosphate [Mass/Vol] 4.1 mg/dL 2.5 - 4 .6 mg/dL [facility] TROPONINon 06-23-2019 Troponin I.cardiac [Mass/Vol] ng/mL 0 - 0.06 ng/mL [facility] Comment on above: TROPONIN REFERENCE R ANGES: [...] 0.79 ng/dL 0.61 - 1. 12 ng/dL [facility] Interpretation and review of laboratory results Abnormal [facility] TSH Qn 6.358 m[IU]/L High [facility] MRSA By PCRon 02-09-2019 MRSA SCREEN RT-PCR Negative Normal [facility] Comment on above: Order Comment: Perfo rmed by [facility] [address] [place] [address] . Result Comment: No M RSA detected by Real Time - Polymerase Chain Reaction. Performed By: #### 1 [id number] #### [address] [address] Vital Signs Date Time Vital Sign Value Performing Clinician Kamran adam 08-08-2024 19:50-0500 Body height 154.9 cm Mark Hills MD Work Phone: [facility] [employer] 08-08-2024 19:50-0500 Body mass index (BMI) [Ratio] 26.07 kg/m2 Mark Hills MD Work Phone: [facility] [employer] 08-08-2024 19:50-0500 Body weight 62.6 kg Mark Hills MD Work Phone: [facility] [employer] 08-08-2024 19:45-0500 Heart rate 76 /min Mark Hills MD Work Phone: [facility] [employer] 08-08-2024 19:45-0500 Respiratory rate 14 /min Mark Hills MD Work Phone: [facility] [employer] 08-08-2024 19:45-0500 SaO2% (BldA) [Mass fraction] 95 % Mark Hills MD Work Phone: [facility] [employer] 08-08-2024 19:30-0500 Diastolic blood pressure 58 mm[Hg] Mark Hills MD Work Phone: [facility] [employer] 08-08-2024 19:30-0500 Systolic blood pressure 130 mm[Hg] Mark Hills MD Work Phone: [facility] [employer] 08-08-2024 16:54-0500 Body temperature 98.49 [degF] Mark Hills MD Work Phone: [facility] [employer] 07-14-2024 10:12-0500 Diastolic blood pressure 63 mm[Hg] Anisa Resendiz MD Work Phone: [facility] [employer] 07-14-2024 10:12-0500 Systolic blood pressure 134 mm[Hg] Anisa Resendiz MD Work Phone: [facility] [employer] 07-14-2024 07:00-0500 Body temperature 98.4 [degF] Anisa Resendiz MD Work Phone: [facility] [employer] 07-14-2024 07:00-0500 Heart rate 79 /min Anisa Resendiz MD Work Phone: [facility] [employer] 07-14-2024 07:00-0500 Respiratory rate 20 /min Anisa Resendiz MD Work Phone: [facility] [employer] 07-14-2024 07:00-0500 SaO2% (BldA) [Mass fraction] 94 % Anisa Resendiz MD Work Phone: [facility] [employer] 07-14-2024 05:53-0500 Body mass index (BMI) [Ratio] 26.45 kg/m2 Anisa Resendiz MD Work Phone: [facility] [employer] 07-14-2024 05:53-0500 Body weight 63.5 kg Anisa Resendiz MD Work Phone: [facility] [employer] 07-09-2024 07:16-0500 Body height 154.9 cm Anisa Resendiz MD Work Phone: [facility] [employer] 07-06-2024 17:04-0500 Body mass index (BMI) [Ratio] 24.94 kg/m2 Natalie Nguyen MD Work Phone: [employer] 07-06-2024 17:04-0500 Body temperature 98.01 [degF] Natalie Nguyen MD Work Phone: [facility] [employer] 07-06-2024 17:04-0500 Body weight 59.88 kg Natalie Nugyen MD Work Phone: [facility] [employer] 07-06-2024 17:04-0500 Diastolic blood pressure 52 mm[Hg] Natalie Nguyen MD Work Phone: [employer] 07-06-2024 17:04-0500 Heart rate 83 /min Natalie Nguyen MD Work Phone: [employer] 07-06-2024 17:04-0500 Respiratory rate 20 /min Natalie Nguyen MD Work Phone: [employer] 07-06-2024 17:04-0500 SaO2% (BldA) [Mass fraction] 95 % Natalie Nguyen MD Work Phone: [employer] 07-06-2024 17:04-0500 Systolic blood pressure 169 mm[Hg] Natalie Nguyen MD Work Phone: [employer] 12-21-2023 11:01-0400 Body height 154.9 cm Juan Francisco Ranellone DO Work Phone: [email or web address] 12-21-2023 11:01-0400 Body mass index (BMI) [Ratio] 26.07 kg/m2 Juan Francisco Ranellone DO Work Phone: [email or web address] 12-21-2023 11:01-0400 Body temperature 98.01 [degF] Juan Francisco Ranellone DO Work Phone: [email or web address] 12-21-2023 11:01-0400 Body weight 62.6 kg Juan Francisco Ranellone DO Work Phone: [facility] [employer] 12-21-2023 11:01-0400 Diastolic blood pressure 74 mm[Hg] Juan Francisco Ranellone DO Work Phone: [email or web address] 12-21-2023 11:01-0400 Heart rate 74 /min Juan Francisco Ranellone DO Work Phone: [facility] [employer] 12-21-2023 11:01-0400 Respiratory rate 17 /min Juan Francisco Ranellone DO Work Phone: [email or web address] 12-21-2023 11:01-0400 SaO2% (BldA) [Mass fraction] 96 % Juan Francisco Hermosillo DO Work Phone: [facility] [employer] 12-21-2023 11:01-0400 Systolic blood pressure 152 mm[Hg] Juan Francisco Hermosillo DO Work Phone: [facility] [employer] 12-19-2023 17:21-0400 Heart rate 84 /min Valeriy Calzada MD [facility] 12-19-2023 17:21-0400 Respiratory rate 18 /min Valeriy Calzada MD Work Phone: [facility] [employer] 12-19-2023 17:21-0400 SaO2% (BldA) [Mass fraction] 97 % Valeriy Calzada MD Work Phone: [facility] [employer] 12-19-2023 17:20-0400 Diastolic blood pressure 84 mm[Hg] Valeriy [facility]ada MD [facility] 12-19-2023 17:20-0400 Systolic blood pressure 174 mm[Hg] Valeriy Calzada MD Work Phone: [facility] [employer] 12-19-2023 16:00-0400 Body height 154.9 cm Valeriy Calzada MD Work Phone: [facility] [employer] 12-19-2023 16:00-0400 Body mass index (BMI) [Ratio] 27.21 kg/m2 Valeriy Calzada MD Work Phone: [facility] [employer] 12-19-2023 16:00-0400 Body temperature 97.3 [degF] Valeriy Calzada MD Work Phone: [facility] [employer] 12-19-2023 16:00-0400 Body weight 65.32 kg Valeriy Calzada MD Work Phone: [facility] [employer] 11-28-2022 13:18-0400 Body temperature 97.9 [degF] Natalie Ngueyn MD Work Phone: [facility] [employer] 11-28-2022 13:18-0400 Diastolic blood pressure 62 mm[Hg] Natalie Nguyen MD Work Phone: [facility] [employer] 11-28-2022 13:18-0400 Heart rate 82 /min Natalie Nguyen MD Work Phone: [facility] [employer] 11-28-2022 13:18-0400 Respiratory rate 18 /min Natalie Nguyen MD Work Phone: [facility] [employer] 11-28-2022 13:18-0400 SaO2% (BldA) [Mass fraction] 93 % Natalie Nguyen MD Work Phone: [facility] [employer] 11-28-2022 13:18-0400 Systolic blood pressure 126 mm[Hg] Natalie Nguyen MD Work Phone: [facility] [employer] 11-28-2022 09:06-0400 Body height 154.9 cm Natalie Nguyen MD Work Phone: [facility] [employer] 11-28-2022 00:06-0400 Body mass index (BMI) [Ratio] 27.08 kg/m2 Natalie Nguyen MD Work Phone: [facility] [employer] 11-28-2022 00:06-0400 Body weight 65 kg Natalie Nguyen MD Work Phone: [facility] [employer] 08-12-2022 22:58-0500 Diastolic blood pressure 69 mm[Hg] Natalie Nguyen MD Work Phone: [facility] [employer] 08-12-2022 22:58-0500 Heart rate 61 /min Natalie Nguyen MD Work Phone: [facility] [employer] 08-12-2022 22:58-0500 Respiratory rate 16 /min Natalie Nguyen MD Work Phone: [facility] [employer] 08-12-2022 22:58-0500 SaO2% (BldA) [Mass fraction] 97 % Natalie Nguyen MD Work Phone: [facility] [employer] 08-12-2022 22:58-0500 Systolic blood pressure 132 mm[Hg] Natalie Nguyen MD Work Phone: [facility] 08-12-2022 19:15-0500 Body temperature 97.7 [degF] Natalie Nguyen MD Work Phone: [facility] 07-08-2021 14:15-0500 Body temperature 98.1 [degF] Arnulfo Otero Jr., MD Work Phone: [facility] 07-08-2021 14:15-0500 Diastolic blood pressure 83 mm[Hg] Arnulfo Otero Jr., MD Work Phone: [facility] 07-08-2021 14:15-0500 Heart rate 74 /min Arnulfo Otero Jr., MD Work Phone: [facility] 07-08-2021 14:15-0500 Respiratory rate 16 /min Arnulfo Otero Jr., MD Work Phone: [facility] 07-08-2021 14:15-0500 SaO2% (BldA) [Mass fraction] 96 % Arnulfo Otero Jr., MD Work Phone: [facility] 07-08-2021 14:15-0500 Systolic blood pressure 160 mm[Hg] Arnulfo Otero Jr., MD Work Phone: [facility] 12-21-2019 22:18-0400 BP Diastolic 79 mm[Hg] [facility] 12-21-2019 22:18-0400 BP Systolic 176 mm[Hg] [facility] 12-21-2019 22:18-0400 Pulse (Heart Rate) 62 /min [facility] 12-21-2019 22:18-0400 Pulse Oximetry 97 % [facility] 12-21-2019 22:18-0400 Respiratory Rate 16 /min Navjot Gaby [facility] 12-21-2019 21:20-0400 BMI (Body Mass Index) 25.06 kg/m2 [facility] 12-21-2019 21:20-0400 Body weight 62.14 kg Navjot Griffin [facility] 12-21-2019 21:20-0400 Height 157.5 cm Navjot Griffin [facility] 12-21-2019 21:15-0400 Body Temperature 97.9 [degF] Navjot Griffin [facility] 10-05-2019 13:45-0500 BP Diastolic 51 mm[Hg] Sameer Morales [facility] 10-05-2019 13:45-0500 BP Systolic 150 mm[Hg] Sameer [facility] 10-05-2019 13:45-0500 Pulse (Heart Rate) 77 /min [facility] 10-05-2019 13:45-0500 Pulse Oximetry 92 % [facility] 10-05-2019 13:45-0500 Respiratory Rate 18 /min [facility] 10-05-2019 12:45-0500 Body Temperature 97.2 [degF] [facility] 06-24-2019 00:15-0500 BP Diastolic 59 mm[Hg] [facility] 06-24-2019 00:15-0500 BP Systolic 159 mm[Hg] [facility] 06-24-2019 00:15-0500 Pulse (Heart Rate) 71 /min [facility] 06-24-2019 00:15-0500 Respiratory Rate 18 /min [facility] 06-24-2019 00:00-0500 Pulse Oximetry 95 % [facility] 06-23-2019 22:40-0500 BMI (Body Mass Index) 27.59 kg/m2 [facility] 06-23-2019 22:40-0500 Body weight 66.22 kg [facility] 06-23-2019 22:40-0500 Height 154.9 cm [facility] 02-09-2019 13:20-0400 BP Diastolic 70 mm[Hg] Sameer [facility] 02-09-2019 13:20-0400 BP Systolic 125 mm[Hg] Sameer [facility] 02-09-2019 13:20-0400 Pulse (Heart Rate) 68 /min Sameer [facility] 02-09-2019 13:20-0400 Pulse Oximetry 94 % Sameer [facility]IO [facility] 02-09-2019 13:20-0400 Respiratory Rate 16 /min [facility] 02-09-2019 13:14-0400 Body Temperature 97.59 [degF] Sameer Morales [facility] 02-09-2019 12:35-0400 BMI (Body Mass Index) 26.45 kg/m2 [facility] 02-09-2019 12:35-0400 Height 154.9 cm Sameer [facility] 02-09-2019 12:35-0400 Weight 63.5 kg [facility] 10-12-2018 22:15-0500 BMI (Body Mass Index) 27.73 kg/m2 Nohelia CRUZ [facility] 10-12-2018 22:15-0500 Height 152.4 cm Nohelia MARIO [facility] 10-12-2018 22:15-0500 Weight 64.41 kg Nohelia MARIO [facility] 10-12-2018 22:14-0500 Body Temperature 97.7 [degF] Nohelia MARIO [facility] 10-12-2018 22:14-0500 BP Diastolic 72 mm[Hg] Nohelia MARIO [facility] 10-12-2018 22:14-0500 BP Systolic 164 mm[Hg] Nohelia MARIO [facility] 10-12-2018 22:14-0500 Pulse (Heart Rate) 67 /min Nohelia MARIO [facility] 10-12-2018 22:14-0500 Respiratory Rate 20 /min Nohelia MARIO [facility] 09-09-2018 14:36-0500 BP Diastolic 65 mm[Hg] [facility] Work Phone: 09-09-2018 14:36-0500 BP Systolic 149 mm[Hg] [facility] Work Phone: 09-09-2018 13:39-0500 BMI (Body Mass Index) 27.77 kg/m2 [facility] Work Phone: 09-09-2018 13:39-0500 Body Temperature 97.9 [degF] [facility] Work Phone: 09-09-2018 13:39-0500 Height 152.4 cm [facility] Work Phone: 09-09-2018 13:39-0500 Pulse (Heart Rate) 73 /min [facility] Work Phone: 09-09-2018 13:39-0500 Respiratory Rate 20 /min [facility] Work Phone: 09-09-2018 13:39-0500 Weight 64.5 kg [facility] Work Phone: Encounters Encounter Date Encounter Type Care Provider Facility Start: 10-10-2024 End: 10-11-2024 Evaluation and management of inpatient [facility] Start: 08-08-2024 End: 08-08-2024 Emergency department patient visit Mark Hills MD Work Phone: [facility] Emergency Department Comment on above: Melena (Primary Dx); Community acquired pneumonia of left lower lobe of lung Start: 07-08-2024 End: 07-14-2024 Evaluation and management of inpatient Anisa Resendiz MD Work Phone: [facility] Comment on above: Debility (Primary Dx ); Hypokalemia; Low magnesium level; Low calcium levels; Acute hyponatremia Start: 07-06-2024 End: 07-06-2024 Emergency department patient visit Natalie Nguyen MD Work Phone: [facility] ED Comment on above: Closed fracture of h ead of right humerus, initial encounter (Primary Dx) Start: 12-21-2023 End: 12-21-2023 Emergency department patient visit Juan Francisco Hermosillo DO Work Phone: [facility] ED Comment on above: Abrasion of orophary nx, initial encounter (Primary Dx) Start: 12-19-2023 End: 12-19-2023 Emergency department patient visit Valeriy Calzada MD Work Phone: [facility] ED Comment on above: Sore throat (Primary Dx) Start: 10-16-2023 End: 10-17-2023 Emergency department patient visit IGNACIO CINTRON [facility] Start: 11-27-2022 End: 11-28-2022 Emergency department patient visit Natalie Nguyen MD Work Phone: [facility] Start: 08-12-2022 End: 08-12-2022 Emergency department patient visit Natalie Nguyen MD Work Phone: [facility] ED Comment on above: Vertigo (Primary Dx) ; Hyponatremia Start: 08-06-2022 End: 08-07-[address] IGNACIO CINTRON Facility:[facility] Start: 07-08-2021 End: 07-08-2021 Emergency department patient visit Arnulfo Otero MD Work Phone: [facility] ED Comment on above: Aphthous ulcer (Prim tulio Dx) Start: 12-21-2019 End: 12-22-2019 Emergency department patient visit IGNACIO CINTRON [facility] Start: 12-21-2019 End: 12-21-2019 Emergency department patient visit Navjot Griffin Work Phone: [facility] Emergency Medicine Start: 10-05-2019 End: 10-05-2019 Patient encounter procedure [facility] Start: 10-05-2019 End: 10-05-2019 Subsequent hospital visit by physician Sameer Morales Work Phone: [facility] Periop Comment on above: Carpal tunnel syndro me on right Start: 09-28-2019 Patient encounter procedure [facility] Start: 09-21-2019 Patient encounter procedure Kristie Mcarthur [facility] Start: 06-23-2019 End: 06-24-2019 [facility] Start: 06-23-2019 End: 06-24-2019 Emergency department patient visit Joanne Burks Work Phone: [facility] Emergency Medicine Start: 02-13-2019 End: 02-13-2019 Outside Orders Historical Provider [facility] Information Management Start: 02-09-2019 End: 02-09-2019 [facility] Start: 02-09-2019 End: 02-09-2019 Patient encounter procedure Sameer Morales Work Phone: [facility] Per[facility] Comment on above: Left carpal tunnel s yndrome Start: 02-02-2019 Admission to [facility] Historical Provider [facility] Pre Admission Start: 02-02-2019 End: 02-02-2019 Patient encounter procedure Carli Mcleod [facility] Pre Admission Comment on above: Pre-op testing (Prim tulio Dx) Start: 10-12-2018 End: 10-12-2018 Emergency department patient visit Nohelia Madelyn Roque Work Phone: [facility] Emergency Medicine Start: 09-09-2018 End: 09-09-2018 Patient encounter procedure Other Other NOTES/RESULTS Start: 09-09-2018 End: 09-09-2018 Emergency department patient visit Alexeyerlin Linda Solorzano Work Phone: [facility] Emergency Medicine Procedures Date Procedure Procedure Detail Performing Clinician Start: 08-08-2024 Ct abdomen & pelvis w/contrast material Mark Hills MD Work Phone: Start: 08-08-2024 Virus centrifuge enhncd id imfluor stain ea Mark Hills MD Work Phone: Start: 08-08-2024 End: 08-08-2024 Basic metabolic panel calcium total Mark Hills MD Work Phone: Start: 08-08-2024 Hepatic function panel Mark Hills MD Work Phone: Start: 08-08-2024 LACTATE, SEPSIS Mark Hills MD Work Phone: Start: 07-14-2024 Rhythm ecg 1-3 leads w/interpretation & report Unknown Provider Result Start: 07-14-2024 Basic metabolic panel calcium total Jennifer E Hemmelgarn DO Work Phone: Start: 07-14-2024 C-reactive protein Guerita Ingram [employer] Work Phone: Start: 07-13-2024 Radex ankle complete minimum 3 views Guerita Ingram [place] [employer] - [employer] Work Phone: Start: 07-13-2024 End: 07-13-2024 Radiologic examination tibia & fibula 2 views Mirta Madelyn Castillon [employer] - [employer] Work Phone: Start: 07-13-2024 Rhythm ecg 1-3 leads w/interpretation & report Unknown Provider Result Start: 07-13-2024 BASIC METABOLIC PANEL W/ REFLEX TO MG FOR LOW K Viktor Iqbal MD Work Phone: Start: 07-13-2024 Blood count complete auto&auto difrntl wbc Viktor Iqbal MD Work Phone: Start: 07-13-2024 C-reactive protein Guerita Nataly ShenRosaura [employer] - [employer] Work Phone: Start: 07-13-2024 Sodium serum plasma [...] Start: 07-11-2024 Assay of magnesium Guerita Anderson [employer] - [employer] Work Phone: Start: 07-11-2024 BASIC METABOLIC PANEL [...] Result Start: 07-10-2024 Assay of magnesium Guerita Ingram Shen-Rosaura [employer] - [employer]MENT [employer] Work Phone: Start: 07-10-2024 BASIC METABOLIC PANEL W/ REFLEX TO MG FOR LOW K Viktor Iqbal MD Work Phone: Start: 07-09-2024 End: 07-09-2024 Rhythm ecg 1-3 leads w/interpretation & report Unknown Provider Result Start: 07-09-2024 Assay of magnesium Guerita Ingram [place] [employer] - [employer] Work Phone: Start: 07-09-2024 BASIC METABOLIC PANEL W/ REFLEX TO MG FOR LOW K Viktor Iqbal MD Work Phone: Start: 07-08-2024 Assay of magnesium Guerita Ingram [place] [employer] - [employer] Work Phone: Start: 07-08-2024 BASIC METABOLIC PANEL W/ REFLEX TO MG FOR LOW K Guerita Ingram [place] - [employer]MENT [employer] Work Phone: Start: 07-08-2024 RESPIRATORY PANEL, MOLECULAR, WITH COVID-19 Guerita Ingram [place] [employer] - [employer]MENT [employer] Work Phone: Start: 07-08-2024 Urinalysis microscopic only Anisa Jara MD Work Phone: Start: 07-08-2024 Urnls dip [...] Iaad ia streptococcus group a Juan Francisco Ranellone DO Work Phone: Start: 11-29-2022 History of [...] Start: 06-24-2019 COMPREHENSIVE METABOLIC PROFILE ER Joanne L Carone Work Phone: Start: 06-24-2019 Natriuretic peptide Joanne L Carone Work Phone: Start: 06-24-2019 TSH W/ FREE T4 Joanne L Carone Work Phone: Start: 02-09-2019 CARDIAC RHYTHM Historical Provider Start: 01-30-2019 ORDERS (OUTSIDE) Historical Provider Start: 09-09-2018 End: 09-09-2018 Electrocardiogram Other Other Plan of Treatment Date Care Activity Detail Author Start: 10-12-2028 DTaP/Tdap/Td vaccine (2 - Td or Tdap) DTaP/Tdap/Td vaccine (2 - Td or Tdap) [facility] [employer] Start: 10-12-2028 Tetanus vaccination [facility]ETANUS [facility] Start: 07-21-2024 End: 07-14-2025 Basic metabolic 2000 panel - Serum or Plasma Basic Metabolic Panel Lab Routine Acute hyponatremia Expected: 07/21/2024, Expires: 07/14/2025 [facility] Comment on above: Expected: 07/21/2024 , Expires: 07/14/2025 Start: 07-21-2024 End: 07-14-2025 C-reactive protein C-Reactive Protein Lab Routine Acute hyponatremia Expected: 07/21/2024, Expires: 07/14/2025 [facility] Comment on above: Expected: 07/21/2024 , Expires: 07/14/2025 Start: 07-21-2024 End: 07-14-2025 CBC W Auto Differential panel - Blood CBC with Auto Differential Lab Routine Acute hyponatremia Expected: 07/21/2024, Expires: 07/14/2025 [facility] Comment on above: Expected: 07/21/2024 , Expires: 07/14/2025 Start: 07-21-2024 End: 07-14-2025 Sedimentation Rate Sedimentation Rate Lab Routine Acute hyponatremia Expected: 07/21/2024, Expires: 07/14/2025 [facility] Comment on above: Expected: 07/21/2024 , Expires: 07/14/2025 Start: 06-05-2024 Depression Screen Depression Screen [facility] [employer] Start: 04-19-2024 COVID-19 Vaccine ( season) COVID-19 Vaccine () [facility] Start: 03-19-2024 Influenza vaccination B ON [employer] Start: 11-29-2023 Lipid panel Lipids [email or web address] Start: 07-15-2023 Annual Wellness Visi t (Medicare) Annual Wellness Visit (Medicare) [facility] Start: 04-19-2023 COVID-19 Vaccine ( season) COVID-19 Vaccine ( season) [facility] Start: 03-19-2023 Influenza vaccination Flu vaccine (S andrei Ended) [facility] Start: 03-19-2022 Influenza vaccination Flu vaccine (# 1) [facility] Start: 07-08-2021 Annual Wellness Visi t (AWV) Annual Wellness Visit (AWV) [facility] Start: 04-19-2021 Influenza vaccination Flu vaccine (# 1) [employer] [employer] Start: 09-28-2020 TSH Qn TSH [facility] Start: 04-19-2020 Influenza vaccination INFLUENZ A VACCINE (Season Ended) [facility] Start: 04-19-2019 Influenza vaccination V AN [employer] Start: 02-09-2019 End: 02-09-2019 Procedure Pass [employer] [facility] Comment on above: Left carpal tunnel s yndrome [employer]SP OSITION MEDIAN NERVE (Left Carpal Tunnel Release) Left Carpal Tunnel R elease Start: 04-19-2018 Influenza vaccination INFLUENZA VACC INE (#1) [facility] Work Phone: Start: 07-19-2017 Pneumococcal 65+ yea rs Vaccine (2 of 2 - PCV) Pneumococcal 65+ years Vaccine (2 of 2 - PCV) [facility] Start: 12-15-2016 Creatinine measurement Creatinine mo nitoring [facility] Start: 12-15-2016 Potassium monitoring Potassium monit oring [employer] Start: 2014 Respiratory Syncytia l Virus (RSV) or age 60 yrs+ (1 - 1-dose 75+ series) Respiratory Syncytial Virus (RSV) or age 60 yrs+ (1 - 1-dose 75+ series) [facility] Start: 2004 Pneumococcal vaccination PNEUM OCOCCAL VACCINE SERIES (1 of 2 - PCV13) [facility] Work Phone: Start: 1999 Respiratory Syncytia l Virus (RSV) or age 60 yrs+ (1 - 1-dose 60+ series) Respiratory Syncytial Virus (RSV) or age 60 yrs+ (1 - 1-dose 60+ series) [facility] Start: 1994 Screening for osteoporosis DEX A (modify frequency per FRAX score) [facility] Start: 1989 Colonoscopy [facility] Work Phone: Start: 1989 Protein mass conc COLON CANCER SCREENING DISCUSSION [facility] Work Phone: Start: 1989 Shingles vaccine (1 of 2) Shingles v accine (1 of 2) [facility] Start: 1989 Zoster vaccine hzv l galen for subcutaneous use ZOSTER (SHINGLES) VACCINE (1 of 2) [facility] Start: 1979 Protein mass conc MAMMOGRAM SC REENING DISCUSSION [facility] Work Phone: Start: 1979 Screening mammography MAMMOGRA M SCREENING DISCUSSION [facility] Work Phone: Start: 1960 Screening for malign ant neoplasm of cervix [facility] Work Phone: Start: 1958 Third diphtheria, te tanus and acellular pertussis (DTaP) vaccination TDAP (ADULT) [facility] Work Phone: Start: 1957 Tetanus vaccination [facility]ETANUS [facility] Work Phone: Start: 1951 COVID-19 Vaccine (1) COVID-19 Vaccin e (1) [facility] Start: 1951 Depression Screen Depression Screen [facility] [employer] Start: 1949 Lipid panel Lipids [facility] [employer] Start: 1939 Screening for osteoporosis DEXA SCAN DISCUSSION [facility] Work Phone: Start: 1939 Thyrotropin Qn TSH [facility] Work Phone: End: 12-02-2022 Basic Metabolic Panel w/ Reflex to MG Basic Metabolic Panel w/ Reflex to MG Lab Routine Daily for 5 Days starting 11/28/2022 until 12/02/2022, 1 completed [email or web address] Work Phone: Comment on above: Daily for 5 Days sta rting 11/28/2022 until 12/02/2022, 1 completed End: 07-16-2024 C-reactive protein C-Reactive Protein Lab Routine Daily for 3 Days starting 07/14/2024 until 07/16/2024, 1 completed [employer] Comment on above: Daily for 3 Days sta rting 07/14/2024 until 07/16/2024, 1 completed End: 12-02-2022 CBC panel - Blood by Automated count CBC Lab Routine Daily for 5 Days starting 11/28/2022 until 12/02/2022, 1 completed [email or web address] Work Phone: Comment on above: Daily for 5 Days sta rting 11/28/2022 until 12/02/2022, 1 completed End: 08-08-2024 Clostridium Difficile Toxin/Antigen Clostridium Difficile Toxin/Antigen Microbiology STAT Once for 1 Occurrences starting 08/08/2024 until 08/08/2024 [employer] Comment on above: Once for 1 Occurrenc es starting 08/08/2024 until 08/08/2024 EKG 12 Lead EKG 12 Lead ECG STAT 08/12/2022 7:58 PM EST [email or web address] Work Phone: EKG 12 lead EKG 12 lead ECG STAT As Needed until discontinued starting 11/28/2022 [email or web address] Work Phone: Comment on above: As Needed until disc ontinued starting 11/28/2022 End: 08-08-2024 Gastrointestinal Panel, Molecular Gastrointestinal Panel, Molecular Microbiology STAT Once for 1 Occurrences starting 08/08/2024 until 08/08/2024 [employer] Comment on above: Once for 1 Occurrenc es starting 08/08/2024 until 08/08/2024 End: 11-28-2022 Intermittent pulse oximetry Pulse Oximetry Spot Check Respiratory Care Routine One Time for 1 Occurrences starting 11/28/2022 until 11/28/2022 [email or web address] Work Phone: Comment on above: One Time for 1 Occur rences starting 11/28/2022 until 11/28/2022 End: 08-08-2024 Lactate, Sepsis Lactate, Sepsis Lab Timed Every 2 Hours (Lab) for 2 Occurrences starting 08/08/2024 until 08/08/2024, 1 completed [employer] Work Phone: Comment on above: Every 2 Hours (Lab) for 2 Occurrences starting 08/08/2024 until 08/08/2024, 1 completed MRSA ANTERIOR NARES (PCR) MRSA A NTERIOR NARES (PCR) Microbiology Routine Pre-op testing 02/09/2019 12:50 PM [facility] [facility] End: 07-10-2024 Osmolality, Serum Osmolality, Serum Lab Routine One Time for 1 Occurrences starting 07/10/2024 until 07/10/2024 [employer] Comment on above: One Time for 1 Occur rences starting 07/10/2024 until 07/10/2024 Oxygen therapy [Mini mum Data Set] Initiate Oxygen Therapy Protocol Respiratory Care Routine As Needed until discontinued starting 11/28/2022 [email or web address] Work Phone: Comment on above: As Needed until disc ontinued starting 11/28/2022 Oxygen therapy [Mini mum Data Set] Initiate Oxygen Therapy Protocol Respiratory Care Routine Daily until discontinued starting 07/08/2024 [employer] Comment on above: Daily until disconti nued starting 07/08/2024 End: 07-16-2024 Sedimentation Rate Sedimentation Rate Lab Routine Daily for 3 Days starting 07/14/2024 until 07/16/2024, 1 completed [employer] Comment on above: Daily for 3 Days sta rting 07/14/2024 until 07/16/2024, 1 completed End: 08-08-2024 SPECIMEN REJECTION [employer] Comment on above: Once for 1 Occurrenc es starting 08/08/2024 until 08/08/2024 End: 06-23-2019 Standard ECG ECG ECG STAT One Time for 1 Occurrences starting 06/23/2019 until 06/23/2019 [facility] Comment on above: One Time for 1 Occur rences starting 06/23/2019 until 06/23/2019 End: 08-12-2022 Urinalysis with Reflex to Culture Urinalysis with Reflex to Culture Lab Routine One Time for 1 Occurrences starting 08/12/2022 until 08/12/2022 [email or web address] Work Phone: Comment on above: One Time for 1 Occur rences starting 08/12/2022 until 08/12/2022 Immunizations Immunization Date Immunization Notes Care Provider Gretchen machado 10-12-2018 diphtheria, tetanus toxoids and acellular pertussis vaccine, unspecified formulation [employer] 10-12-2018 tetanus toxoid, redu jose roberto diphtheria toxoid, and acellular pertussis vaccine, adsorbed [employer] 05-19-2016 influenza virus vacc ine, unspecified formulation Historical Provider [facility] Payers Date Payer Category Payer Medicare [id number] 2020 Private Health Insurance [id number] 2020 Private Health Insurance [employer] MEDICARE SUPP [id number] 2020-Present [phone] [address] [place] [address] [id number] 2018 Medicare MEDICARE MEDICAR E A AND B xxxxxxxxxxx 2018-Present [place], [place] xxxxxxxxxxx [id number] 2005 Unknown GENERIC PAYOR ME DICARE SUPPLEMENT xxxxxxxxxx 2005-Present xxxxxxxxxx [id number] 1959 Medicare [id number] 1959 Unknown [id number] 1939 Unknown [id number] 1939 Unknown [id number] .111 1939 Unknown [id number] .111 1939 Unknown [id number] 1939 Unknown [id number] .111 1939 Unknown [id number] .111 1939 Unknown [id number] 1939 Unknown [id number] .173 1939 Unknown [id number] 1939 Unknown [id number] .[id number] 1939 Unknown [id number] .173 1939 Unknown [id number] 1939 Unknown [id number] 1939 Unknown [id number] Social History Date Type Detail Facility Start: 09-09-2018 Tobacco smoking status NHIS Un known [facility] Work Phone: Start: 1940 Sex Assigned At Not [facility] Work Phone: Start: 10-12-2018 End: 06-05-2023 Tobacco smoking status NHIS Never smoker [employer] [facility] Start: 10-12-2018 History SDOH Alcohol Frequency 1 [facility] Start: 02-10-2019 End: 10-05-2019 Alcohol intake Ex-drinker (finding) [facility] Start: 08-02-2022 End: 11-28-2022 Exposure to SARS-CoV-2 (event) Not sure [facility] Start: 09-21-2015 End: 06-05-2023 Tobacco use and exposure Smokeless tobacco non-user [employer] Phone: Start: 07-08-2021 End: 08-08-2024 Alcohol intake Current drinker of alcohol (finding) [employer] Phone: Start: 09-21-2015 History SDOH Alcohol Comment occ [employer] Phone: Start: 06-05-2023 End: 07-08-2024 History of Social function [employer] Start: 06-05-2023 End: 07-08-2024 Alcohol Use Disorder Identification Test - Consumption [AUDIT-C] [email or web address] How often to you hav e a drink containing alcohol? 2-3 time sa week [email or web address] How many standard dr inks containing alcohol do you have on a typical day? 1 or 2 [employer] How often do you hav e 6 or more drinks on 1 occasion? Never [employer] Patient Health Questionnaire 9 item (PHQ-9) total score [Reported] 0 [employer] How often to you hav e a drink containing alcohol? Monthly or less [employer] How often do you hav e 6 or more drinks on 1 occasion? Less than monthly [employer] Has the electric, Tab[employer], [employer], or water [employer] threatened to shut off services in your home in past 12Mo No [employer] (I/We) worried fabio er (my/our) food would run out before (I/we) got money to buy more. Never true [employer] Clinical Notes 07-08-2021 to 07-14-2024 Keisha Paul RN - 07/14/2024 2:00 PM Modesta Wilkerson LSW - 07/14/2024 1:38 PM Eufemia Hardy PTA - 07/14/2024 9:[address], LD - 07/14/2024 9:20 AM ESTAttachments Note Date & Type Note Facility 07-14-2024 History of Present illness Narrative Patient discharged at this time. Patient left floor via wheelchair and being transported to the [facility] [place] via [facility]. Patient discharging to [facility] today. [facility] to provide transportation. Bobby Pierre notified and is agreeable with this plan. Facility updated and FAXED discharge paperwork. [facility] to be at hospital Main Entrance by 2 p.m. [facility] staff notified. LARA Watts 07/14/2024 Physical Therapy Facility/Department: [facility] Daily Treatment Note NAME: Julius [...] trace edema BLE, RUE. Active bowel sounds.) High Tension Tester Strength: Not Performed Nutrition Assessment: Continued increased [...] Measures: Height: 154.9 cm (5' 1 ) Radford Body Weight (IBW): 105 lbs (48 kg) [...] Used for Energy Requirements: Current Energy (kcal/day): 1430-8845 (25-28/kg) Weight Used for Protein Requirements: Radford Protein (g/day): 62-72g (1.3-1.5g/kg) Method Used for [...] Continue Oral Nutrition Supplement Scott Denny RD, LD Contact: [id number] Vitals and assessment completed at this time, [...] with the patient at her room in [place] [address] and myself the physician in my office in [place], [place] and the patient's RN who has [...] Extremities -- no edema, moves all extremeties DENTAL BILLING SPECIALIST - awake and alert Pschy - not agitated, mood and memory normal Due to this being a TeleHealth encounter, evaluation of the following organ systems is limited: Vitals/EENT/Resp/CV/GI//MS/Neur o/Skin/Lfhm-Ycuxm-Lim. Medications: Infusion: sodium chloride sodium chloride Meds: [...] HTN Left ankle pain D/W patient and RN Jennifer Ferrara DO [...] further imaging studies ordered today Medications: Stop Lutsen Continue Tramadol Left Ankle pain Condition is stable Treatment plan: Appreciate Dr Tsai Trend CRP and ESR Imaging: Ankle xray ordered today-negative Medications: Solumedrol 125 mg IV x 1 now Continue Tramadol Nutrition status: at risk for malnutrition Radiology Technician consult initiated Hospital Prophylaxis: DVT: Lovenox Stress Ulcer: na Disposition: Shared decision making: All test results, treatment options and disposition options were discussed with the patient today Social determinants of health that may impact management: Pt lives alone and is unable to care for self Code status: Full Code Disposition: Discharge plan is [facility] Advanced Care Planning documentation: [x] I have [...] the patient's medical record. [DOES NOT SATISFY [facility] PERFORMANCE] Guerita Anderson, ARIEL - GARMENT PRESSER , DUMPCART DRIVER, RIGHT OF WAY MANAGER-C [facility] Medicine 07/13/2024, 8:05 AM Associated attestation - Dayo Vitale MD - 07/13/2024 5:48 PM EST Dayo Vitale M.D. Internal Medicine PA/RIGHT OF WAY MANAGER Attestation Note Patient: Julius Clarke Date of Admission: 07/08/2024 5:41 AM Date of Evaluation: 07/13/2024 I personally evaluated and examined the patient [id number] in conjunction with the PA/RIGHT OF WAY MANAGER and agree with the management and dispostition of the patient. Please see the PA/RIGHT OF WAY MANAGER's note for full details. My barnes findings are: SUBJECTIVE: Julius Clarke is a 83 y.o. female who was seen today along with Guerita Gotti CNP for follow up of Acute hyponatremia. She is still complaining of right shoulder pain . Tramadol 25 mg doesn't seem to help much however the Lutsen made her loopy and she doesn't want [...] (Restricted: peds pts or suitable admitted adults) [[id number]] Collected: 07/08/24 1204 Order Status: Completed Specimen: Nasopharyngeal Swab Updated: 07/08/24 171 Specimen Description .NASOPHARYNGEAL SWAB Adenovirus PCR Not [...] nucleic acid assay. Rapid influenza A/B antigens [[id number]] Collected: 07/08/24631 Order Status: Completed Specimen: Nasopharyngeal Updated: 07/08/24655 Flu A Antigen NEGATIVE Comment: for Influenza A Antigen Flu B Antigen NEGATIVE Comment: for Influenza B Antigen. COVID-19, Rapid [[id number]] Collected: 07/08/2432 Order Status: Completed Specimen: Nasopharyngeal [...] and Tx SS for DC planning DC Lutsen due to cognitive side effects, Increase Tramadol to 50 mg po TID PRN for pain Replace Lytes: IV Ca Gluconate 2 gm x 1 on 07/08 IV MGSO 2 gm x 1 given on 07/08 Klor Con 40 meq x 1 given on 07/08 Continue IVF -D5/0.45NS with 20 KCL Nephrology consult requested Disposition: Discharge plan is pending SHARED APC VISIT, PHYSICIAN ATTESTATION: [id number] I personally performed a substantive part of [...] discussed with ABDULKADIR Shah MD , M.D. 07/13/2024 5:48 PM Assessment and vitals obtained [...] with the patient at her room in [place] [address] and myself the physician in my office in [place], [place] and the patient's RN, Padmaja, who [...] 136/60 137/66 Pulse: 82 [phone] 83 Resp: Temp: 98.4 F (36.9 C) 98.4 F (36.9 C) 97.6 F (36.4 C) TempSrc: Temporal Temporal Temporal SpO2: 93% 92% 91% Weight: 68.8 kg (151 lb 9.6 oz) Height: General -- no distress Oral Mucosa -- moist Neck -- JVD - no Extremities -- no edema, moves all extremeties DENTAL BILLING SPECIALIST - awake and alert Pschy - not agitated, mood and memory normal Due to this being a TeleHealth encounter, evaluation of the following organ systems is limited: Vitals/EENT/Resp/CV/GI//MS/Neur o/Skin/Svfs-Rrhfg-Uiz. Medications: Infusion: sodium chloride sodium chloride Meds: [...] Placement Sodium looks better. Will need placement. [facility] Advanced Care Planning documentation: [x] I have [...] Iqbal MD , M.D. Occupational Therapy Facility/Department: [facility] Daily Treatment Note NAME: Julius Clarke : 1940 Date of Service: 07/12/2024 Discharge Recommendations: Continue to assess pending progress, Subacute/Long Term Facility Patient Diagnosis(es): The primary encounter diagnosis was Debility. Diagnoses of Hypokalemia, Low magnesium level, and Low calcium levels were also pertinent to this visit. Assessment Activity Tolerance: Patient tolerated treatment well Discharge Recommendations: Continue to assess pending progress;Subacute/Long Term Facility Plan Occupational Therapy Plan Times Per [...] In 0716 Time Out 0739 Minutes 23 ROBEL Coffey Physical Therapy Facility/Department: [facility] Daily Treatment Note NAME: Julius [...] Out 0739 Minutes 23 Sylvia Isidro PTA Specialist Icu at bedside at this time to perform [...] From: (P) Rounding Last Encounter : (P) 07/11/24 Complexity of Encounter: (P) Moderate Begin Time: (P) 1615 End Time : (P) 1625 Total Time Calculated: (P) 10 min Spiritual/Emotional needs Type: (P) Spiritual Support Assessment/Intervention/Outcome Assessment: (P) Calm Intervention: (P) Discussed belief system/rastafarian practices/jose c, Discussed illness injury and it s impact Outcome: (P) Encouraged, Engaged in conversation Dr Ferrara doing a video consult at this time [facility] Nephrology progress note 07/11/2024, 11:19 AM TELEHEALTH EVALUATION -- Audio/Visual (During COVID-19 public health emergency) Telehealth service was provided with the patient at her room in [place] [address] and myself the physician in my office in [place], [place] and the patient's RN, Jayleen, who [...] 131/77 Pulse: 77 [phone] 78 Resp: 15 Temp: 98.1 F (36.7 C) TempSrc: Temporal SpO2: 96% 93% 94% 95% Weight: Height: General -- no distress Oral Mucosa -- moist Neck -- JVD - no Extremities -- no edema, moves all extremeties DENTAL BILLING SPECIALIST - awake and alert Pschy - not agitated, mood and memory normal Due to this being a TeleHealth encounter, evaluation of the following organ systems is limited: Vitals/EENT/Resp/CV/GI//MS/Neur o/Skin/Hpci-Gbtzu-Ngp. Medications: Infusion: sodium chloride sodium chloride Meds: [...] inherent in voice recognition technology Transferred to [place] [address] Physical Therapy Facility/Department: [facility] ICU Physical Therapy Initial Assessment Name: Julius Clarke [...] Ambulation Assistance: Independent Transfer Assistance: Independent Active Associate Dean Of Students: Yes Mode of Transportation: Car Occupation: Retired [...] Timed Code Treatment Minutes: 15 Minutes JOSE DENNY PT,DPT Occupational Therapy Facility/Department: [facility] ICU RE-assessment / Daily Treatment Note NAME: Julius Clarke : 1940 Date of Service: 07/11/2024 Discharge Recommendations: Continue to assess pending progress, Subacute/Long Term Facility Patient Diagnosis(es): The primary encounter diagnosis was Debility. Diagnoses of Hypokalemia, Low magnesium level, and Low calcium levels were also pertinent to this visit. Assessment Reassessment completed due to transfer to ICU. Continue OT services per POC. Activity Tolerance: Patient tolerated treatment well. Discharge Recommendations: Continue to assess pending progress;Subacute/Long Term Facility Plan Occupational Therapy Plan Times Per [...] Care;Transfer Training Education Provided Comments: sling and swathe Education Method: Verbal;Demonstration Barriers to Learning: None [...] AM-PAC Inpatient Daily Activity Raw Score: 13 AM-[facility] Inpatient ADL T-Scale Score : 32.03 ADL Inpatient CMS 0-100% Score: 63.03 ADL Inpatient CMS G-Code Modifier : CL Therapy Time Individual Concurrent Group Co-treatment Time In 0842 Time Out 0855 Minutes 13 Nohelia Sharma OTR/L Attempted to take the patient off O2 for 10 minutes and SpO2 was 87%. Placed back on 2L nasal cannula. Dr Hemmelgarn called, new orders received. Patient A&Ox4. Assisted patient to [facility] commode then to the chair. Chair alarm [...] SATISFY MIPS PERFORMANCE] Viktor Iqbal MD , MCrow. Pt is resting in bed with eyes [...] reach. Physician Progress Note PATIENT: JULIUS CLARKE [facility] #: [id number] : 1940 ADMIT DATE: 07/08/2024 5:41 AM [...] potassium chloride extended release tab Yuliet Ramos, MSN, RN, CCDS, CRCR Clinical Mobile Battery Technician . Options provided: -- Hypokalemia present on [...] Yuliet Ramos, MSN, RN, CCDS, CRCR Clinical Mobile Battery Technician . Options provided: -- Hyponatremia -- Serum [...] call light. Family updated. Physical Therapy Facility/Department: [facility] ICU Daily Treatment Note NAME: Julius Clarke [...] <-> BSC and BSC <-> bed with TOUCH UP CARVER and CGA. Pt. being transferred to ICU [...] assistance;Assist X1 Toilet Transfer: Contact-guard assistance;Assist X1 ([facility]) Gait Gait Training: No Assistive Device: (TOUCH UP CARVER) Safety Devices Type of Devices: All fall [...] to ICU 305. Report given to Milagro RN Occupational Therapy Facility/Department: [facility] Daily Treatment Note NAME: Julius Clarke : 1940 Date of Service: 07/10/2024 Discharge Recommendations: Continue to assess pending progress, Subacute/Long Term Facility Patient Diagnosis(es): The primary encounter diagnosis was Debility. Diagnoses of Hypokalemia, Low magnesium level, and Low calcium levels were also pertinent to this visit. Assessment Activity Tolerance: Patient limited by pain Discharge Recommendations: Continue to assess pending progress;Subacute/Long Term Facility Plan Occupational Therapy Plan Times Per [...] Time Out 1130 Minutes 10 PANTERA Bryan horticultural farm manager called at this time. Will call back with ETA Telehealth visit with Dr Ferrara at this time. Bladder scan volume given at this time [facility] Inpatient/Observation/Outpatient Rehabilitation Date: 07/10/2024 Patient Name: Julius [...] does not require skilled services due to: Therapist/Open End Spinning Operator will attempt to see this patient, at our earliest opportunity. Kaden Garcia, ENVELOPE FOLDING MACHINE OPERATOR Date: 07/10/2024 Perfect sent for nephrology Patient [...] 4.3 3.9 CL 93* 89* 83* CO2 23 BUN 8 6* 6* CREATININE 0.5 [...] IVF -D5/0.45NS with 20 KCL Zofran Stop Lutsen Increase Tramadol to 50 mg q6 hrs prn Medication Monitoring / High Risk Medications: none HTN Condition is stable Treatment plan: Continue current treatment Imaging: no further imaging studies ordered today Medications: Continue Entresto, Bystolic (Toprol XL) S/p Right Humerus Fracture Condition is stable Treatment plan: Follows with Dr Oconnor as outpatient Sling and stephanie to arm PT/OT SS-Discharge planning Imaging: no further imaging studies ordered today Medications: Stop Lutsen Start Tramadol Nutrition status: at risk for malnutrition Radiology Technician consult initiated Hospital Prophylaxis: DVT: Lovenox Stress Ulcer: na Disposition: Shared decision making: All test results, treatment options and disposition options were discussed with the patient today Social determinants of health that may impact management: Pt lives alone and is unable to care for self Code status: Full Code Disposition: Discharge plan is [facility] Advanced Care Planning documentation: [x] I have [...] the patient's medical record. [DOES NOT SATISFY [facility] PERFORMANCE] Guerita Anderson APRN - GARMENT PRESSER , DUMPCART DRIVER, RIGHT OF WAY MANAGER-C Hospitalist Medicine 07/10/2024, 8:08 AM Associated attestation - Dayo Vitale MD - 07/10/2024 12:46 PM EST Dayo Vitale M.D. Internal Medicine PA/RIGHT OF WAY MANAGER Attestation Note Patient: Julius Clarke Date of Admission: 07/08/2024 5:41 AM Date of Evaluation: 07/10/2024 I personally evaluated and examined the patient [id number] in conjunction with the PA/RIGHT OF WAY MANAGER and agree with the management and dispostition of the patient. Please see the PA/RIGHT OF WAY MANAGER's note for full details. My barnes findings are: SUBJECTIVE: Julius Clarke is a 83 y.o. female who was seen today along with Guerita Gotti CNP for follow up of Electrolyte imbalance. She is still complaining of right shoulder pain . Tramadol 25 mg doesn't seem to help much however the Lutsen made her loopy and she doesn't want [...] (Restricted: peds pts or suitable admitted adults) [[id number]] Collected: 07/08/24 1204 Order Status: Completed Specimen: [...] nucleic acid assay. Rapid influenza A/B antigens [[id number]] Collected: 07/08/2432 Order Status: Completed Specimen: Nasopharyngeal Updated: 07/08/24 0656 Flu A Antigen NEGATIVE Comment: for Influenza A Antigen Flu B Antigen NEGATIVE Comment: for Influenza B Antigen. COVID-19, Rapid [[id number]] Collected: 07/08/2432 Order Status: Completed Specimen: Nasopharyngeal [...] and Tx SS for DC planning DC Lutsen due to cognitive side effects, Increase Tramadol to 50 mg po TID PRN for pain Replace Lytes: IV Ca Gluconate 2 gm x 1 on 07/08 IV MGSO 2 gm x 1 given on 07/08 Klor Con 40 meq x 1 given on 07/08 Continue IVF -D5/0.45NS with 20 KCL Nephrology consult requested Disposition: Discharge plan is pending SHARED APC VISIT, PHYSICIAN ATTESTATION: [id number] I personally performed a substantive part of [...] interpretation discussed with ABDULKADIR Shah MD , MCrow. 07/10/2024 12:41 PM Patient continues to push call light. Specialist Icu entered the room. Patient c/o pain in arm but she had removed the sling around her arm and placed it on the table. Specialist Icu placed patients arm back in the sling [...] time. Call light within reach, care ongoing. Specialist Icu entered room and pt was sitting on [...] within reach, care ongoing. Physical Therapy Facility/Department: [facility] Daily Treatment Note NAME: Julius [...] From: (P) Abigail Last Encounter : (P) 07/09/24 Complexity of Encounter: (P) Moderate Begin Time: (P) 1045 End Time : (P) 1055 Total Time Calculated: (P) 10 min Spiritual/Emotional needs Type: (P) Spiritual Support Assessment/Intervention/Outcome Assessment: (P) Calm Intervention: (P) Discussed belief system/rastafarian practices/jose c, Discussed illness injury and it s impact Outcome: (P) Encouraged, Engaged in conversation Sling and swathe applied per order. Occupational Therapy Facility/Department: [facility] Daily Treatment Note NAME: Julius Clarke : 1940 Date of Service: 07/09/2024 Discharge Recommendations: Continue to assess pending progress, Subacute/Long Term Facility Patient Diagnosis(es): The primary encounter diagnosis was Debility. Diagnoses of Hypokalemia, Low magnesium level, and Low calcium levels were also pertinent to this visit. Assessment Activity Tolerance: Patient limited by pain Discharge Recommendations: Continue to assess pending progress;Subacute/Long Term Facility Plan Occupational Therapy Plan Times Per [...] Minutes 24 PANTERA Bryan Physical Therapy Facility/Department: [facility] Daily Treatment Note NAME: Julius [...] Time Individual Concurrent Group Co-treatment Time In 08 Time Out 0843 Minutes 24 Mirta Frost [...] IVF -D5/0.45NS with 20 KCL Zofran Stop Lutsen Continue Tramadol Medication Monitoring / High Risk Medications: none HTN Condition is stable Treatment plan: Continue current treatment Imaging: no further imaging studies ordered today Medications: Continue Entresto, Bystolic (Toprol XL) S/p Right Humerus Fracture Condition is stable Treatment plan: Follows with Dr Oconnor as outpatient Sling and stephanie to arm PT/OT SS-Discharge planning Imaging: no further imaging studies ordered today Medications: Stop Lutsen Start Tramadol Nutrition status: at risk for malnutrition Radiology Technician consult initiated Hospital Prophylaxis: DVT: Lovenox Stress Ulcer: na Disposition: Shared decision making: All test results, treatment options and disposition options were discussed with the patient today Social determinants of health that may impact management: Pt lives alone and is unable to care for self Code status: Full Code Dis[facility]: [facility] Advanced Care Planning documentation: [x] I have [...] the patient's medical record. [DOES NOT SATISFY [facility] PERFORMANCE] Guerita Gotti-ARIEL Kaplan - ABDULKADIR , ARIEL, RIGHT OF WAY MANAGER-C Hospitalist Medicine 07/09/2024, 8:11 AM Associated attestation - Dayo Vitale MD - 07/09/2024 5:46 PM EST Dayo Vitale M.D. Internal Medicine PA/RIGHT OF WAY MANAGER Attestation Note Patient: Julius Clarke Date of Admission: 07/08/2024 5:41 AM Date of Evaluation: 07/09/2024 I personally evaluated and examined the patient [id number] in conjunction with the PA/RIGHT OF WAY MANAGER and agree with the management and dispostition of the patient. Please see the PA/RIGHT OF WAY MANAGER's note for full details. My barnes findings [...] 4.4 4.3 CL 109* 93* 89* CO2 BUN 8 8 6* CREATININE 0.3* 0.5 [...] (Restricted: peds pts or suitable admitted adults) [[id number]] Collected: 07/08/24 1204 Order Status: Completed Specimen: [...] nucleic acid assay. Rapid influenza A/B antigens [[id number]] Collected: 07/08/24 0632 Order Status: Completed Specimen: Nasopharyngeal Updated: 07/08/24 0656 Flu A Antigen NEGATIVE Comment: for Influenza A Antigen Flu B Antigen NEGATIVE Comment: for Influenza B Antigen. COVID-19, Rapid [[id number]] Collected: 07/08/24631 Order Status: Completed Specimen: Nasopharyngeal [...] and Tx SS for DC planning DC Lutsen, start Tramadol PRN for pain Replace Lytes: IV Ca Gluconate 2 gm x 1 on 07/08 IV MGSO 2 gm x 1 given on 11/20 Klor Con 40 meq x 1 given on 07/08 Start IVF -D5/0.45NS with 20 KCL Disposition: Discharge plan is pending SHARED APC VISIT, PHYSICIAN ATTESTATION: [id number] I personally performed a substantive part of [...] discussed with ABDULKADIR Shah MD , M.D. 07/09/2024 5:41 PM Daughter called for updates [...] trace edema BLE, RUE. Active bowel sounds.) High Tension Tester Strength: Not Performed Nutrition Assessment: Increased nutrient [...] Measures: Height: 154.9 cm (5' 1 ) Radford Body Weight (IBW): 105 lbs (48 kg) [...] Used for Energy Requirements: Current Energy (kcal/day): 0654-3884 (25-28/kg) Weight Used for Protein Requirements: [place]ford Protein (g/day): 62-72g (1.3-1.5g/kg) Method Used for [...] Continue Oral Nutrition Supplement EW[address]INA L[address], NOEMÍ Contact: [phone] Nurse at bedside for shift assessment. Pt [...] to monitor this shift. Occupational Therapy Facility/Department: [facility] Occupational Therapy Initial Assessment Name: Julius Clarke : 1940 Date of Service: 07/08/2024 Discharge Recommendations: Continue to assess pending progress, Subacute/Long Term Facility Patient Diagnosis(es): The primary encounter diagnosis [...] balance Assessment: 83 y/o F admitted to T for hypokalemia. Patient with recent ER visit [...] Ambulation Assistance: Independent Transfer Assistance: Independent Active Associate Dean Of Students: Yes Mode of Transportation: Car Occupation: Retired [...] Learning: None Education Outcome: Verbalized understanding;Demonstrated understanding AM-[facility] AM-[facility] Daily Activity - Inpatient How much [...] much help for eating meals?: [facility] Daily Activity Raw Score: 13 [facility] Inpatient ADL T-Scale Score : 32.03 ADL Inpatient CMS 0-100% Score: 63.03 ADL Inpatient CMS G-Code Modifier : CL Goals Short Term [...] In 1425 Time Out 1440 Minutes 15 DERRELL Cheek/L Physical Therapy Facility/Department: [facility] Physical Therapy Initial Assessment Name: [...] Ambulation Assistance: Independent Transfer Assistance: Independent Active Associate Dean Of Students: Yes Mode of Transportation: Car Occupation: Retired [...] ambulated to bed with assistance from staff. Specialist Icu at bedside at this time to perform [...] safety, care ongoing. documented in this encounter [facility] 07-14-2024 Hospital course Narrative Patient informed of her discharge today to [facility], IV discontinued left wrist and PICC discontinued left upper arm per order Guerita Kaplan. Telemetry removed, belongings gathered and placed in bag. [facility] arranged to pick patient up at 2pm, report called to Guerita [facility] per Mayuri SHAW. All questions answered. Sling remains in place left upper arm. documented in this encounter [facility] 07-14-2024 Hospital Discharge instructions Modesta Rivera LSW - 07/14/2024 9:53 AM EST Continuity of Care Form Patient Name: Julius Clarke : 1940 Admit date: 07/08/2024 Discharge date: 07-14-2024 Code Status Order: Full Code Advance Directives: Advance Care Flowsheet Documentation Admitting Physician: Dayo Vitale MD PCP: Ignacio Cintron DO Discharging Nurse: Mayuri SHAW Discharging Hospital Unit/Room#: 0319/0319-01 Discharging Unit Phone Number: [phone] Emergency Contact: Extended Emergency Contact Information Primary Emergency Contact: Gloria Gutierrez Relation: Child Preferred language: Guinean Secondary Emergency Contact: Ignacio Staley Relation: Child Past Surgical History: Past Surgical History: Procedure Laterality Date APPENDECTOMY CARDIAC CATHETERIZATION CAROTID ENDARTERECTOMY right CORONARY ARTERY BYPASS GRAFT quad 1996 HYSTERECTOMY (CERVIX STATUS UNKNOWN) Immunization History: Immunization [...] Assisted Dressing Assisted Toileting Assisted Feeding Assisted Bedspring Assembler Assisted Med Delivery whole Wound Care Documentation [...] to Facility/ Agency Name: [facility] Address: [address] [place] [id number] Dialysis Facility (if applicable) Name: Address: Dialysis Schedule: Phone: Fax: Ball Assembler/Engineering Administrator signature: PHYSICIAN SECTION Prognosis: Fair Condition at Discharge: Stable Rehab Potential (if transferring to Rehab): Fair Recommended Labs or Other Treatments After Discharge: na Physician Certification: I certify the above information and transfer of Julius Clarke is necessary for the continuing treatment of the diagnosis listed and that she requires Long Term Facility for greater 30 days. Update Admission H&P: No change in H&P PHYSICIAN SIGNATURE: documented in this encounter [facility] 07-06-2024 Hospital Discharge instructions Natalie Nguyen MD - 07/06/2024 8:09 PM EST Tylenol as needed for pain. Use Lutsen in place of Tylenol for pain not [...] cannot be sent through Care Everywhere.Arm Fracture (Guinean)documented in this encounter [facility] 12-21-2023 Hospital Discharge instructions Juan Francisco Hermosillo [...] attachments cannot be sent through Care Everywhere.Abrasions (Guinean)documented in this encounter [facility] 11-28-2022 History of Present illness Narrative Specialist Icu reviewed discharge instructions with patient. Patient aware [...] her plan will be to return to [facility] in [place] following this hospitalization. Patient resides at [facility] in [place]. She has lived there about 3 years. 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 PCP is Dr. Cintron in [place]. Patient has medical insurance and reports no [...] unmet needs or concerns noted by Patient. SUPERVISOR [employer]ATIONAL [employer]ERVATIONS to monitor and assist with any/all discharge [...] this time Scott Denny RD, NOEMÍ Contact: [phone] Specialist Icu to bedside to complete morning assessment. Upon entry to room, pt sitting up in bed, respirations even and unlabored while on room air. Vitals obtained and assessment completed by Lyn JANG precepting with this nurse, see flow sheet for details. Pt denies needs from repairer typewriter at this time. Call light in reach. Care ongoing. Vital signs and assessment completed and charted. Navigator complete. Patient educated erp implementation consultant light, bed, lights, and room. Specialist Icu gone over plan of care with patient. [...] assessment of renally cleared medications. Recent Labs 11/27/220 BUN 31* Recent Labs 11/27/222139 CREATININE 1.10* Estimated Creatinine Clearance: 33 mL/min (A) (based on SCr of 1.1 mg/dL (H)). Estimated CrCl using [place] Body Weight: 29 mL/min (based on IBW 47.76 kg) Height: Ht Readings from Last 1 Encounters: 11/27/22 5' 1 (1.549 m) Weight: Wt Readings from Last 1 Encounters: 11/27/22 140 lb (63.5 kg) The following medication dose has been adjusted based upon renal function per P&T Guidelines: Famotidine 20mg twice daily changed to 20mg once daily Patient arrived to [facility], room 301 via wheelchair, patient independently stood and ambulated to sit on bed. Patient in personal clothes. Patient is alert and orientated and on room air. Specialist Icu assisted patient to put on gown and telemetry applied. Weight was obtained. documented in this encounter [facility] Phone: 11-28-2022 Hospital Discharge instructions Shwetha Alvarado [...] at most local grocery stores, pharmacies, and chain [employer]-stores. If you have any questions about your diet or nutrition, call the hospital and ask for the dietitian. Cardiac: low salt, low fat, low cholesterol documented in this encounter [facility] Phone: 08-12-2022 Hospital Discharge instructions Natalie Nguyen [...] attachments cannot be sent through Care Everywhere.Hyponatremia (Guinean)Vertigo (Guinean)Hawa Maneuver: Vertigo: Exercises (Guinean)documented in this encounter [facility] Phone: 07-08-2021 Hospital Discharge instructions Arnulfo Otero Jr., MD - 07/08/2021 Use the medication as directed. Follow-up with ENT doctor Dr. Donnelly in [place] this coming week. Stop using the Listerine that you are using. The following attachments cannot be sent through Care Everywhere.Stomatitis (Guinean)documented in this encounter [facility] Phone: Evaluation note Diagnosis Aphthous ulcer- Primary Oral aphthae documented in this encounter [facility] Phone: evaluation note* Diagnosis Vertigo- Primary Dizziness and giddiness Hyponatremia Hyposmolality and/or hyponatremia documented in this encounter [facility] Phone: evaluation note* Diagnosis Chest pain- Primary Chest pain, unspecified Hypertension Unspecified essential hypertension documented in this encounter [facility] Work Phone: evaluation note* Diagnosis Sore throat- Primary Acute pharyngitis documented in this encounter [facility] note* Diagnosis Abrasion of oropharynx, initial encounter- Primary documented in this encounter [facility] note* Diagnosis Closed fracture of head of right humerus, initial encounter- Primary documented in this encounter [facility]* Diagnosis Acute hyponatremia- Primary Hyposmolality and/or hyponatremia Debility Debility, unspecified Hypokalemia Hypopotassemia Low magnesium level Low calcium levels Hypocalcemia Acute hyponatremia Hyposmolality and/or hyponatremia Electrolyte imbalance Electrolyte and fluid disorders not elsewhere classified Hypertension Unspecified essential hypertension Nondisplaced fracture of right humerus documented in this encounter [facility] note* Diagnosis Melena- Primary Blood in stool Community acquired pneumonia of left lower lobe of lung documented in this encounter [facility] Discharge instructions* Attachments The following attachments cannot be sent through Care Everywhere. * Sore Thro[facility] (Guinean) [facility] Attachments The following attachments cannot be sent through Care Everywhere. * Pneumonia (Guinean) * Upper GI Bleed (Guinean) [facility] * Rahul Solorzano MD - 09/09/2018 Avoid Bread, Processed meats and Pizza.Low salt diet see attached. Plenty of fluid. The following attachments cannot be sent through Care Everywhere. * Diet, Discharge Instructions for Eating a Low-Salt (Guinean) * My Anxiety Plan ([facility]) (Guinean) in this encounter* Instructions* Nohelia Nassar MD - 10/12/2018 Keep wound clean and dry for 3 days Apply antibiotic ointment to wound every 8 hours for 7-10 days. Over the counter Suture out in 8-10 days Take augmentin 875mg twice a day for 7 days. Return if worse * Attachments The following attachments cannot be sent through Care Everywhere. * Bite, Animal (General) (Guinean) * Laceration: All Closures (Guinean) documented in this encounter* Instructions* Bal Daniel [...] not made for you at discharge, call [phone] to schedule an appointment for 2 weeks status post your surgery Call Dr Morales's office with any concerns. If a medical emergerncy, please call 911 or go to your local emergency room. documented in this encounter* Instructions* Joanne Burks MD - 06/24/2019 CALL YOU TOMORROW * Attachments The following attachments cannot be sent through Care Everywhere. * Blood Pressure: Checking Your ([facility]) (Guinean) documented in this encounter* Attachments The following attachments cannot be sent through Care Everywhere. * Rib Contusion (Guinean) documented in this encounter* Instructions* Bal Daniel [...] MEDICATION INSTRUCTIONS: Take pain medication as prescribed. Lutsen 5-325mg, 1 tablet every 6 hours as needed for pain. Take Antibiotic as prescribed. Keflex 500mg, 1 capsule twice daily for 7 days. See orders regarding resuming your home medications and any new medications. FOLLOW-UP CARE: If a follow-up appointment was not made for you at discharge, call [phone] to schedule an appointment for 2 weeks status post your surgery Call Dr Morales's office with any concerns. If a medical emergerncy, please call 911 or go to your local emergency room. * Attachments The following attachments cannot be sent through Care Everywhere. * Carpal Tunnel Release: Post-op (Guinean) * Carpal Tunnel Syndrome (Guinean) documented in this encounter Assessments Diagnosis Uncontrolled [...] NO MECHANICAL DVT PROPHYLAXIS Bal Daniel PA-C [employer], [place] [address] [place] [address] Status Reason Specialty Diagnoses / Procedures Re ferred By Contact Referred To Contact New Request Diagnoses Left carpal tunnel syndrome Procedures LOW RISK - NO PHARMACOLOGICAL DVT PROPHYLAXIS Bal Daniel PA-C [employer], [facility] [address] Status Reason Specialty Diagnoses / Procedures Referred By Contact Referred To Contact New Request Diagnoses Left carpal tunnel syndrome Procedures DVT/VTE RISK ASSESSMENT Loyer, Bal M, PA-C [address], [place] [address] Status Reason Specialty Diagnoses / Procedures Referred By Contact Referred To Contact New Request Procedures ECG Joanne Burks MD [address] [place] [address] Status Reason Specialty Diagnoses / Procedures Referred By Contact Referred To Contact New Request Diagnoses Carpal tunnel syndrome on right Procedures NO MECHANICAL DVT PROPHYLAXIS Bal Daniel PA [address], [place] [address] Status Reason Specialty Diagnoses / Procedures Re ferred By Contact Referred To Contact New Request Diagnoses Carpal tunnel syndrome on right Procedures LOW RISK - NO PHARMACOLOGICAL DVT PROPHYLAXIS Bal Daniel PA [address], [facility] [place] [address] Status Reason Specialty Diagnoses / Procedures Referred By Contact Referred To Contact New Request Diagnoses Carpal tunnel syndrome on right Procedures DVT/VTE RISK ASSESSMENT Bal Daniel PA [address], [facility] [address] Advance Directives No Advanced Directives Records Found Date Activated Date Inactivated Comments 07/08/2024 11:10 AM 07/14/2024 4:58 PM Date Activated Date Inactivated Comments 11/28/2022 12:06 AM 11/28/2022 6:56 PM Healthcare Agents on File Name Relationship Healthcare Agent [facility] Communication Ignacio Luís Child Primary Decision Maker Samantha Mccullough Child [...] Documents on File Type Date Recorded Patient Chinese Instructor Expl anation ACP-Advance Directive ACP-Power of Air Chipper Latest Code Status on File Code Status [...] Comments Animal Bite patient bit by her jose david dunn Reason Comments Hypertension Pt checked her BP [...] Primary localized osteoarthrosis, forearm, 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 Emesis [...] in sling with follow up with Dr. Oconnor yesterday. Pt states increased weakness and emesis since fall. Pt states decreased PO intake, right shoulder pain and posterior neck pain since fall. Reason Comments Melena Reports starting to have black stool yesterday. Complains of lower back and abd pain. INFORMATION SOURCE (unrecogn ized section and content) DATE CREATED AUTHOR 01/01/2020 [facility] DATE CREATED AUTHOR AUTHOR'S ORGANIZ ATION 08/15/2022 [facility] DATE CREATED AUTHOR AUTHOR'S ORGANIZ ATION 10/14/2024 [facility] Ordered Prescriptions (unrec [...] Care Teams (unrecognized sec tion and content) Tare Worker Relationship Specialty Start Date End Date Ignacio Cintron DO [address] [place] [phone] PCP - General 09/21/15 Tare Worker Relationship Specialty Start Date End Date Ignacio Cintron DO [address] [place] [phone] PCP - General 09/21/15 Tare Worker Relationship Specialty Start Date End Date Ignacio Cintron DO [address] [place] [phone] PCP - General 09/21/15 Tare Worker Relationship Specialty Start Date End Date Ignacio Cintron DO [address] [place] [phone] PCP - General 09/21/15 Tare Worker Relationship Specialty Start Date End Date Ignacio Cintron [address] [place] [address] [phone] PCP - General 09/21/15 Tare Worker Relationship Specialty Start Date End Date Ignacio Cintron [address] [place] [phone] PCP - General 09/21/15 Tare Worker Relationship Specialty Start Date End Date Ignacio CintronDO [address] [place] [phone] PCP - General 09/21/15 Tare Worker Relationship Specialty Start Date End Date Ignacio CintronDO [address] [place] [phone] PCP - General 09/21/15 Scheduled Active and [...] Oral, ONCE, 1 dose, On Sat11/27/22 at 2319 2311 (Given - Provider: Jessi Isaac, COLIN) aspirin EC tablet 81 mg 81 mg, Oral, DAILY, First dose on Sat11/28/22 at 0900, Until Discontinued 09 (Given - Provid er: Lyn Bower) DULoxetine [...] DAILY, First dose on Sat11/28/22 at 0900 09 (Not Given - Provider: Lyn Bower - [...] Midline or Central Line = 20 mL/lumen 910 (Given - Provid er: Lyn Bower)2099 (Due) PRN Medication Order 11/26/2022 11/27/2022 11/28/2022 [...] 15 mL, Mouth/Throat, ONCE, 1 dose, On Celi 12/19/23 at 1615 1620 (Given - Provid er: Nando Hurd RN) Scheduled Medication Order 12/19/2023 12/20/2023 12/21/2023 Benzocaine-Menthol (CEPACOL) 1 lozenge (COMPLETED) 1 lozenge, Oral, ONCE, 1 dose, On 12/21/23 at 1145 1150 (Given - Provid er: Cynthia Car RN) Scheduled Medication Order 07/04/2024 07/05/202407/06/2024 HYDROcodone-acetaminophen (NORCO) 5-325 MG per tablet 1 tablet (COMPLETED) 1 tablet, Oral, ONCE, 1 dose, On Sat07/06/24 at 1715, Maximum dose of acetaminophen is 4000 mg from all sources in 24 hours. 171 (Given - Provid er: Maricarmen Tao RN) HYDROcodone-acetaminophen (NORCO) 5-325 MG per tablet 1 tablet (COMPLETED) 1 tablet, Oral, ONCE, 1 dose, On Sat07/06/24 at 1930, Maximum dose of acetaminophen is 4000 mg from all sources in 24 hours. 1943 (Given - Provid er: Yue Fowler RN) hydrocodone-acetaminophen (NORCO) tablet 5-325 mg (STARTER PACK) This order is for a take home starter pack of medication. Please document Furnish to patient on the OCT. 2032 (Furnished to P atient - Provider: [...] 4 mg, IntraVENous, ONCE, 1 dose, On Sat07/06/24 at 1730 1720 (Given - Provid er: Maricarmen Tao RN) Scheduled Medication Order 07/12/2024 07/13/2024 07/14/2024 amLODIPine (NORVASC) tablet 5 mg 5 mg, Oral, DAILY, First dose on Sat07/10/24 at 1430, Until Discontinued 0857 (Given - Provider: Padmaja Henley, COLIN) 0857 (Given - Provider: Mayuri Driscoll RN) 1012 (Given - Provider: Mayuri Driscoll RN) aspirin chewable tablet 81 mg 81 mg, Oral, DAILY, First dose on Sat07/08/24 at 1130, Until Discontinued 0857 (Given - Provider: Padmaja Henley RN) 0856 (Given - Provider: Mayuri Driscoll RN) 1012 (Given - Provider: Mayuri Driscoll RN) diclofenac [...] since Sat07/10/2024 at 0720 until manually unheld 2099 (Automatically Held - Provider: Dayo Vitale MD) 2099 (Automatically Held - Provider: Dayo Vitale MD) 2099 (Automatically Held - Provider: Dayo Vitale MD) enoxaparin (LOVENOX) injection 40 mg 40 mg, SubCUTAneous, DAILY, First dose on Sat07/08/24 at 1130, Until Discontinued, Indication of Use: Prophylaxis-DVT/PE 0857 (Given - Provider: Padmaja Henley RN) 0856 (Given - Provider: Mayuri Driscoll RN) 1011 (Given - Provider: Mayuri Driscoll RN) ezetimibe (ZETIA) tablet 5 mg 5 mg, Oral, EVERY MORNING, First dose on Sat07/08/24 at 1130, Until Discontinued 08 (Given - Provider: Padmaja Henley RN) 0857 (Given - Provider: Mayuri Driscoll RN) 1011 (Given - Provider: Mayuri Driscoll RN) ketorolac [...] RN)1929 (Given - Provider: Lelia Barraza RN) 08 (Given - Provider: Mayuri Driscoll RN)2005 (Given - Provider: Dina Bingham, RN) 1010 (Given - Provider: Mayuri Driscoll RN)2099 (Due) methylPREDNISolone sodium succ (SOLU-MEDROL) 125 mg in sterile water 2 mL injection (COMPLETED) 125 mg, IntraVENous, ONCE, On Sat07/13/24 at 0830, For 1 dose, Reconstitute 125 mg vial with 2 mL diluent. 0856 (Given - Provider: Mayuri Driscoll RN) metoprolol succinate (TOPROL XL) extended release tablet 100 mg 100 mg, Oral, DAILY, First dose on Sat07/08/24 at 1130, Until Discontinued, Substituted for nebivolol (BYSTOLIC) 08 (Given - Provider: Padmaja Henley RN) 0855 (Given - Provider: Mayuri Driscoll RN) 1011 (Given - Provider: Mayuri Driscoll, COLIN) montelukast (SINGULAIR) tablet 10 mg 10 mg, Oral, NIGHTLY, First dose on Sat07/08/24 at 2100, Until Discontinued 1929 (Given - Provider: Lelia Barraza, COLIN) 2005 (Given - Provider: Dina Bingham, RN) 2099 (Due) oyster shell calcium w/D 500-5 MG-MCG tablet 1 tablet 1 tablet, Oral, DAILY WITH BREAKFAST, First dose on Celi 07/09/24 at 0800, Until Discontinued, Administer, preferably with food, 2 hours before or after other medications. 07 (Given - Provider: Padmaja Henley RN) 0721 [...] Driscoll RN)2005 (Given - Provider: Dina Bingham, RN) 1012 (Given - Provider: Mayuri Driscoll, COLIN)2100 (Due) sodium chloride flush 0.9 % injection 10 mL 10 mL, IntraVENous, EVERY 12 HOURS SCHEDULED (2 times per day), First dose on Sat07/08/24 at 1130, Until Discontinued 0858 (Given - Provider: Padmaja Henley RN)2100 (Given - Provider: Lelia Barraza, COLIN) 0911 (Given - Provider: Mayuri Driscoll, COLIN)2007 (Given - Provider: Dina Bingham, RN) 1059 (Not Given - Provider: Mayuri Driscoll [...] 20 mL/lumen 0858 (Given - Provider: Padmaja Henley, COLIN)2101 (Given - Provider: Lelia Barraza, COLIN) 0912 (Not Given - Provider: Mayuri Driscoll RN - Reason: Other)2008 (Given - Provider: Dina Bingham RN) 1100 (Not Given - Provider: Mayuri Driscoll RN - Reason: IV Fluid Infusing)2100 (Due) sodium chloride tablet 2 g 2 g, Oral, 2 TIMES DAILY WITH MEALS, First dose on Sat07/11/24 at 0800, Until Discontinued 0723 (Given - Provider: Padmaja Henley, COLIN)1751 (Given - Provider: Padmaja Henley RN) 0721 [...] BE BASED ON THE PRIMARY CLINICAL RECORDS. [employer] [facility]. provides no warranty or guarantee of the accuracy or completeness of information in this document.
== END 2025-01-17 12:51 | disposition home or self-care (01) ==
LOC: ER 12:52
PROVIDERS: Emergency Provider Emergency Medicine; PCP Internal Medicine
DX: M25.562 Pain in left knee (principal)
CPT/HCPCS: 96372; 99284; J1885; J2919